=== PATIENT | female | born 2005 | race Caucasian/White ===

== ENCOUNTER → 2025-08-29 | Outpatient (CLI) | payer MEDICAID, SELFPAY ==
[2025-08-29 13:31] LABS: Hepatitis C Antibody Nonreactive (Nonreactive)
== END | disposition home or self-care (01) ==
PROVIDERS: PCP Pediatrics; Visit Provider Advanced Practice Midwife
DX: O09.90 Supervision of high risk pregnancy, unspecified, unspecified trimester (principal); Z3A.30 30 weeks gestation of pregnancy
CPT/HCPCS: 36415; 86803

== ENCOUNTER → 2025-10-10 | Outpatient (CLI) | payer MEDICAID, SELFPAY | END | disposition home or self-care (01) | LOC: LABSPEC 11:15 | PROVIDERS: PCP Pediatrics; Visit Provider Advanced Practice Midwife | DX: O09.93 Supervision of high risk pregnancy, unspecified, third trimester (principal); Z3A.36 36 weeks gestation of pregnancy | CPT/HCPCS: 87070; 87205; 87081 ==

== ENCOUNTER → 2025-10-22 | Outpatient (CLI) | payer OTHER, MEDICAID, SELFPAY ==
--- NOTE | 2025-10-22 12:56 | US_ITS ---
PROCEDURE: OB LIMITED WITH BIOMETRICS 10/22/2025 REASON FOR EXAM: LARGE FOR GESTATIONAL AGE TECHNIQUE: Procedure Code: [id number] Modality: US Procedure: OB LIMITED WITH BIOMETRICS COMPARISON: None FINDINGS Number: 1 Position: Vertex Placental Position: Anterior grade 1 Placental Abnormalities: No evidence of previa. DIMENSIONS: Biparietal Diameter: 9.3 cm/38 weeks 0 days Head Circumference: 33.1 cm/37 weeks 5 days Abdominal Circumference: 37.5 cm/41 weeks 3 days Femur Length: 7.5 cm/38 weeks 3 days ESTIMATED WEIGHT: 4036 g ESTIMATED WEIGHT PERCENTILE (24+ weeks): 93.9 ESTIMATED GESTATIONAL AGE: By Ultrasound: 38 weeks 5 days ESTIMATED DATE OF DELIVERY: By Ultrasound: 10/31/2025 BIOPHYSICAL ASSESSMENT: Amniotic Fluid Volume: 20.9, with largest pocket measuring 6.7 cm Cardiac Motion: 131 (average) Trunk and Limb Motion: Present. MATERNAL ANATOMY: Adnexa: Neither maternal ovary is successfully identified. Cervical Length (if measured): ANATOMY: Detailed anatomical survey of the fetus was not performed due to advanced age and position. Limited evaluation does not show a sonographic abnormality US/OB Limited With Biometrics IMPRESSION: Single live intrauterine at 38 weeks 5 days by current ultrasound wit h a IVETTE of 10/31/2025. Heart rate of 131 beats per minute. No suspicious sonographic findings. Reading Location: [id number]
--- OUTSIDE RECORDS SUMMARY | 2025-10-22 12:57 | XMS RPT_ITS | CCD ---
Author Organization [facility] Inform ion Partnership [facility] Care Team Providers Care Dye Tank Tender Name Role Phone Jacob Rodriguez MD Primary Care Provider JENNIFER BARRETT, DR JACOB Manuel Primary Care Physician Jacob Rodriguez MD Primary Care Provider Podlogar GRASS FARMER.Risa HERNDON Primary Care Provider Abhi Bailey MD Primary Care Provider JENNIFER BARRETT, DR JACOB Manuel Primary Care Unavailprateek PEREZ APRN-TRACEE, NGOZI Blair Attending Nitza RODRIGUEZ MD, DR JACOB Manuel Primary Care Unavailprateek KOCH APRN-TRACEE, IDRIS Blair Attending Viola RODRIGUEZ MD, DR JACOB Manuel Primary Care UnavailJah DILL, NGOZI Blair Attending Nitza RODRIGUEZ MD, DR JACOB Mnauel Primary Care Unavailprateek KOCH APRN-TRACEE, IDRIS Blair Attending Viola RODRIGUEZ MD, DR JACOB Manuel Primary Care Unavailabl martha KOCH APRN-TRACEE, IDRIS Blair Attending Viola RODRIGUEZ MD, DR JACOB Manuel Primary Care Unavailabl e PATITO SURESH DO Attending Shavon RODRIGUEZ MD, DR AJCOB Manuel Primary Care Unavailprateek KOCH APRN-TRACEE, IDRIS Blair Attending Viola RODRIGUEZ MD, DR JACOB Manuel Primary Care UnavailJah DILL, NGOZI Blair Attending VU Cox MD Admitting Unavailable VU WILKINSON MD Primary Care Unavailable VU WILKINSON MD Attending Unavailable JACOB RODRIGUEZ Referring Unavailable JACOB RODRIGUEZ Consulting Unavailable PROVIDER, UNKNOWN Consulting Unavailable TRUE BURNHAM CNM Admitting Unavailable TRUE BURNHAM CNM Primary Care Unavailable TRUE BURNHAM CNM Attending Unavailable JENNIFER, JACOB Consulting Unavailable PROVIDER, UNKNOWN Consulting Unavailable UPTAINMARCOSM Admitting Unavailable UPTAIN, CRYSTAL CNM Primary Care Unavailable UPTAIN, CRYSTAL CNM Attending Unavailable JENNIFER, JACOB Consulting Unavailable PROVIDER, UNKNOWN Consulting Unavailable JENNIFER, JACOB Referring Unavailable BANDAR BREONNA DO Admitting Unavailable KLUEKONSTANTIN, BREONNA DO Primary Care Unavailable KLGAYLA BREONNA DO Attending Unavailable JENNIFER, JACOB Consulting Unavailable PROVIDER, UNKNOWN Consulting Unavailable Unavailable Primary Care Provider UnavailALBINO Wayne Attending Unavailable Lynn BARRETT, Abhi Carr Primary Care Provider Podlogar GRASS FARMERRisa LAI Unavailable ABHI BAILEY Primary Care Unavailab ABHI Dixon Primary Care Unavailab RISA Vega Attending Unavailable ABHI BAILEY Primary Care Unavailab ABHI Dixon Primary Care Unavailab DENISE Hu Referring Unavailable ABHI BAILEY Primary Care Unavailab david RODRIGUEZ MD, DR JACOB Manuel Primary Care Unavailprateek KOCH APRN-TRACEE, IDRIS Blair Attending Viola DILL, IDRIS Blair Attending Viola RODRIGUEZ MD, DR JACOB Manuel Primary Care UnavailAida Cruz Attending Unavailable Jennifer, Jacob Primary Care Unavailable Jennifer, Jacob Attending Unavailable Jennifer, Jacob Primary Care Unavailable Jennifer, Jacob Attending Unavailable Jennifer, Jacob Primary Care Unavailable Jennifer, Jacob Attending Unavailable Jennifer, Jacob Primary Care Unavailable Aida Watkins Attending Unavailable Jennifer, Jacob Primary Care Unavailable Jennifer, Jacob Referring Unavailable Allergies Allergy Classification Reported Allergen(s) Allergy Type Date of Onset Reaction(s) Facility (14 sources) Methylphenidate; Translations: [METHYLPHENIDATE] Drug Allergy 11-10-2015 Rash [facility] Medications Current Medications Medication Drug Class(es) Dates Sig (Normalized) Sig (Original) amoxicillin 500 mg oral capsule (1 source) Penicillin-class Antibacterial Start: 08-16-2024 End: 08-23-2024 take 2 capsules by mouth twice daily amoxicillin (AMOXIL) 500 mg capsule Indications: Acute otitis media, left Take 2 capsules by mouth two times a day for 7 days. 28 capsule 08/16/2024 08/23/2024 Active amoxicillin 875 mg / clavulanate 125 mg oral tablet (2 sources) Penicillin-class Antibacterial Start: 08-08-2024 End: 08-15-2024 take 1 tablet by mouth twice daily amoxicillin-clavul anate potassium (AUGMENTIN) 875-125 mg per tablet Take 1 tablet by mouth two times a day for 7 days. 14 tablet 08/08/2024 08/15/2024 Active chlorhexidine gluconate 1.2 mg/ml mouthwash (1 source) Start: 01-21-2024 take 15 mL by mouth twice daily chlorhexidine (PERIDEX) 0.12 % solution Take 15 mLs by mouth two times a day. 473 mL 1 01/21/2024 Active Start: 01-21-2024 take 15 mL by mouth twice daily chlorhexidine (PERIDEX) 0.12 % solution Take 15 mLs by mouth two times a day. 473 mL 1 01/21/2024 Active Magnesium (9 sources) MAGNESIUM ORAL T carlos by mouth. Active MAGNESIUM ORAL T carlos by mouth. 0 Active Comment on above: Take by mouth. metFORMIN hydrochloride 500 mg oral tablet (3 sources) Biguanide Start: 11-11-19 MetFORMIN (Eqv-Glucophage XR) 500 mg oral tablet, EXTENDED RELEASE Dose : 500 mg = 1 tab(s), Oral, qDay, # 30 tab(s), 0 Refill(s) Start Date: 11/11/23 Status: Ordered Medication Dispense Status: Completed Quantity: 30.0 Unit: tab(s) Total Allowed Fills: 1 Fills Dispensed: 0 metoclopramide 10 mg oral tablet (1 source) Dopamine-2 Receptor Antagonist Start: 06-26-20 End: 07-03-20 Reglan 10 mg oral tablet Dose : 10 mg = 1 tab(s), Oral, TID, X 7 day(s), # 21 tab(s), 0 Refill(s), 07/03/23 6:24:00 PM EDT Start Date: 06/26/23 Stop Date: 07/03/23 Status: Ordered metroNIDAZOLE 500 mg oral tablet (3 sources) Nitroimidazole Antimicrobial Start: 03-30-20 End: 04-06-20 take 1 tablet by mouth twice daily metroNIDAZOLE (FLAGYL) 500 mg tablet Indications: Vaginal discharge Take 1 tablet by mouth twice daily for 7 days. 14 tablet 0 03/30/2023 04/06/2023 Active Start: 03-09-2023 End: 03-16-2023 take 1 tablet by mouth twice daily metroNIDAZOLE (FLAGYL) 500 mg tablet Take 1 tablet by mouth twice daily for 7 days. 14 tablet 0 03/09/2023 03/16/2023 Active Comment on above: Take 1 tablet by helen twice daily for 7 days. nitrofurantoin, macrocrystals 25 mg / nitrofurantoin, monohydrate 75 mg oral capsule (2 sources) Nitrofuran Antibacterial Start: 03-30-20 End: 04-04-20 take 1 capsule by mouth twice daily nitrofurantoin monohydrate and macrocrystal (MACROBID) 100 mg capsule Indications: Dysuria Take 1 capsule by mouth twice daily for 5 days. 10 capsule 0 03/30/2023 04/04/2023 Active Comment on above: Take 1 capsule by mo [facility] twice daily for 5 days. ondansetron 4 mg oral tablet (1 source) Serotonin-3 Receptor Antagonist Start: 04-12-20 End: 04-15-20 Zofran 4 mg oral tablet Dose : 4 mg = 1 tab(s), Oral, q8h, PRN Nausea/Vomiting, X 3 day(s), # 8 tab(s), 0 Refill(s), 04/15/22 2:39:00 EDT, Abdominal pain Vomiting Start Date: 04/12/22 Stop Date: 04/15/22 Status: Ordered penicillin v potassium 500 mg oral tablet (2 sources) Start: 01-21-20 End: 01-28-20 take 1 tablet by mouth four times daily penicillin v potassium (VEETID) 500 MG tablet Indications: Dental infection Take 1 tablet by mouth 4 times daily for 7 days. 28 tablet 0 01/21/2024 01/28/2024 Active Start: 01-21-2024 End: 01-21-2024 penicillin v potassium (VEET ID) tablet 500 mg PNV no.153/FA/om3/dha/epa/fi sh ( GUMMIES ORAL) (9 sources) PNV no.153/FA/om 3/dha/epa/fish ( GUMMIES ORAL) Take by mouth. Active PNV no.153/FA/om 3/dha/epa/fish ( GUMMIES ORAL) Take by mouth. 0 Active Comment on above: Take by mouth. AD oral tablet (3 sources) Start: 11-11-2023 take 1 tablet by mouth once daily AD oral tablet Dose = 1 tab(s), Oral, Daily, # 30 tab(s), 0 Refill(s) Start Date: 11/11/23 Status: Ordered Medication Dispense Status: Completed Quantity: 30.0 Unit: tab(s) Total Allowed Fills: 1 Fills Dispensed: 0 Start: 11-11-2023 take 1 tablet by helen th once daily AD oral tablet Dose = 1 tab(s), Oral, Daily, # 30 tab(s), 0 Refill(s) Start Date: 11/11/23 Status: Ordered sertraline 50 mg oral tablet (11 sources) Serotonin Reuptake Inhibitor Start: 08-16-2023 Zoloft 50 mg oral tablet Dose : 50 mg = 1 tab(s), Oral, Daily, 0 Refill(s) Start Date: 11/11/23 Status: Ordered Medication Dispense Status: Completed Total Allowed Fills: 1 Fills Dispensed: 0 Comment on above: Take 1 tablet by helen th once daily. Completed/Discontinued Medications Medication Drug Class(es) Dates Sig (Normalized) Sig (Original) adapalene 0.003 mg/mg / benzoyl peroxide 0.025 mg/mg topical gel (12 sources) Retinoid Start: 12-03-2020 End: 08-16-2023 EPIDUO FORTE 0.3-2.5 % benzonatate 100 mg oral capsule (1 source) Non-narcotic Antitussive Start: 07-23-2021 End: 01-20-2022 take 2 capsules by mouth three times daily as needed benzonatate (TESSALON PERLE) 100 mg capsule Indications: URI with cough and congestion Take 2 capsules by mouth three times daily as needed. 30 capsule 0 07/23/2021 01/20/2022 Discontinued Comment on above: Take 2 capsules by m out three times daily as needed. dicyclomine hydrochloride 10 mg oral capsule (8 sources) Anticholinergic Start: 04-12-2022 End: 04-17-2022 dicyclomine 10 mg oral capsule Dose : 10 mg = 1 cap(s), Oral, QID, # 20 cap(s), 0 Refill(s), Abdominal pain Vomiting Start Date: 04/12/22 Stop Date: 04/17/22 Status: Ordered escitalopram 20 mg oral tablet (10 sources) Serotonin Reuptake Inhibitor Start: 04-14-2022 End: 08-16-2023 take 1 tablet by mouth once daily escitalopram oxalate (LEXAPRO) 20 mg tablet Take 1 tablet by mouth once daily. 30 tablet 0 04/14/2022 08/16/2023 Discontinued (Course of therapy completed) Start: 03-12-2022 End: 04-14-2022 take 1 tablet by mouth once daily escitalopram oxalate (LEXAPRO) 10 mg tablet Take 1 tablet by mouth once daily. 30 tablet 0 03/12/2022 04/14/2022 Discontinued Comment on above: Take 1 tablet by helen once daily. Ethinyl Estradiol / norgestimate (12 sources) Progestin, Estrogen Start: 10-31-2019 End: 08-16-2023 MONO-LINYAH 0.25-35 mg-mcg per tablet Start: 10-31-2019 MONO-LINYAH 0. 25-35 mg-mcg per tablet FLUoxetine 10 mg oral capsule (18 sources) Serotonin Reuptake Inhibitor Start: 03-12-2022 End: 08-16-2023 take 3 capsules by mouth once daily, then take 2 capsules by mouth once daily, then take 1 capsule by mouth once daily FLUoxetine (PROZAC) 10 mg capsule Take 3 capsules by mouth once daily for 7 days, THEN 2 capsules once daily for 7 days, THEN 1 capsule once daily for 7 days. 42 capsule 0 03/12/2022 08/16/2023 Discontinued (Course of therapy completed) Start: 01-20-2022 End: 03-16-2022 take 1 capsule by mouth once daily FLUoxetine (PROZAC) 40 mg capsule Take 1 capsule by mouth once daily. 30 capsule 2 02/14/2022 03/12/2022 Discontinued Start: 01-13-2022 End: 03-12-2022 take 1 capsule by mouth once daily FLUoxetine (PROZAC) 10 mg capsule Take 1 capsule by mouth once daily. 30 capsule 0 01/13/2022 03/12/2022 Discontinued Start: 01-13-2022 End: 01-20-2022 take 1 capsule by mouth once daily FLUoxetine (PROZAC) 20 mg capsule Take 1 capsule by mouth once daily. 30 capsule 0 01/13/2022 01/20/2022 Discontinued Comment on above: Take 1 capsule by mo uth once daily. Take 3 capsules by m outh once daily for 7 days, THEN 2 capsules once daily for 7 days, THEN 1 capsule once daily for 7 days. spironolactone 100 mg oral tablet (12 sources) Aldosterone Antagonist Start: 01-21-20 End: 08-16-20 23 take 1 tablet by mouth once daily spironolactone (ALDACTONE) 100 mg tablet Take 1 tablet by mouth once daily. 0 01/20/2022 08/16/2023 Discontinued (Course of therapy completed) Comment on above: Take 1 tablet by helen once daily. Problems Active Problems Problem Classification Problem Date Documented Date Episodic/Chronic Abdominal pain (1 source) Abdominal pain; Translations: [Unspecified abdominal pain] Onset: 04-12-2022 Episodic Administrative/social admission (1 source) Patient encounter status; Translations: [Persons encountering health services in other specified circumstances] 08-16-2023 Episodic Anxiety disorders (20 sources) Generalized anxiety disorder; Translations: [Generalized anxiety disorder] Onset: 01-20-2022 Chronic Diabetes or abnormal glucose tolerance complicating ; childbirth; or the puerperium (1 source) Personal history of gestational diabetes; Translations: [Personal history of gestational diabetes] Onset: 08-29-2025 Episodic Disorders of teeth and jaw (2 sources) Infection of tooth; Translations: [Periapical abscess without sinus] Onset: 01-21-2024 01-21-2024 Episodic Genitourinary symptoms and ill-defined conditions (2 sources) Increased frequency of urination; Translations: [Frequency of micturition] Episodic Headache; including migraine (1 source) Headache; Translations: [Nonintractable episodic headache, unspecified headache type] 07-27-2023 Episodic Mood disorders (20 sources) Depressive disorder; Translations: [Depressive disorder] Onset: 01-20-2022 Chronic Mood disorders (2 sources) Mood disorders; Translations: [Anxiety and depression] Onset: 07-16-2024 Nausea and vomiting (1 source) Vomiting; Translations: [Vomiting, unspecified] Onset: 04-12-2022 Episodic Other complications of (2 sources) Supervision of high risk , unspecified, unspecified trimester; Translations: [Supervision of high risk , unspecified, unspecified trimester] Onset: 08-29-2025 Episodic Other complications of (1 source) Other specified related conditions, unspecified trimester; Translations: [Other specified related conditions, unspecified trimester] Onset: 08-29-2025 Episodic Other complications of (1 source) Supervision of with other poor reproductive or obstetric history, unspecified trimester; Translations: [Supervision of with other poor reproductive or obstetric history, unspecified trimester] Onset: 08-29-2025 Episodic Other female genital disorders (2 sources) Vaginal discharge; Translations: [Other specified noninflammatory disorders of vagina] Episodic Other infections; including parasitic (1 source) Personal history of other infectious and parasitic diseases; Translations: [Personal history of other infectious and parasitic diseases] Onset: 08-29-2025 Episodic Other lower respiratory disease (2 sources) Cough; Translations: [Acute cough] 08-08-2024 Episodic Other upper respiratory infections (2 sources) Acute upper respiratory infection; Translations: [Acute upper respiratory infection, unspecified] 08-08-2024 Episodic Otitis media and related conditions (2 sources) Acute right otitis media; Translations: [Otitis media, unspecified, right ear] 08-08-2024 Episodic Residual codes; unclassified (2 sources) 30 weeks gestation of ; Translations: [30 weeks gestation of ] Onset: 08-29-2025 Episodic Residual codes; unclassified (1 source) Personal history of other specified conditions; Translations: [Personal history of other specified conditions] Onset: 08-29-2025 Episodic Residual codes; unclassified (1 source) Unspecified blood type, Rh negative; Translations: [Unspecified blood type, Rh negative] Onset: 08-29-2025 Episodic Unclassified (1 source) Acute cough; Translations: [Acute cough] Onset: 08-08-2024 Past or Other Problems Problem Classification Problem Date Documented Date Episodic/Chronic Disorders usually diagnosed in infancy, childhood, or adolescence (6 sources) Attention deficit hyperactivity disorder, predominantly inattentive type; Translations: [Other specified behavioral and emotional disorders with onset usually occurring in childhood and adolescence] Onset: 04-19-2011 Resolved: 01-20-2022 01-20-2022 Chronic Other and delivery including normal (10 sources) ; Translations: [Encounter for supervision of normal , unspecified, unspecified trimester] Onset: 02-08-2023 06-26-2023 Episodic Comment on above: System added from do cumentation. Status documented as Yes on Admission Other screening for suspected conditions (not mental disorders or infectious disease) (1 source) Encounter for screening for uncertain dates; Translations: [Encounter for screening for uncertain dates] Onset: 03-21-2025 Episodic Residual codes; unclassified (1 source) 9 weeks gestation of ; Translations: [9 weeks gestation of ] Onset: 03-21-2025 Episodic Results Test Name Value Interpretation Reference Range Facility Hepatitis C Antibodyon 08-29 Hepatitis C Ab Non-Reactive Normal Nonreactive [facility] Comment on above: Result Comment: Reac tive: Presumptive evidence of antibodies to HCV. Follow CDC recommendations for supplemental testing. Non-Reactive: Antibodies to HCV were not detected; does not exclude the possibility of exposure to HCV Reactive Results are presumptive evidence of antibodies to HCV. Follow CDC recommendations for supplemental testing. Order confirmation testing: HCV Quant by PCR testing - HCVPCR #[id number] Non Reactive: < 0.8 Equivocal: >/= 0.8 to < 1.0 Reactive: >/= 1.0 The CDC requires that a reactive/equivocal HCV antibody result be sent out for confirmation. HCV Quant by PCR testing. Performed By: #### L [id number] #### [facility] [address] [place], [address] After School Counselor Office Visit Reporton 08-29-2025 After School Counselor Office Visit Report [facility] [address], [address] [place] [address] OFFICE VISIT Date of Service: 08/29/25 MR#: [id number] Acct: [id number] Name: SHERIF LICONA Rep #: [id number] : 2005 Provider: TRACEE Sheth ams Age/Sex: 19/F Location: [facility] [place] Status: Signed Intake Vital Signs 08/29/25 08:39 Height 5 ft 2 in Weight: 172 lb 9 oz BMI 31.5 BP 113/75 Intake Visit Reasons: *NEW* NOB TERRANCE 31wk Chief Complaint: New OB Sanitation Worker Required: No Is patient in pain?: No Allergies No Known Allergies Allergy (Unverified 08/29/25 08:36) Medications ???Medication ???Instructions ???Recorded ???Confirmed ???Type PNV 153-FA 400 mcg-om3 35 mg-dha tab PO 08/14/25 08/29/25 History 25 mg-epa 5 mg-fish oil chew tablet citalopram 10 mg tablet 10 mg PO QDAY 08/14/25 08/29/25 Hi story Last Menstrual Period: 01/25/25 : Yes Have you fallen in the past year?: No PFSH PFSH Surgical History [place] teeth extracted History of tonsillectomy Family History Grandmother Diabetes Paternal Cancer, Onset Age: 65 Paternal Lung brain cancer- Smoker Grandfather Myocardial infarction Paternal Social History adopted: No household members: children number of children: 1 service: No current occupational status: employed current occupation: [employer] current occupational exposures/hazards: No pets and animals: Yes (Avoid litterbox- Pt wears gloves, mask and washes hands after. ) pets and animals: cat(s) history of recent travel: No sexually active: Yes Smoking Status: Former smoker quit date: 01/28/25 Electronic Cigarette Use: with nicotine quit status: quit date established alcohol intake: never substance use type: does not use well-balanced diet: about half the time caffeine: Yes (occasional) Type: carbonated beverages Number of servings: 1 and coffee Number of servings: 1 eating out: rarely or never during the past year weight has: decreased > 10 lbs what type of physical activity do you participate in: none neeta/confucianism: Tenriism seatbelt use: always do you feel safe at home: Yes additional social history: Does not wish to list FOB History 2 Elective abortions Hx Para 1 Spontaneous abortions Hx # Term Pregnancies Ectopic pregnancies Hx # Pregnancies Multiple births # of living children 1 Past Pregnancies Del. Date Name GA/Weeks Outcome Route Bth Weight Infant Gen Labor Lgth Anesthesia Del Locatn Provider FOB 11/16/23 Yoni 38 live - full term 7#10oz Male none Nickerelillian Bowen Delivery Date: 11/16/23 Last Updated by: Debbie Keenan GDM HPI *NEW* NOB TERRANCE 31wk Details: SHERIF LICONA is a 19 year old who presents for New OB visit. OB Visit IVETTE Calculator Estimated Delivery Date Method Current WG Current Estimate 11/01/25 LMP (Certain) 30w 6d Comments: HIV: Urine Culture: Sequential Screen: NIPT Screen: Estimated Due Date: 11/01/25 Expected Delivery Route/Plan Labor Preferences- CB/BF classes: [] labor support person: [] labor intervention preferences: [] pain management options preferred: [] cut cord/dad catch: [] : [] PP control planned: [] discussed possible routes of delivery and associated risks: [] special requests: [] Specific Issue/Plans Covid status: [] Flu vaccine: [] Tdap vaccine: [] Rhogam: [] LARC form signed: [] Problem list reviewed and updated with the most current plan of care details and appropriate orders placed. Relevant counseling for the gestational age provided. Continue routine care and follow up unless otherwise noted in visit notes/problem list details Initial Weight: 172 lb Date -???-???-???-???-??? -???-???-???-???-??? -???-???- EGA Weight BP Urine Prot -???-???-???-???-??? -???-???-???-???-??? -???-???- Glucose FHR FuHt Pres Dilation -???-???-???-???-??? -???-???-???-???-??? -???-???- Effaced St Visit Note 08/29/25 -???-???-???-???-??? -???-???-???-???-??? -???-???- 30w 6d 172 lb 9 oz (+9 oz) 113/75 Negative -???-???-???-???-??? -???-???-???-???-??? -???-???- Negative 135 30 -???-???-???-???-??? -???-???-???-???-??? -???-???- KW- TERRANCE from My OBGYN. appears hep C was not drawn with NOB labs.-ordered. rest reviewed and normal. Normal glucose. declines tdap and flu. LARC today. Menstrual History Last Menstrual Period: 01/25/25 Reported LMP: definite Normal amount/duration: Yes Frequency in days: 28-30 On hormonal BC at conception: No hCG+: 02/20/25 Antepartum Record Genetic Screening: Congenital Heart Def (more content not included)... [facility] SHERIF LICONA ([id number]) 3 F Date Time Provider Department 12/01/24 8:15 AM RAVI NAZARIO [facility] During your visit today, we recorded the following information about you: Temperature Pulse Respiration Blood pressure 97.6 degrees 119/minute 19/minute 100/68 Weight 65.2 kg Ravi Nazario, PA 12/01/2024 8:15 AM Signed Rest, increase water intake Motrin or Tylenol as needed for fever or pain. Salt water gargles, chloraseptic spray or lozenges as needed for sore throat. Warm beverages, honey. Nasal saline spray as needed Cool mist humidifier at night A cold normally lasts 7-10 days. If your symptoms are lasting longer, develop fever, or worsening by that time instead of improving then return to clinic or follow up with PCP for re-evaluation. Tylenol (generic acetaminophen) 500 mg-2 tabs every 8 hrs. as needed for fever and aches Ibuprofen 600 mg (3-200mg tablets) every 6 hours -Mucinex (generic is fine) Guaifenesin 1200 mg twice daily to help with cough and to thin out mucus Ravi Nazario PA 12/01/2024 8:17 AM Signed This note was created using [employer]. Subjective Sherif Licona is a 19 year old female. HPI 19-year-old female presents for cough, congestion, sneezing x 2 days. Patient states she started getting sick a few days ago. She has cough, nasal congestion. No fevers. No chest pain or shortness of breath. She took Tylenol Cold and flu this morning. She states she has been around sick contacts. No other complaint. PAST MEDICAL HISTORY Diagnosis Date ADD (attention deficit disorder with hyperactivity) ADD (attention deficit disorder) 04/19/2011 Anxiety and depression Headaches PAST SURGICAL HISTORY Procedure Laterality Date TONSILLECTOMY AND ADENOIDECTOMY ALLERGIES Patient has no known allergies. MEDICATIONS sertraline (ZOLOFT) 50 mg tablet Take 1 tablet by mouth once daily. PNV no.153/FA/om3/dha/ep a/fish ( GUMMIES ORAL) Take by mouth. (Patient not taking: Reported on 08/08/2024) MAGNESIUM ORAL Take by mouth. (Patient not taking: Reported on 08/08/2024) FAMILY HISTORY Problem Relation Age of Onset None Mother None Father other (ETOH) Maternal Grandmother other (ETOH) Maternal Grandfather Diabetes Paternal Grandmother Lung Cancer Paternal Grandmother Depression Paternal Grandmother Diabetes Paternal Grandfather Ischemic Heart Disease Paternal Grandfather Social History Tobacco Use Smoking status: Never Passive exposure: Yes Smokeless tobacco: Never Tobacco comments: outdoors Vaping Use Vaping status: Former Substance Use Topics Alcohol use: Not Currently Drug use: Not Currently Review of Systems Constitutional: Negative for chills and fever. HENT: Positive for congestion and sneezing. Negative for ear pain and sore throat. Respiratory: Positive for cough. Negative for shortness of breath. Cardiovascular: Negative for chest pain. Gastrointestinal: Negative for diarrhea and vomiting. Objective BP 100/68 Pulse 119 Temp 36.4 ?C (97.6 ?F) Resp 19 Wt 65.2 kg (143 lb 11.8 oz) LMP 08/02/2024 SpO2 98% Physical Exam Vitals and nursing note reviewed. Constitutional: General: She is not in acute distress. Appearance: Normal appearance. She is not toxic-appearing. HENT: Right Ear: Tympanic membrane and ear canal normal. Left Ear: Tympanic membrane and ear canal normal. Nose: Nose normal. Mouth/Throat: Mouth: Mucous membranes are moist. Pharynx: Oropharynx is clear. Eyes: Conjunctiva/sclera: Conjunctivae normal. Cardiovascular: Rate and Rhythm: Normal rate and regular rhythm. Pulmonary: Effort: Pulmonary effort is normal. Breath sounds: Normal breath sounds. No wheezing, rhonchi or rales. Skin: General: Skin is warm and dry. Neurological: Mental Status: She is alert. Assessment and Plan ASSESSMENT/PLAN: 1. URI, acute - ICD9: 465.9, ICD10: J06.9 - Discussed viral etiology and rationale for treatment. - Symptomatic treatment with prn analgesia - Supportive care with fluids and rest - The patient may also use OTC cough and cold meds as needed. -Declines COVID/flu/RSV swab Diagnosis and treatment plan were discussed and questions were answered to the patient's satisfaction. Pt acknowledged understanding of concepts and follow up plan. Specific signs and symptoms that would indicate the need for higher level of care were discussed in detail warranting prompt ER evaluation. NISA Mendez Allergies As of Date: 12/01/2024 (No Known Allergies) Date Reviewed: 12/01/2024 Reviewed by: Valdemar Neri MA - Fully Assessed Reason for Visit: Cough [28] Cmt: Congestion, coughing up mucus, runny nose x 2 days Primary Visit Diagnosis:URI, acute [J06.9] Prescriptions as of 12/01/2024 - sertraline (ZOLOFT) 50 mg tablet Take 1 tablet by mouth o (more content not included)... Normal [facility] CNOVon 08-16-2024 CNOV Office Visit (UCWSTR) SHERIF LICONA ([id number]) 3 F Date Time Provider Department 08/16/24 6:45 PM CARLOS ALBERTO DONOVAN [facility] During your visit today, we recorded the following information about you: Temperature Pulse Respiration Blood pressure 98.8 degrees 95/minute 16/minute 122/78 Weight 70 kg Carlos Alberto Donovan MD 08/16/2024 7:04 PM Signed Patient presents with: Ear Pain: LEFT ear feels muffled x 1 day HPI: Feeling left ear pain since last night. Treated for URI and right otitis media 08/08/24 and symptoms resolved. Positive symptoms: Earache, muffled hearing, Negative symptoms: Cough, Sore throat, Nasal Congestion, Rhinorrhea, Fever, Chills, OTC: none. Only took 2 days of Augmentin because it was too hard to swallow MEDICATIONS: Current Outpatient Medications Medication Sig sertraline (ZOLOFT) 50 mg tablet Take 1 tablet by mouth once daily. PNV no.153/FA/om3/dha/ep a/fish ( GUMMIES ORAL) Take by mouth. (Patient not taking: Reported on 08/08/2024) MAGNESIUM ORAL Take by mouth. (Patient not taking: Reported on 08/08/2024) No current facility-administere d medications for this visit. ALLERGIES: ALLERGIES No Known Allergies VITALS: BP 122/78 Pulse 95 Temp 37.1 ?C (98.8 ?F) (Right Tympanic) Resp 16 Wt 70 kg (154 lb 5.2 oz) LMP 08/02/2024 SpO2 98% Yes PHYSICAL EXAM: GEN: Pleasant, in no acute distress. Breast feeding. HEENT: PERRL, EOMI, conjunctiva clear Ears: canals clear. RTM without erythema, bulge, or effusion. LTM with erythema and effusion, no bulge. Sinuses: non-tender frontal sinus, non-tender maxillary sinuses Throat: moist mucous membranes, no erythema, no exudate Neck: supple, no thyromegaly, no lymphadenopathy HEART: regular rate and rhythm, no murmurs LUNGS: clear to auscultation, no wheezes or crackles, no increased WOB ASSESSMENT/PLAN: 1. Acute otitis media, left - ICD9: 382.9, ICD10: H66.92 - AMOXICILLIN 500 MG CAPSULE (able to swallow smaller capsules). - Discussed supportive care treatment with as needed analgesia. Carlos Alberto oDnovan MD Allergies As of Date: 08/16/2024 (No Known Allergies) Date Reviewed: 08/16/2024 Reviewed by: Frieda Liu MA - Fully Assessed Reason for Visit: Ear Pain [817] Cmt: LEFT ear feels muffled x 1 day Primary Visit Diagnosis:Acute otitis media, left [H66.92] Order(s):amoxicillin (AMOXIL) 500 mg capsuleTake 2 capsules by mouth two times a day for 7 days.Disp: 28 capsuleRfl: 0 Prescriptions as of 08/16/2024 - amoxicillin (AMOXIL) 500 mg capsule Take 2 capsules by mouth two times a day for 7 days. - sertraline (ZOLOFT) 50 mg tablet Take 1 tablet by mouth once daily. - PNV no.153/FA/om3/dha/ep a/fish ( GUMMIES ORAL) Take by mouth. - MAGNESIUM ORAL Take by mouth. Problem List As Of Date 08/16/2024 Noted Resolved ADD (attention deficit disorder) [F98.8] 04/19/2011 01/20/2022 Depressive disorder [F32.A] 01/20/2022 AMEYA (generalized anxiety disorder) [F41.1] 01/20/2022 Prescriptions ordered this encounter Disp Refills Start End AMOXICILLIN 500 MG CAPSULE 28 c* 0 08/16/2024 08/23/2024 Route: ORAL Sig: Take 2 capsules by mouth two times a day for 7 days. Level of Service: OFFICE/OUTPATIENT ESTABLISHED MOD [facility] 30 MIN [34066] Encounter Status:Closed by CARLOS ALBERTO DONOVAN on 08/16/24 [facility] CNOVon 08-08-2024 CNOV Office Visit (UCWSTR) SHERIF LICONA ([id number]) 3 F Date Time Provider Department 08/08/24 10:00 AM DENISE HOGAN UCWSTR During your visit today, we recorded the following information about you: Temperature Pulse Respiration Blood pressure 97.6 degrees 107/minute 20/minute 116/87 Weight Last Period 68 kg 08/02/24 Denise Hogan APRN.ANALYSIS CONSULTANT 08/08/2024 11:59 AM Signed This note was created using [employer]. Subjective Sherif Licona is a 18 year old female. Relevant PMH and allergies reviewed: Pt is a 18 year old female who presents today with cough, sore throat, SOB, congestion and headache x6 days. Pt states that her symptoms have been worsening over the past 6 days. She has been taking advil cold and sinus which has been helping, but has not totally taken her symptoms away. Pt states that she has also been having right ear pain and itchiness. She has also noticed copious amounts of eye drainage in the morning. Pt states she has been getting SOB with her coughing lately and it is causing her to become light headed. 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 She denies any history of seasonal allergies, asthma and pneumonia. Pt does have a history of vaping. Pt denies nausea, vomiting, chest pain, diarrhea, fever, chills and rash. The history is provided by the patient. No english language learner teacher was used. URI She complains of cough and shortness of breath. There is no chest tightness, difficulty breathing or wheezing. This is a new problem. The current episode started in the past 7 days. The problem occurs constantly. The problem has been gradually worsening. The cough is productive of sputum and productive. Associated symptoms include ear pain, headaches, malaise/fatigue, nasal congestion, postnasal drip and a sore throat. Pertinent negatives include no appetite change, chest pain, fever, rhinorrhea, sneezing or trouble swallowing. Her symptoms are aggravated by nothing. Relieved by: advil cold and sinus. She reports minimal improvement on treatment. There are no known risk factors for lung disease. There is no history of asthma, COPD or pneumonia. PAST MEDICAL HISTORY Diagnosis Date ADD (attention deficit disorder with hyperactivity) ADD (attention deficit disorder) 04/19/2011 Anxiety and depression Headaches PAST SURGICAL HISTORY Procedure Laterality Date TONSILLECTOMY AND ADENOIDECTOMY ALLERGIES Patient has no known allergies. MEDICATIONS sertraline (ZOLOFT) 50 mg tablet Take 1 tablet by mouth once daily. PNV no.153/FA/om3/dha/ep a/fish ( GUMMIES ORAL) Take by mouth. (Patient not taking: Reported on 08/08/2024) MAGNESIUM ORAL Take by mouth. (Patient not taking: Reported on 08/08/2024) FAMILY HISTORY Problem Relation Age of Onset None Mother None Father other (ETOH) Maternal Grandmother other (ETOH) Maternal Grandfather Diabetes Paternal Grandmother Lung Cancer Paternal Grandmother Depression Paternal Grandmother Diabetes Paternal Grandfather Ischemic Heart Disease Paternal Grandfather Social History Tobacco Use Smoking status: Never Passive exposure: Yes Smokeless tobacco: Never Tobacco comments: outdoors Vaping Use Vaping status: Former Substance Use Topics Alcohol use: Not Currently Drug use: Not Currently Review of Systems Constitutional: Positive for fatigue and malaise/fatigue. Negative for activity change, appetite change, chills and fever. HENT: Positive for congestion, ear pain, postnasal drip and sore throat. Negative for ear discharge, rhinorrhea, sinus pressure, sinus pain, sneezing and trouble swallowing. Eyes: Positive for discharge. Negative for pain, redness and itching. Respiratory: Positive for cough and shortness of breath. Negative for wheezing. Cardiovascular: Negative for chest pain and palpitations. Gastrointestinal: Negative for diarrhea, nausea and vomiting. Musculoskeletal: Negative for neck pain and neck stiffness. Skin: Negative for rash. Allergic/Immunologic : Negative for environmental allergies and food allergies. Neurological: Positive for light-headedness and headaches. Objective BP 116/87 Pulse 107 Temp 36.4 ?C (97.6 ?F) Resp 20 Wt 68 kg (149 lb 14.6 oz) LMP 08/02/2024 SpO2 97% Yes Physical Exam Vitals and nursing note reviewed. Constitutional: General: She is not in acute distress. Appearance: Normal appearance. She is not ill-appearing. HENT: Head: Normocephalic and atraumatic. Right Ear: Hearing and external ear normal. No decreased hearing noted. No drainage or tenderness. There is no impacted cerumen. No mastoid tenderness. Tympanic membrane is erythematous. Tympanic membrane is not bulging. Left Ear: Hearing, tympanic membrane and external ear normal. No decreased hearing noted. No drainage or tenderness. There is no impacted cerumen. No (more content not included)... Normal [facility] 08-08-2024 [facility] Telephone ([facility]) SHERIF LICONA ([id number]) 3 F Date Time Provider Department 08/08/24 RAVI NAZARIO [facility] During your visit today, we recorded the following information about you: Ravi Nazario PA 08/08/2024 7:28 PM Signed Negative COVID flu RSV Black Brock MA 08/09/2024 7:26 AM Signed Patient has viewed results on [employer]. Black Brock MA Allergies As of Date: 08/08/2024 (No Known Allergies) Date Reviewed: 08/08/2024 Reviewed by: Robina Herring LPN - Fully Assessed Reason for Visit: Results [95] Prescriptions as of 08/09/2024 - amoxicillin-clavulan ate potassium (AUGMENTIN) 875-125 mg per tablet Take 1 tablet by mouth two times a day for 7 days. - sertraline (ZOLOFT) 50 mg tablet Take 1 tablet by mouth once daily. - PNV no.153/FA/om3/dha/ep a/fish ( GUMMIES ORAL) Take by mouth. - MAGNESIUM ORAL Take by mouth. Problem List As Of Date 08/08/2024 Noted Resolved ADD (attention deficit disorder) [F98.8] 04/19/2011 01/20/2022 Depressive disorder [F32.A] 01/20/2022 AMEYA (generalized anxiety disorder) [F41.1] 01/20/2022 Encounter Status:Closed by BLACK BROCK on 08/09/24 Normal [facility] COVID AND INFLUENZA A/B AND RSV PCR, ROUTINEon 08-08-2024 SARS-CoV-2 (COVID-19) RNA MARCO ANTONIO+probe Ql (Unsp spec) SARS-COV-2 (AGENT OF COVID-19) RNA: Not detected INFLUENZA A RNA: Not detected INFLUENZA B RNA: Not detected RESPIRATORY SYNCYTIAL VIRUS (RSV) RNA: Not detected Normal [facility] Comment on above: Performed By: #### C VFLRS #### [facility] CLIA [id number] [address] [place] [address] [place] STREP A MOLECULAR (POC)on Procedural Control Valid [facility] Strep A (POCT) Negative Negative [facility] XR CHEST 2V FRONTAL/LATon XR CHEST 2V FRONTAL/LAT * * *Final Report* * * DATE OF EXAM: Aug 08 2024 10:32AM WOX [id number] - XR CHEST 2V FRONTAL/LAT / PROCEDURE REASON: Acute cough * * * * Physician Interpretation * * * * EXAMINATION: CHEST RADIOGRAPH (2 VIEW FRONTAL and LATERAL) PATIENT/TECHNOLOGIST PROVIDED HISTORY: cough, congestion and sore throat for 6 days CLINICAL HISTORY: 18 years old Female with Acute cough MQ: XC2_6 EXAM DATE/TIME: 08/08/2024 10:32 AM COMPARISON: No relevant prior studies available. RESULT: Lines, tubes, and devices: None. Lungs and pleura: No consolidation. No pleural effusion. No pneumothorax. Cardiomediastinal silhouette: Normal cardiomediastinal silhouette. Bones and soft tissues: Unremarkable. IMPRESSION: No acute radiographic abnormality. Dynamics Ax Consultant: ROBIN Transcribe Date/Time: Aug 08 2024 10:36A Dictated by : FELICE SUMMERS DO This examination was interpreted and the report reviewed and electronically signed by: FELICE SUMMERS DO on Aug 08 2024 10:37AM EST [id number] Normal [facility] XR Chest PA and Lateralon IMPRESSION: No acute radiographic abnormality. Dynamics Ax Consultant: ROBIN Transcribe Date/Time: Aug 08 2024 10:36A Dictated by : FELICE SUMMERS DO This examination was interpreted and the report reviewed and electronically signed by: FELICE SUMMERS DO on Aug 08 2024 10:37AM [facility] DIVISION OF RADIOLOGY * * *Final Report* * * DATE OF EXAM: Aug 08 2024 10:32AM WOX [id number] - XR CHEST 2V FRONTAL/LAT / PROCEDURE REASON: Acute cough * * * * Physician Interpretation * * * * EXAMINATION: CHEST RADIOGRAPH (2 VIEW FRONTAL & LATERAL) PATIENT/TECHNOLOGIST PROVIDED HISTORY: cough, congestion and sore throat for 6 days CLINICAL HISTORY: 18 years old Female with Acute cough MQ: XC2_6 EXAM DATE/TIME: 08/08/2024 10:32 AM COMPARISON: No relevant prior studies available. RESULT: Lines, tubes, and devices: None. Lungs and pleura: No consolidation. No pleural effusion. No pneumothorax. Cardiomediastinal silhouette: Normal cardiomediastinal silhouette. Bones and soft tissues: Unremarkable. DIVISION OF RADIOLOGY Provider, [facility] - 08/08/2024 * * *Final Report* * * DATE OF EXAM: Aug 08 2024 10:32AM WOX [id number] - XR CHEST 2V FRONTAL/LAT / PROCEDURE REASON: Acute cough * * * * Physician Interpretation * * * * EXAMINATION: CHEST RADIOGRAPH (2 VIEW FRONTAL & LATERAL) PATIENT/TECHNOLOGIST PROVIDED HISTORY: cough, congestion and sore throat for 6 days CLINICAL HISTORY: 18 years old Female with Acute cough MQ: XC2_6 EXAM DATE/TIME: 08/08/2024 10:32 AM COMPARISON: No relevant prior studies available. RESULT: Lines, tubes, and devices: None. Lungs and pleura: No consolidation. No pleural effusion. No pneumothorax. Cardiomediastinal silhouette: Normal cardiomediastinal silhouette. Bones and soft tissues: Unremarkable. IMPRESSION IMPRESSION: No acute radiographic abnormality. Dynamics Ax Consultant: ROBIN Transcribe Date/Time: Aug 08 2024 10:36A Dictated by : FELICE SUMMERS DO This examination was interpreted and the report reviewed and electronically signed by: FELICE SUMMERS DO on Aug 08 2024 10:37AM EST [facility] Radiology Study observation (narrative) [facility] XR Chest PA and LateralOrder ed By: [facility] Provider on 08-08-2024 [facility] CNOVon 07-16-2024 CNOV Office Visit (FAMPWS) SHERIF LICONA ([id number]) 3 F Date Time Provider Department 07/16/24 10:00 AM RISA HAUSER During your visit today, we recorded the following information about you: Pulse Respiration Blood pressure Weight 76/minute 18/minute 108/68 70 kg Risa Hauser APRN.ANALYSIS CONSULTANT 07/16/2024 10:18 AM Signed 07/16/2024 Patient presents with: Forms: 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 Since last office visit has been in good health. Had baby boy 8 months ago. Doing well Taking Zoloft as prescribbed without side effects. Works well to control symptoms. Not currently attending counseling. Denies SI, HI or insomnia Will be working at [employer] . 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 PNV no.153/FA/om3/dha/ep a/fish ( GUMMIES ORAL) Take by mouth. MAGNESIUM ORAL Take by mouth. No current facility-administere d medications for this visit. Medications and allergies reviewed by this provider. SOCIAL HISTORY Social History Tobacco Use Smoking status: Never Passive exposure: Yes Smokeless tobacco: Never Tobacco comments: outdoors Vaping Use Vaping status: Former Substance Use Topics Alcohol use: Not Currently Drug use: Not Currently REVIEW OF SYSTEMS GENERAL: No weight loss, malaise or fevers HEENT: Negative for frequent or significant headaches, No changes in hearing or vision, no nose bleeds or other nasal problems NECK: Negative for lumps, goiter, pain and significant neck swelling RESPIRATORY: Negative for cough, hemoptysis, wheezing, COPD, dyspnea or shortness of breath CARDIOVASCULAR: Negative for chest pain, leg swelling, hypertension, CHF or palpitations GI: No nausea, vomiting, or diarrhea : No history of dysuria, frequency or incontinence APPRENTICE JOCKEY: Negative for abnormal vaginal bleeding, abnormal vaginal discharge MUSCULOSKELETAL: Negative for joint pain or swelling, back pain. Bilateral legs ache at times SKIN: Negative for lesions, rash, and itching PSYCH: See HPI HEMATOLOGY/LYMPHOLOG Y: Negative for prolonged bleeding, bruising easily or swollen nodes ENDOCRINE: Negative for cold or heat intolerance, polyuria, polydipsia and goiter NEURO: No history of headaches, syncope, paralysis, seizures or tremors All other reviewed and negative other than HPI. OBJECTIVE: BP 108/68 Pulse 76 Resp 18 Wt 70 kg (154 lb 6.4 oz) LMP 02/13/2022 SpO2 98% . Vital signs reviewed by this provider. APPEARANCE Well appearing, alert, in no acute distress, well-hydrated, well nourished. EYES conjunctiva and sclera normal. EARS External ears normal, canals clear THROAT normal, no erythema NECK Supple, no adenopathy; thyroid symmetric, normal size HEART RRR with normal S1 and S2, no murmurs, no gallops, no JVD appreciated LUNG clear to auscultation. No wheezes, rhonchi or rales ABDOMEN bowel sounds normoactive, no bruits, soft, non-tender, non-distended, without organomegaly or palpable masses, no tenderness to palpation BACK: Normal exam, FROM with pain or difficulty EXTREMITIES Extremities normal, No deformities, No skin discoloration, and No edema SKIN Skin color, texture, turgor normal, no suspicious rashes or lesions to exposed skin GC (Gonorrhea) Screening (-) due on 03/08/2024 Chlamydia Screening (-) due on 03/08/2024 Covid-19 Vaccine(2022- season) Never done Influenza Vaccine(1) due on 06/30/2024 Meningococcal B Vaccine: Consider Based On Risk(1 of 2 - Patient Seeks Protection) due on 08/16/2024 Hepatitis C Screening due on 08/16/2024 HIV Screening due on 08/16/2024 DTaP,Tdap,Td Vaccine(7 - Td or Tdap) due on 05/11/2027 Hepatitis B Vaccine Completed HPV Vaccine Completed Meningococcal Conjugate Vaccine Completed ASSESSMENT/PLAN: 1. Routine physical examination - ICD9: V70.0, ICD10: Z00.00 - Counseled on healthy diet and regular exercise - paper for work completed - declines blood work - Follow up for annual exam in one year 2. Anxiety and depression - ICD9: 300.00, 311, ICD10: F41.9, F32.A - stable on current regime Rsia Christinelogopal, [employer]ASS F[employer]ER.ANALYSIS CONSULTANT Prescription instructions reviewed with patient as applicable. Patient advised if symptoms do not improve or if symptoms worsen sooner, to contact their primary care physician. Potential red flag symptoms discussed with the patient. Reviewed appropriate action plan to take i (more content not included)... Normal [facility] BB ANTIBODY IDon 11-17-2023 BB ANTIBODY ID Normal [facility] Comment on above: Result Comment: ANTI BODY(S) IDENTIFIED: _[email or web address]_[email or web address] 11/17/23.0928.TR . Performed By: #### 2 [id number] #### [facility],[address] [place] [address] BB GAMULIN WORKUPon 11-17-19 24 ABO O Normal [facility] Comment on above: Performed By: #### 2 [id number] #### [place] [id number] ANTIBODY SCR Positive Abnormal [facility] Comment on above: Result Comment: { Nu mber of Vials 1 Performed By: #### 2 [id number] #### [facility],[address] [place], [place] [address] BB GAMULIN WORKUP Normal [facility] Comment on above: Result Comment: ALICIA ROUSE Performed By: #### 2 [id number] #### [facility],[address] [place] [address] Rh Nom (Bld) Negative Normal [facility] Comment on above: Performed By: #### 2 90426 #### [facility],[address] [place] [address] CBC + DIFFon 11-17-2023 Baso # 0.10 x10EE3/UL Normal 0.00 - 0.10 [facility] Comment on above: Performed By: #### 2 [id number] #### [facility],[address] [place] [address] Basophils/100 WBC (Bld) 0.3 % Normal 0.0 - 2.0 [facility] Comment on above: Performed By: #### 2 63146 #### [facility],[address] [place] [address] CBC + DIFF Normal [facility] Comment on above: Result Comment: CBC- COMPLETE BLOOD COUNT Performed By: #### 2 [id number] #### [facility],[address] [place] [address] EO # 0.10 x10EE3/UL Normal 0.00 - 0.50 [facility] Comment on above: Performed By: #### 2 99338 #### [facility],[address] [place] [address] Eosinophils/100 WBC (Bld) 0.4 % Normal 0.0 - 7.0 [facility] Comment on above: Performed By: #### 2 50379 #### [place] [address] Erythrocyte distribution width (RBC) [Ratio] 14.3 % Normal 12.0 - 15.6 [facility] Comment on above: Performed By: #### 2 [id number] #### [facility],[address] [place], [place] [id number] Hematocrit (Bld) [Volume fraction] 32.9 % Low 34.0 - 46.0 [facility] Comment on above: Performed By: #### 2 06874 #### [facility],[address] [place] [address] Hemoglobin (Bld) [Mass/Vol] 10.6 g/dL Low 12.0 - 16.0 [facility] Comment on above: Performed By: #### 2 20578 #### [facility],[address] [place], [place] [id number] Lymph # 2.40 x10EE3/UL Normal 0.80 - 2.80 [facility] Comment on above: Performed By: #### 2 74091 #### [facility],[address] [place], [place] [id number] Lymphocytes/100 WBC (Bld) 15.4 % Low 20.0 - 45.0 [facility] Comment on above: Performed By: #### 2 40367 #### [facility],[address] [place] [address]80 MANUAL DIFF N/A Normal [facility] Comment on above: Performed By: #### 2 45083 #### [facility],[address] [place] [address] 20794 MCH (RBC) [Entitic mass] 28 pg Normal 27 - 33 [facility] Comment on above: Performed By: #### 2 14796 #### [facility],[address] [place] [address] 31788 MCHC 32 X10 3 Normal 32 - 36 [facility] Comment on above: Performed By: #### 2 55220 #### [facility],[address] [place] [address] 52843 MCV (RBC) [Entitic vol] 87 fL Normal 80 - 99 [facility] Comment on above: Performed By: #### 2 52399 #### [facility],[address] [place], [place] [id number] [place] # 1.80 x10EE3/UL High 0.20 - 1.00 [facility] Comment on above: Performed By: #### 2 01051 #### [facility],[address] [place] [address] MONOS % 11.6 % High 0.0 - 10.0 [facility] Comment on above: Performed By: #### 2 47104 #### [facility],[address] [place] [address] Morphology Osvaldo (Bld) [Interp] N/A Normal [facility] Comment on above: Result Comment: {CD] Performed By: #### 2 80400 #### [facility],[address] [place] [address] Neut # 11.10 x10EE3/UL High 1.50 - 7.10 [facility] Comment on above: Performed By: #### 2 97330 #### [facility],[address] [place], [place] [id number] Neutrophils/100 WBC (Bld) 72.3 % Normal 46.0 - 76.0 [facility] Comment on above: Performed By: #### 2 [id number] #### [facility],[address] [place] [address] PLATELET 244 x10EE3/UL Normal 150 - 450 [facility] Comment on above: Performed By: #### 2 17766 #### [facility],[address] [place] [address] 46447 Platelet mean volume (Bld) [Entitic vol] 9.2 fL Normal 6.6 - 10.5 [facility] Comment on above: Result Comment: AUTO MATED DIFFERENTIAL Performed By: #### 2 48346 #### [facility],[address] [place], [place] [id number] RBC 3.79 x 10EE6/UL Low 4.10 - 5.30 [facility] Comment on above: Performed By: #### 2 70300 #### [facility],[address] [place] [address] WBC 15.4 x 10EE3/UL High 4.5 - 10.8 [facility] Comment on above: Performed By: #### 2 79242 #### [facility],[address] [place] [address] CELL SCREENon 11-17-19 24 # OF RHOGAM REQUIRED 1 Normal [facility] Comment on above: Performed By: #### 2 91085 #### [facility],[address] [place] [address] Cell Sc NORMAL Normal [facility] Comment on above: Performed By: #### 2 95464 #### [facility],[address] [place] [address] ACTIM PROMon 11-16-2023 ACTIM PROM Positive Normal NORMAL: NEGATIVE [facility] Comment on above: Performed By: #### 2 04390 #### [facility],[address] [place] [address] EXTERNAL QC DONE? YES Normal [facility] Comment on above: Result Comment: Acti m PROM is a rapid immunoassay that specifically detects Insulin-like Growth Factor Binding Protein-1 (IGFBP-1). IGFBP-1 levels in amniotic fluid rise in early and remain high until term. When the membranes are ruptured, IGFBP-1 is detectable in a vaginal sample. Performed By: #### 2 27513 #### [facility],[address] [place] [address] INTERNAL NEG QC PASS Normal [facility] Comment on above: Performed By: #### 2 54933 #### [facility],[address] [place] [address] INTERNAL POS QC PASS Normal [facility] Comment on above: Performed By: #### 2 05542 #### [facility],[address] [place] [address] AMNIon 11-16-2023 Amnisure Negative Normal Negative [facility] ([place]) Comment on above: Performed By: #### A MNI #### [facility] [address] [address] BB TYPE & SCREENon 4 ABO O Normal [facility] Comment on above: Performed By: #### 2 35651 #### [facility],[address] [place] [address]655 ANTIBODY SCR Positive Abnormal [facility] Comment on above: Result Comment: ==== FOLLOWING RESULTS REPORTED IN ERROR ANTIBODY SCR negative <-- *Previously reported in error 11/16/23.2127.AEL. . .M 890-4 SCREEN POSITIVE ON GAMULIN WORKUP REPEATED SCREEN FOR VERIFICATION TRR Performed By: #### 2 48653 #### [facility],[address] [place] [address] 59242 BB TYPE & SCREEN Normal [facility] Comment on above: Result Comment: CORRECTED REPORT TYPE, Rh, AND SCREEN Performed By: #### 2 98621 #### [facility],[address] [place] [address] 09999 Rh Nom (Bld) Negative Normal [facility] Comment on above: Performed By: #### 2 52677 #### [facility],[address] [place] [address] 62403 CBC + DIFFon 11-16-2023 Baso # 0.00 x10EE3/UL Normal 0.00 - 0.10 [facility] Comment on above: Performed By: #### 2 64761 #### [facility],[address] [place], [place] [id number] Basophils/100 WBC (Bld) 0.4 % Normal 0.0 - 2.0 [facility] Comment on above: Performed By: #### 2 69914 #### [facility],[address] [place] [address] CBC + DIFF Normal [facility] Comment on above: Result Comment: CBC- COMPLETE BLOOD COUNT Performed By: #### 2 45290 #### [facility],[address] [place] [address] EO # 0.10 x10EE3/UL Normal 0.00 - 0.50 [facility] Comment on above: Performed By: #### 2 97973 #### [facility],[address] [place] [address] Eosinophils/100 WBC (Bld) 0.8 % Normal 0.0 - 7.0 [facility] Comment on above: Performed By: #### 2 29658 #### [facility],[address] [place] [address] Erythrocyte distribution width (RBC) [Ratio] 14.5 % Normal 12.0 - 15.6 [facility] Comment on above: Performed By: #### 2 48575 #### [facility],[address] [place] [address] Hematocrit (Bld) [Volume fraction] 35.6 % Normal 34.0 - 46.0 [facility] Comment on above: Performed By: #### 2 36248 #### [facility],[address] [place], [place] [id number] Hemoglobin (Bld) [Mass/Vol] 11.1 g/dL Low 12.0 - 16.0 [facility] Comment on above: Performed By: #### 2 75994 #### [facility],[address] [place] [address] 91678 Lymph # 1.70 x10EE3/UL Normal 0.80 - 2.80 [facility] Comment on above: Performed By: #### 2 96167 #### [facility],[address] [place] [address] 62252 Lymphocytes/100 WBC (Bld) 15.1 % Low 20.0 - 45.0 [facility] Comment on above: Performed By: #### 2 45472 #### [facility],[address] [place] [address] 61399 MANUAL DIFF N/A Normal [facility] Comment on above: Performed By: #### 2 86149 #### [facility],[address] [place], [place] [id number] MCH (RBC) [Entitic mass] 27 pg Normal 27 - 33 [facility] Comment on above: Performed By: #### 2 72185 #### [facility],[address] [place] [address] MCHC 31 X10 3 Low 32 - 36 [facility] Comment on above: Performed By: #### 2 84574 #### [facility],[address] [place] [address] 02718 MCV (RBC) [Entitic vol] 87 fL Normal 80 - 99 [facility] Comment on above: Performed By: #### 2 87024 #### [facility],[address] [place] [address] [place] # 1.30 x10EE3/UL High 0.20 - 1.00 [facility] Comment on above: Performed By: #### 2 96706 #### [facility],[address] [place] [address] 005[address] MONOS % 10.9 % High 0.0 - 10.0 [facility] Comment on above: Performed By: #### 2 92917 #### [facility],[address] [place] [address] 95124 Morphology Osvaldo (Bld) [Interp] N/A Normal [facility] Comment on above: Result Comment: {CD] Performed By: #### 2 77785 #### [facility],[address] [place] [address] 19429 Neut # 8.40 x10EE3/UL High 1.50 - 7.10 [facility] Comment on above: Performed By: #### 2 31827 #### [facility],[address] [place] [address] 65318 Neutrophils/100 WBC (Bld) 72.8 % Normal 46.0 - 76.0 [facility] Comment on above: Performed By: #### 2 85213 #### [facility],[address] [place] [address]229 PLATELET 265 x10EE3/UL Normal 150 - 450 [facility] Comment on above: Performed By: #### 2 45683 #### [facility],[address] [place] [address] 72155 Platelet mean volume (Bld) [Entitic vol] 10.1 fL Normal 6.6 - 10.5 [facility] Comment on above: Result Comment: AUTO MATED DIFFERENTIAL Performed By: #### 2 50676 #### [facility],[address] [place] [address] 44847 RBC 4.07 x 10EE6/UL Low 4.10 - 5.30 [facility] Comment on above: Performed By: #### 2 31493 #### [facility],[address] [place] [address] 09361 WBC 11.5 x 10EE3/UL High 4.5 - 10.8 [facility] Comment on above: Performed By: #### 2 83320 #### [facility],[address] [place] [address] LABORATORYOrdered By: Alyssa Hawthorne on 11-16-2023 [id number] .placental Ql (Vag fld) Negative (11/16/23 1:10 PM) Normal Negative AO Rapid Testing SS RPRon 09-07-2023 Reagin Ab RPR Ql (S) Non-Reactive Normal Non-Reactive [facility] ([place]) Comment on above: Result Comment: The RPR test is a non-treponemal assay useful as an aid in the diagnosis of primary and secondary syphilis. It converts to positive generally within 2 weeks after the appearance of a lesion. This test is also useful for monitoring response to antibiotic therapy. A positive RPR screening test will be followed by the FTA ABS test. False positive RPR tests may occur in 1) patients with underlying autoimmune disorders, 2) elderly patients, 3) , and 4) other conditions with abnormal serum globulins. Performed By: #### A NSG, ADIFF, ABOG, CBC, GLU1P, ANEU #### [place] [address] #### RPR #### [address] [address] .Auto Diffon 09-06-2023 Basophil, Absolute 0.0 10 3/mcL Normal 0.0-0.2 [facility] ([place]) Comment on above: Performed By: #### A NSG, ADIFF, ABOG, CBC, GLU1P, ANEU #### [address] [address] #### RPR #### [address] [address] Basophils/100 WBC (Bld) 0.2 % Normal 0.0-2.5 [facility] ([place]) Comment on above: Performed By: #### A NSG, ADIFF, ABOG, CBC, GLU1P, ANEU #### [place] [address] #### RPR #### [address] [address] Eosinophil, Absolute 0.1 10 3/mcL Normal 0.0-0.4 [facility] ([place]) Comment on above: Performed By: #### A NSG, ADIFF, ABOG, CBC, GLU1P, ANEU #### [place] [address] #### RPR #### [address] [address] Eosinophils/100 WBC (Bld) 0.7 % Normal 0.0-7.0 [facility] ([place]) Comment on above: Performed By: #### A NSG, ADIFF, ABOG, CBC, GLU1P, ANEU #### [address] [address] #### RPR #### [address] [address] Lymphocyte, Absolute 1.6 10 3/mcL Normal 0.8-3.9 [facility] ([place]) Comment on above: Performed By: #### A NSG, ADIFF, ABOG, CBC, GLU1P, ANEU #### [address] [address] #### RPR #### [address] [address] Lymphocytes/100 WBC (Bld) 14.4 % Normal 10.0-50.0 [facility] ([place]) Comment on above: Performed By: #### A NSG, ADIFF, ABOG, CBC, GLU1P, ANEU #### [address] [address] #### RPR #### [address] [address] Monocyte, Absolute 0.8 10 3/mcL Normal 0.2-1.0 [facility] ([place]) Comment on above: Performed By: #### A NSG, ADIFF, ABOG, CBC, GLU1P, ANEU #### [place] [address] #### RPR #### [address] [address] Monocytes/100 WBC (Bld) 6.6 % Normal 1.7-13.0 [facility] ([place]) Comment on above: Performed By: #### A NSG, ADIFF, ABOG, CBC, GLU1P, ANEU #### [address] [address] #### RPR #### [address] [address] Neutrophils/100 WBC (Bld) 78.1 % Normal 37.0-80.0 [facility] ([place]) Comment on above: Performed By: #### A NSG, ADIFF, ABOG, CBC, GLU1P, ANEU #### [place] [address] #### RPR #### [address] [address] .NEUABSon 09-06-2023 Neutrophil, Absolute 8.8 10 3/mcL High 2.9-6.2 [facility] ([place]) Comment on above: Performed By: #### A NSG, ADIFF, ABOG, CBC, GLU1P, ANEU #### [place] [address] #### RPR #### [place] [address] CBCon 09-06-2023 Erythrocyte distribution width (RBC) [Ratio] 12.9 % Normal 11.5-14.5 [facility] ([place]) Comment on above: Performed By: #### A NSG, ADIFF, ABOG, CBC, GLU1P, ANEU #### [place] [address] #### RPR #### [place] [address] Hematocrit (Bld) [Volume fraction] 33.1 % Low 37.0-47.0 [facility] ([place]) Comment on above: Performed By: #### A NSG, ADIFF, ABOG, CBC, GLU1P, ANEU #### [place] [address] #### RPR #### [place] [address] Hgb 10.9 G/dL Low 12.0-16.0 [facility] ([place]) Comment on above: Performed By: #### A NSG, ADIFF, ABOG, CBC, GLU1P, ANEU #### [place] [address] #### RPR #### [place] [address] MCH (RBC) [Entitic mass] 28.3 pg Normal 27.0-31.2 [facility] ([place]) Comment on above: Performed By: #### A NSG, ADIFF, ABOG, CBC, GLU1P, ANEU #### [place] [address] #### RPR #### [place] [address] MCHC 32.9 G/dL Low 33.0-37.0 [facility] ([place]) Comment on above: Performed By: #### A NSG, ADIFF, ABOG, CBC, GLU1P, ANEU #### [place] [address] #### RPR #### [place] [address] MCV (RBC) [Entitic vol] 86.0 fL Normal 80.0-94.0 [facility] ([place]) Comment on above: Performed By: #### A NSG, ADIFF, ABOG, CBC, GLU1P, ANEU #### [place] [address] #### RPR #### [place] [address] Platelet 253 10 3/mcL Normal 130-400 [facility] ([place]) Comment on above: Performed By: #### A NSG, ADIFF, ABOG, CBC, GLU1P, ANEU #### [place] [address] #### RPR #### [place] [address] Platelet mean volume (Bld) [Entitic vol] 8.7 fL Normal 7.4-10.4 [facility] ([place]) Comment on above: Performed By: #### A NSG, ADIFF, ABOG, CBC, GLU1P, ANEU #### [place] [address] #### RPR #### [address] [address] RBC 3.85 10 6/mcL Low 4.20-5.40 [facility] ([place]) Comment on above: Performed By: #### A NSG, ADIFF, ABOG, CBC, GLU1P, ANEU #### [address] [address] #### RPR #### [place] [address] WBC 11.3 10 3/mcL High 4.6-10.8 [facility] ([place]) Comment on above: Performed By: #### A NSG, ADIFF, ABOG, CBC, GLU1P, ANEU #### [place] [address] #### RPR #### [place] [address] [id number] 09-06-2023 Glucose [Mass/Vol] 157 mg/dL High 70-140 [facility] [place] Comment on above: Performed By: #### A NSG, ADIFF, ABOG, CBC, GLU1P, ANEU #### [place] [address] #### RPR #### [place] [address] Gel ABOon 09-06-2023 ABO/Rh Interp Negative Invalid Interpretation Code [facility] ([place]) Comment on above: Performed By: #### A NSG, ADIFF, ABOG, CBC, GLU1P, ANEU #### [place] [address] #### RPR #### [address] [address] Gel ABSon 09-06-2023 Antibody Screen Gel Negative Normal [facility] ([place]) Comment on above: Performed By: #### A NSG, ADIFF, ABOG, CBC, GLU1P, ANEU #### [place] [address] #### RPR #### [place] [id number] LABORATORYOrdered By: Jose Dyson on 09-06-2023 ABO/Rh Interp Negative Invalid Interpretation Code AO BB SS Antibody Screen Gel Negative ABSC (09/06/23 9:56 AM) Invalid Interpretation Code AO BB SS LABORATORYOrdered By: SYSTEM SYSTEM on 09-06-2023 Basophil, Absolute 0.0 103/mcL Invalid Interpretation Code 0.0 - 0.2 10^3/mcL AO Workflow SS Basophils/100 WBC (Bld) 0.2 % Invalid Interpretation Code 0.0 - 2.5 % AO Workflow SS Eosinophil, Absolute 0.1 103/mcL Invalid Interpretation Code 0.0 - 0.4 10^3/mcL AO Workflow SS Eosinophils/100 WBC (Bld) 0.7 % Invalid Interpretation Code 0.0 - 7.0 % AO Workflow SS Erythrocyte distribution width (RBC) [Ratio] 12.9 % Invalid Interpretation Code 11.5 - 14.5 % AO Workflow SS Glucose [Mass/Vol] 157 mg/dL Invalid Interpretation Code 70 - 140 mg/dL AO ADM SS Hematocrit (Bld) [Volume fraction] 33.1 % Invalid Interpretation Code 37.0 - 47.0 % AO Workflow SS Hemoglobin (Bld) [Mass/Vol] 10.9 G/dL Invalid Interpretation Code 12.0 - 16.0 G/dL AO Workflow SS Lymphocyte, Absolute 1.6 103/mcL Invalid Interpretation Code 0.8 - 3.9 10^3/mcL AO Workflow SS Lymphocytes/100 WBC (Bld) 14.4 % Invalid Interpretation Code 10.0 - 50.0 % AO Workflow SS MCH (RBC) [Entitic mass] 28.3 pg Invalid Interpretation Code 27.0 - 31.2 pg AO Workflow SS MCHC 32.9 G/dL Invalid Interpretation Code 33.0 - 37.0 G/dL AO Workflow SS MCV (RBC) [Entitic vol] 86.0 fL Invalid Interpretation Code 80.0 - 94.0 fL AO Workflow SS Monocyte, Absolute 0.8 103/mcL Invalid Interpretation Code 0.2 - 1.0 10^3/mcL AO Workflow SS Monocytes/100 WBC (Bld) 6.6 % Invalid Interpretation Code 1.7 - 13.0 % AO Workflow SS Neutrophil, Absolute 8.8 103/mcL Invalid Interpretation Code 2.9 - 6.2 10^3/mcL AO Workflow SS Neutrophils/100 WBC (Bld) 78.1 % Invalid Interpretation Code 37.0 - 80.0 % AO Workflow SS Platelet mean volume (Bld) [Entitic vol] 8.7 fL Invalid Interpretation Code 7.4 - 10.4 fL AO Workflow SS Platelets (Bld) [#/Vol] 253 103/mcL Invalid Interpretation Code 130 - 400 10^3/mcL AO Workflow SS RBC (Bld) [#/Vol] 3.85 106/mcL Invalid Interpretation Code 4.20 - 5.40 10^6/mcL AO Workflow SS WBC (Bld) [#/Vol] 11.3 103/mcL Invalid Interpretation Code 4.6 - 10.8 10^3/mcL AO Workflow SS CBC + DIFFon 08-04-2023 Baso # 0.00 x10EE3/UL Normal 0.00 - 0.10 [facility] Comment on above: Performed By: #### 2 67750 #### [facility],[address] [place] [address] Basophils/100 WBC (Bld) 0.3 % Normal 0.0 - 2.0 [facility] Comment on above: Performed By: #### 2 38854 #### [facility],[address] [place] [address] CBC + DIFF Normal [facility] Comment on above: Result Comment: CBC- COMPLETE BLOOD COUNT Performed By: #### 2 13863 #### [facility],[address] [place] [address] EO # 0.10 x10EE3/UL Normal 0.00 - 0.50 [facility] Comment on above: Performed By: #### 2 52651 #### [facility],[address] [place] [address] Eosinophils/100 WBC (Bld) 0.7 % Normal 0.0 - 7.0 [facility] Comment on above: Performed By: #### 2 19554 #### [facility],[address] [place] [address] Erythrocyte distribution width (RBC) [Ratio] 12.7 % Normal 12.0 - 15.6 [facility] Comment on above: Performed By: #### 2 64221 #### [facility],[address] [place] [address] Hematocrit (Bld) [Volume fraction] 36.4 % Normal 34.0 - 46.0 [facility] Comment on above: Performed By: #### 2 14380 #### [facility],[address] [place] [address] Hemoglobin (Bld) [Mass/Vol] 11.9 g/dL Low 12.0 - 16.0 [facility] Comment on above: Performed By: #### 2 39135 #### [facility],[address] [place] [address] Lymph # 2.50 x10EE3/UL Normal 0.80 - 2.80 [facility] Comment on above: Performed By: #### 2 84876 #### [facility],[address] [place] [address] Lymphocytes/100 WBC (Bld) 21.1 % Normal 20.0 - 45.0 [facility] Comment on above: Performed By: #### 2 93700 #### [facility],[address] [place] [address] MANUAL DIFF N/A Normal [facility] Comment on above: Performed By: #### 2 97564 #### [facility],[address] [place] [address] MCH (RBC) [Entitic mass] 29 pg Normal 27 - 33 [facility] Comment on above: Performed By: #### 2 59485 #### [facility],[address] [place], [place] [id number] MCHC 33 X10 3 Normal 32 - 36 [facility] Comment on above: Performed By: #### 2 27406 #### [facility],[address] [place], [place] [address] MCV (RBC) [Entitic vol] 88 fL Normal 80 - 99 [facility] Comment on above: Performed By: #### 2 80377 #### [facility],[address] [place] [address] [place] # 1.10 x10EE3/UL High 0.20 - 1.00 [facility] Comment on above: Performed By: #### 2 45470 #### [facility],[address] [place] [address] MONOS % 9.4 % Normal 0.0 - 10.0 [facility] Comment on above: Performed By: #### 2 75616 #### [facility],[address] [place] [address] Morphology Osvaldo (Bld) [Interp] N/A Normal [facility] Comment on above: Performed By: #### 2 97855 #### [facility],[address] [place] [address] Neut # 8.10 x10EE3/UL High 1.50 - 7.10 [facility] Comment on above: Performed By: #### 2 87739 #### [facility],[address] [place] [address] Neutrophils/100 WBC (Bld) 68.5 % Normal 46.0 - 76.0 [facility] Comment on above: Performed By: #### 2 40888 #### [facility],[address] [place] [address] PLATELET 282 x10EE3/UL Normal 150 - 450 [facility] Comment on above: Performed By: #### 2 26175 #### [facility],[address] [place] [address] Platelet mean volume (Bld) [Entitic vol] 8.7 fL Normal 6.6 - 10.5 [facility] Comment on above: Result Comment: AUTO MATED DIFFERENTIAL Performed By: #### 2 24141 #### [facility],[address],[place] [address] RBC 4.16 x 10EE6/UL Normal 4.10 - 5.30 [facility] Comment on above: Performed By: #### 2 45853 #### [facility],[address] [place] [address] WBC 11.9 x 10EE3/UL High 4.5 - 10.8 [facility] Comment on above: Performed By: #### 2 83834 #### [facility],[address] [place] [address] CMP with eGFRon 08-04-2023 AGE 17 years Normal [facility] Comment on above: Performed By: #### 2 26861 #### [facility],[address] [place] [address]55 Albumin [Mass/Vol] 2.9 g/dL Low 3.4 - 5.0 [facility] Comment on above: Performed By: #### 2 47171 #### [facility],[address] [place] [address]262 Albumin/Globulin [Mass ratio] 0.7 {ratio} Low 0.9 - 1.6 [facility] Comment on above: Performed By: #### 2 02465 #### [facility],[address] [place] [address]406 ALK PHOS 107 U/L Normal 46 - 116 [facility] Comment on above: Performed By: #### 2 09390 #### [facility],[address] [place] [address] 29313 ALT [Catalytic activity/Vol] 24 U/L Normal 14 - 59 [facility] Comment on above: Performed By: #### 2 14517 #### [facility],[address] [place] [address] Anion gap [Moles/Vol] 16 mmol/L Normal 10 - 20 [facility] Comment on above: Performed By: #### 2 79901 #### [facility],[address] [place] [address] 49803 AST [Catalytic activity/Vol] 13 U/L Normal 13 - 39 [facility] Comment on above: Performed By: #### 2 33287 #### [facility],[address] [place] [address] B/C RATIO 11 ratio Normal 0 - 30 [facility] Comment on above: Performed By: #### 2 84891 #### [facility],[address] [place] [address] Bilirubin [Mass/Vol] 0.3 mg/dL Normal 0.2 - 1.0 [facility] Comment on above: Performed By: #### 2 86597 #### [facility],[address] [place] [address]6685 Calcium [Mass/Vol] 9.0 mg/dL Normal 8.5 - 10.1 [facility] Comment on above: Performed By: #### 2 73819 #### [facility],[address] [place] [address]48 Chloride [Moles/Vol] 101 mmol/L Normal 98 - 107 [facility] Comment on above: Performed By: #### 2 38822 #### [facility],[address] [place] [address] 70634 CMP with eGFR Normal [facility] Comment on above: Result Comment: COMP REHENSIVE METABOLIC PANEL Performed By: #### 2 48094 #### [facility],[address] [place] [address]108 CO2 [Moles/Vol] 26.3 mmol/L Normal 21.0 - 32.[address] [facility] Comment on above: Performed By: #### 2 07419 #### [facility],[address] [place] [address]287 Creatinine [Mass/Vol] 0.63 mg/dL Normal 0.55 - 1.[address] [facility] Comment on above: Performed By: #### 2 87522 #### [facility],[address] [place] [address] 39713 GFR/1.73 sq M.predicted among non-blacks MDRD (S/P/Bld) [Vol rate/Area] mL/min/{1.73_m2} Normal 60 - 999 [facility] Comment on above: Performed By: #### 2 67502 #### [facility],[address] [place] [address] Result Comment: ACCO RDING TO THE NATIONAL KIDNEY DISEASE EDUCATION PROGRAM(NKDE), A NORMAL eGFR IS A VALUE GREATER THAN OR EQUAL TO 60 ML/MIN/1.73 SQ METERS. CHRONIC KIDNEY DISEASE: <60mL/MIN/1.73 SQ METERS KIDNEY FAILURE: <15mL/MIN/1.73 SQ METERS THIS TEST SHOULD ONLY BE USED FOR PATIENTS 18 YEARS OF AGE AND OLDER. Globulin (S) [Mass/Vol] 3.9 g/dL High 1.5 - 3.8 [facility] Comment on above: Performed By: #### 2 92339 #### [facility],[address] [place] [address]84 Glucose [Mass/Vol] 80 mg/dL Normal 74 - 106 [facility] Comment on above: Performed By: #### 2 77210 #### [facility],[address] [place] [address] Potassium [Moles/Vol] 3.8 mmol/L Normal 3.5 - 5.1 [facility] Comment on above: Performed By: #### 2 99959 #### [facility],[address] [place] [address] 09097 Protein [Mass/Vol] 6.8 g/dL Normal 6.4 - 8.2 [facility] Comment on above: Performed By: #### 2 65516 #### [facility],[address] [place] [address] 79494 Sodium [Moles/Vol] 139 mmol/L Normal 136 - 145 [facility] Comment on above: Performed By: #### 2 03931 #### [facility],[address] [place], [place] [id number] Urea nitrogen [Mass/Vol] 7 mg/dL Normal 7 - 18 [facility] Comment on above: Performed By: #### 2 33892 #### [facility],[address] [place], [place] [id number] URINALYSISon 08-03-2023 Amorphous 4+ Normal [facility] Comment on above: Performed By: #### 2 95914 #### [facility],[address] [place] [address] Bacteria 2+ Normal [facility] Comment on above: Performed By: #### 2 48641 #### [facility],[address] [place], [place] [address] Bilirubin Ql (U) Negative Normal NORMAL: NEGATIVE [facility] Comment on above: Performed By: #### 2 45895 #### [facility],[address] [place] [address] Casts NONE Normal [facility] Comment on above: Performed By: #### 2 83939 #### [facility],[address] [place], [place] [id number] Clarity (U) SL. CLOUDY Abnormal NORMAL: CLEAR [facility] Comment on above: Performed By: #### 2 13359 #### [facility],[address] [place], [place] [id number] Color (U) YELLOW Normal NORMAL: YELLOW [facility] Comment on above: Performed By: #### [id number] #### [facility],[address] [place] [address] [id number] Crystals LM Nom (Urine sed) NONE Normal [facility] Comment on above: Performed By: #### [id number] #### [facility],[address] [place] [address] [id number] Epi Cells MANY Normal [facility] Comment on above: Performed By: #### 2 [id number] #### [facility],[address] [place] [address] [id number] Glucose Ql (U) NORM Normal NORMAL: NORMAL [facility] Comment on above: Performed By: #### 2 [id number] #### [facility],[address] [place] [address] [id number] Hemoglobin Ql (U) Negative Normal NORMAL: NEGATIVE [facility] Comment on above: Performed By: #### 2 [id number] #### [facility],[address] [place] [address] 74530 Ketone Negative Normal NORMAL: NEGATIVE [facility] Comment on above: Performed By: #### 2 [id number] #### [facility],[address] [place] [address] 11468 Leukocytes 500 Abnormal NORMAL: NEGATIVE [facility] Comment on above: Performed By: #### 2 [id number] #### [facility],[address] [place] [address] [phone] Mucous NONE Normal [facility] Comment on above: Performed By: #### 2 [id number] #### [facility],[address] [place] [address] [id number] Nitrite Ql (U) Negative Normal NORMAL: NEGATIVE [facility] Comment on above: Performed By: #### 2 [id number] #### [facility],[address] [place] [address] [id number] pH (U) 7.0 [pH] Normal NORMAL: 5.0-8.0 [facility] Comment on above: Performed By: #### 2 [id number] #### [facility],[address] [place] [address] [id number] Protein Ql (U) 15 Abnormal NORMAL: NEGATIVE [facility] Comment on above: Performed By: #### 2 [id number] #### [facility],[address] [place] [address] [id number] Rbc NONE Normal 0-3/hpf [facility] Comment on above: Performed By: #### 2 [id number] #### [facility],[address] [place] [address] Sp [place] 1.010 Normal NORMAL: 1.010-1.030 [facility] Comment on above: Performed By: #### 2 [id number] #### [facility],[address] [place] [address] Specimen Type Void Normal [facility] Comment on above: Performed By: #### 2 [id number] #### [facility],[address] [place] [address] Urinalysis dipstick W Reflex Microscopic panel (U) SEE BELOW Normal [facility] Comment on above: Result Comment: MICR OSCOPIC Performed By: #### 2 [id number] #### [facility],[address] [place] [address] Urobilinog NORMAL Normal NORMAL: NORMAL [facility] Comment on above: Performed By: #### 2 [id number] #### [facility],[address] [place] [address] Wbc 11-15 Normal 0-5/hpf [facility] Comment on above: Performed By: #### 2 [id number] #### [facility],[address] [place] [address] Yeast NONE Normal [facility] Comment on above: Performed By: #### 2 [id number] #### [facility],[address] [place] [address] PREG SERUM QUANTon 3 HCG QUANTITATIVE 9618 mIU/mL High 0 - [address] [facility] Comment on above: Result Comment: Refe rence Range: Male: <5 Female: Non: <5 1 - 7 days : 5 - 50 1 - 2 weeks: 50 - 500 2 - 3 weeks: 100 - 5000 3 - 4 weeks: 500 - 10,000 4 - 5 weeks: 1000 - 50,000 5 - 6 weeks: 10,000 - 100,000 6 - 8 weeks: 15,000 - 200,000 2 - 3 months: 10,000 - 100,000 2ND TRIMESTER 3000-50,000 3RD TRIMESTER 1000-50,000 Performed By: #### 2 [id number] #### [facility],[address] [place] [address] UA DIP, URINE (POC)on 2022 BILIRUBIN UA (POCT) Small Abnormal Negative [facility] CLARITY UA (POCT) Cloudy [facility] COLOR UA (POCT) Brown [facility] GLUCOSE UA (POCT) Negative Negative mg/dL [facility] HEMOGLOBIN/BLOOD UA (POCT) Large Abnormal Negative [facility] KETONE UA (POCT) Negative Negative mg/dL [facility] LEUKOCYTES UA (POCT) Small Abnormal Negative [facility] NITRITE UA (POCT) Negative Negative [facility] PH UA (POCT) 5.5 4.5 - 8.0 [facility] Protein Ql (U) >=300 Abnormal Negative mg/dL [facility] SPECIFIC GRAVITY UA (POCT) >=1.030 1.005 - 1.030 [facility] UROBILINOGEN UA (POCT) 0.2 E.U./dL Normal E.U./dL [facility] BACTERIAL VAGINOSIS AMPLIFIC ATIONon 03-09-2023 Lactobacillus crispatus+gasseri+tita senii + Gardnerella vaginalis + Atopobium vaginae rRNA MARCO ANTONIO+probe Ql (Vag fld) Positive Abnormal Negative for bacterial vaginosis [facility] HCG QUAL UR B/Oon 03-08-2023 status Negative neg - pos [facility] Quality Check Yes [facility] UA DIP, URINE (POC)on 2022 BILIRUBIN UA (POCT) Negative Negative [facility] CLARITY UA (POCT) Clear [facility] COLOR UA (POCT) Light yellow [facility] GLUCOSE UA (POCT) Negative Negative mg/dL [facility] HEMOGLOBIN/BLOOD UA (POCT) Negative Negative [facility] KETONE UA (POCT) Negative Negative mg/dL [facility] LEUKOCYTES UA (POCT) Negative Negative [facility] NITRITE UA (POCT) Negative Negative [facility] PH UA (POCT) 6.0 4.5 - 8.0 [facility] Protein Ql (U) Negative Negative mg/dL [facility] SPECIFIC GRAVITY UA (POCT) <=1.005 Abnormal 1.005 - 1.030 [facility] UROBILINOGEN UA (POCT) 0.2 E.U./dL Normal E.U./dL [facility] LABORATORYOrdered By: Renetta Canchola on 04-12-2022 Albumin BCP dye [Mass/Vol] 4.2 G/dL Invalid Interpretation Code 3.5 - 5.0 G/dL AO ADM SS Albumin/Globulin [Mass ratio] 1.0 {ratio} Invalid Interpretation Code 1.1 - 2.5 ratio AO ADM SS ALP [Catalytic activity/Vol] 110 U/L Invalid Interpretation Code 135 - 450 U/L AO ADM SS ALT With P-5'-P [Catalytic activity/Vol] 23 U/L Invalid Interpretation Code 14 - 59 U/L AO ADM SS Appearance (U) Clear (04/12/22 12:17 AM) Invalid Interpretation Code Clear AO Auto Urine SS AST With P-5'-P [Catalytic activity/Vol] 12 U/L Invalid Interpretation Code 10 - 40 U/L AO ADM SS Basophil, Absolute 0.0 103/mcL Invalid Interpretation Code 0.0 - 0.2 10^3/mcL AO Workflow SS Basophils/100 WBC (Bld) 0.1 % Invalid Interpretation Code 0.0 - 2.5 % AO Workflow SS Bilirubin [Mass/Vol] 0.4 mg/dL Invalid Interpretation Code 0.2 - 1.0 mg/dL AO ADM SS Bilirubin Ql (U) Small *ABN* (04/12/22 12:17 AM) Invalid Interpretation Code Negative AO Auto Urine SS Calcium [Mass/Vol] 9.9 mg/dL Invalid Interpretation Code 8.4 - 10.2 mg/dL AO ADM SS Chloride [Moles/Vol] 104 mmol/L Invalid Interpretation Code 98 - 107 mmol/L AO ADM SS CO2 [Moles/Vol] 28 mmol/L Invalid Interpretation Code 22 - 29 mmol/L AO ADM SS Color (U) Yellow (04/12/22 12:17 AM) Invalid Interpretation Code AO Auto Urine SS Creatinine [Mass/Vol] 1.08 mg/dL Invalid Interpretation Code 0.55 - 1.02 mg/dL AO ADM SS Electrolyte Balance 8.0 mEq/L Invalid Interpretation Code 4.0 - 15.0 mEq/L AO ADM SS Eosinophil, Absolute 0.0 103/mcL Invalid Interpretation Code 0.0 - 0.4 10^3/mcL AO Workflow SS Eosinophils/100 WBC (Bld) 0.1 % Invalid Interpretation Code 0.0 - 7.0 % AO Workflow SS Erythrocyte distribution width (RBC) [Ratio] 13.1 % Invalid Interpretation Code 11.5 - 14.5 % AO Workflow SS Globulin 4.0 G/dL Invalid Interpretation Code AO ADM SS Glucose [Mass/Vol] 124 mg/dL Invalid Interpretation Code 70 - 105 mg/dL AO ADM SS Glucose Test strip (U) [Mass/Vol] Negative Invalid Interpretation Code Negativemg/dL AO Auto Urine SS HCG ( test) Ql Negative (04/12/22 12:17 AM) Invalid Interpretation Code AO Manual Urine SS Hematocrit (Bld) [Volume fraction] 43.6 % Invalid Interpretation Code 37.0 - 47.0 % AO Workflow SS Hemoglobin Auto test strip (U) [Mass/Vol] Trace *ABN* (04/12/22 12:17 AM) Invalid Interpretation Code Negative AO Auto Urine SS Hgb 14.4 G/dL Invalid Interpretation Code 12.0 - 16.0 G/dL AO Workflow SS Ketones Ql (U) 15 mg/dL Invalid Interpretation Code Negativemg/dL AO Auto Urine SS Lipase [Catalytic activity/Vol] 51 U/L Invalid Interpretation Code 73 - 393 U/L AO ADM SS Lymphocyte, Absolute 1.1 103/mcL Invalid Interpretation Code 0.8 - 3.9 10^3/mcL AO Workflow SS Lymphocytes/100 WBC (Bld) 6.0 % Invalid Interpretation Code 10.0 - 50.0 % AO Workflow SS MCH (RBC) [Entitic mass] 27.2 pg Invalid Interpretation Code 27.0 - 31.2 pg AO Workflow SS MCHC 32.9 G/dL Invalid Interpretation Code 33.0 - 37.0 G/dL AO Workflow SS MCV (RBC) [Entitic vol] 82.6 fL Invalid Interpretation Code 80.0 - 94.0 fL AO Workflow SS Monocyte, Absolute 0.5 103/mcL Invalid Interpretation Code 0.2 - 1.0 10^3/mcL AO Workflow SS Monocytes/100 WBC (Bld) 2.7 % Invalid Interpretation Code 1.7 - 13.0 % AO Workflow SS Neutrophil, Absolute 16.2 103/mcL Invalid Interpretation Code 2.9 - 6.2 10^3/mcL AO Workflow SS Neutrophils/100 WBC (Bld) 91.1 % Invalid Interpretation Code 37.0 - 80.0 % AO Workflow SS Platelet 369 103/mcL Invalid Interpretation Code 130 - 400 10^3/mcL AO Workflow SS Platelet mean volume (Bld) [Entitic vol] 7.8 fL Invalid Interpretation Code 7.4 - 10.4 fL AO Workflow SS Potassium [Moles/Vol] 4.4 mmol/L Invalid Interpretation Code 3.5 - 5.1 mmol/L AO ADM SS test (u) int Not detected Invalid Interpretation Code AO Manual Urine SS Protein [Mass/Vol] 8.2 G/dL Invalid Interpretation Code 6.4 - 8.2 G/dL AO ADM SS RBC 5.28 106/mcL Invalid Interpretation Code 4.20 - 5.40 10^6/mcL AO Workflow SS Sodium [Moles/Vol] 140 mmol/L Invalid Interpretation Code 136 - 145 mmol/L AO ADM SS UA Leuk Est Trace *ABN* (04/12/22 12:17 AM) Invalid Interpretation Code Negative AO Auto Urine SS UA Nitrite Negative (04/12/22 12:17 AM) Invalid Interpretation Code Negative AO Auto Urine SS UA pH 5.5 (04/12/22 12:17 AM) Invalid Interpretation Code 5.0 - 8.0 AO Auto Urine SS UA Protein Trace mg/dL Invalid Interpretation Code Negativemg/dL AO Auto Urine SS UA RBC None Seen /HPF Invalid Interpretation Code None Seen/HPF AO Auto Urine SS UA Spec Grav >=1.030 *ABN* (04/12/22 12:17 AM) Invalid Interpretation Code 1.015-1.025 AO Auto Urine SS UA Specimen Type Clean Catch (04/12/22 12:17 AM) Invalid Interpretation Code AO Auto Urine SS UA Squam Epithelial 0-5 /HPF Invalid Interpretation Code None Seen/HPF AO Auto Urine SS UA Urobilinogen 0.2 E.U./dL Invalid Interpretation Code 0.2-1.0E.U./dL AO Auto Urine SS Urea nitrogen [Mass/Vol] 16 mg/dL Invalid Interpretation Code 7 - 18 mg/dL AO ADM SS Urea nitrogen/Creatinine [Mass ratio] 15 ratio Invalid Interpretation Code 7 - 27 ratio AO ADM SS WBC 17.8 103/mcL Invalid Interpretation Code 4.6 - 10.8 10^3/mcL AO Workflow SS WBC LM.HPF (Urine sed) [#/Area] 0-5 /HPF Invalid Interpretation Code None Seen/HPF AO Auto Urine SS LABORATORYOrdered By: SYSTEM SYSTEM on 04-12-2022 Monocyte distribution width Auto (Bld) [Entitic vol] Not Performed 1 *NA* (04/12/22 12:17 AM) Invalid Interpretation Code 0.00 - 20.00 AO [facility] Comment on above: Result Comment: MDW testing performed only on adult ER patients between the ages of 18-89 years. Vital Signs Date Time Vital Sign Value Performing Clinician Facility 12-01-2024 08:11-0500 Body temperature 97.59 [degF] Krislyn Aberegg PA Work Phone: [facility] 12-01-2024 08:11-0500 Body weight 65.2 kg Krislyn Aberegg PA Work Phone: [facility] 12-01-2024 08:11-0500 Diastolic blood pressure 68 mm[Hg] Krislyn Aberegg PA Work Phone: [facility] 12-01-2024 08:11-0500 Heart rate 119 /min Krislyn Aberegg PA Work Phone: [facility] 12-01-2024 08:11-0500 Respiratory rate 19 /min Krislyn Aberegg PA Work Phone: [facility] 12-01-2024 08:11-0500 SaO2% (BldA) [Mass fraction] 98 % Krislyn Aberegg PA Work Phone: [facility] 12-01-2024 08:11-0500 Systolic blood pressure 100 mm[Hg] Krislyn Aberegg PA Work Phone: [facility] 08-16-2024 18:43-0400 Body temperature 98.8 [degF] Carlos Alberto Donovan MD Work Phone: [facility] 08-16-2024 18:43-0400 Body weight 70 kg Carlos Alberto Donovan MD Work Phone: [facility] 08-16-2024 18:43-0400 Diastolic blood pressure 78 mm[Hg] Carlos Alberto Donovan MD Work Phone: [facility] 08-16-2024 18:43-0400 Heart rate 95 /min Carlos Alberto Donovan MD Work Phone: [facility] 08-16-2024 18:43-0400 Respiratory rate 16 /min Carlos Alberto Donovan MD Work Phone: [facility] 08-16-2024 18:43-0400 SaO2% (BldA) [Mass fraction] 98 % Carlos Alberto Donovan MD Work Phone: [facility] 08-16-2024 18:43-0400 Systolic blood pressure 122 mm[Hg] Carlos Alberto Donovan MD Work Phone: [facility] 08-08-2024 09:59-0400 Body temperature 97.59 [degF] Denise Hogan GRASS FARMER.ANALYSIS CONSULTANT Work Phone: [facility] 08-08-2024 09:59-0400 Body weight 68 kg Denise Hogan GRASS FARMER.ANALYSIS CONSULTANT Work Phone: [facility] 08-08-2024 09:59-0400 Diastolic blood pressure 87 mm[Hg] Denise Hogan GRASS FARMER.ANALYSIS CONSULTANT Work Phone: [facility] 08-08-2024 09:59-0400 Heart rate 107 /min Denise Hogan GRASS FARMER.ANALYSIS CONSULTANT Work Phone: [facility] 08-08-2024 09:59-0400 Respiratory rate 20 /min Denise Hogan GRASS FARMER.ANALYSIS CONSULTANT Work Phone: [facility] 08-08-2024 09:59-0400 SaO2% (BldA) [Mass fraction] 97 % Denise Hogan GRASS FARMER.ANALYSIS CONSULTANT Work Phone: [facility] 08-08-2024 09:59-0400 Systolic blood pressure 116 mm[Hg] Denise Hogan GRASS FARMER.ANALYSIS CONSULTANT Work Phone: [facility] 07-16-2024 09:52-0400 Body weight 70.03 kg Risa Hauser GRASS FARMER.ANALYSIS CONSULTANT Work Phone: [facility] 07-16-2024 09:52-0400 Diastolic blood pressure 68 mm[Hg] Risa Podlogar GRASS FARMER.ANALYSIS CONSULTANT Work Phone: [facility] 07-16-2024 09:52-0400 Heart rate 76 /min Risa Podlogar GRASS FARMER.ANALYSIS CONSULTANT Work Phone: [facility] 07-16-2024 09:52-0400 Respiratory rate 18 /min Risa Podlogar GRASS FARMER.ANALYSIS CONSULTANT Work Phone: [facility] 07-16-2024 09:52-0400 SaO2% (BldA) [Mass fraction] 98 % Risa Podlogar GRASS FARMER.ANALYSIS CONSULTANT Work Phone: [facility] 07-16-2024 09:52-0400 Systolic blood pressure 108 mm[Hg] Risa Podlogar GRASS FARMER.ANALYSIS CONSULTANT Work Phone: [facility] 01-21-2024 00:32-0400 Body height 157.5 cm Albino Lo MD Work Phone: [facility] 01-21-2024 00:32-0400 Body mass index (BMI) [Ratio] 28.35 kg/m2 Albino Lo MD Work Phone: [facility] 01-21-2024 00:32-0400 Body temperature 98.01 [degF] Albino Lo MD Work Phone: [facility] 01-21-2024 00:32-0400 Body weight 70.31 kg Albino Lo MD Work Phone: [facility] 01-21-2024 00:32-0400 Diastolic blood pressure 88 mm[Hg] Albino Lo MD Work Phone: [facility] 01-21-2024 00:32-0400 Heart rate 84 /min Albino Lo MD Work Phone: [facility] 01-21-2024 00:32-0400 Respiratory rate 16 /min Albino Lo MD Work Phone: [facility] 01-21-2024 00:32-0400 SaO2% (BldA) [Mass fraction] 99 % Albino Lo MD Work Phone: [facility] 01-21-2024 00:32-0400 Systolic blood pressure 120 mm[Hg] Albino Lo MD Work Phone: [facility] 11-16-2023 13:15-0500 Body temperature 98.6 [degF] IDRIS KOCH [employer] FARMER-[employer] [facility] 11-16-2023 13:15-0500 Diastolic Blood Pressure Non-Invasive 80 mm[Hg] IDRIS KOCH [employer] [facility] 11-16-2023 13:15-0500 Heart rate 96 /min IDRISHARDIK KOCH [employer] [facility] 11-16-2023 13:15-0500 Respiratory rate 16 /min IDRISHARDIK KOCH [employer] [facility] 11-16-2023 13:15-0500 Systolic Blood Pressure Non-Invasive 118 mm[Hg] IDRIS KOCH [employer] [facility] 11-16-2023 13:11-0500 Body height 157.5 cm IDRIS KOCH [employer] [facility] 11-16-2023 13:11-0500 Body mass index (BMI) [Percentile] Per age and sex 95.44 % IDRIS KOCH [employer] [facility] Comment on above: Result Comment: ^~:!Percentile Source -[facility] [place] 11-16-2023 13:11-0500 Body weight 78.5 kg IDRIS KOCH [employer] [facility] 11-16-2023 13:11-0500 Body weight 31.65 kg/m2 IDRIS KOCH [employer] [facility] 11-16-2023 13:11-0500 bodymassindex 1.69 kg/m2 IDRIS KOCH [employer] [facility] Comment on above: Result Comment: ^~:!ZScore Source [facility] 11-16-2023 13:11-0500 Height ZScore -0.89 1 IDRIS KOCH [employer] [facility] Comment on above: Result Comment: ^~:!ZScore [facility] 11-16-2023 13:11-0500 Percent Height for Age 18.66 % IDRIS KOCH [employer] [facility] Comment on above: Result Comment: ^~:!Percentile Source [facility] 11-11-2023 00:05-0500 Body temperature 98.24 [degF] NGOZI PEREZ [employer]ER[employer] [facility] 11-11-2023 00:05-0500 Diastolic Blood Pressure Non-Invasive 89 mm[Hg] NGOZI PEREZ [employer] [facility] 11-11-2023 00:05-0500 Heart rate 102 /min NGOZI PEREZ [employer] 11-11-2023 00:05-0500 Respiratory rate 18 /min NGOZI PEREZ [employer] 11-11-2023 00:05-0500 Systolic Blood Pressure Non-Invasive 129 mm[Hg] NGZOI PEREZ [employer] 11-11-2023 00:01-0500 Body height 157 cm NGOZI PEREZ [employer] 11-11-2023 00:01-0500 Body mass index (BMI) [Percentile] Per age and sex 95.6 % NGOZI PEREZ [employer] [facility] Comment on above: Result Comment: ^~:!Percentile Source -[facility] [place] 11-11-2023 00:01-0500 Body weight 78.5 kg NGOZI PEREZ [employer] [facility] 11-11-2023 00:01-0500 Body weight 31.85 kg/m2 NGOZI PEREZ [employer] [facility] 11-11-2023 00:01-0500 bodymassindex 1.71 kg/m2 NGOZI PEREZ [employer] [facility] Comment on above: Result Comment: ^~:!ZScore Source -[facility] 11-11-2023 00:01-0500 Height ZScore -0.97 1 NGOZI PEREZ [employer] [facility] Comment on above: Result Comment: ^~:!ZScore Source -[facility] 11-11-2023 00:01-0500 Percent Height for Age 16.66 % NGOZI PEREZ [employer] [facility] Comment on above: Result Comment: ^~:!Percentile Source -[facility] 09-06-2023 11:28-0500 Blood Pressure Method IDRIS ZEE [employer] [facility] 09-06-2023 11:28-0500 Body temperature 98.24 [degF] IRDIS KOCH [employer] [facility] 09-06-2023 11:28-0500 Diastolic Blood Pressure Non-Invasive 84 1 IDRIS KOCH [employer] [facility] 09-06-2023 11:28-0500 Heart rate 85 /min IDRIS KOCH [employer] [facility] 09-06-2023 11:28-0500 Respiratory rate 16 /min IDRIS KOCH [employer] [facility] 09-06-2023 11:28-0500 Systolic Blood Pressure Non-Invasive 127 1 IDRIS KOCH [employer] [facility] 08-16-2023 13:44-0400 Body weight 68.04 kg Risa Podlogar GRASS FARMER.ANALYSIS CONSULTANT Work Phone: [facility] 08-16-2023 13:44-0400 Diastolic blood pressure 74 mm[Hg] Risa Podlogar GRASS FARMER.ANALYSIS CONSULTANT Work Phone: [facility] 08-16-2023 13:44-0400 Heart rate 93 /min Risa Podlogar GRASS FARMER.ANALYSIS CONSULTANT Work Phone: [facility] 08-16-2023 13:44-0400 Respiratory rate 16 /min Risa Podlogar GRASS FARMER.ANALYSIS CONSULTANT Work Phone: [facility] 08-16-2023 13:44-0400 SaO2% (BldA) [Mass fraction] 98 % Risa Podlogar GRASS FARMER.ANALYSIS CONSULTANT Work Phone: [facility] 08-16-2023 13:44-0400 Systolic blood pressure 118 mm[Hg] Risa Podlogar GRASS FARMER.ANALYSIS CONSULTANT Work Phone: [facility] 07-27-2023 14:46-0400 Body temperature 97.81 [degF] Jacob Rodriguez MD Work Phone: [facility] 07-27-2023 14:46-0400 Body weight 65.73 kg Jacob Rodriguez MD Work Phone: [facility] 07-27-2023 14:46-0400 Heart rate 80 /min Jacob Rodriguez MD Work Phone: [facility] 07-27-2023 14:46-0400 Respiratory rate 16 /min Jacob Rodriguez MD Work Phone: [facility] 06-26-2023 16:20-0400 Blood Pressure Location PATITO SURESH DO [facility] 06-26-2023 16:20-0400 Blood Pressure Method PATITO SURESH DO [facility] 06-26-2023 16:20-0400 Body temperature 97.7 [degF] PATITO SURESH DO [facility] 06-26-2023 16:20-0400 Body weight 65.9 kg PATITO SURESH DO [facility] 06-26-2023 16:20-0400 Diastolic Blood Pressure Non-Invasive 75 1 PATITO SURESH DO [facility] 06-26-2023 16:20-0400 Heart rate 93 /min PATITO SURESH DO [facility] 06-26-2023 16:20-0400 Respiratory rate 18 /min PATITO SURESH DO [facility] 06-26-2023 16:20-0400 Systolic Blood Pressure Non-Invasive 114 1 PATITO SURESH DO [facility] 03-30-2023 09:07-0400 Body temperature 98.6 [degF] Sophia Jaimes APRN.ANALYSIS CONSULTANT Work Phone: [facility] 03-30-2023 09:07-0400 Body weight 68.86 kg Sophia Jaimes APRN.ANALYSIS CONSULTANT Work Phone: [facility] 03-30-2023 09:07-0400 Diastolic blood pressure 80 mm[Hg] Sophia Praisler-Wood GRASS FARMER.ANALYSIS CONSULTANT Work Phone: [facility] 03-30-2023 09:07-0400 Heart rate 76 /min Sophia Praisler-Wood GRASS FARMER.ANALYSIS CONSULTANT Work Phone: [facility] 03-30-2023 09:07-0400 Respiratory rate 18 /min Sophia Praisler-Wood GRASS FARMER.ANALYSIS CONSULTANT Work Phone: [facility] 03-30-2023 09:07-0400 SaO2% (BldA) [Mass fraction] 98 % Sophia Praisler-Wood GRASS FARMER.ANALYSIS CONSULTANT Work Phone: [facility] 03-30-2023 09:07-0400 Systolic blood pressure 110 mm[Hg] Sophia Praisler-Wood GRASS FARMER.ANALYSIS CONSULTANT Work Phone: [facility] 03-08-2023 16:51-0400 Body temperature 98.29 [degF] Roxana Athy PA-C Work Phone: [facility] 03-08-2023 16:51-0400 Body weight 71.67 kg Roxana Athy PA-C Work Phone: [facility] 03-08-2023 16:51-0400 Diastolic blood pressure 84 mm[Hg] Roxana Athy PA-C Work Phone: [facility] 03-08-2023 16:51-0400 Heart rate 102 /min Roxana Athy PA-C Work Phone: [facility] 03-08-2023 16:51-0400 Respiratory rate 21 /min Roxana Athy PA-C Work Phone: [facility] 03-08-2023 16:51-0400 SaO2% (BldA) [Mass fraction] 99 % Roxana Athy PA-C Work Phone: [facility] 03-08-2023 16:51-0400 Systolic blood pressure 132 mm[Hg] Roxana Athy PA-C Work Phone: [facility] 04-14-2022 10:01-0400 Body height 158.7 cm Jacob Rodriguez MD Work Phone: [facility] 04-14-2022 10:01-0400 Body mass index (BMI) [Percentile] Per age and sex 89.13 % Jacob Rodriguez MD Work Phone: [facility] 04-14-2022 10:01-0400 Body temperature 97.59 [degF] Jacob Rodriguez MD Work Phone: [facility] 04-14-2022 10:-0400 Body weight 67.22 kg Jacob Rodriguez MD Work Phone: [facility] 04-14-2022 10:01-0400 Heart rate 80 /min Jacob Rodriguez MD Work Phone: [facility] 04-14-2022 10:01-0400 Respiratory rate 18 /min Jacob Rodriguez MD Work Phone: [facility] 04-12-2022 02:55-0400 Diastolic blood pressure 85 mm[Hg] ANGELA REICHFIELD DO [facility] 04-12-2022 02:55-0400 Heart rate 89 /min ANGELA REICHFIELD DO [facility] 04-12-2022 02:55-0400 Respiratory rate 18 /min ANGELA REICHFIELD DO [facility] 04-12-2022 02:55-0400 Systolic blood pressure 131 mm[Hg] ANGELA REICHFIELD DO [facility] 04-11-2022 21:14-0400 Body temperature 98.6 [degF] ANGELA REICHFIELD DO [facility] 04-11-2022 21:14-0400 Heart rate 101 /min ANGELA REICHFIELD DO [facility] 04-11-2022 21:14-0400 Respiratory rate 18 /min ANGELA FOSTERICHFIELD DO [facility] 03-12-2022 09:35-0400 Body height 157.7 cm Jacob Rodriguez MD Work Phone: [facility] 03-12-2022 09:35-0400 Body mass index (BMI) [Percentile] Per age and sex 87.7 % Jacob Rodriguez MD Work Phone: [facility] 03-12-2022 09:35-0400 Body temperature 97.81 [degF] Jacob Rodriguez MD Work Phone: [facility] 03-12-2022 09:35-0400 Body weight 65.09 kg Jacob Rodriguez MD Work Phone: [facility] 03-12-2022 09:35-0400 Diastolic blood pressure 60 mm[Hg] Jacob Rodriguez MD Work Phone: [facility] 03-12-2022 09:35-0400 Heart rate 84 /min Jacob Rodriguez MD Work Phone: [facility] 03-12-2022 09:35-0400 Respiratory rate 16 /min Jacob Rodriguez MD Work Phone: [facility] 03-12-2022 09:35-0400 Systolic blood pressure 112 mm[Hg] Jacob Rodriguez MD Work Phone: [facility] 01-20-2022 13:55-0400 Body temperature 97.7 [degF] Jacob Rodriguez MD Work Phone: [facility] 01-20-2022 13:55-0400 Body weight 65.94 kg Jacob Rodriguez MD Work Phone: [facility] 01-20-2022 13:55-0400 Diastolic blood pressure 74 mm[Hg] Jacob Rodriguez MD Work Phone: [facility] 01-20-2022 13:55-0400 Heart rate 80 /min Jacob Rodriguez MD Work Phone: [facility] 01-20-2022 13:55-0400 Respiratory rate 18 /min Jacob Rodriguez MD Work Phone: [facility] 01-20-2022 13:55-0400 Systolic blood pressure 114 mm[Hg] Jacob Rodriguez MD Work Phone: [facility] Encounters Encounter Date Encounter Type Care Provider Facility Start: 08-29-2025 End: 08-29-2025 ambulatory Aida Watkins Facility[facility] Start: 06-18-2025 End: 06-18-[address] JACOB RODRIGUEZ MD Facility:[facility] Start: 06-18-2025 End: 06-18-2025 Patient encounter procedure IDRIS KOCH APRN-CNMolly [facility] Start: 04-16-2025 ambulatory Jacob Rodriguez Facility:[facility] Start: 03-21-2025 End: 03-21-2025 ambulatory IDRIS KOCH APRN-CNMolly Facility:[facility] Start: 12-01-2024 End: 12-01-2024 ambulatory ABHI BAILEY Facility:[facility] Start: 12-01-2024 End: 12-01-2024 Patient encounter procedure Ravi PAULA Work Phone: [facility] Comment on above: URI, acute (Primary Dx) Start: 08-16-2024 End: 08-16-2024 ambulatory ABHI BAILEY Facility:[facility] Start: 08-16-2024 End: 08-16-2024 Office outpatient visit 25 minutes Carlos Alberto Donovan MD Work Phone: [facility] Comment on above: Acute otitis media, left (Primary Dx) Start: 08-08-2024 End: 08-09-2024 Telephone encounter Ravi PAULA Work Phone: [facility] Comment on above: Results Start: 08-08-2024 End: 08-08-2024 Subsequent hospital visit by physician Ashley [facility] Work Phone: Radiology Comment on above: Acute cough [R05.1] Start: 08-08-2024 End: 08-08-2024 [facility] Start: 08-08-2024 End: 08-08-2024 Patient encounter procedure Denise Hogan GRASS FARMER.ANALYSIS CONSULTANT Work Phone: [facility] Comment on above: Acute cough (Primary Dx); URI, acute; Acute otitis media, right Start: 07-16-2024 End: 07-16-2024 Patient encounter procedure Risa Hauser GRASS FARMER.ANALYSIS CONSULTANT Work Phone: [facility] Comment on above: Routine physical exa mination (Primary Dx); Anxiety and depression Start: 07-16-2024 End: 07-16-2024 ambulatory ABHI BAILEY Facility:[facility] Start: 07-16-2024 End: 07-16-2024 Physical examination Risa Hauser GRASS FARMER.ANALYSIS CONSULTANT Work Phone: [facility] Work Phone: Start: 01-21-2024 End: 01-21-2024 Emergency department patient visit ALBINO LO [facility] Start: 01-21-2024 End: 01-21-2024 Emergency department patient visit Albino Lo MD Work Phone: [facility] Emergency Dept Comment on above: Dental infection (Pr imary Dx) Start: 11-21-2023 End: 11-21-2023 ambulatory MARCOS MCMAHONM [facility] Start: 11-16-2023 End: 11-17-2023 Evaluation and management of inpatient TRUE EASLEY [facility] Start: 11-16-2023 End: 11-16-[address] JACOB RODRIGUEZ MD Facility:[facility] Start: 11-16-2023 End: 11-16-2023 SAME DAY STAY IDRIS Blair ZEE GRASS FARMER-CNM [facility] Start: 11-11-2023 End: 11-11-[address] JACOB RODRIGUEZ MD Facility:[facility] Start: 11-10-2023 End: 11-11-2023 SAME DAY STAY NGOZI PEREZ GRASS FARMER-CNM [facility] Start: 10-27-2023 End: 10-28-[address] JACOB RODRIGUEZ MD Facility:[facility] Start: 10-27-2023 End: 10-27-2023 Patient encounter procedure IDRIS Blair ZEE GRASS FARMER-CNM [facility] Start: 09-06-2023 End: 09-06-[address] JACOB RODRIGUEZ MD Facility:[facility] Start: 09-06-2023 End: 09-06-2023 SAME DAY STAY IDRIS Blair KOCH GRASS FARMER-CNM [facility] Start: 08-16-2023 End: 08-16-2023 Patient encounter procedure Risa Hauser GRASS FARMER.ANALYSIS CONSULTANT Work Phone: [facility] [place] Comment on above: Encounter to [facility] (Primary Dx); Anxiety and depression; , unspecified gestational age Start: 08-03-2023 End: 08-04-2023 Emergency department patient visit VU BARRETT [facility] Start: 08-03-2023 ambulatory Risa Hauser GRASS FARMER.ANALYSIS CONSULTANT Work Phone: [facility] Comment on above: vision giovanni nge Start: 07-27-2023 End: 07-27-2023 Office outpatient visit 40 minutes Jacob Rodriguez MD Work Phone: [facility] [place] Comment on above: Nonintractable episo dic headache, unspecified headache type (Primary Dx); AMEYA (generalized anxiety disorder) Start: 07-24-2023 End: 07-25-[address] JACOB RODRIGUEZ MD Facility:[facility] Start: 07-24-2023 End: 07-24-2023 Patient encounter procedure IDRIS KOCH GRASS FARMER-CNM [facility] Start: 07-02-2023 End: 07-03-2023 Emergency department patient visit JACOB RODRIGUEZ [facility] Start: 06-26-2023 End: 06-26-2023 Emergency department patient visit DR JACOB RODRIGUEZ MD Facility:[facility] Start: 06-26-2023 End: 06-26-2023 Emergency department patient visit PATITO SURESH DO [facility] Start: 04-12-2023 End: 04-13-[address] JACOB RODRIGUEZ MD Facility:[facility] Start: 04-12-2023 End: 04-12-2023 Patient encounter procedure FIORLORENZO Blair CHRIS GRASS FARMER-CNM [facility] Start: 03-31-2023 End: 04-01-[address] JACOB RODRIGUEZ MD Facility:[facility] Start: 03-31-2023 End: 03-31-2023 Patient encounter procedure FIORLORENZO Blair CHRIS GRASS FARMER-CNM [facility] Start: 03-30-2023 Telephone encounter Ravi PAULA Work Phone: [facility] Comment on above: Results Start: 03-30-2023 End: 03-30-2023 Patient encounter procedure Sophia Jaimes GRASS FARMER.ANALYSIS CONSULTANT Work Phone: [facility] Comment on above: Dysuria (Primary Dx) ; Vaginal discharge Start: 03-09-2023 Telephone encounter Roxana medina PA-C Work Phone: [facility] Comment on above: Results Start: 03-08-2023 End: 03-08-2023 Patient encounter procedure Roxana Rodriguez PA-C [facility] Comment on above: Urinary frequency (P rimary Dx); Vaginal discharge Start: 04-14-2022 End: 04-14-2022 Office outpatient visit 25 minutes Jacob Rodriguez MD Work Phone: [facility] [place] Comment on above: Depressive disorder (Primary Dx); AMEYA (generalized anxiety disorder) Start: 04-11-2022 End: 04-12-2022 Emergency department patient visit ANGELA HYDE DO [facility] Start: 03-12-2022 End: 03-12-2022 Office outpatient visit 25 minutes Jacob Rodriguez MD Work Phone: [facility] Comment on above: Depressive disorder (Primary Dx); AMEYA (generalized anxiety disorder) Start: 02-14-2022 Refill Jacob Rodriguez MD Work Phone: [facility] [place] Comment on above: Refill Request Start: 02-13-2022 Refill Jacob Rodriguez MD Work Phone: [facility] [place] Comment on above: Refill Request Start: 01-20-2022 End: 01-20-2022 Patient encounter procedure Jacob Rodriguez MD Work Phone: [facility] [place] Comment on above: Depressive disorder (Primary Dx); AMEYA (generalized anxiety disorder) Procedures Date Procedure Procedure Detail Performing Clinician Start: 08-08-2024 Radiologic exam ches t 2 views Denise Hogan APRN.ANALYSIS CONSULTANT Work Phone: Start: 08-08-2024 STREP A MOLECULAR (POC) Denise Hogan APRN.ANALYSIS CONSULTANT Work Phone: Start: 08-03-2023 Urinalysis VU Fischer Comment on above: Result Comment: URIN ALYSIS Performed By: #### [id number] #### [facility],[address] [address] Start: 03-30-2023 Urnls dip stick/tabl et rgnt auto w/o microscopy Sophia Jaimes APRN.ANALYSIS CONSULTANT Work Phone: Start: 03-08-2023 BACTERIAL VAGINOSIS AMPLIFICATION Roxana Rodriguez PA-C Work Phone: Start: 03-08-2023 End: 03-08-2023 Urnls dip stick/tablet rgnt auto w/o microscopy Sophia Jaimes APRN.ANALYSIS CONSULTANT Work Phone: Start: 04-14-2022 Adult depression scr eening assessment Jacob Rodriguez MD Work Phone: Start: 03-12-2022 Adult depression scr eening assessment Jacob Rodriguez MD Work Phone: Start: 03-18-2021 Adult depression scr eening assessment Jacob Rodriguez MD Work Phone: Plan of Treatment Date Care Activity Detail Author Start: 05-11-2027 Administration of diphtheria + tetanus + acellular pertussis vaccine DTAP/TDAP/TD VACCINE (7 - Td or Tdap) [facility] Start: 05-11-2027 Urine microalbumin profile [facility] Start: 08-16-2024 Hepatitis C Screening Hepatitis C [facility] Comment on above: Postponed from 09/10 (Declined at this time) Start: 08-16-2024 Hepatitis C screening Hepatitis C [facility] Comment on above: Postponed from 09/10 (Declined at this time) Start: 08-16-2024 HIV Screening HIV Screening [facility] Comment on above: Postponed from 09/10 (Declined at this time) Start: 08-16-2024 HIV screening HIV Screening [facility] Comment on above: Postponed from 09/10 (Declined at this time) Start: 08-16-2024 Meningococcal B Vacc ine: Consider Based On Risk (1 of 2 - Patient Seeks Protection) Meningococcal B Vaccine: Consider Based On Risk (1 of 2 - Patient Seeks Protection) [facility] Comment on above: Postponed from 09/10 (Declined at this time) Start: 06-30-2024 Covid-19 Vaccine () Covid-19 Vaccine () [facility] Start: 06-30-2024 Covid-19 Vaccine ( season) Covid-19 Vaccine ( season) [facility] Start: 06-30-2024 Influenza vaccination Influenza Vacc ine (#1) [facility] Start: 04-28-2024 Influenza vaccination Influenza Vacc ine (#1) [facility] Comment on above: Postponed from 06/30 (Declined at this time) Start: 03-08-2024 CHLAMYDIA SCREENING (18-24) CHLAMYDIA SCREENING (18-24) [facility] Start: 03-08-2024 GC (GONORRHEA) SCREE JOSE (18-24) GC (GONORRHEA) SCREENING (18-24) [facility] Start: 03-08-2024 Screening for Chlamy octavio trachomatis Chlamydia Screening (18-) [facility] Start: 06-30-2023 Influenza vaccination [facility] Start: 06-30-2023 Influenza vaccinatio n given INFLUENZA VACCINE (#1) [facility] Start: 04-14-2023 Adult depression screening assessment DEPRESSION SCREENING [facility] Start: 03-30-2023 End: 05-30-2023 Bacteria identified in Urine by Culture [facility] [employer] Work Phone: Comment on above: Expected: 03/30/2023 , Expires: 05/30/2023 Start: 03-12-2023 Adult depression screening assessment DEPRESSION SCREENING [facility] Start: 2022 ANNUAL WELLNESS VISIT ANNUAL WELLNES S VISIT [facility] Start: 2022 CHLAMYDIA SCREENING (18-24) CHLAMYDIA SCREENING (18-24) [facility] Start: 2022 GC (GONORRHEA) SCREE JOSE (18-24) GC (GONORRHEA) SCREENING (18-24) [facility] Start: 2022 HEPATITIS C SCREENING HEPATITIS C [facility] Start: 2022 Hepatitis C screening Hepatitis C [facility] Start: 2022 HIV SCREENING HIV SCREENING [facility] Start: 2022 HIV screening HIV Screening [facility] Start: 06-30-2022 Influenza vaccination INFLUENZ A (Season Ended) [facility] Start: 05-10-2022 CHLAMYDIA SCREENING (<18) CHLAMYDIA SCREENING (<18) [facility] Start: 05-10-2022 GC (GONORRHEA) SCREE JOSE (<18) GC (GONORRHEA) SCREENING (<18) [facility] Start: 03-18-2022 Adult depression screening assessment DEPRESSION SCREENING [facility] Start: 06-30-2021 Influenza vaccination INFLUENZA (#1) [facility] Start: 2020 Meningococcal B Vacc ine: Consider Based On Risk (1 of 2 - Patient Seeks Protection) Meningococcal B Vaccine: Consider Based On Risk (1 of 2 - Patient Seeks Protection) [facility] Start: 2020 Screening for Chlamy octavio trachomatis CHLAMYDIA SCREENING [facility] Start: 2018 PEDS TO ADULT TRANSI TION ANNUAL ASSESSMENT PEDS TO ADULT TRANSITION ANNUAL ASSESSMENT [facility] Start: 2016 Depression screening using PHQ-9 (Patient Health Questionnaire 9) score DEPRESSION SCREENING [facility] Start: 2016 PEDS TO ADULT TRANSI TION INITIAL DISCUSSION PEDS TO ADULT TRANSITION INITIAL DISCUSSION [facility] Start: 2014 MENINGOCOCCAL B: Consider based on risk (1 of 2 - Risk Bexsero 2-dose series) MENINGOCOCCAL B: Consider based on risk (1 of 2 - Risk Bexsero 2-dose series) [facility] Start: 2009 COVID-19 VACCINE (#1) COVID-19 VACCI NE (#1) [facility] Start: 2009 COVID-19 VACCINE (1) COVID-19 VACCIN E (1) [facility] Start: 03-10-2005 COVID-19 VACCINE (#1) COVID-19 VACCI NE (#1) [facility] Bacteria identified in Urine by Culture URINE CULTURE Microbiology Routine Urinary frequency 03/08/2023 6:20 PM EDT [facility] Work Phone: BACTERIAL VAGINOSIS AMPLIFICATION BACTERIAL VAGINOSIS AMPLIFICATION Lab Routine Vaginal discharge 03/30/2023 9:55 AM EDT [facility] Work Phone: EDDI / TRICHOMONA S AMPLIFICATION EDDI / TRICHOMONAS AMPLIFICATION Microbiology Routine Vaginal discharge 03/08/2023 6:20 PM EDT [facility] Work Phone: EDDI / TRICHOMONA S AMPLIFICATION EDDI / TRICHOMONAS AMPLIFICATION Microbiology Routine Vaginal discharge 03/30/2023 9:55 AM EDT [facility] Work Phone: Chlamydia trachomatis+Neisseria gonorrhoeae DNA [Presence] in Unspecified specimen by MARCO ANTONIO with probe detection GC/CHLAMYDIA DNA DET Lab Routine Vaginal discharge 03/08/2023 6:20 PM EDT [facility] Work Phone: COVID & INFLUENZA A/ B & RSV PCR, ROUTINE COVID & INFLUENZA A/B & RSV PCR, ROUTINE Microbiology Routine Acute cough URI, acute 08/08/2024 10:33 AM EDT [facility] Work Phone: [facility] Immunizations Immunization Date Immunization Notes Care Provider Fa regino 01-15-2021 meningococcal polysaccharide (groups A, C, Y and W-135) diphtheria toxoid conjugate vaccine (MCV4P) Jacob Rodriguez MD Work Phone: [facility] 12-24-2019 Human Papillomavirus 9-valent vaccine Jacob Rodriguez MD Work Phone: [facility] 09-04-2017 meningococcal polysaccharide (groups A, C, Y and W-135) diphtheria toxoid conjugate vaccine (MCV4P) Jacob Rodriguez MD Work Phone: [facility] Work Phone: 05-11-2017 Human Papillomavirus 9-valent vaccine Jacob Rodriguez MD Work Phone: [facility] 05-11-2017 tetanus toxoid, redu cristian diphtheria toxoid, and acellular pertussis vaccine, adsorbed Jacob Rodriguez MD Work Phone: [facility] 11-04-2011 influenza virus vacc ine, live, attenuated, for intranasal use Jacob Rodriguez MD Work Phone: [facility] Work Phone: 11-04-2011 influenza virus vacc ine, unspecified formulation Jacob Rodriguez MD Work Phone: [facility] 01-13-2010 diphtheria, tetanus toxoids and acellular pertussis vaccine Jacob Rodriguez MD Work Phone: [facility] Work Phone: 01-13-2010 measles, mumps and rubella virus vaccine Jacob Rodriguez MD Work Phone: [facility] Work Phone: 01-13-2010 poliovirus vaccine, inactivated Jacob Rodriguez MD Work Phone: [facility] Work Phone: 01-13-2010 varicella virus vaccine Jacob Rodriguez MD Work Phone: [facility] Work Phone: 11-23-2009 influenza virus vacc ine, live, attenuated, for intranasal use Jacob Rodriguez MD Work Phone: [facility] Work Phone: 10-24-2008 influenza virus vacc ine, live, attenuated, for intranasal use Jacob Rodriguez MD Work Phone: [facility] 09-24-2008 influenza virus vacc ine, live, attenuated, for intranasal use Jacob Rodriguez MD Work Phone: [facility] Work Phone: 01-27-2006 diphtheria, tetanus toxoids and acellular pertussis vaccine Jacob Rodriguez MD Work Phone: [facility] Work Phone: 01-27-2006 haemophilus influenz ae type b vaccine, HbOC conjugate Jacob Rodriguez MD Work Phone: [facility] Work Phone: 01-27-2006 measles, mumps and rubella virus vaccine Jacob Rodriguez MD Work Phone: [facility] Work Phone: 01-27-2006 pneumococcal conjuga te vaccine, 7 valent Jacob Rodriguez MD Work Phone: [facility] Work Phone: 01-27-2006 varicella virus vaccine Jacob Rodriguez MD Work Phone: [facility] Work Phone: 03-11-2005 DTaP-hepatitis B and poliovirus vaccine Jacob Rodriguez MD Work Phone: [facility] Work Phone: 03-11-2005 haemophilus influenz ae type b vaccine, HbOC conjugate Jacob Rodriguez MD Work Phone: [facility] Work Phone: 03-11-2005 pneumococcal conjuga te vaccine, 7 valent Jacob Rodriguez MD Work Phone: [facility] Work Phone: 01-11-2005 diphtheria, tetanus toxoids and acellular pertussis vaccine, unspecified formulation Jacob Rodriguez MD Work Phone: [facility] 01-11-2005 DTaP-hepatitis B and poliovirus vaccine Jacob Rodriguez MD Work Phone: [facility] Work Phone: 01-11-2005 haemophilus influenz ae type b vaccine, HbOC conjugate Jacob Rodriguez MD Work Phone: [facility] Work Phone: 01-11-2005 pneumococcal conjuga te vaccine, 7 valent Jacob Rodriguez MD Work Phone: [facility] Work Phone: 01-11-2005 poliovirus vaccine, inactivated Jacob Rodriguez MD Work Phone: [facility] 2004 DTaP-hepatitis B and poliovirus vaccine Jacob Rodriguez MD Work Phone: [facility] Work Phone: 2004 haemophilus influenz ae type b vaccine, HbOC conjugate Jacob Rodriguez MD Work Phone: [facility] Work Phone: 2004 pneumococcal conjuga te vaccine, 7 valent Jacob Rodriguez MD Work Phone: [facility] Work Phone: 2004 hepatitis B vaccine, pediatric or pediatric/adolescent dosage Jacob Rodriguez MD Work Phone: [facility] Work Phone: Payers Date Payer Category Payer Private Health Insurance [id number] 2025 Self-pay 2023 Medicaid [id number] 2023 Unknown [id number] 2023 Private Health Insurance [facility] [id number] 2023 Private Health Insurance [id number] 2023 Unknown [id number] [address] [facility] [id number] 2019-Present [phone] [address] [place] [id number] PPO [id number] [facility] [id number] 2019-Present [phone] [address] [place] [id number] PPO [id number] 2017 Private Health Insurance [facility] [id number] 2004 Unknown [id number] 51 2004 Unknown [id number] 51 2004 Unknown [id number] 51 2004 Unknown [id number] 51 2004 Unknown [id number] 1980 Unknown [id number] 1980 Unknown [id number] [id number] 1980 Unknown [id number] [id number] 1980 Unknown [id number] [id number] 1980 Unknown [id number] [id number] 1980 Unknown [id number] [id number] 1980 Unknown [id number] [id number] 1980 Unknown [id number] [id number] 1980 Unknown [id number] [id number] 1980 Unknown [id number] [id number] 27 Unknown [id number] [id number] 62 Unknown [id number] [id number] 62 Unknown [id number] 62 Unknown [id number] 62 Unknown [id number] 62 Social History Date Type Detail Facility Start: 03-08-2023 End: 11-16-2023 Tobacco smoking status NHIS Never smoked tobacco [facility] Start: 01-20-2022 End: 07-27-2023 Alcohol intake Not Asked [facility] Start: 02-20-2012 End: 03-08-2023 Tobacco Comment outdoors [facility] Start: 2004 Sex Assigned At Not on file [facility] Start: 01-10-2022 End: 04-14-2022 Exposure to SARS-CoV-2 (event) Not sure [facility] Start: 03-11-2022 History SDOH Physical Activity DPW 0 [facility] Start: 03-11-2022 History SDOH Financial 4 [facility] Start: 03-11-2022 History SDOH Food Worry 1 [facility] Start: 03-11-2022 History SDOH Transport Med 2 [facility] Tobacco smoking status No Smokin g Status Entered [facility] Sex Assigned At [facility] Start: 2004 Sex Assigned At Female [facility] History of tobacco use Passive smoker [facility] Start: 03-08-2023 End: 01-21-2024 Tobacco use and exposure Smokeless tobacco non-user [facility] Start: 07-27-2023 End: 08-14-2023 History of Social function [facility] Start: 07-27-2023 End: 08-14-2023 Tobacco use panel [facility] How hard is it for y ou to pay for the very basics like food, housing, medical care, and heating Not very hard [facility] (I/We) worried whepreeti er (my/our) food would run out before (I/we) got money to buy more. Never true [facility] In the past 12 month s, has lack of transportation kept you from medical appointments or from getting medications? No [facility] In the past 12 month s, was there a time when you were not able to pay the mortgage or rent on time? No [facility] Start: 04-07-2022 Gender identity Identifies as female gender (finding) [facility] Start: 04-07-2022 Sexual orientation Heterosexual (finding) [facility] Start: 08-16-2023 End: 12-01-2024 Alcohol intake Ex-drinker (finding) [facility] Are you now , , , , never or living with a partner? Living with partner [facility] How often to you hav e a drink containing alcohol? Never [facility] Do you feel stress - tense, restless, nervous, or anxious, or unable to sleep at night because your mind is troubled all the time - these days [OSQ] Very much [facility] Start: 03-05-2023 [facility] Start: 01-21-2024 Alcohol intake Current drinker of alcohol (finding) [facility] Start: 03-01-2017 Sex Female (finding) [facility] Functional Status Date Assessment Result Facility 11-16-2023 Functional Status Standard Safet y ID band on, Call device within reach, Bed in low position, Wheels locked, Upper/Half-Length side-rails up, Phone within reach, personal items within reach, Non-Slip footwear [facility] 06-26-2023 Functional Status Independent [facility] 06-26-2023 Functional Status ID band on, Call device within reach, Bed in low position, Wheels locked, Upper/Half-Length side-rails up, Visitor at bedside [facility] 04-12-2022 Functional Status Independent [facility] 04-11-2022 Functional Status ID band on, Call device within reach, Bed in low position, Wheels locked, Visitor at bedside [facility] Mental Status Date Assessment Result Facility 06-26-2023 Mental Status Orientation Oriented x 4 [facility] 06-26-2023 Mental Status [facility] 04-12-2022 Mental Status Orientation Oriented x 4 [facility] 04-11-2022 Mental Status [facility] Clinical Notes 04-19-2011 to 12-01-2024 Ravi Nazario PA - 12/01/2024 8:16 AM ESTPatient InstructionsCarlos Alberto Donovan MD - 08/16/2024 6:50 PM EDTTelephone Encounter - Black Brock MA - 08/09/2024 7:26 AM EDT Note Date & Type Note Facility 12-01-2024 Note HNO ID: [id number] Author: RAVI NAZARIO PA Service: ? Author Type: Physician Carnival Worker Type: Progress Notes Filed: 12/01/2024 08:17 Note Text: This note was created using [employer]. Subjective Sherif Licona is a 19 year old female. HPI 19-year-old female presents for cough, congestion, sneezing x 2 days. Patient states she started getting sick a few days ago. She has cough, nasal congestion. No fevers. No chest pain or shortness of breath. She took Tylenol Cold and flu this morning. She states she has been around sick contacts. No other complaint. PAST MEDICAL HISTORY Diagnosis Date ADD (attention deficit disorder with hyperactivity) ADD (attention deficit disorder) 04/19/2011 Anxiety and depression Headaches PAST SURGICAL HISTORY Procedure Laterality Date TONSILLECTOMY AND ADENOIDECTOMY ALLERGIES Patient has no known allergies. MEDICATIONS sertraline (ZOLOFT) 50 mg tablet Take 1 tablet by mouth once daily. PNV no.153/FA/om3/dha/epa/fish ( GUMMIES ORAL) Take by mouth. (Patient not taking: Reported on 08/08/2024) MAGNESIUM ORAL Take by mouth. (Patient not taking: Reported on 08/08/2024) FAMILY HISTORY Problem Relation Age of Onset None Mother None Father other (ETOH) Maternal Grandmother other (ETOH) Maternal Grandfather Diabetes Paternal Grandmother Lung Cancer Paternal Grandmother Depression Paternal Grandmother Diabetes Paternal Grandfather Ischemic Heart Disease Paternal Grandfather Social History Tobacco Use Smoking status: Never Passive exposure: Yes Smokeless tobacco: Never Tobacco comments: outdoors Vaping Use Vaping status: Former Substance Use Topics Alcohol use: Not Currently Drug use: Not Currently Review of Systems Constitutional: Negative for chills and fever. HENT: Positive for congestion and sneezing. Negative for ear pain and sore throat. Respiratory: Positive for cough. Negative for shortness of breath. Cardiovascular: Negative for chest pain. Gastrointestinal: Negative for diarrhea and vomiting. Objective BP 100/68 Pulse 119 Temp 36.4 ?C (97.6 ?F) Resp 19 Wt 65.2 kg (143 lb 11.8 oz) LMP 08/02/2024 SpO2 98% Physical Exam Vitals and nursing note reviewed. Constitutional: General: She is not in acute distress. Appearance: Normal appearance. She is not toxic-appearing. HENT: Right Ear: Tympanic membrane and ear canal normal. Left Ear: Tympanic membrane and ear canal normal. Nose: Nose normal. Mouth/Throat: Mouth: Mucous membranes are moist. Pharynx: Oropharynx is clear. Eyes: Conjunctiva/sclera: Conjunctivae normal. Cardiovascular: Rate and Rhythm: Normal rate and regular rhythm. Pulmonary: Effort: Pulmonary effort is normal. Breath sounds: Normal breath sounds. No wheezing, rhonchi or rales. Skin: General: Skin is warm and dry. Neurological: Mental Status: She is alert. Assessment and Plan ASSESSMENT/PLAN: 1. URI, acute - ICD9: 465.9, ICD10: J06.9 - Discussed viral etiology and rationale for treatment. - Symptomatic treatment with prn analgesia - Supportive care with fluids and rest - The patient may also use OTC cough and cold meds as needed. -Declines COVID/flu/RSV swab Diagnosis and treatment plan were discussed and questions were answered to the patient's satisfaction. Pt acknowledged understanding of concepts and follow up plan. Specific signs and symptoms that would indicate the need for higher level of care were discussed in detail warranting prompt ER evaluation. NISA Mendez [facility] 12-01-2024 History of Present illness Narrative This note was created using [employer]. Subjective Sherif Licona is a 19 year old female. HPI 19-year-old female presents for cough, congestion, sneezing x 2 days. Patient states she started getting sick a few days ago. She has cough, nasal congestion. No fevers. No chest pain or shortness of breath. She took Tylenol Cold and flu this morning. She states she has been around sick contacts. No other complaint. PAST MEDICAL HISTORY Diagnosis Date ADD (attention deficit disorder with hyperactivity) ADD (attention deficit disorder) 04/19/2011 Anxiety and depression Headaches PAST SURGICAL HISTORY Procedure Laterality Date TONSILLECTOMY & ADENOIDECTOMY <AGE 11 age 2 ALLERGIES Patient has no known allergies. MEDICATIONS sertraline (ZOLOFT) 50 mg tablet Take 1 tablet by mouth once daily. PNV no.153/FA/om3/dha/epa/fish ( GUMMIES ORAL) Take by mouth. (Patient not taking: Reported on 08/08/2024) MAGNESIUM ORAL Take by mouth. (Patient not taking: Reported on 08/08/2024) FAMILY HISTORY Problem Relation Age of Onset None Mother None Father other (ETOH) Maternal Grandmother other (ETOH) Maternal Grandfather Diabetes Paternal Grandmother Lung Cancer Paternal Grandmother Depression Paternal Grandmother Diabetes Paternal Grandfather Ischemic Heart Disease Paternal Grandfather Social History Tobacco Use Smoking status: Never Passive exposure: Yes Smokeless tobacco: Never Tobacco comments: outdoors Vaping Use Vaping status: Former Substance Use Topics Alcohol use: Not Currently Drug use: Not Currently Review of Systems Constitutional: Negative for chills and fever. HENT: Positive for congestion and sneezing. Negative for ear pain and sore throat. Respiratory: Positive for cough. Negative for shortness of breath. Cardiovascular: Negative for chest pain. Gastrointestinal: Negative for diarrhea and vomiting. Objective BP 100/68 Pulse 119 Temp 36.4 C (97.6 F) Resp 19 Wt 65.2 kg (143 lb 11.8 oz) LMP 08/02/2024 SpO2 98% Physical Exam Vitals and nursing note reviewed. Constitutional: General: She is not in acute distress. Appearance: Normal appearance. She is not toxic-appearing. HENT: Right Ear: Tympanic membrane and ear canal normal. Left Ear: Tympanic membrane and ear canal normal. Nose: Nose normal. Mouth/Throat: Mouth: Mucous membranes are moist. Pharynx: Oropharynx is clear. Eyes: Conjunctiva/sclera: Conjunctivae normal. Cardiovascular: Rate and Rhythm: Normal rate and regular rhythm. Pulmonary: Effort: Pulmonary effort is normal. Breath sounds: Normal breath sounds. No wheezing, rhonchi or rales. Skin: General: Skin is warm and dry. Neurological: Mental Status: She is alert. Assessment and Plan ASSESSMENT/PLAN: 1. URI, acute - ICD9: 465.9, ICD10: J06.9 - Discussed viral etiology and rationale for treatment. - Symptomatic treatment with prn analgesia - Supportive care with fluids and rest - The patient may also use OTC cough and cold meds as needed. -Declines COVID/flu/RSV swab Diagnosis and treatment plan were discussed and questions were answered to the patient's satisfaction. Pt acknowledged understanding of concepts and follow up plan. Specific signs and symptoms that would indicate the need for higher level of care were discussed in detail warranting prompt ER evaluation. NISA Mendez documented in this encounter [facility] 12-01-2024 Instructions Ravi Nazario PA - 12/01/2024 8:15 AM EST Rest, increase water intake Motrin or Tylenol as needed for fever or pain. Salt water gargles, chloraseptic spray or lozenges as needed for sore throat. Warm beverages, honey. Nasal saline spray as needed Cool mist humidifier at night A cold normally lasts 7-10 days. If your symptoms are lasting longer, develop fever, or worsening by that time instead of improving then return to clinic or follow up with PCP for re-evaluation. Tylenol (generic acetaminophen) 500 mg-2 tabs every 8 hrs. as needed for fever and aches Ibuprofen 600 mg (3-200mg tablets) every 6 hours -Mucinex (generic is fine) Guaifenesin 1200 mg twice daily to help with cough and to thin out mucus documented in this encounter [facility] 08-16-2024 Note HNO ID: [id number] Author: CARLOS ALBERTO DONOVAN MD Service: ? Author Type: Physician Type: Progress Notes Filed: 08/16/2024 19:04 Note Text: Patient presents with: Ear Pain: LEFT ear feels muffled x 1 day HPI: Feeling left ear pain since last night. Treated for URI and right otitis media 08/08/24 and symptoms resolved. Positive symptoms: Earache, muffled hearing, Negative symptoms: Cough, Sore throat, Nasal Congestion, Rhinorrhea, Fever, Chills, OTC: none. Only took 2 days of Augmentin because it was too hard to swallow MEDICATIONS: Current Outpatient Medications Medication Sig sertraline (ZOLOFT) 50 mg tablet Take 1 tablet by mouth once daily. PNV no.153/FA/om3/dha/epa/fish ( GUMMIES ORAL) Take by mouth. (Patient not taking: Reported on 08/08/2024) MAGNESIUM ORAL Take by mouth. (Patient not taking: Reported on 08/08/2024) No current facility-administered medications for this visit. ALLERGIES: ALLERGIES No Known Allergies VITALS: BP 122/78 Pulse 95 Temp 37.1 ?C (98.8 ?F) (Right Tympanic) Resp 16 Wt 70 kg (154 lb 5.2 oz) LMP 08/02/2024 SpO2 98% Yes PHYSICAL EXAM: GEN: Pleasant, in no acute distress. Breast feeding. HEENT: PERRL, EOMI, conjunctiva clear Ears: canals clear. RTM without erythema, bulge, or effusion. LTM with erythema and effusion, no bulge. Sinuses: non-tender frontal sinus, non-tender maxillary sinuses Throat: moist mucous membranes, no erythema, no exudate Neck: supple, no thyromegaly, no lymphadenopathy HEART: regular rate and rhythm, no murmurs LUNGS: clear to auscultation, no wheezes or crackles, no increased WOB ASSESSMENT/PLAN: 1. Acute otitis media, left - ICD9: 382.9, ICD10: H66.92 - AMOXICILLIN 500 MG CAPSULE (able to swallow smaller capsules). - Discussed supportive care treatment with as needed analgesia. Carlos Alberto Donovan MD [facility] 08-16-2024 History of Present illness Narrative Patient presents with: Ear Pain: LEFT ear feels muffled x 1 day HPI: Feeling left ear pain since last night. Treated for URI and right otitis media 08/08/24 and symptoms resolved. Positive symptoms: Earache, muffled hearing, Negative symptoms: Cough, Sore throat, Nasal Congestion, Rhinorrhea, Fever, Chills, OTC: none. Only took 2 days of Augmentin because it was too hard to swallow MEDICATIONS: Current Outpatient Medications Medication Sig sertraline (ZOLOFT) 50 mg tablet Take 1 tablet by mouth once daily. PNV no.153/FA/om3/dha/epa/fish ( GUMMIES ORAL) Take by mouth. (Patient not taking: Reported on 08/08/2024) MAGNESIUM ORAL Take by mouth. (Patient not taking: Reported on 08/08/2024) No current facility-administered medications for this visit. ALLERGIES: ALLERGIES No Known Allergies VITALS: BP 122/78 Pulse 95 Temp 37.1 C (98.8 F) (Right Tympanic) Resp 16 Wt 70 kg (154 lb 5.2 oz) LMP 08/02/2024 SpO2 98% Yes PHYSICAL EXAM: GEN: Pleasant, in no acute distress. Breast feeding. HEENT: PERRL, EOMI, conjunctiva clear Ears: canals clear. RTM without erythema, bulge, or effusion. LTM with erythema and effusion, no bulge. Sinuses: non-tender frontal sinus, non-tender maxillary sinuses Throat: moist mucous membranes, no erythema, no exudate Neck: supple, no thyromegaly, no lymphadenopathy HEART: regular rate and rhythm, no murmurs LUNGS: clear to auscultation, no wheezes or crackles, no increased WOB ASSESSMENT/PLAN: 1. Acute otitis media, left - ICD9: 382.9, ICD10: H66.92 - AMOXICILLIN 500 MG CAPSULE (able to swallow smaller capsules). - Discussed supportive care treatment with as needed analgesia. Carlos Alberto Donovan MD documented in this encounter [facility] 08-09-2024 Telephone encounter Note Patient has viewed results on [employer]. Black Brock MA [facility] 08-09-2024 Miscellaneous Notes Patient has viewed results on [employer] Black Brock MA Negative COVID flu RSV documented in this encounter [facility] 08-08-2024 Telephone encounter Note Negative COVID flu RSV [facility] Work Phone: 08-08-2024 History of Present illness Narrative Radiology Service Progress Note PATIENT NAME: Sherif Licona DATE OF SERVICE: August 08, 2024 TIME: 10:24 AM PATIENT IDENTITY VERIFICATION COMPLETED USING TWO (2) IDENTIFIERS: Name and Date of confirmed by patient verbally. FALL SCREENING: Has the patient had 2 falls in the last year or 1 fall with injury or currently using an Ambulatory Assistive Device (Walker, Cane, Wheelchair, Crutches, etc.)? No PATIENT GENDER DATA: Female. status: : No status: NO. PATIENT RELEVANT IMPLANT DATA REVIEWED: Not Applicable PATIENT PRESENTS WITH AN IMPLANTABLE OR ATTACHED BUSINESS OPERATIONS DIRECTOR: No RADIOLOGY DEPARTMENT: General X-ray: Exam(s) Completed: Chest X-Ray PERIPHERAL IV DATA: Not applicable SIGNED BY: RT Chelita(Kylah) August 08, 2024 10:24 AM documented in this encounter [facility] 08-08-2024 Note HNO ID: [id number] Author: HU NEAL RT(R) Service: Radiology Author Type: Technologist Type: Progress Notes Filed: 08/08/2024 10:32 Note Text: Radiology Service Progress Note PATIENT NAME: Sherif Licona DATE OF SERVICE: August 08, 2024 TIME: 10:24 AM PATIENT IDENTITY VERIFICATION COMPLETED USING TWO (2) IDENTIFIERS: Name and Date of confirmed by patient verbally. FALL SCREENING: Has the patient had 2 falls in the last year or 1 fall with injury or currently using an Ambulatory Assistive Device (Walker, Cane, Wheelchair, Crutches, etc.)? No PATIENT GENDER DATA: Female. status: : No status: NO. PATIENT RELEVANT IMPLANT DATA REVIEWED: Not Applicable PATIENT PRESENTS WITH AN IMPLANTABLE OR ATTACHED BUSINESS OPERATIONS DIRECTOR: No RADIOLOGY DEPARTMENT: General X-ray: Exam(s) Completed: Chest X-Ray PERIPHERAL IV DATA: Not applicable SIGNED BY: EVERARDO Merlos) August 08, 2024 10:24 AM [facility] 08-08-2024 Note HNO ID: [id number] Author: DENISE HOGAN APRN.[facility] Service: ? Author Type: Nurse Practitioner Type: Progress Notes Filed: 08/08/2024 11:59 Note Text: This note was created using [employer]. Subjective Sherif Licona is a 18 year old female. Relevant PMH and allergies reviewed: Pt is a 18 year old female who presents today with cough, sore throat, SOB, congestion and headache x6 days. Pt states that her symptoms have been worsening over the past 6 days. She has been taking advil cold and sinus which has been helping, but has not totally taken her symptoms away. Pt states that she has also been having right ear pain and itchiness. She has also noticed copious amounts of eye drainage in the morning. Pt states she has been getting SOB with her coughing lately and it is causing her to become light headed. 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 She denies any history of seasonal allergies, asthma and pneumonia. Pt does have a history of vaping. Pt denies nausea, vomiting, chest pain, diarrhea, fever, chills and rash. The history is provided by the patient. No english language learner teacher was used. URI She complains of cough and shortness of breath. There is no chest tightness, difficulty breathing or wheezing. This is a new problem. The current episode started in the past 7 days. The problem occurs constantly. The problem has been gradually worsening. The cough is productive of sputum and productive. Associated symptoms include ear pain, headaches, malaise/fatigue, nasal congestion, postnasal drip and a sore throat. Pertinent negatives include no appetite change, chest pain, fever, rhinorrhea, sneezing or trouble swallowing. Her symptoms are aggravated by nothing. Relieved by: advil cold and sinus. She reports minimal improvement on treatment. There are no known risk factors for lung disease. There is no history of asthma, COPD or pneumonia. PAST MEDICAL HISTORY Diagnosis Date ADD (attention deficit disorder with hyperactivity) ADD (attention deficit disorder) 04/19/2011 Anxiety and depression Headaches PAST SURGICAL HISTORY Procedure Laterality Date TONSILLECTOMY AND ADENOIDECTOMY ALLERGIES Patient has no known allergies. MEDICATIONS sertraline (ZOLOFT) 50 mg tablet Take 1 tablet by mouth once daily. PNV no.153/FA/om3/dha/epa/fish ( GUMMIES ORAL) Take by mouth. (Patient not taking: Reported on 08/08/2024) MAGNESIUM ORAL Take by mouth. (Patient not taking: Reported on 08/08/2024) FAMILY HISTORY Problem Relation Age of Onset None Mother None Father other (ETOH) Maternal Grandmother other (ETOH) Maternal Grandfather Diabetes Paternal Grandmother Lung Cancer Paternal Grandmother Depression Paternal Grandmother Diabetes Paternal Grandfather Ischemic Heart Disease Paternal Grandfather Social History Tobacco Use Smoking status: Never Passive exposure: Yes Smokeless tobacco: Never Tobacco comments: outdoors Vaping Use Vaping status: Former Substance Use Topics Alcohol use: Not Currently Drug use: Not Currently Review of Systems Constitutional: Positive for fatigue and malaise/fatigue. Negative for activity change, appetite change, chills and fever. HENT: Positive for congestion, ear pain, postnasal drip and sore throat. Negative for ear discharge, rhinorrhea, sinus pressure, sinus pain, sneezing and trouble swallowing. Eyes: Positive for discharge. Negative for pain, redness and itching. Respiratory: Positive for cough and shortness of breath. Negative for wheezing. Cardiovascular: Negative for chest pain and palpitations. Gastrointestinal: Negative for diarrhea, nausea and vomiting. Musculoskeletal: Negative for neck pain and neck stiffness. Skin: Negative for rash. Allergic/Immunologic: Negative for environmental allergies and food allergies. Neurological: Positive for light-headedness and headaches. Objective BP 116/87 Pulse 107 Temp 36.4 ?C (97.6 ?F) Resp 20 Wt 68 kg (149 lb 14.6 oz) LMP 08/02/2024 SpO2 97% Yes Physical Exam Vitals and nursing note reviewed. Constitutional: General: She is not in acute distress. Appearance: Normal appearance. She is not ill-appearing. HENT: Head: Normocephalic and atraumatic. Right Ear: Hearing and external ear normal. No decreased hearing noted. No drainage or tenderness. There is no impacted cerumen. No mastoid tenderness. Tympanic membrane is erythematous. Tympanic membrane is not bulging. Left Ear: Hearing, tympanic membrane and external ear normal. No decreased hearing noted. No drainage or tenderness. There is no impacted cerumen. No mastoid tenderness. Tympanic membrane is not erythematous or bulging. Nose: Congestion present. No rhinorrhea. Right Sinus: No maxillary sinus tenderness or frontal sinus tenderness. Left Sinus: No maxillary sinus tenderness or frontal sinus tenderness. Mouth/Throat: Mouth: Mucous membranes are moist. (more content not included)... [facility] 08-08-2024 History of Present illness Narrative This note was created using [employer]. Subjective Sherif Licona is a 18 year old female. Relevant PMH and allergies reviewed: Pt is a 18 year old female who presents today with cough, sore throat, SOB, congestion and headache x6 days. Pt states that her symptoms have been worsening over the past 6 days. She has been taking advil cold and sinus which has been helping, but has not totally taken her symptoms away. Pt states that she has also been having right ear pain and itchiness. She has also noticed copious amounts of eye drainage in the morning. Pt states she has been getting SOB with her coughing lately and it is causing her to become light headed. 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 She denies any history of seasonal allergies, asthma and pneumonia. Pt does have a history of vaping. Pt denies nausea, vomiting, chest pain, diarrhea, fever, chills and rash. The history is provided by the patient. No english language learner teacher was used. URI She complains of cough and shortness of breath. There is no chest tightness, difficulty breathing or wheezing. This is a new problem. The current episode started in the past 7 days. The problem occurs constantly. The problem has been gradually worsening. The cough is productive of sputum and productive. Associated symptoms include ear pain, headaches, malaise/fatigue, nasal congestion, postnasal drip and a sore throat. Pertinent negatives include no appetite change, chest pain, fever, rhinorrhea, sneezing or trouble swallowing. Her symptoms are aggravated by nothing. Relieved by: advil cold and sinus. She reports minimal improvement on treatment. There are no known risk factors for lung disease. There is no history of asthma, COPD or pneumonia. PAST MEDICAL HISTORY Diagnosis Date ADD (attention deficit disorder with hyperactivity) ADD (attention deficit disorder) 04/19/2011 Anxiety and depression Headaches PAST SURGICAL HISTORY Procedure Laterality Date TONSILLECTOMY & ADENOIDECTOMY <AGE 11 age 2 ALLERGIES Patient has no known allergies. MEDICATIONS sertraline (ZOLOFT) 50 mg tablet Take 1 tablet by mouth once daily. PNV no.153/FA/om3/dha/epa/fish ( GUMMIES ORAL) Take by mouth. (Patient not taking: Reported on 08/08/2024) MAGNESIUM ORAL Take by mouth. (Patient not taking: Reported on 08/08/2024) FAMILY HISTORY Problem Relation Age of Onset None Mother None Father other (ETOH) Maternal Grandmother other (ETOH) Maternal Grandfather Diabetes Paternal Grandmother Lung Cancer Paternal Grandmother Depression Paternal Grandmother Diabetes Paternal Grandfather Ischemic Heart Disease Paternal Grandfather Social History Tobacco Use Smoking status: Never Passive exposure: Yes Smokeless tobacco: Never Tobacco comments: outdoors Vaping Use Vaping status: Former Substance Use Topics Alcohol use: Not Currently Drug use: Not Currently Review of Systems Constitutional: Positive for fatigue and malaise/fatigue. Negative for activity change, appetite change, chills and fever. HENT: Positive for congestion, ear pain, postnasal drip and sore throat. Negative for ear discharge, rhinorrhea, sinus pressure, sinus pain, sneezing and trouble swallowing. Eyes: Positive for discharge. Negative for pain, redness and itching. Respiratory: Positive for cough and shortness of breath. Negative for wheezing. Cardiovascular: Negative for chest pain and palpitations. Gastrointestinal: Negative for diarrhea, nausea and vomiting. Musculoskeletal: Negative for neck pain and neck stiffness. Skin: Negative for rash. Allergic/Immunologic: Negative for environmental allergies and food allergies. Neurological: Positive for light-headedness and headaches. Objective BP 116/87 Pulse 107 Temp 36.4 C (97.6 F) Resp 20 Wt 68 kg (149 lb 14.6 oz) LMP 08/02/2024 SpO2 97% Yes Physical Exam Vitals and nursing note reviewed. Constitutional: General: She is not in acute distress. Appearance: Normal appearance. She is not ill-appearing. HENT: Head: Normocephalic and atraumatic. Right Ear: Hearing and external ear normal. No decreased hearing noted. No drainage or tenderness. There is no impacted cerumen. No mastoid tenderness. Tympanic membrane is erythematous. Tympanic membrane is not bulging. Left Ear: Hearing, tympanic membrane and external ear normal. No decreased hearing noted. No drainage or tenderness. There is no impacted cerumen. No mastoid tenderness. Tympanic membrane is not erythematous or bulging. Nose: Congestion present. No rhinorrhea. Right Sinus: No maxillary sinus tenderness or frontal sinus tenderness. Left Sinus: No maxillary sinus tenderness or frontal sinus tenderness. Mouth/Throat: Mouth: Mucous membranes are moist. Pharynx: Posterior oropharyngeal erythema present. No oropharyngeal exudate. Comments: Eyes: General: Right eye: No discharge. Left eye: No discharge. Pupils: Pupils are equal, round, and reactive to light. Cardiovascular: Rate and Rhythm: Normal rate and regular rhythm. Pulses: Normal pulses. Heart sounds: Normal heart sounds. Pulmonary: Effort: Pulmonary effort is normal. No respiratory distress. Breath sounds: Normal breath sounds. No wheezing or rhonchi. Abdominal: Palpations: Abdomen is soft. Tenderness: There is no abdominal tenderness. Musculoskeletal: Cervical back: Normal range of motion. No rigidity or tenderness. Skin: General: Skin is warm. Capillary Refill: Capillary refill takes less than 2 seconds. Neurological: Mental Status: She is alert. Psychiatric: Mood and Affect: Mood normal. Behavior: Behavior normal. Assessment and Plan ASSESSMENT/PLAN: 1. 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 URI, acute - ICD9: 465.9, ICD10: J06.9 - Discussed viral etiology and rationale for treatment. - Rapid strep negative in office today - Symptomatic treatment with prn analgesia - Supportive care with fluids and rest - The patient may also use OTC cough and cold meds as needed and warm salt water gargles, throat lozenges and/or OTC throat spray as needed. - Follow up if symptoms persist or worsening of symptoms - COVID & INFLUENZA A/B & RSV PCR, ROUTINE - STREP A MOLECULAR (POC) 3. Acute otitis media, right - ICD9: 382.9, ICD10: H66.91 -Right ear pain and itching x6 days -TM erythematous -History of vaping - Will begin treatment with Augmentin for 7 days - Supportive care with plenty of fluids, rest, and analgesia prn. - Follow up with PCP if symptoms persist or worsen. Trisha Busch Student TEACHING PROVIDER (Physician/PA/GRASS FARMER) NOTE OF PERSONAL INVOLVEMENT IN CARE: I have personally seen and examined the patient and performed the medical decision-making components. I have reviewed the Advanced Practice Registered Nurse (GRASS FARMER) Student's documentation and verified the findings in the note as written. Any additions or changes are noted in bold/italics. Signature: Denise Hogan Date: 08/08/2024 Time: 11:39 AM documented in this encounter [facility] 07-16-2024 Note HNO ID: [id number] Author: RISA HAUSER APRN.YANICK Service: ? 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 Since last office visit has been in good health. Had baby boy 8 months ago. Doing well Taking Zoloft as prescribbed without side effects. Works well to control symptoms. Not currently attending counseling. Denies SI, HI or insomnia Will be working at [employer] . 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 PNV no.153/FA/om3/dha/epa/fish ( GUMMIES ORAL) Take by mouth. MAGNESIUM ORAL Take by mouth. No current facility-administered medications for this visit. Medications and allergies reviewed by this provider. SOCIAL HISTORY Social History Tobacco Use Smoking status: Never Passive exposure: Yes Smokeless tobacco: Never Tobacco comments: outdoors Vaping Use Vaping status: Former Substance Use Topics Alcohol use: Not Currently Drug use: Not Currently REVIEW OF SYSTEMS GENERAL: No weight loss, malaise or fevers HEENT: Negative for frequent or significant headaches, No changes in hearing or vision, no nose bleeds or other nasal problems NECK: Negative for lumps, goiter, pain and significant neck swelling RESPIRATORY: Negative for cough, hemoptysis, wheezing, COPD, dyspnea or shortness of breath CARDIOVASCULAR: Negative for chest pain, leg swelling, hypertension, CHF or palpitations GI: No nausea, vomiting, or diarrhea : No history of dysuria, frequency or incontinence APPRENTICE JOCKEY: Negative for abnormal vaginal bleeding, abnormal vaginal discharge MUSCULOSKELETAL: Negative for joint pain or swelling, back pain. Bilateral legs ache at times SKIN: Negative for lesions, rash, and itching PSYCH: See HPI HEMATOLOGY/LYMPHOLOGY: Negative for prolonged bleeding, bruising easily or swollen nodes ENDOCRINE: Negative for cold or heat intolerance, polyuria, polydipsia and goiter NEURO: No history of headaches, syncope, paralysis, seizures or tremors All other reviewed and negative other than HPI. OBJECTIVE: BP 108/68 Pulse 76 Resp 18 Wt 70 kg (154 lb 6.4 oz) LMP 02/13/2022 SpO2 98% . Vital signs reviewed by this provider. APPEARANCE Well appearing, alert, in no acute distress, well-hydrated, well nourished. EYES conjunctiva and sclera normal. EARS External ears normal, canals clear THROAT normal, no erythema NECK Supple, no adenopathy; thyroid symmetric, normal size HEART RRR with normal S1 and S2, no murmurs, no gallops, no JVD appreciated LUNG clear to auscultation. No wheezes, rhonchi or rales ABDOMEN bowel sounds normoactive, no bruits, soft, non-tender, non-distended, without organomegaly or palpable masses, no tenderness to palpation BACK: Normal exam, FROM with pain or difficulty EXTREMITIES Extremities normal, No deformities, No skin discoloration, and No edema SKIN Skin color, texture, turgor normal, no suspicious rashes or lesions to exposed skin GC (Gonorrhea) Screening (-) due on 03/08/2024 Chlamydia Screening (-) due on 03/08/2024 Covid-19 Vaccine( season) Never done Influenza Vaccine(1) due on 06/30/2024 Meningococcal B Vaccine: Consider Based On Risk(1 of 2 - Patient Seeks Protection) due on 08/16/2024 Hepatitis C Screening due on 08/16/2024 HIV Screening due on 08/16/2024 DTaP,Tdap,Td Vaccine(7 - Td or Tdap) due on 05/11/2027 Hepatitis B Vaccine Completed HPV Vaccine Completed Meningococcal Conjugate Vaccine Completed ASSESSMENT/PLAN: 1. Routine physical examination - ICD9: V70.0, ICD10: Z00.00 - Counseled on healthy diet and regular exercise - paper for work completed - declines blood work - Follow up for annual exam in one year 2. Anxiety and depression - ICD9: 300.00, 311, ICD10: F41.9, F32.A - stable on current regime Risa ChristinelogMADDI joseph.ANALYSIS CONSULTANT Prescription instructions reviewed with patient as applicable. Patient advised if symptoms do not improve or if symptoms worsen sooner, to contact their primary care physician. Potential red flag symptoms discussed with the patient. Reviewed appropriate action plan to take if red flag symptoms occur. Patient agreeable to treatment plan. 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 Since last office visit has been in good health. Had baby boy 8 months ago. Doing well Taking Zoloft as prescribbed without side effects. Works well to control symptoms. Not currently attending counseling. Denies SI, HI or insomnia Will be working at [employer] . 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 PNV no.153/FA/om3/dha/epa/fish ( GUMMIES ORAL) Take by mouth. MAGNESIUM ORAL Take by mouth. No current facility-administered medications for this visit. Medications and allergies reviewed by this provider. SOCIAL HISTORY Social History Tobacco Use Smoking status: Never Passive exposure: Yes Smokeless tobacco: Never Tobacco comments: outdoors Vaping Use Vaping status: Former Substance Use Topics Alcohol use: Not Currently Drug use: Not Currently REVIEW OF SYSTEMS GENERAL: No weight loss, malaise or fevers HEENT: Negative for frequent or significant headaches, No changes in hearing or vision, no nose bleeds or other nasal problems NECK: Negative for lumps, goiter, pain and significant neck swelling RESPIRATORY: Negative for cough, hemoptysis, wheezing, COPD, dyspnea or shortness of breath CARDIOVASCULAR: Negative for chest pain, leg swelling, hypertension, CHF or palpitations GI: No nausea, vomiting, or diarrhea : No history of dysuria, frequency or incontinence APPRENTICE JOCKEY: Negative for abnormal vaginal bleeding, abnormal vaginal discharge MUSCULOSKELETAL: Negative for joint pain or swelling, back pain. Bilateral legs ache at times SKIN: Negative for lesions, rash, and itching PSYCH: See HPI HEMATOLOGY/LYMPHOLOGY: Negative for prolonged bleeding, bruising easily or swollen nodes ENDOCRINE: Negative for cold or heat intolerance, polyuria, polydipsia and goiter NEURO: No history of headaches, syncope, paralysis, seizures or tremors All other reviewed and negative other than HPI. OBJECTIVE: BP 108/68 Pulse 76 Resp 18 Wt 70 kg (154 lb 6.4 oz) LMP 02/13/2022 SpO2 98% . Vital signs reviewed by this provider. APPEARANCE Well appearing, alert, in no acute distress, well-hydrated, well nourished. EYES conjunctiva and sclera normal. EARS External ears normal, canals clear THROAT normal, no erythema NECK Supple, no adenopathy; thyroid symmetric, normal size HEART RRR with normal S1 and S2, no murmurs, no gallops, no JVD appreciated LUNG clear to auscultation. No wheezes, rhonchi or rales ABDOMEN bowel sounds normoactive, no bruits, soft, non-tender, non-distended, without organomegaly or palpable masses, no tenderness to palpation BACK: Normal exam, FROM with pain or difficulty EXTREMITIES Extremities normal, No deformities, No skin discoloration, and No edema SKIN Skin color, texture, turgor normal, no suspicious rashes or lesions to exposed skin GC (Gonorrhea) Screening (18-) due on 03/08/2024 Chlamydia Screening (-) due on 03/08/2024 Covid-19 Vaccine( season) Never done Influenza Vaccine() due on 06/30/2024 Meningococcal B Vaccine: Consider Based On Risk(1 of 2 - Patient Seeks Protection) due on 08/16/2024 Hepatitis C Screening due on 08/16/2024 HIV Screening due on 08/16/2024 DTaP,Tdap,Td Vaccine(7 - Td or Tdap) due on 05/11/2027 Hepatitis B Vaccine Completed HPV Vaccine Completed Meningococcal Conjugate Vaccine Completed ASSESSMENT/PLAN: 1. Routine physical examination - ICD9: V70.0, ICD10: Z00.00 - Counseled on healthy diet and regular exercise - paper for work completed - declines blood work - Follow up for annual exam in one year 2. Anxiety and depression - ICD9: 300.00, 311, ICD10: F41.9, F32.A - stable on current regime Risa Hauser APRN.YANICK Prescription instructions reviewed with patient as applicable. Patient advised if symptoms do not improve or if symptoms worsen sooner, to contact their primary care physician. Potential red flag symptoms discussed with the patient. Reviewed appropriate action plan to take if red flag symptoms occur. Patient agreeable to treatment plan. documented in this encounter [facility] 01-21-2024 Emergency department Note Dc instructions reviewed. Questions answered. Pt ready for DC. [facility] 01-21-2024 Emergency department Note Dc instructions reviewed. Questions answered. Pt ready for DC. Patient to ED room 5 for dental infection. Reports having cavities filled and gums cut 2 weeks ago. States she had puss coming out. Patient is alert and oriented, resp easy and unlabored, NAD, skin p/w/d. GCS 15. documented in this encounter [facility] 01-21-2024 Emergency department Triage note Patient to ED room 5 for dental infection. Reports having cavities filled and gums cut 2 weeks ago. States she had puss coming out. Patient is alert and oriented, resp easy and unlabored, NAD, skin p/w/d. GCS 15. [facility] 11-16-2023 Hospital Discharge instructions Patient Education 11/16/2023 13:53:36 7 - Labor and Delivery Outpatient Instructions(CUSTOM) [facility] AND DELIVERY OUTPATIENT HOME-GOING INSTRUCTIONS _X_ You are to follow up with your physician in _3__ days/weeks. ACTIVITY ___ Bedrest _X__Activity as tolerated ___ No work/school for ___ days. ___Other PRESCRIPTION GIVEN ___Yes NAUSEA/VOMITING ___ Take small, frequent amounts of clear liquids. Avoid fruit juices and milk. ___ Increase fluid intake to a minimum of 8 ounces of fluid every hour while awake. ___ Soft diet. Rice, crackers, bananas, Jell-O, cooked carrots, applesauce. ___ Simpson diet. Avoid caffeine, chocolate, alcohol, spiced/greasy foods. URINARY TRACT INFECTION ___ Drink 8-12 glasses of water every day. _X__ Urinate frequently; do not limit fluids to reduce frequency of urination. _X__ Call your physician if burning and frequency with urination returns after taking all your medication. __X_ Call your physician if you have a temperature of 100.4 degrees Fahrenheit or higher. ___ Wipe from front to back. SIGNS OF PRE-ECLAMPSIA _X__ Severe heartburn. _X__ Persistent headache not relieved by Tylenol. _X__ Increased in swelling of face, hands and feet. _X__ Blurred vision, double vision, or spots in the eyes. X___ Persistent vomiting. _X__ *Convulsions or seizures. LABOR ___ Restrict activity. _X__ Drink 8-12 glasses of water every day. _X__ Urinate frequently ___ Pelvic rest. No sexual intercourse/ Call your physician if you experience: _X__ Increase in vaginal discharge, leaking fluid, or vaginal bleeding. _X__ More than 4, 5, or 6 contractions in one hour. _X__ Burning and frequency with urination. DECREASED MOVEMENT _X__ Lie down on your left side, drink some fluids and relax. Count the movements. You need to have 10 movements in 2 hours. _X__ If you do not feel the 10 movements, call your physician. OTHER _X__ After an exam you may experience some spotting or discharge. As long as it is not bright red and heavy like a period or continues to leak as if your water broke, it is to be expected. ___ LABOR Call your physician if you experience: __X_ Painful uterine contractions every _5__ minutes for _1__ hours. _X__A gush or continuous trickle of watery discharge. COME TO THE HOSPITAL AND CALL PHYSICIAN IF: _X__ Your abdomen feels continually firm. _X__ *Bleeding is bright red and enough to saturate a pad in one hour or less. *Call 911 or go to the nearest Emergency Room for assistance. Form 199820 D: 10/07 Document Released: 10/16/2006 Document Revised: 10/04/2012 Document Reviewed: 10/16/2006 [employer] Patient Information 2012 [employer]. Follow Up Care 11/16/2023 13:07:01 With:IDRIS KOCH APRN-CNM Address: [address], [address] Dr. Keith Haney, [place] [address]- [phone] When: Unknown Comments:Follow-up as scheduled [facility] 11-11-2023 Hospital Discharge instructions Patient Education 11/11/2023 02:26:24 Signs and Symptoms of Labor Signs and Symptoms of Labor Labor is your body's natural process of moving your baby, placenta, and umbilical cord out of your uterus. The process of labor usually starts when your baby is full-term, between 37 and 40 weeks of . How will I know when I am close to going into labor? As your body prepares for labor and the of your baby, you may notice the following symptoms in the weeks and days before true labor starts: Having a strong desire to get your home ready to receive your new baby. This is called nesting. Nesting may be a sign that labor is approaching, and it may occur several weeks before . Nesting may involve cleaning and organizing your home. Passing a small amount of thick, bloody mucus out of your vagina (normal bloody show or losing your mucus plug). This may happen more than a week before labor begins, or it might occur right before labor begins as the opening of the cervix starts to widen (dilate). For some women, the entire mucus plug passes at once. For others, smaller portions of the mucus plug may gradually pass over several days. Your baby moving (dropping) lower in your pelvis to get into position for (lightening). When this happens, you may feel more pressure on your bladder and pelvic bone and less pressure on your ribs. This may make it easier to breathe. It may also cause you to need to urinate more often and have problems with bowel movements. Having "practice contractions" (Asher Newby contractions) that occur at irregular (unevenly spaced) intervals that are more than 10 minutes apart. This is also called false labor. False labor contractions are common after exercise or sexual activity, and they will stop if you change position, rest, or drink fluids. These contractions are usually mild and do not get stronger over time. They may feel like: ?A backache or back pain. ?Mild cramps, similar to menstrual cramps. ?Tightening or pressure in your abdomen. Other early symptoms that labor may be starting soon include: Nausea or loss of appetite. Diarrhea. Having a sudden burst of energy, or feeling very tired. Mood changes. Having trouble sleeping. How will I know when labor has begun? Signs that true labor has begun may include: Having contractions that come at regular (evenly spaced) intervals and increase in intensity. This may feel like more intense tightening or pressure in your abdomen that moves to your back. ?Contractions may also feel like rhythmic pain in your upper thighs or back that comes and goes at regular intervals. ?For first-time mothers, this change in intensity of contractions often occurs at a more gradual pace. ?Women who have given before may notice a more rapid progression of contraction changes. Having a feeling of pressure in the vaginal area. Your water breaking (rupture of membranes). This is when the sac of fluid that surrounds your baby breaks. When this happens, you will notice fluid leaking from your vagina. This may be clear or blood-tinged. Labor usually starts within 24 hours of your water breaking, but it may take longer to begin. ?Some women notice this as a gush of fluid. ?Others notice that their underwear repeatedly becomes damp. Follow these instructions at home: When labor starts, or if your water breaks, call your health care provider or nurse care line. Based on your situation, they will determine when you should go in for an exam. When you are in early labor, you may be able to rest and manage symptoms at home. Some strategies to try at home include: ?Breathing and relaxation techniques. ?Taking a warm bath or shower. ?Listening to music. ?Using a heating pad on the lower back for pain. If you are directed to use heat: ?Place a towel between your skin and the heat source. ?Leave the heat on for 20 30 minutes. ?Remove the heat if your skin turns bright red. This is especially important if you are unable to feel pain, heat, or cold. You may have a greater risk of getting burned. Get help right away if: You have painful, regular contractions that are 5 minutes apart or less. Labor starts before you are 37 weeks along in your . You have a fever. You have a headache that does not go away. You have bright red blood coming from your vagina. You do not feel your baby moving. You have a sudden onset of: ?Severe headache with vision problems. ?Nausea, vomiting, or diarrhea. ?Chest pain or shortness of breath. These symptoms may be an emergency. If your health care provider recommends that you go to the hospital or center where you plan to deliver, do not drive yourself. Have someone else drive you, or call emergency services (911 in the [place] Summary Labor is your body's natural process of moving your baby, placenta, and umbilical cord out of your uterus. The process of labor usually starts when your baby is full-term, between 37 and 40 weeks of . When labor starts, or if your water breaks, call your health care provider or nurse care line. Based on your situation, they will determine when you should go in for an exam. This information is not intended to replace advice given to you by your health care provider. Make sure you discuss any questions you have with your health care provider. Document Released: 03/23/2018 Document Revised: 07/16/2018 Document Reviewed: 03/23/2018 [employer] Patient Education 2020 [facility]. 11/11/2023 02:25:58 Asher Newby Contractions Dyer Newby Contractions Contractions of the uterus can occur throughout , but they are not always a sign that you are in labor. You may have practice contractions called Asher Newby contractions. These false labor contractions are sometimes confused with true labor. What are Asher Newby contractions? Dyer Newby contractions are tightening movements that occur in the muscles of the uterus before labor. Unlike true labor contractions, these contractions do not result in opening (dilation) and thinning of the cervix. Toward the end of (32 34 weeks), Dyer Newby contractions can happen more often and may become stronger. These contractions are sometimes difficult to tell apart from true labor because they can be very uncomfortable. You should not feel embarrassed if you go to the hospital with false labor. Sometimes, the only way to tell if you are in true labor is for your health care provider to look for changes in the cervix. The health care provider will do a physical exam and may monitor your contractions. If you are not in true labor, the exam should show that your cervix is not dilating and your water has not broken. If there are no other health problems associated with your , it is completely safe for you to be sent home with false labor. You may continue to have Dyer Newby contractions until you go into true labor. How to tell the difference between true labor and false labor True labor Contractions last 30 70 seconds. Contractions become very regular. Discomfort is usually felt in the top of the uterus, and it spreads to the lower abdomen and low back. Contractions do not go away with walking. Contractions usually become more intense and increase in frequency. The cervix dilates and gets thinner. False labor Contractions are usually shorter and not as strong as true labor contractions. Contractions are usually irregular. Contractions are often felt in the front of the lower abdomen and in the groin. Contractions may go away when you walk around or change positions while lying down. Contractions get weaker and are shorter-lasting as time goes on. The cervix usually does not dilate or become thin. Follow these instructions at home: Take [id number] and prescription medicines only as told by your health care provider. Keep up with your usual exercises and follow other instructions from your health care provider. Eat and drink lightly if you think you are going into labor. If Dyer Newby contractions are making you uncomfortable: ?Change your position from lying down or resting to walking, or change from walking to resting. ?Sit and rest in a tub of warm water. ?Drink enough fluid to keep your urine pale yellow. Dehydration may cause these contractions. ?Do slow and deep breathing several times an hour. Keep all follow-up visits as told by your health care provider. This is important. Contact a health care provider if: You have a fever. You have continuous pain in your abdomen. Get help right away if: Your contractions become stronger, more regular, and closer together. You have fluid leaking or gushing from your vagina. You pass blood-tinged mucus (bloody show). You have bleeding from your vagina. You have low back pain that you never had before. You feel your baby s head pushing down and causing pelvic pressure. Your baby is not moving inside you as much as it used to. Summary Contractions that occur before labor are called Asher Newby contractions, false labor, or practice contractions. Dyer Newby contractions are usually shorter, weaker, farther apart, and less regular than true labor contractions. True labor contractions usually become progressively stronger and regular, and they become more frequent. Manage discomfort from Dyer Newby contractions by changing position, resting in a warm bath, drinking plenty of water, or practicing deep breathing. This information is not intended to replace advice given to you by your health care provider. Make sure you discuss any questions you have with your health care provider. Document Released: 03/01/2018 Document Revised: 09/28/2018 Document Reviewed: 03/01/2018 [employer] Patient Education 2019 [facility]. Follow Up Care 11/10/2023 23:58:54 With:Follow up with primary care provider Address:Unknown When: Unknown With:Go to emergency room if symptoms worsen Address:Unknown When: Unknown [facility] 09-06-2023 Evaluation + Plan note Diagnostic Tests PendingRapid Plasma Reagin Test 09/06/23 [facility] 08-16-2023 History of Present illness Narrative 08/16/2023 Patient presents with: Transition Of Care SUBJECTIVE: This is a 17 year old that is here today for Above Complaints. Previously seeing pediatrics. Following with psychiatry for hx of anxiety. Taking Zoloft as prescribed without side effects. Seeing Dr. Elizondo. Seeing her once a month. Currently . Due November 26. Having a boy. Following with Idris Castanon at [facility] Past medical, surgical, family, social hx, medications, allergies and health maintenance reviewed and updated PAST MEDICAL HISTORY Diagnosis Date ADD (attention deficit disorder with hyperactivity) ADD (attention deficit disorder) 04/19/2011 ALLERGIES Daytrana [Methylphenidate] MEDICATIONS Current Outpatient Medications Medication Sig PNV no.153/FA/om3/dha/epa/fish ( GUMMIES ORAL) Take by mouth. MAGNESIUM ORAL Take by mouth. sertraline (ZOLOFT) 50 mg tablet Take 1 tablet by mouth once daily. No current facility-administered medications for this visit. Medications and allergies reviewed by this provider. SOCIAL HISTORY Social History Tobacco Use Smoking status: Never Passive exposure: Yes Smokeless tobacco: Never Tobacco comments: outdoors REVIEW OF SYSTEMS GENERAL: No weight loss, malaise or fevers RESPIRATORY: Negative for cough, hemoptysis, wheezing, COPD, dyspnea or shortness of breath CARDIOVASCULAR: Negative for chest pain, leg swelling, hypertension, CHF or palpitations OBJECTIVE: BP 118/74 Pulse 93 Resp 16 Wt 68 kg (150 lb) LMP 02/13/2022 SpO2 98% . Vital signs reviewed by this provider. APPEARANCE Well appearing, alert, in no acute distress, well-hydrated, well nourished. EYES PERRLA, conjunctiva and sclera normal. EARS External ears normal, canals clear NECK Supple, no adenopathy; thyroid symmetric, normal size, no bruits HEART RRR with normal S1 and S2, no murmurs, no gallops, no JVD appreciated LUNG clear to auscultation. No wheezes, rhonchi or rales EXTREMITIES Extremities normal, No deformities, No skin discoloration, and No edema SKIN Skin color, texture, turgor normal, no suspicious rashes or lesions Covid-19 Vaccine(1) Never done Influenza Vaccine(1) due on 04/28/2024 Meningococcal B Vaccine: Consider Based On Risk(1 of 2 - Patient Seeks Protection) due on 08/16/2024 Hepatitis C Screening due on 08/16/2024 HIV Screening due on 08/16/2024 GC (Gonorrhea) Screening (18-24) due on 03/08/2024 Chlamydia Screening (18-24) due on 03/08/2024 DTaP,Tdap,Td Vaccine(7 - Td or Tdap) due on 05/11/2027 Hepatitis B Vaccine Completed HPV Vaccine Completed Meningococcal Conjugate Vaccine Completed ASSESSMENT/PLAN: 1. Encounter to establish care - ICD9: V65.8, ICD10: Z76.89 (primary diagnosis) - plan as below - follow-up in one year, sooner if needed 2. Anxiety and depression - ICD9: 300.00, 311, ICD10: F41.9, F32.A - continue medication and follow-up with psychiatry as scheduled 3. , unspecified gestational age - ICD9: V22.2, ICD10: Z34.90 - follow-up with OB as scheduled Risa Podlogar, MADDI.ANALYSIS CONSULTANT Prescription instructions reviewed with patient as applicable. Patient advised if symptoms do not improve or if symptoms worsen sooner, to contact their primary care physician. Potential red flag symptoms discussed with the patient. Reviewed appropriate action plan to take if red flag symptoms occur. Patient agreeable to treatment plan. I spent a total of 25 minutes on the date of the service which included preparing to see the patient, [id number] patient care, completing clinical documentation, obtaining and/or reviewing separately obtained history, performing a medically appropriate examination, counseling and educating the patient/family/caregiver, and ordering medications, tests, or procedures. documented in this encounter [facility] 08-03-2023 Miscellaneous Notes Reason for Disposition [1] Brief blurred vision AND [2] unexplained (Exception: from rubbing eyes or prolonged close work) Answer Assessment - Initial Assessment Questions 1. DESCRIPTION: "What is the vision loss like? Describe it for me." (e.g., complete vision loss, blurred vision, double vision, floaters, etc.) Blurred vision, outline of things look blurry, sometimes sees floaters 2. LOCATION: "One or both eyes?" If one, ask: "Which eye?" Right eye 3. SEVERITY: "Can you see anything?" If Yes, ask: "What can you see?" (e.g., fine print) Still able to read and see 4. ONSET: "When did this begin?" Did it start suddenly (minutes, hours) or has this been gradual (weeks, months)?" Today, started suddenly, floaters have been a week 5. PATTERN: "Does this come and go, or has it been constant since it started?" Patient unsure, reports floaters come and go 6. PAIN: "Is there any pain in your eye(s)?" (Scale 1-10; or mild, moderate, severe) Yes sometimes, mild 7. CONTACTS-GLASSES: "Do you wear contacts or glasses?" no 8. CAUSE: "What do you think is causing this visual problem?" unsure 9. OTHER SYMPTOMS: "Do you have any other symptoms?" (e.g., headache, arm or leg weakness) Yes ? Headaches, constant pressure in head and will have sharp pain 10. : "How many weeks are you?" 23 weeks 11. IVETTE: "What date are you expecting to deliver?" Nov 26 Protocols used: - Vision Loss or [id number] documented in this encounter [facility] 07-27-2023 History of Present illness Narrative Patient presents with: dent on head: Noticed it today. No known injury that could of caused it. Anxiety: stopped taking meds (now and Overall anxiety raised by medical concerns and concerns about ) has appt with psych next week. [facility]. will also set up with counselor scared about everything Generalized Anxiety: Excessive worry Difficulty controlling worry Restless and fidgety due to anxiety Trouble concentrating due to recurrent anxiety driven thoughts Sleep disturbance secondary to anxiety 22 week OB not concerned with GUSMAN (melba Preston) Seen in ER twice- told dehydration She has noted TMJ pain. Current symptoms: HEADACHE: for 6 month(s) GUSMAN description: random episodes of pressure back of head or front or short sharp pain or fuzzy thinking, or dizzy Additional symptoms: facial pain GENERAL: Appetite: no significant change Sick contacts: No known sick contacts HISTORY: ACTIVE PROBLEM LIST Depressive Disorder Ameya (Generalized Anxiety Disorder) PAST MEDICAL HISTORY Diagnosis Date ADD (attention deficit disorder with hyperactivity) ADD (attention deficit disorder) 04/19/2011 PAST SURGICAL HISTORY Procedure Laterality Date TONSILLECTOMY & ADENOIDECTOMY <AGE 11 age 2 Allergies: ALLERGIES Allergen Reactions Daytrana [Methylphe* Rash Medications: PNV no.153/FA/om3/dha/epa/fish ( GUMMIES ORAL) Take by mouth. MAGNESIUM ORAL Take by mouth. escitalopram oxalate (LEXAPRO) 20 mg tablet Take 1 tablet by mouth once daily. FLUoxetine (PROZAC) 10 mg capsule Take 3 capsules by mouth once daily for 7 days, THEN 2 capsules once daily for 7 days, THEN 1 capsule once daily for 7 days. spironolactone (ALDACTONE) 100 mg tablet Take 1 tablet by mouth once daily. EPIDUO FORTE 0.3-2.5 % MONO-LINYAH 0.25-35 mg-mcg per tablet SH: Moving in boyfriend tomorrow No job at this time OBJECTIVE: Pulse 80 Temp 36.6 C (97.8 F) (Temporal) Resp 16 Wt 65.7 kg (144 lb 14.4 oz) LMP 02/13/2022 General: alert and active in no apparent distress Head: Contour of the head appears normal. The "dent" that she is concerned about feels to be a suture ridge to me. Eyes: conjunctiva clear Ears: TMs translucent bilaterally, normal landmarks noted Nose: no rhinorrhea, no mucosal edema OP: no lesions, no erythema Neck: supple, no adenopathy Lungs: clear to auscultation bilaterally, good air exchange, no retractions CVS: Normal rate, regular rhythm, no murmur Abdomen: soft, nondistended, nontender, and no hepatosplenomegaly or masses Skin: No rashes, lesions or skin changes ASSESSMENT/PLAN: Encounter Diagnosis ICD-10-CM 1. Nonintractable episodic headache, unspecified headache type R51.9 ESTABLISH WITH PRIMARY CARE - NEW PATIENT 2. AMEYA (generalized anxiety disorder) F41.1 ESTABLISH WITH PRIMARY CARE - NEW PATIENT - Pain control as needed. Discussed Acetaminophen & Ibuprofen dosage - Discussed symptomatic care - Follow up if symptoms not improved -I think her headache may be related to TMJ pain. More concerning is her underlying anxiety symptoms. She is not currently taking medication and symptoms are quite disruptive to her life. She does have follow-up with psychiatry next week. I have asked her to update me as to the results of that appointment. She knows that she did not take medication consistently and feels that she is never adequately treated her anxiety and depressive symptoms. We also discussed transfer to adult primary care given that she is and has graduated school. I spent a total of 45 minutes on the date of the service which included preparing to see the patient, [id number] patient care, completing clinical documentation, performing a medically appropriate examination, and counseling and educating the patient/family/caregiver. Jacob Rodriguez MD documented in this encounter [facility] 06-26-2023 Hospital Discharge instructions Patient Education 06/26/2023 18:24:26 Headache, Unspecified Headache, Unspecified A number of things can cause headaches. The cause of your headache isn t clear. But it doesn t seem to be a sign of any serious illness. Headache affects almost everyone at some time. It is the most common reason people miss days from work or school. You could have a tension headache or a migraine headache. Stress can cause a tension headache. This can happen if you tense the muscles of your shoulders, neck, and scalp without knowing it. If this stress lasts long enough, you may develop a tension headache. It is not clear why migraines occur, but certain things called" triggers" can raise the risk of having a migraine attack. Migraine triggers may include emotional stress or depression, or by hormone changes during the menstrual cycle. Other triggers include control pills and other medicines, alcohol or caffeine, foods with tyramine (such as aged cheese, wine), eyestrain, weather changes, missed meals, and lack of sleep or oversleeping. Other causes of headache include: Viral illness with high fever Head injury with concussion Sinus, ear, or throat infection Dental pain and jaw joint (TMJ) pain More serious but less common causes of headache include stroke, brain hemorrhage, brain tumor, meningitis, and encephalitis. Home care Follow these tips when taking care of yourself at home: Don t drive yourself home if you were given pain medicine for your headache. Instead, have someone else drive you home. Try to sleep when you get home. You should feel much better when you wake up. Apply heat to the back of your neck to ease a neck muscle spasm. Take care of a migraine headache by putting an ice pack on your forehead or at the base of your skull. If you have nausea or vomiting, eat a light diet until your headache eases. If you have a migraine headache, use sunglasses when in the daylight or around bright indoor lighting until your symptoms get better. Bright glaring light can make this type of headache worse. Follow-up care Follow up with your healthcare provider, or as advised. Talk with your provider if you have frequent headaches. He or she can help figure out a treatment plan. By knowing the earliest signs of headache, and starting treatment right away, you may be able to stop the pain yourself. When to seek medical advice Call your healthcare provider right away if any of these occur: Your head pain suddenly gets worse after sexual intercourse or strenuous activity Your head pain doesn t get better within 24 hours You aren t able to keep liquids down (repeated vomiting) Fever of 100.4 F (38 C) or higher, or as directed by your healthcare provider Stiff neck Extreme drowsiness, confusion, or fainting Dizziness or dizziness with spinning sensation (vertigo) Weakness in an arm or leg or one side of your face You have trouble talking or seeing [id number] [employer]. [address] [place] [address], [place] [address]. All rights reserved. This information is not intended as a substitute for professional medical care. Always follow your healthcare professional's instructions. Follow Up Care 06/26/2023 16:13:13 With:JACOB RODRIGUEZ MD Address: [address] [facility] [address] When:2-4 [facility] Note Discharge Instructions Thank you for allowing [facility] to assist you with your healthcare needs. The following is important discharge information regarding your hospital visit. Diagnosis from Today's Visit Headache What to Do Next Instructions from Your Care Team No qualifying data available. Post Acute Orders No qualifying data available. You Need to Schedule the Following Appointments Follow Up with JACOB RODRIGUEZ MD When Within 2-4 days Where: [address] [place] [address] Allergies NKA Medications Please ask your primary doctor or pharmacist before taking any other medication not listed, including over the counter drugs, herbal medications, vitamins and or supplements as they may interact with your home medications. What How Much When Why Instructions Last Dose New metoclopramide (Reglan 10 mg oral tablet) 1 tab(s) by mouth Three (3) times a day Duration: 7 Days Printed Prescription Unchanged dicyclomine (dicyclomine 10 mg oral capsule) 1 cap by mouth Four (4) times a day Abdominal pain Vomiting Duration: 5 Days Please take this list to your next doctor s visit. Bring all medications you take, including over the counter medications, herbals and other supplements with you to your doctor s visit. Patients and families are reminded to discard old lists and to update any records with all medication providers or retail pharmacies. Medication Leaflets metoclopramide (oral/injection) (MET oh KLOE daria midmartha) Reglan What is the most important information I should know about metoclopramide? Do not use this medicine if you've ever had muscle movement problems after using metoclopramide or similar medicines, or if you've had a movement disorder called tardive dyskinesia. You also should not use metoclopramide if you've had stomach or intestinal problems (a blockage, bleeding, or a hole or tear), epilepsy or other seizure disorder, or an adrenal gland tumor (pheochromocytoma). NEVER USE METOCLOPRAMIDE IN LARGER AMOUNTS THAN RECOMMENDED, OR FOR LONGER THAN 12 WEEKS. High doses or long-term use of metoclopramide can cause a serious movement disorder that may not be reversible. The longer you use metoclopramide, the more likely you are to develop this movement disorder. The risk of this side effect is higher in diabetics and older adults (especially women). Call your doctor at once if you have uncontrollable muscle movements in your lips, tongue, eyes, face, arms, or legs. What is metoclopramide? Metoclopramide increases muscle contractions in the upper digestive tract. This speeds up the rate at which the stomach empties into the intestines. Metoclopramide oral (taken by mouth) is used for 4 to 12 weeks to treat heartburn caused by gastroesophageal reflux in people who have used other medications without relief. Metoclopramide oral is also used to treat gastroparesis (slow stomach emptying) in people with diabetes, which can cause heartburn and stomach discomfort after meals. Metoclopramide injection is used to treat severe diabetic gastroparesis. The injection is also used to prevent nausea and vomiting caused by chemotherapy or surgery, or to aid in certain medical procedures involving the stomach or intestines. Metoclopramide may also be used for purposes not listed in this medication guide. What should I discuss with my healthcare provider before using metoclopramide? You should not use metoclopramide if you are allergic to it, or if you have: tardive dyskinesia (a disorder of involuntary movements); stomach or intestinal problems such as a blockage, bleeding, or perforation (a hole or tear in your stomach or intestines); epilepsy or other seizure disorder; an adrenal gland tumor (pheochromocytoma); or if you've ever had muscle movement problems after using metoclopramide or similar medicines. Tell your doctor if you have ever had: liver or kidney disease; problems with muscle movements; congestive heart failure or a heart rhythm disorder; high blood pressure; seizures; breast cancer; Parkinson's disease; diabetes; or depression or mental illness. This medicine may contain phenylalanine. Check the medication label if you have phenylketonuria (PKU). Tell your doctor if you are . Metoclopramide may harm an unborn baby if you use the medicine during late . It may not be safe to breast-feed a baby while you are using this medicine. Ask your doctor about any risks. Metoclopramide is not approved for use by anyone younger than 18 years old. How should I use metoclopramide? Follow the directions on your prescription label and read all medication guides. Use the medicine exactly as directed. A metoclopramide injection is given into a muscle or as an infusion into a vein. A healthcare provider will give the injection, usually during surgery, chemotherapy, or a medical procedure. Metoclopramide oral is taken for only 4 to 12 weeks. NEVER USE METOCLOPRAMIDE IN LARGER AMOUNTS THAN RECOMMENDED, OR FOR LONGER THAN 12 WEEKS. High doses or long-term use of metoclopramide can cause a serious movement disorder that may not be reversible. The longer you use metoclopramide, the more likely you are to develop this movement disorder. The risk of this side effect is higher in diabetics and older adults (especially women). Metoclopramide is usually taken 30 minutes before meals and at bedtime, or only with meals that usually cause heartburn. Follow your doctor's dosing instructions very carefully. Do not use two different forms of metoclopramide (such as tablets and oral syrup) at the same time. Measure liquid medicine carefully. Use the dosing syringe provided, or use a medicine dose-measuring device (not a kitchen spoon). To take the orally disintegrating tablet (ODT): Remove a tablet from its blister pack only when you are ready to take the tablet. Use dry hands and take care not to damage a tablet while pushing it out of the blister. Place the tablet in your mouth and allow it to dissolve, without chewing or swallowing it whole. You may sip liquid if needed to help swallow the dissolved tablet. Store at room temperature in a tightly-closed container, away from moisture and heat. Keep the bottle tightly closed. After you stop taking metoclopramide, you may have unpleasant withdrawal symptoms such as headache, dizziness, or nervousness. What happens if I miss a dose? Take the medicine as soon as you can, but skip the missed dose if it is almost time for your next dose. Do not take two doses at one time. What happens if I overdose? Seek emergency medical attention or call the Poison Help line at . Overdose symptoms may include drowsiness, confusion, or uncontrolled muscle movements. What should I avoid while taking metoclopramide? Drinking alcohol with this medicine can cause side effects. Avoid driving or hazardous activity until you know how this medicine will affect you. Your reactions could be impaired. What are the possible side effects of metoclopramide? Get emergency medical help if you have signs of an allergic reaction: hives; difficult breathing; swelling of your face, lips, tongue, or throat. Stop taking metoclopramide and call your doctor at once if you have any of these SIGNS OF A SERIOUS MOVEMENT DISORDER, which may occur within the first 2 days of treatment: tremors or shaking in your arms or legs; uncontrolled muscle movements in your face (chewing, lip smacking, frowning, tongue movement, blinking or eye movement); or any new or unusual muscle movements you cannot control. Call your doctor at once if you have: confusion, depression, thoughts of suicide or hurting yourself; slow or jerky muscle movements, problems with balance or walking; mask-like appearance in your face; a seizure; anxiety, agitation, jittery feeling, trouble staying still, trouble sleeping; swelling, feeling short of breath, rapid weight gain; or severe nervous system reaction--very stiff (rigid) muscles, high fever, sweating, confusion, fast or uneven heartbeats, tremors, feeling like you might pass out. Common side effects may include: feeling restless; feeling drowsy or tired; lack of energy; nausea, vomiting; headache, confusion; or sleep problems (insomnia). This is not a complete list of side effects and others may occur. Call your doctor for medical advice about side effects. You may report side effects to FDA at 8-152-VZP-7926. What other drugs will affect metoclopramide? Using metoclopramide with other drugs that make you drowsy can worsen this effect. Ask your doctor before you take opioid pain medication, a sleeping pill, a muscle relaxer, or medicine for anxiety, depression, or seizures. Tell your doctor about all your current medicines. Many drugs can affect metoclopramide, especially: an antidepressant; antipsychotic medication; blood pressure medication; insulin; medicine to treat Parkinson's disease or restless leg syndrome; or an MAO inhibitor--isocarboxazid, linezolid, methylene blue injection, phenelzine, tranylcypromine, and others. This list is not complete and many other drugs may affect metoclopramide. This includes prescription and [id number] medicines, vitamins, and herbal products. Not all possible drug interactions are listed here. Where can I get more information? Your pharmacist can provide more information about metoclopramide. Remember, keep this and all other medicines out of the reach of children, never share your medicines with others, and use this medication only for the indication prescribed. Every effort has been made to ensure that the information provided by [employer]. ('[employer]') is accurate, up-to-date, and complete, but no guarantee is made to that effect. Drug information contained herein may be time sensitive. [employer] information has been compiled for use by healthcare practitioners and consumers in the [place] and therefore [employer] does not warrant that uses outside of the [place] are appropriate, unless specifically indicated otherwise. [employer] drug information does not endorse drugs, diagnose patients or recommend therapy. [employer] drug information is an informational resource designed to assist licensed healthcare practitioners in caring for their patients and/or to serve consumers viewing this service as a supplement to, and not a substitute for, the expertise, skill, knowledge and judgment of healthcare practitioners. The absence of a warning for a given drug or drug combination in no way should be construed to indicate that the drug or drug combination is safe, effective or appropriate for any given patient. [employer] does not assume any responsibility for any aspect of healthcare administered with the aid of information [employer] provides. The information contained herein is not intended to cover all possible uses, directions, precautions, warnings, drug interactions, allergic reactions, or adverse effects. If you have questions about the drugs you are taking, check with your doctor, nurse or pharmacist. Copyright 8630-2848 [employer]. Version: 14.. Revision Date: 06/07/2023. Education Materials Headache, Unspecified A number of things can cause headaches. The cause of your headache isn t clear. But it doesn t seem to be a sign of any serious illness. Headache affects almost everyone at some time. It is the most common reason people miss days from work or school. You could have a tension headache or a migraine headache. Stress can cause a tension headache. This can happen if you tense the muscles of your shoulders, neck, and scalp without knowing it. If this stress lasts long enough, you may develop a tension headache. It is not clear why migraines occur, but certain things called" triggers" can raise the risk of having a migraine attack. Migraine triggers may include emotional stress or depression, or by hormone changes during the menstrual cycle. Other triggers include control pills and other medicines, alcohol or caffeine, foods with tyramine (such as aged cheese, wine), eyestrain, weather changes, missed meals, and lack of sleep or oversleeping. Other causes of headache include: Viral illness with high fever Head injury with concussion Sinus, ear, or throat infection Dental pain and jaw joint (TMJ) pain More serious but less common causes of headache include stroke, brain hemorrhage, brain tumor, meningitis, and encephalitis. Home care Follow these tips when taking care of yourself at home: Don t drive yourself home if you were given pain medicine for your headache. Instead, have someone else drive you home. Try to sleep when you get home. You should feel much better when you wake up. Apply heat to the back of your neck to ease a neck muscle spasm. Take care of a migraine headache by putting an ice pack on your forehead or at the base of your skull. If you have nausea or vomiting, eat a light diet until your headache eases. If you have a migraine headache, use sunglasses when in the daylight or around bright indoor lighting until your symptoms get better. Bright glaring light can make this type of headache worse. Follow-up care Follow up with your healthcare provider, or as advised. Talk with your provider if you have frequent headaches. He or she can help figure out a treatment plan. By knowing the earliest signs of headache, and starting treatment right away, you may be able to stop the pain yourself. When to seek medical advice Call your healthcare provider right away if any of these occur: Your head pain suddenly gets worse after sexual intercourse or strenuous activity Your head pain doesn t get better within 24 hours You aren t able to keep liquids down (repeated vomiting) Fever of 100.4 F (38 C) or higher, or as directed by your healthcare provider Stiff neck Extreme drowsiness, confusion, or fainting Dizziness or dizziness with spinning sensation (vertigo) Weakness in an arm or leg or one side of your face You have trouble talking or seeing [id number] [employer]. [address] [place] [address], [place] [address]. All rights reserved. This information is not intended as a substitute for professional medical care. Always follow your healthcare professional's instructions. Additional Information VACCINATE! IT SAVES LIVES! Members of the community who have not yet received the COVID-19 vaccine and would like to receive it can visit one of [facility] vaccine clinics. There are many vaccine clinic locations within the [facility]. For locations and available times, please visit [email or web address] It is important to note that some COVID mobile vaccine clinics are held outdoors and may be canceled in rainy or stormy conditions. To learn more about pediatric vaccinations (ages 5-11), we invite you to visit the [employer] webpage. [email or web address] [email or web address] [email or web address] To learn more about the COVID-19 vaccine, we invite you to visit the CDC website for a list of frequently asked questions. https://www.cdc.gov/coronavirus/2 019-ncov/vaccines/faq.html [facility] Patient Portal Access Instructions: Stay connected with your healthcare team and access your personal medical information anytime with the [facility] Patient Portal. If you would like a full copy of your medical records please contact the [facility] Medical Records Department Monday through Monday between 8a.m. and 4:30p.m. Please follow the directions below to access the portal: 1.Access the email account you provided upon registration to the [facility].2.Look for an invitation email from [facility].3.Open the email and access the invitation link: Accept Invitation to [facility].Fill in the required olson to create your account. Sign into www.Angle with your username and password that you created in the above steps to stay up to date. You can then view a summary of results, a summary of your visits, and the ability to download your summaries to your computer or send the information securely to a physician. Remember that your healthcare information is confidential, so carefully consider who you will allow to register on the [facility] Patient Portal for access to your information. You can also access the [facility] Patient Portal on the [employer] Simply click on "Health Records" under "Health Data" and then click on the [employer] logo. HOW TO SAFELY DISPOSE OF PRESCRIPTION MEDICATIONS Please use one of the following methods to safely dispose of your unused medications. 1.Use a drug disposal kit: the drug disposal pouch allows you to safely discard your old and unused drugs. Ask your nurse to give you one when you are discharged.2.Visit a local take-back location: Many local pharmacies and police departments have programs that collect old and unwanted prescription drugs. Call your local pharmacy or go to http://[employer].Inside Secure/4I3Xo5e to find one close to you.3.Make use of household items: Use cat litter or old coffee grounds to dispose medications if other options are not available. Mix your drugs with these household products, seal them in an airtight container and throw it into the garbage. Call [facility]: [phone] to be sure your drugs can be disposed of in this way. Some medicines may require a different approach.4.Never flush your medications down the toilet. IF YOU HAVE BEEN PRESCRIBED AN OPIOIDS FOR PAIN If you have been prescribed an opioid (such as hydrocodone, oxycodone or morphine), it is critical to understand the possible side effects and risks of opioid pain medications. Even when taken as directed, opioids can have several side effects including: Tolerance, meaning you might need to take more of a medication for the same pain relief. Nausea, vomiting and/or constipation. Sleepiness, dizziness, dry mouth, confusion, depression or itching. Physical dependence, meaning you have withdrawal symptoms when a medication is stopped ? this can develop within a few days. KNOW YOUR RESPONSIBILITIES It is important to know exactly how much and how often to take the opioid pain medications you are prescribed. Never take opioids in higher amounts or more often than prescribed. Do not combine opioids with alcohol or other drugs that cause drowsiness, such as benzodiazepines, also known as benzos, including diazepam and alprazolam, muscle relaxants or sleep aids. Never sell or share prescription opioids. This is illegal. Store opioids in a secure place and out of reach of others (including children, family, friends and visitors). The last page(s) of this document has been signed and retained as a CHART COPY Signatures Patient Education Materials Headache, Unspecified Medication Leaflets metoclopramide (oral/injection) My discharge plan and instructions have been reviewed and explained to me and I,SHERIF LICONA understand my current condition and have read and understand these discharge instructions. I have received a written copy of the plan/instructions. If I have questions, I am aware that I should contact my doctor. 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 Jannet Montgomery LPN Phone call brief message to contact a nurse to review results. Jannet Montgomery LPN Please call patient and let her know that the Eddi/yeast, trichomonas, and BV results were negative. Do not take the metronidazole that was prescribed because BV test was negative. Take the Macrobid that was prescribed for UTI. documented in this encounter [facility] 03-30-2023 Miscellaneous Notes Addended by: SOPHIA JAIMES on: 03/30/2023 10:03 AM Modules accepted: Orders documented in this encounter [facility] 03-30-2023 Instructions Sophia Jaimes APRN.CNP - 03/30/2023 9:29 AM EDT ASSESSMENT/PLAN: 1. Dysuria - ICD9: 788.1, ICD10: R30.0 (primary diagnosis) acute - UA positive for cheri esterase, hematuria, and proteinuria - Send urine for culture - Begin treatment with Macrobid 100 mg BID for 5 days - Patient education for prevention given - UA DIP, URINE (POC) - NITROFURANTOIN MONOHYDRATE & MACROCRYSTAL 100 MG ORAL CAP- start this medication today. 2. Vaginal discharge - ICD9: 623.5, ICD10: N89.8 - EDDI / TRICHOMONAS AMPLIFICATION - BACTERIAL VAGINOSIS AMPLIFICATION - METRONIDAZOLE 500 MG TABLET- do not take this medication until you get the test results back. Your symptoms are likely due to the urinary tract infection. If your BV test comes back positive you may take this medication. - Follow-up with your PCP in 3-5 days if symptoms have not improved or sooner if symptoms worsen - Discussed red flags and need for immediate medical evaluation if any occur. - Discussed supportive care treatment with fluids, rest and analgesia. - Discussed expected course of illness Sophia Jaimes APRN.[facility] PATIENT INFO BLADDER INFECTION OVERVIEW Bladder infections are one of the most common infections, causing symptoms of burning with urination and needing to urinate frequently. A bladder infection is a type of urinary tract infection (UTI). Bladder infections are more common is women than men. Most women have an uncomplicated bladder infection that is easily treated with a short course of antibiotics. In men, bladder infections may also affect the prostate gland, and a longer course of treatment may be needed. BLADDER INFECTION CAUSES The urinary tract includes the kidneys (which filter urine), ureters (the tube that carries urine from the kidneys to the bladder), the bladder (which stores urine), and urethra (the tube that carries urine out of the bladder). Bacteria do not normally live in these areas. However, bacteria normally live close to the urethra in women and men who are not circumcised. Bladder infections occur when bacteria travel up the urethra into the bladder. Factors that increase the risk of developing a bladder infection include: Vaginal sex Use of spermicides History of past bladder infections Diabetes In men, not being circumcised or having anal sex increase the risk of bladder infections. BLADDER INFECTION SYMPTOMS The typical symptoms of a bladder infection include: Pain or burning when urinating Frequent need to urinate Urgent need to urinate Blood in the urine Fever, back pain, nausea, or vomiting are not common symptoms of a bladder infection, but can occur in people with a kidney infection (pyelonephritis). If you have these symptoms, you should call your doctor or nurse immediately. Is it a bladder infection or something else? -- Burning with urination can also occur in people with vaginitis (eg, yeast infection) or urethritis (inflammation of the urethra). For this reason, it is important to call your healthcare provider before assuming you have a bladder infection. BLADDER INFECTION DIAGNOSIS Simple bladder infections are usually diagnosed based upon your symptoms alone. However, most patients, especially those who have bladder infection symptoms for the first time, should see a healthcare provider for urine testing. Urine culture -- A urine culture is a test that uses a sample of urine to try and grow bacteria in a laboratory. It usually requires about 48 hours to get results. However, a urine culture is not always required to diagnose a bladder infection. Urine culture is often recommended if: You have never had a bladder infection before You have symptoms that are not typical for bladder infection You have had "resistant" bladder infections before You have frequent bladder infections You do not begin to feel better within 24 to 48 hours after starting antibiotics You are BLADDER INFECTION TREATMENT Bladder infection -- In young, healthy adolescents and adults with a bladder infection, the usual treatment includes a three to seven day course of antibiotics. The typical drugs chosen are: trimethoprim-sulfamethoxazole (Bactrim ), nitrofurantoin (Macrobid ), ciprofloxacin (Cipro ) or levofloxacin (Levaquin ). In men, the infection may involve your prostate gland and treatment is usually given for at least 7 days. Your symptoms should begin to resolve within one day after starting treatment. It is important to take the full course of antibiotics to completely eliminate the infection. If your symptoms persist for more than two or three days after starting treatment, call your healthcare provider. If needed, you can take a prescription medication that numbs the bladder and urethra (phenazopyridine [Pyridium ]) to reduce the burning pain of some UTIs. A similar medication is available without a prescription (eg, Uristat). Both medications change the color of the urine (usually blue or orange) and can interfere with laboratory testing. You should not take these medications for more than 48 hours due to the risk of side effects. These medications do not treat the infection and must be taken along with an antibiotic. Some providers recommend drinking more fluids while treating bladder infections to help flush bacteria from the bladder. Others believe that drinking more fluids may dilute the antibiotic in the bladder and make the medication less effective. No studies have been performed to address this issue. There are also no good studies on the effectiveness of cranberry juice for treating a bladder infection; we do not recommend using cranberry juice to treat bladder infections. Follow-up care -- Follow-up testing is not needed in healthy, young men or women with a bladder infection if symptoms resolve. women are usually asked to have a repeat urine culture one to two weeks after treatment has ended to make sure the bacteria are no longer in the urine. RECURRENT BLADDER INFECTIONS Bladder infections versus other causes -- Some adults, especially women, develop bladder infections frequently. In this case, it is important to confirm that your symptoms (eg, pain or burning, frequency, and urgency) are caused by a bladder infection. Symptoms are usually similar from one infection to another. The best way to confirm an infection is to have a urine culture. If your urine culture is negative for infection, other causes of pain, burning, and frequency should be investigated. There is no reason to take antibiotics if your urine culture is negative. Need for further testing -- If you continue to develop bladder infections, you may require further testing. If you continue to notice blood in your urine after your bladder infection has cleared, you should have further testing. Preventing recurrent UTIs -- Women with recurrent urinary tract infections may be advised to take steps to prevent bladder infections, including one or more of the following: Changes in control -- Women who develop frequent bladder infections and use spermicides, particularly those who also use a diaphragm, may be encouraged to use an alternate method of control. Cranberry products -- Taking cranberry juice or cranberry tablets has been promoted as one way to help prevent frequent bladder infections. However, this has not been proven. Drinking more fluid and urinating after intercourse -- Although studies have not proven that drinking more fluids or urinating soon after intercourse can prevent infection, some healthcare providers recommend these measures since they are not harmful. Drinking more fluid may help to wash out bacteria that enter the bladder. Postmenopausal women -- Postmenopausal women who develop recurrent bladder infections may benefit from using vaginal estrogen. Vaginal estrogen is available in a flexible ring that is worn in the vagina for three months (eg, Estring ), a small tablet (Vagifem ), or a cream (eg, Premarin or Estrace ). Vaginal estrogen is discussed in more detail in a separate topic review. Antibiotics -- A preventive antibiotic treatment may be recommended if you repeatedly develop bladder infections and have not responded to other preventive measures. Antibiotics are highly effective in preventing recurrent bladder infections and can be taken in several different ways. Preventive antibiotic -- You can take a low dose of an antibiotic once per day or three times per week for six months to several years. Antibiotics following intercourse -- In women who develop urinary tract infections after sex, taking a single low dose antibiotic after intercourse can help to prevent bladder infections. Self-treatment -- A plan to begin antibiotics at the first sign of a bladder infection may be recommended in some situations. Before starting this regimen, it is important that you have had testing (urine cultures) to confirm that your symptoms are caused by a bladder infection; some people have symptoms of a bladder infection but do not actually have an infection. documented in this encounter [facility] 03-30-2023 History of Present illness Narrative Subjective Vaginal Problem Pertinent negatives include no chills or fever. Sherif Licona is a 17 year old female who presents with vaginal itching and discharge. She states these symptoms are identical to symptoms of BV she was treated for last month. She is currently 7 weeks . She has had her first OB appointment already and she is getting the first ultrasound next week. She is having burning with urination and frequency. She declines concern for STDs. Review of Systems Constitutional: Negative for chills and fever. Respiratory: Negative. Cardiovascular: Negative. Genitourinary: Positive for dysuria, frequency and vaginal discharge. See HPI Musculoskeletal: Negative for back pain. BP 110/80 Pulse 76 Temp 37 C (98.6 F) (Tympanic) Resp 18 Wt 68.9 kg (151 lb 12.8 oz) LMP 02/13/2022 SpO2 98% PAST MEDICAL HISTORY Diagnosis Date ADD (attention deficit disorder with hyperactivity) ADD (attention deficit disorder) 04/19/2011 PAST SURGICAL HISTORY Procedure Laterality Date TONSILLECTOMY & ADENOIDECTOMY <AGE 11 age 2 ALLERGIES Daytrana [Methylphenidate] MEDICATIONS metroNIDAZOLE (FLAGYL) 500 mg tablet Take 1 tablet by mouth twice daily for 7 days. escitalopram oxalate (LEXAPRO) 20 mg tablet Take 1 tablet by mouth once daily. FLUoxetine (PROZAC) 10 mg capsule Take 3 capsules by mouth once daily for 7 days, THEN 2 capsules once daily for 7 days, THEN 1 capsule once daily for 7 days. spironolactone (ALDACTONE) 100 mg tablet Take 1 tablet by mouth once daily. (Patient not taking: Reported on 03/30/2023) EPIDUO FORTE 0.3-2.5 % (Patient not taking: Reported on 03/30/2023) MONO-LINYAH 0.25-35 mg-mcg per tablet (Patient not taking: Reported on 03/30/2023) FAMILY HISTORY Problem Relation Age of Onset None Mother None Father Cancer Maternal Grandmother Diabetes Paternal Grandmother Social History Tobacco Use Smoking status: Never Passive exposure: Yes Smokeless tobacco: Never Tobacco comments: outdoors Objective Physical Exam Vitals and nursing note reviewed. Constitutional: General: She is not in acute distress. Appearance: Normal appearance. Cardiovascular: Rate and Rhythm: Normal rate and regular rhythm. Pulmonary: Effort: No respiratory distress. Breath sounds: No wheezing or rales. Abdominal: General: There is no distension. Palpations: There is no mass. Tenderness: There is no abdominal tenderness. There is no right CVA tenderness, left CVA tenderness or guarding. Genitourinary: Comments: Patient declines exam. Neurological: Mental Status: She is alert. ASSESSMENT/PLAN: 1. Dysuria - ICD9: 788.1, ICD10: R30.0 (primary diagnosis) acute - UA positive for cheri esterase, hematuria, and proteinuria - Send urine for culture - Begin treatment with Macrobid 100 mg BID for 5 days - Patient education for prevention given - UA DIP, URINE (POC) - NITROFURANTOIN MONOHYDRATE & MACROCRYSTAL 100 MG ORAL CAP- start this medication today. 2. Vaginal discharge - ICD9: 623.5, ICD10: N89.8 - EDDI / TRICHOMONAS AMPLIFICATION - BACTERIAL VAGINOSIS AMPLIFICATION - METRONIDAZOLE 500 MG TABLET- do not take this medication until you get the test results back. Your symptoms are likely due to the urinary tract infection. If your BV test comes back positive you may take this medication. - Follow-up with your PCP in 3-5 days if symptoms have not improved or sooner if symptoms worsen - Discussed red flags and need for immediate medical evaluation if any occur. - Discussed supportive care treatment with fluids, rest and analgesia. - Discussed expected course of illness Sophia Jaimes APRN.[facility]ANICK documented in this encounter [facility] 03-09-2023 Miscellaneous Notes Patient notified and verbalized understanding of instructions given.Yolanda Alston LPN Phone call placed, brief message to contact a nurse to review results, [facility] 03/09/2023. Jannet Montgomery LPN Please call and let patient know her swab for bacterial vaginosis was positive. This is an overgrowth of bacteria found in the vagina, this is not an std.Flagyl was sent to the pharmacy to treat this. Do not drink any alcohol while on this medication. She was negative for gonorrhea and chlamydia. Yeast and trichomonas testing still pending. We will call if those are positive. documented in this encounter [facility] 03-08-2023 History of Present illness Narrative This note was created using [employer]. Subjective Sherif Licona is a 17 year old female. HPI Presents with a chief complaint of burning with urination and frequency over the past 3 days. She has also noticed some yellow-green discharge. She is currently sexually active with 1 partner for the past 2 years. Total has had 2 partners. She states he is not having any symptoms. Denies any back pain or abdominal pain. She thought she did have some blood in her urine a couple days ago but that resolved. Her menstrual cycle is due within the next 2 days. She is on control but states she does not take it every day as sometimes she does forget. She does not typically use condoms. No fever. No vomiting. Review of Systems HENT: Negative. Respiratory: Negative. Cardiovascular: Negative. Gastrointestinal: Negative. Genitourinary: Positive for dysuria, frequency, hematuria, urgency and vaginal discharge. Negative for genital sores and vaginal bleeding. Musculoskeletal: Negative. All other systems reviewed and are negative. PAST MEDICAL HISTORY Diagnosis Date ADD (attention deficit disorder with hyperactivity) ADD (attention deficit disorder) 04/19/2011 Current Outpatient Medications Medication Sig Dispense Refill spironolactone (ALDACTONE) 100 mg tablet Take 1 tablet by mouth once daily. EPIDUO FORTE 0.3-2.5 % MONO-LINYAH 0.25-35 mg-mcg per tablet escitalopram oxalate (LEXAPRO) 20 mg tablet Take 1 tablet by mouth once daily. 30 tablet 0 FLUoxetine (PROZAC) 10 mg capsule Take 3 capsules by mouth once daily for 7 days, THEN 2 capsules once daily for 7 days, THEN 1 capsule once daily for 7 days. 42 capsule 0 No current facility-administered medications for this visit. PAST SURGICAL HISTORY Procedure Laterality Date TONSILLECTOMY & ADENOIDECTOMY <AGE 11 age 2 FAMILY HISTORY Problem Relation Age of Onset None Mother None Father Cancer Maternal Grandmother Diabetes Paternal Grandmother Social History Tobacco Use Smoking status: Never Passive exposure: Yes Smokeless tobacco: Never Tobacco comments: outdoors Objective BP 132/84 Pulse 102 Temp 36.8 C (98.3 F) Resp 21 Wt 71.7 kg (158 lb) LMP 02/13/2022 SpO2 99% Physical Exam Vitals reviewed. Exam conducted with a animal nutrition teacher present (valdemar ZARCO). Constitutional: Appearance: Normal appearance. HENT: Head: Normocephalic and atraumatic. Abdominal: General: Abdomen is flat. Palpations: Abdomen is soft. Tenderness: There is no abdominal tenderness. There is no right CVA tenderness, left CVA tenderness or guarding. Genitourinary: Comments: Normal external genitalia. Internally there is scant amount of white to yellow discharge. No lesions. No vesicles. Cervix normal. No cervical motion tenderness. Skin: General: Skin is warm and dry. Neurological: Mental Status: She is alert. Assessment and Plan ASSESSMENT/PLAN: 1. Urinary frequency - ICD9: 788.41, ICD10: R35.0 (primary diagnosis) Urine dip is negative. I will check a culture. was negative as well. - UA DIP, URINE (POC) - URINE CULTURE - HCG QUAL UR B/O 2. Vaginal discharge - ICD9: 623.5, ICD10: N89.8 No exam performed, swabs pending. We will treat based on results of swabs. Patient agreeable with plan. - GC/CHLAMYDIA DNA DET - BACTERIAL VAGINOSIS AMPLIFICATION - EDDI / TRICHOMONAS AMPLIFICATION Roxana Rodriguez PA-C documented in this encounter [facility] 04-14-2022 History of Present illness Narrative PEDIATRIC FOLLOW UP VISIT SERVICE DATE: 04/14/2022 Patient presents with: Med Check: Doing well per pt, no adverse effects noted Sherif Licona is a 16 year old female who presents with depressed mood and general anxiety for follow up visit accompanied by her self. Currently taking Escitalopram 10 mg since 1 month ago. The medication is not helping, but not making worse in review of hx 12/24/19- took Lexapro in the past - went up to 20 mg, noticed some help with depression but not anxiety. reported lightheaded. History was obtained from: patient Current symptoms: sadness and anxiety She feels that this is a difficult time to evaluate the efficacy of medications because of particular stressors around her grandmother's health. has been too busy to think about cutting has been playing switch, working, spending time with family Family surprised by spending more time. feels annoyed by family- they tend to fight with each other. feels better at work when hard to be at home then hard to be at work not like being there either.- notices she is not putting the effort into work as much as she had. Frequent bathroom breaks. Current stressors: Grandma with Brain CA- not doing well Severity of Symptoms: moderate Context: home and work PAST MEDICAL HISTORY Diagnosis Date ADD (attention deficit disorder with hyperactivity) ADD (attention deficit disorder) 04/19/2011 ROS for medication side effects: Abdominal pain: yes- recent GI illness- seen in ED. now resolving Appetite problems: yes-from recent GI illness Drowsiness: no Sleep problems: no Headaches: no Depression: yes Suicidal ideation: no Agitation: no Devika: no Tremors: no Weight change: no PHYSICAL EXAM: Pulse 80 Temp 36.4 C (97.6 F) (Temporal Artery) Resp 18 Ht 158.7 cm (5' 2.48") Wt 67.2 kg (148 lb 3.2 oz) LMP 02/13/2022 BMI 26.69 kg/m No blood pressure reading on file for this encounter. General: Well developed, No acute distress Neck: supple and no adenopathy Lungs: clear to auscultation bilaterally, good air exchange, no retractions Heart: Normal rate, regular rhythm, no murmur Abdomen: Mild periumbilical tenderness. No rebound or guarding Skin: Normal color, texture and turgor. No rashes. Today: PHQ-9: 14 AMEYA-7 19 prior visit 1 month ago PHQ9-18 GAD7: 16 Assessment & Plan: 16 year old female with anxiety, depression. without optimization of symptoms and without significant medication side effects. - Continue current medication-increase dose to 20 mg of Lexapro -She would rather stay at the current medication and change medications again now despite the historical lack of efficacy for Lexapro. She feels that the situation may be different. Follow-up for 4 weeks and recheck. If she is still not noticing a difference at that time then I would consider referral to psychiatry given that she has had a history now of 3 SSRIs without efficacy. She reports that she never head from e-coaching. She has not reached out to them. SIGNATURE: Jacob Rodriguez MD PATIENT NAME: Sherif Licona DATE: April 14, 2022 TIME: 10:09 AM documented in this encounter [facility] 04-12-2022 Evaluation + Plan note Diagnostic Tests PendingUrine Culture 04/12/22 [facility] 04-12-2022 Hospital Discharge instructions Patient Education 04/12/2022 02:37:50 AA Meenakshi BAH (CUSTOM) Result type:CT Abd/Pelvis w/ IV Contrast Only Result date:April 12, 2022 1:48 EDT Result status:In Progress Result title:CT ABD/PELVIS W/ IV CONTRAST ONLY Performed by:DANIELA JACK DO on April 12, 2022 1:43 EDT Cosigned by:DANIELA JACK DO Encounter info:[id number], [facility], Emergency, 04/11/2022 - Contributor system:Match * Preliminary Report * [id number] ORIGINAL EXAMINATION: CT OF THE ABDOMEN AND PELVIS WITH CONTRAST 04/12/2022 1:48 am TECHNIQUE: CT of the abdomen and pelvis was performed with the administration of intravenous contrast. Multiplanar reformatted images are provided for review. COMPARISON: None. HISTORY: ORDERING SYSTEM PROVIDED HISTORY: Reason for Exam: abdominal pain FINDINGS: No acute osseous abnormality. Included lung bases are clear. The liver, spleen, pancreas and the bilateral adrenal glands are unremarkable. No filling defects within the gallbladder. No intrahepatic or extrahepatic biliary ductal dilatation. There are symmetric nephrograms. No renal calculi. No hydronephrosis. The most inferior aspect of the pelvis is excluded. The bladder is under distended which limits evaluation. The uterus appears within normal limits. There is no adnexal mass. The small bowel is normal caliber without evidence of inflammatory change. The large bowel and appendix are unremarkable. There is a trace amount of free fluid within the pelvis which is most likely physiologic. No free air. The aorta is normal caliber. No pathologically enlarged lymph nodes. Small fat containing umbilical hernia. IMPRESSION: No acute abnormality in the abdomen or pelvis to explain the patient's abdominal pain. Preliminary Report was Dictated by a Resident Preliminary Report By: Daniela Jack Dictated Time: 04/12/2022 2:23:32 AM Prelim Time: 04/12/2022 2:33:08 AM Ordering Provider: ANGELA HYDE IMAGE This document has an image Document Released: 10/16/2006 Document Revised: 10/02/2013 Document Reviewed: 10/17/2014 ExitCare Patient Information 2015 [employer]. This information is not intended to replace advice given to you by your health care provider. Make sure you discuss any questions you have with your health care provider. 04/12/2022 00:07:09 Vomiting (Adult) Vomiting (Adult) Vomiting is a common symptom that may be due to different causes. These include gastroenteritis ("stomach flu"), food poisoning and gastritis. There are other more serious causes of vomiting which may be hard to diagnose early in the illness. Therefore, it is important to watch for the warning signs listed below. The main danger from repeated vomiting is dehydration. This is due to excess loss of water and minerals from the body. When this occurs, your body fluids must be replaced. Home care If symptoms are severe, rest at home for the next 24 hours. Because your symptoms may be from an infection, wash your hands often and well. If soap and water are not available, use alcohol-based keno clerk to keep from spreading the infection to others. Wash your hands for at least 20 seconds. Humming the happy birthday song twice while you wash is an easy way to make sure you've washed for 20 seconds. Wash your hands after using the toilet, before and after preparing food, before eating food, after changing a diaper, cleaning a wound, caring for a sick person, and blowing your nose, coughing, or sneezing. You should also wash your hands after caring for someone who is sick, touching pet food, or treats, and touching an animal, or animal waste. You may use acetaminophen or NSAID medicines like ibuprofen or naproxen to control fever, unless another medicine was prescribed. If you have chronic liver or kidney disease or ever had a stomach ulcer or gastrointestinal bleeding, talk with your doctor before using these medicines. Aspirin should never be used in anyone under 18 years of age who is ill with a fever. It may cause severe liver damage. Don't use NSAID medicines if you are already taking one for another condition (like arthritis) or are on aspirin (such as for heart disease, or after a stroke) Don't use tobacco and or drink alcohol, which may worsen your symptoms. If medicines for vomiting were prescribed, take as directed. Once vomiting stops, then follow these guidelines: During the first 12 to 24 hours follow the diet below: Fruit juices. Apple, grape juice, clear fruit drinks, and electrolyte replacement drinks. Beverages. Soft drinks without caffeine; mineral water (plain or flavored), decaffeinated tea and coffee. Soups. Clear broth and bouillon Desserts. Plain gelatin, ice pops, and fruit juice bars. As you feel better, you may add 6 to 8 ounces of yogurt per day. During the next 24 hours you may add the following to the above: Hot cereal, plain toast, bread, rolls, crackers Plain noodles, rice, mashed potatoes, chicken noodle or rice soup Unsweetened canned fruit such as applesauce, bananas (avoid pineapple and citrus) Limit caffeine and chocolate. No spices or seasonings except salt. During the next 24 hours: Gradually resume a normal diet, as you feel better and your symptoms lessen. Follow-up care Follow up with your healthcare provider, or as advised. When to seek medical advice Call your healthcare provider right away if any of these occur: Constant right-sided lower belly pain or increasing general belly pain Continued vomiting (unable to keep liquids down) for 24 hours Vomiting blood or coffee grounds Swollen belly Frequent diarrhea (more than 5 times a day); blood (red or black color) or mucus in diarrhea Reduced urine output or extreme thirst Weakness, dizziness or fainting Unusually drowsy or confused Fever of 100.4 F (38 C) oral or higher, or as directed Yellow color of the eyes or skin 1153-2279 [employer]. [address] [place] [address]. All rights reserved. This information is not intended as a substitute for professional medical care. Always follow your healthcare professional's instructions. 04/12/2022 00:07:06 Abdominal Pain Abdominal Pain Abdominal pain is pain in the stomach or belly area. Everyone has this pain from time to time. In many cases it goes away on its own. But abdominal pain can sometimes be due to a serious problem, such as appendicitis. So it s important to know when to get help. Causes of abdominal pain There are many possible causes of abdominal pain. Common causes in adults include: Constipation, diarrhea, or gas Stomach acid flowing back up into the esophagus (acid reflux or heartburn) Severe acid reflux, called GERD (gastroesophageal reflux disease) A sore in the lining of the stomach or small intestine (peptic ulcer) Inflammation of the gallbladder, liver, or pancreas Gallstones or kidney stones Appendicitis Intestinal blockage An internal organ pushing through a muscle or other tissue (hernia) Urinary tract infections In women, menstrual cramps, fibroids, ovarian cysts, pelvic inflammatory disease, or endometriosis Inflammation or infection of the intestines, including Crohn's disease and ulcerative colitis Irritable bowel syndrome Diagnosing the cause of abdominal pain Your healthcare provider will give you a physical exam help find the cause of your pain. If needed, you will have tests. Belly pain has many possible causes. So it can be hard to find the reason for your pain. Giving details about your pain can help. Tell your provider where and when you feel the pain, and what makes it better or worse. Also let your provider know if you have other symptoms such as: Fever Tiredness Upset stomach (nausea) Vomiting Changes in bathroom habits Blood in the stool or black, tarry stool Weight loss that you can't explain (involuntary weight loss?) Also report any family history of stomach or intestinal problems, or cancers. Tell your provider about all your alcohol use and drug use. Tell your provider about all medicines you use, including herbs, vitamins, and supplements. Treating abdominal pain Some causes of pain need emergency medical treatment right away. These include appendicitis or a bowel blockage. Other problems can be treated with rest, fluids, or medicines. Your healthcare provider can give you specific instructions for treatment or self-care based on what is causing your pain. If you have vomiting or diarrhea, sip water or other clear fluids. When you are ready to eat solid foods again, start with small amounts of qqkx-zw-qssfdf, low-fat foods. These include apple sauce, toast, or crackers. When to get medical care Call 911 or go to the hospital right away if you: Can t pass stool and are vomiting Are vomiting blood or have bloody diarrhea or black, tarry diarrhea Have chest, neck, or shoulder pain Feel like you might pass out Have pain in your shoulder blades with nausea Have sudden, severe belly pain Have new, severe pain unlike any you have felt before Have a belly that is rigid, hard, and hurts to touch Call your healthcare provider if you have: Pain for more than 5 days Bloating for more than 2 days Diarrhea for more than 5 days A fever of 100.4 F (38 C) or higher, or as directed by your healthcare provider Pain that gets worse Weight loss for no reason Continued lack of appetite Blood in your stool How to prevent abdominal pain Here are some tips to help prevent abdominal pain: Eat smaller amounts of food at each meal. Don't eat greasy, fried, or other high-fat foods. Don't eat foods that give you gas. Exercise regularly. Drink plenty of fluids. To help prevent GERD symptoms: Quit smoking. Reduce alcohol and foods that increase stomach acid. Don't use aspirin or eqel-yxv-qdztxnr pain and fever medicines, if possible. This includes nonsteroidal anti-inflammatory drugs (NSAIDs). Lose excess weight. Finish eating at least 2 hours before you go to bed or lie down. Raise the head of your bed. 7592-7863 [employer]. [address] [place] [address]. All rights reserved. This information is not intended as a substitute for professional medical care. Always follow your healthcare professional's instructions. Follow Up Care 04/11/2022 21:10:00 With:Go to emergency room if symptoms worsen Address:Unknown When:2-4 days With:JACOB RODRIGUEZ MD Address: [address] [place] [address] When:2-4 days [facility] 03-12-2022 Instructions Jacob Rodriguez MD - 03/12/2022 9:55 AM EDT YOU SHOULD SEEK MEDICAL ATTENTION IMMEDIATELY, AT THE NEAREST EMERGENCY DEPARTMENT OR BY CALLING 911, IF ANY OF THE FOLLOWING OCCURS: - New or worsening thoughts of harming self (suicidal thoughts) or harming others. - Not feeling safe at home. - You are concerned about ability to remain safe at home. If having thoughts of harming self or others, you can: - Call the National Suicide Hotline at 0-383-RBDLEXC ( ) or 0-789-880TALK (5593) - Text 4hope to 652969 Self harm Test HOME to 391401 Call 0-402-FNAO-CUT - Proper diet, exercise, sleep hygiene, and other habits can help with your mood. Diet: Eat a diet that is rich in fruits, vegetables, whole-grain / high-fiber foods, fat-free, low-fat, or 1% dairy products, beans, and skinless poultry, lean meats, and fish (especially fatty fish containing omega 3 fatty acids such as salmon, trout, and merino). Limit saturated and trans fats, sodium, and added sugar. And don't forget to eat at least one shared meal a day! Sitting at the table with your family daily has lasting health benefits. Exercise: Try to exercise for 30 minutes, five times per week. Remember: if you exercise for 8 minutes/day, your brain will function better! That's enough! Sleep Hygiene: Avoid napping during the day as it can disturb the normal pattern of sleep and wakefulness. Avoid stimulants such as caffeine, nicotine, and alcohol too close to bedtime. And remember, chocolate has caffeine! Exercise can promote good sleep but not too close to bedtime. Food can be disruptive right before sleep. Stay away from large meals close to bedtime. Ensure adequate exposure to natural light. Light exposure helps maintain a healthy sleep-wake cycle. If you are interested in pursuing bright light therapy, consider using a full spectrum light box of 10,000 lux for 30 minutes in the mornings daily. Talk to me about this because there are a few side-effects we will want to monitor. Here's an article about bright light therapy: https://www.[facility].edu/files /webfm-uploads/documents/outreach /im/handout_light_therapy.pdf Establish a regular relaxing bedtime routine. Associate your bed with sleep. It's not a good idea to use your bed to watch TV, listen to the radio, be on your phone, or read. Make sure that the sleep environment is pleasant and relaxing. The bed should be comfortable, the room should not be too hot or cold, or too bright. Social Media: Enjoy your virtual world as long as your other responsibilities are completed. It can be easy to avoid homework, chores, and self-care when our brains get enticed by games, social media, shows, and threads. We think that most video games are okay for a developing mind--and socializing through video games with people you trust seems to help with social connections. Passive watching of social postings, other people's lives, and mindless feeds, can have a negative affect on a developing mind and reduce our self-esteem. Too much "online social chatter" that disrupts meaningful relationships, attention and focus on other things that matter may also have negative effects. Stay aware and mindful of how you are using your digital media. Using an Leonora to track time spent on the screen can actually guide you to better habits! If you have questions about healthy electronic and social media use in children: www.[employer].org Socialization: Remember that we grow through healthy social connections and shared respect for each others' lives. It is important to form relationships that make you feel good about who you are. If you find that you are usually doubting yourself or feeling low around your "friends," you may want to spend more time around another peer group and see if you feel better. Different people have different preferences for socializing. Some people need quiet time to recharge their energy. Some people regain their energy from a lot of socialization. Respect what works for you. Communication: Talk to a family member without interruption for at least 5 minutes everyday. If you don't know what to say, try this: "What is something interesting that happened today" See if you can listen to response for at least 2 minutes before you interrupt. (Most doctors interrupt within 11 seconds!) If someone says something mean or difficult, try this: "I'll think about that." If you are in an argument or heated discussion, remember to validate the other person before responding: "I see what you mean. I understand what you are saying." Then pause for 5 seconds. Then respond. Read more at this link: How to Talk So Kids will Listen and How to Listen So Kids will Talk by Amairani Ruvalcaba and Mariola Preston. http://[facility].nv.us/uplo ads//26643157/iih-ha-ryaz- op-dwiw-bfnx-listen.pdf Finally, it's okay to ask youth if they are having thoughts of suicide. If they are, remain present with them and seek professional support by using the numbers above. documented in this encounter [facility] 05-14-2022 History of Present illness Narrative PEDIATRIC FOLLOW UP VISIT SERVICE DATE: 03/12/2022 Patient presents with: anxiety/depression recheck Sherif Licona is a 16 year old female who presents with depressed mood and anxiety for follow up visit accompanied by her self. Currently taking Fluoxetine 40 mg since 01/20/22 when does was increased. The medication is not helping. History was obtained from: patient Current symptoms: sadness, lack of motivation, anhedonia, numb and blunted (can't cry), anxiety, feeling of cutting (last cutting) Anxiety around "I think we are going to crash" when riding bus Stressors- Grandma has CA- imagines her Severity of Symptoms: moderate Context: home, school and work PAST MEDICAL HISTORY Diagnosis Date ADD (attention deficit disorder with hyperactivity) ADD (attention deficit disorder) 04/19/2011 ROS for medication side effects: Abdominal pain: no Appetite problems: no Drowsiness: no Sleep problems: no Headaches: yes Depression: yes Suicidal ideation: yes Agitation: no Devika: no Tremors: no Weight change: no PHQ9-18 GAD7: 16 [place]-SUICIDE SEVERITY RATING SCALE Screen with Triage Points for Primary Care 1. In the past month, have you wished you were or wished you could go to sleep and not wake up? YES - routine depression management including mental health referral 2. In the past month, have you actually had any thoughts of killing yourself? NO Thinks she is too scared- Plan (slit wrists or throat) 6. Have you ever done anything, started to do anything, or prepared to do anything to end your life? Examples: Collected pills, obtained a gun, gave away valuables, wrote a will or suicide note, took out pills but didn't swallow any, held a gun but changed your mind or it was grabbed from your hand, went to the roof but didn't jump; or actually took pills, tried to shoot yourself, cut yourself, tried to hang yourself, etc. NO No clear triggers Protective factors: thinks about how parents would feel protective people: Barbi- has no friends, feels pretty blunt- difficulty making friends (lost 2 best friends- more time with boyfriend) best friend- both issues with depression She is coming up on her 1 year anniversary with her boyfriend. PHYSICAL EXAM: BP 112/60 Pulse 84 Temp 36.6 C (97.8 F) (Temporal) Resp 16 Ht 157.7 cm (5' 2.09") Wt 65.1 kg (143 lb 8 oz) LMP 02/13/2022 BMI 26.17 kg/m Blood pressure percentiles are 64 % systolic and 32 % diastolic based on the 2017 AAP Clinical Practice Guideline. This reading is in the normal blood pressure range. General: Well developed, No acute distress Neck: supple and no adenopathy Lungs: clear to auscultation bilaterally, good air exchange, no retractions Heart: Normal rate, regular rhythm, no murmur Abdomen: Soft, nontender, nondistended, no palpable organomegaly or masses, normal bowel sounds Skin: Normal color, texture and turgor. No rashes. Assessment & Plan: 16 year old female with anxiety and depression without optimization of symptoms and without significant medication side effects. - Change medication to Lexapro 10 mg. I discussed a cross taper off of the current dose of Prozac. - Psychology referral for depression and anxiety. Patient remains uninterested at this time however did agree to engage with the asynchronous E coaching program -We discussed safety resources and hotline's for both suicidal ideation and for cutting -Follow-up in 1 month SIGNATURE: Jacob Rodriguez MD PATIENT NAME: Sherif Licona DATE: March 12, 2022 TIME: 9:39 AM documented in this encounter [facility] 02-14-2022 Miscellaneous Notes The following approved medication requests have been transmitted electronically. Pending Prescriptions: Disp Refills FLUoxetine (PROZAC) 40 mg capsule 30 capsule2 Sig: Take 1 capsule by mouth once daily. FELICIA: No Jacob Rodriguez MD Last WCC: 01/15/21. Last office visit 01/20/22 Verify RX Benefits Completed Last medication refill date: 01/20/22 (mother states that pharmacy did not receive. Called and verified with pharmacist Chuck at [facility]. They did not receive this on 01/20) Requesting 30 day supply Retail pharmacy updated: Completed Patient aware RX will be sent to pharmacy. No need to notify patient. Immunizations due: COVID-19 VACCINE(1) Never done MENINGOCOCCAL B: Consider based on risk(1 of 2 - Risk Bexsero 2-dose series) Never done Lilliana Garcia RN documented in this encounter [facility] 02-14-2022 Miscellaneous Notes Mom notified Rx has refills left to fill. documented in this encounter [facility] 01-20-2022 History of Present illness Narrative PEDIATRIC FOLLOW UP VISIT SERVICE DATE: 01/20/2022 Patient presents with: Medication Follow-up: doing well, no side effects reported Sherif Licona is a 16 year old female who presents with depressed mood for follow up visit accompanied by her self. Currently taking Fluoxetine 30 mg since February 2022. The medication is helping some. History was obtained from: patient Current symptoms: will stay up crying once a month Gets overwhelmed about once a month and ruminates Severity of Symptoms: moderate Context: home and school Doing the criminal justice program- wants to do [employer] work PAST MEDICAL HISTORY Diagnosis Date ADD (attention deficit disorder with hyperactivity) ROS for medication side effects: Abdominal pain: no Appetite problems: no Drowsiness: no Sleep problems: yes Headaches: no Depression: yes Suicidal ideation: no Agitation: no Devika: no Tremors: no Weight change: no PHYSICAL EXAM: BP 114/74 Pulse 80 Temp 36.5 C (97.7 F) (Temporal Artery) Resp 18 Wt 65.9 kg (145 lb 6 oz) LMP 01/13/2022 No height on file for this encounter. General: Well developed, No acute distress Neck: supple and no adenopathy Lungs: clear to auscultation bilaterally, good air exchange, no retractions Heart: Normal rate, regular rhythm, no murmur Abdomen: Soft, nontender, nondistended, no palpable organomegaly or masses, normal bowel sounds Skin: Normal color, texture and turgor. No rashes. Assessment & Plan: 16 year old female with depression/dysthymia without optimization of symptoms but improvement and without significant medication side effects. follow up in about 6 weeks - Increase dose to 40 mg Prozac -I continue to strongly encourage counseling. She has not followed through with anyone for longer than 3 months. SIGNATURE: Jacob Rodriguez MD PATIENT NAME: Sherif Licona DATE: January 20, 2022 TIME: 2:20 PM documented in this encounter [facility] 04-19-2011 History of Past i llness Narrative Problem Noted Date Resolved Date ADD (attention deficit disorder) 04/19/2011 01/20/2022 documented as of this encounter (statuses as of 01/20/2022) [facility] History of Past illness Narrative* Problem Noted Date Resolved Date ADD (attention deficit disorder) 04/19/2011 01/20/2022 documented as of this encounter (statuses as of 02/14/2022) [facility] Past [facility] Narrative* Problem Noted Date Resolved Date ADD (attention deficit disorder) 04/19/2011 01/20/2022 documented as of this encounter (statuses as of 02/14/2022) [facility] Narrative* Problem Noted Date Resolved Date ADD (attention deficit disorder) 04/19/2011 01/20/2022 documented as of this encounter (statuses as of 03/12/2022) [facility] Narrative* Problem Noted Date Resolved Date ADD (attention deficit disorder) 04/19/2011 01/20/2022 documented as of this encounter (statuses as of 04/14/2022) [facility] Narrative* Problem Noted Date Resolved Date ADD (attention deficit disorder) 04/19/2011 01/20/2022 documented as of this encounter (statuses as of 03/09/2023) [facility] N[facility]ative* Problem Noted Date Resolved Date ADD (attention deficit disorder) 04/19/2011 01/20/2022 documented as of this encounter (statuses as of 03/10/2023) [facility] N[facility]ative* Problem Noted Date Resolved Date ADD (attention deficit disorder) 04/19/2011 01/20/2022 documented as of this encounter (statuses as of 03/30/2023) [facility] N[facility]* Problem Noted Date Resolved Date ADD (attention deficit disorder) 04/19/2011 01/20/2022 documented as of this encounter (statuses as of 03/31/2023) [facility] N[facility]ative* Problem Noted Date Diagnosed Date Resolved Date ADD (attention deficit disorder) 04/19/2011 01/20/2022 documented as of this encounter (statuses as of 07/28/2023) [facility] N[facility]ative* Problem Noted Date Diagnosed Date Resolved Date ADD (attention deficit disorder) 04/19/2011 01/20/2022 documented as of this encounter (statuses as of 08/05/2023) [facility] Narrative* Problem Noted Date Diagnosed Date Resolved Date ADD (attention deficit disorder) 04/19/2011 01/20/2022 documented as of this encounter (statuses as of 08/16/2023) [facility] note* Diagnosis Depressive disorder- Primary Depressive disorder, not elsewhere classified AMEYA (generalized anxiety disorder) Generalized anxiety disorder [facility] Diagnosis Depressive disorder- Primary Depressive disorder, not elsewhere classified AMEYA (generalized anxiety disorder) Generalized anxiety disorder [facility] Diagnosis Urinary frequency- Primary Vaginal discharge Leukorrhea, not specified as infective [facility] Diagnosis Dysuria- Primary Vaginal discharge Leukorrhea, not specified as infective [facility] Diagnosis Nonintractable episodic headache, unspecified headache type- Primary AMEYA (generalized anxiety disorder) Generalized anxiety disorder [facility] Diagnosis Encounter to establish care- Primary Other reasons for seeking consultation Anxiety and depression Dysthymic disorder , unspecified gestational age [facility] Diagnosis Dental infection- Primary Acute apical periodontitis of pulpal origin [facility] Diagnosis Routine physical examination- Primary Routine general medical examination at a health care facility Anxiety and depression Dysthymic disorder documented in this encounter [facility] note* Diagnosis Acute cough- Primary URI, acute Acute upper respiratory infections of unspecified site Acute otitis media, right Unspecified otitis media Acute cough documented in this encounter [facility] note* Diagnosis Acute cough documented in this encounter [facility] note* Diagnosis Acute otitis media, left- Primary Unspecified otitis media documented in this encounter [facility] note* Diagnosis URI, acute- Primary Acute upper respiratory infections of unspecified site documented in this encounter [facility] course Narrative No data available for this section [facility] Discharge instructions No data available for this section [facility] Discharge instructions* Attachments The following attachments cannot be sent through Care Everywhere. * Tooth: Abscessed ([employer] [place]) [facility] No data available for this section [facility] Reason for Referral Specialty Diagnoses / Procedures Referred By Radha mckeon Referred To Contact INTERNAL MEDICINE Diagnoses Nonintractable episodic headache, unspecified headache type AMEYA (generalized anxiety disorder) Procedures ESTABLISH WITH PRIMARY CARE NEW PATIENT OFFICE/OUTPATIENT [facility] 60-74 MINUTES Jacob Rodriguez MD [address] [place] [address] [facility] [address] [place] [address] Referral ID Status Reason Start Date Expiration Date Visits Requested Visits Authorized [id number] Authorized PCP Requested Referral 07/27/2023 07/26/2024 1 1 Summary Purpose Family History No Family History Records Found Advance Directives No Advanced Directives Records FoundNo Advanced Directives Records FoundNo Advanced Directives Records FoundNo Advanced Directives Records FoundNo Advanced Directives Records FoundNo Advanced Directives Records Found Additional Source Comments Source Comments (unrecognize d section and content) In the event this informatio n is protected by the Federal Confidentiality of Alcohol and Drug Abuse Patient Records regulations: The Federal rules restrict any use of the information to criminally investigate or prosecute any alcohol or drug abuse patient.[facility] event this information is protected by the Federal Confidentiality of Alcohol and Drug Abuse Patient Records regulations: The Federal rules restrict any use of the information to criminally investigate or prosecute any alcohol or drug abuse patient.[facility] the event this information is protected by the Federal Confidentiality of Alcohol and Drug Abuse Patient Records regulations: The Federal rules restrict any use of the information to criminally investigate or prosecute any alcohol or drug abuse patient.[facility] the event this information is protected by the Federal Confidentiality of Alcohol and Drug Abuse Patient Records regulations: The Federal rules restrict any use of the information to criminally investigate or prosecute any alcohol or drug abuse patient.[facility] the event this information is protected by the Federal Confidentiality of Alcohol and Drug Abuse Patient Records regulations: The Federal rules restrict any use of the information to criminally investigate or prosecute any alcohol or drug abuse patient.[facility] the event this information is protected by the Federal Confidentiality of Alcohol and Drug Abuse Patient Records regulations: The Federal rules restrict any use of the information to criminally investigate or prosecute any alcohol or drug abuse patient.[facility] the event this information is protected by the Federal Confidentiality of Alcohol and Drug Abuse Patient Records regulations: The Federal rules restrict any use of the information to criminally investigate or prosecute any alcohol or drug abuse patient.[facility] the event this information is protected by the Federal Confidentiality of Alcohol and Drug Abuse Patient Records regulations: The Federal rules restrict any use of the information to criminally investigate or prosecute any alcohol or drug abuse patient.[facility] the event this information is protected by the Federal Confidentiality of Alcohol and Drug Abuse Patient Records regulations: The Federal rules restrict any use of the information to criminally investigate or prosecute any alcohol or drug abuse patient.[facility] the event this information is protected by the Federal Confidentiality of Alcohol and Drug Abuse Patient Records regulations: The Federal rules restrict any use of the information to criminally investigate or prosecute any alcohol or drug abuse patient.[facility] the event this information is protected by the Federal Confidentiality of Alcohol and Drug Abuse Patient Records regulations: The Federal rules restrict any use of the information to criminally investigate or prosecute any alcohol or drug abuse patient.[facility] the event this information is protected by the Federal Confidentiality of Alcohol and Drug Abuse Patient Records regulations: The Federal rules restrict any use of the information to criminally investigate or prosecute any alcohol or drug abuse patient.[facility] the event this information is protected by the Federal Confidentiality of Alcohol and Drug Abuse Patient Records regulations: The Federal rules restrict any use of the information to criminally investigate or prosecute any alcohol or drug abuse patient.[facility] the event this information is protected by the Federal Confidentiality of Alcohol and Drug Abuse Patient Records regulations: The Federal rules restrict any use of the information to criminally investigate or prosecute any alcohol or drug abuse patient.[facility] the event this information is protected by the Federal Confidentiality of Alcohol and Drug Abuse Patient Records regulations: The Federal rules restrict any use of the information to criminally investigate or prosecute any alcohol or drug abuse patient.[facility] the event this information is protected by the Federal Confidentiality of Alcohol and Drug Abuse Patient Records regulations: The Federal rules restrict any use of the information to criminally investigate or prosecute any alcohol or drug abuse patient.[facility] the event this information is protected by the Federal Confidentiality of Alcohol and Drug Abuse Patient Records regulations: The Federal rules restrict any use of the information to criminally investigate or prosecute any alcohol or drug abuse patient.[facility] the event this information is protected by the Federal Confidentiality of Alcohol and Drug Abuse Patient Records regulations: The Federal rules restrict any use of the information to criminally investigate or prosecute any alcohol or drug abuse patient.[facility] Reason for Visit (unrecogniz ed section and content) Reason Comments Medication Follow-up doing well, no side effects reported Reason Onset Date Comments Refill Request 02/13/2022 Reason Onset Date Comments Refill Request 02/14/2022 Reason Comments anxiety/depression recheck Reason Comments Med Check Doing well per pt, n o adverse effects noted Reason Comments UTI Frequency, burning, discharge x 3 days Reason Comments Results Reason Comments Vaginal Problem Thinks she has re-oc currence of BV x 2 days Reason Comments dent on head Noticed it today. No known injury that could of caused it. Specialty Diagnoses / Procedures Referred By Radha t Referred To Contact PRIMARY CARE PEDIATRICS Diagnoses problem visit Procedures OFFICE CONSULTATION NEW/ESTAB PATIENT 15 MIN Jacob Rodriguez MD [address] [place] [address] Peds [facility] [address] [place] [address] Referral ID Status Reason Start Date Expiration Date Visits Requested Visits Authorized [id number] Pending Review OON/Self Pay Override 07/27/2023 01/23/2024 1 1 Reason Comments vision change Reason Comments Transition Of Care Specialty Diagnoses / Procedures Referred By Radha mckeon Referred To Contact INTERNAL MEDICINE Diagnoses Nonintractable episodic headache, unspecified headache type AMEYA (generalized anxiety disorder) Procedures ESTABLISH WITH PRIMARY CARE NEW PATIENT OFFICE/OUTPATIENT [facility] MDM 60-74 MINUTES Jacob Rodriguez MD [address] [place] [address] [facility] [address] [place] [address] Referral ID Status Reason Start Date Expiration Date V isits Requested Visits Authorized [id number] Closed PCP Requested Referral 07/27/2023 07/26/2024 1 1 Reason Comments Dental Pain Reason Comments 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 Reason Comments Chest Congestion Nasal congestion, co ugh, SOB, burning in chest, sore throat, headache x 6 days Reason Comments Ear Pain LEFT ear feels muffl ed x 1 day Reason Comments Cough Congestion, coughing up mucus, runny nose x 2 days Care Teams (unrecognized sec tion and content) Dye Tank Tender Relationship Specialty Start Date End Date Jacob Rodriguez MD [address] [place] [address] PCP - General 01/04/05 Dye Tank Tender Relationship Specialty Start Date End Date Jacob Rodriguez MD [address] [place], [place] [id number] PCP - General 01/04/05 Dye Tank Tender Relationship Specialty Start Date End Date Jacob Rodriguez MD [address] [place], [place] [id number] PCP - General 01/04/05 Dye Tank Tender Relationship Specialty Start Date End Date Jacob Rodriguez MD [address] [facility] [place] [address] PCP - General 01/04/05 Dye Tank Tender Relationship Specialty Start Date End Date Jacob Rodriguez MD [address] [facility] [place] [address] PCP - General 01/04/05 Dye Tank Tender Relationship Specialty [place] [address] [place] [address] [place] [address] PCP - General 01/04/05 Dye Tank Tender Relationship Specialty [place] [address] [place] [address], [place] [address] PCP - General 01/04/05 Dye Tank Tender Relationship Specialty [place] [address] [place] [id number] PCP - General 01/04/05 Dye Tank Tender Relationship Specialty Start Date End Date Risa Hauser APRN.ANALYSIS CONSULTANT [address] [place] [id number] PCP - General Family Medicine 08/02/23 Dye Tank Tender Relationship Specialty [place] [address] [place] [id number] PCP - General Family Medicine 08/16/23 Dye Tank Tender Relationship Specialty Start Date End Date Abhi Bailey MD [address] [facility] [place] [address] PCP - General Family Medicine 08/16/23 Dye Tank Tender Relationship Specialty Start Date End Date Abhi Bailey MD [address] [place] [address] PCP - General Family Medicine 08/16/23 Dye Tank Tender Relationship Specialty Start Date End Date Abhi Bailey MD [address] [place], [place] [id number] PCP - General Family Medicine 08/16/23 Dye Tank Tender Relationship Specialty Start Date End Date Abhi Bailey MD [address] [place], [place] [id number] PCP - General Family Medicine 08/16/23 Dye Tank Tender Relationship Specialty Start Date End Date Abhi Bailey MD [address] [place], [place] [id number] PCP - General Family Medicine 08/16/23 Risa Hauser APRN.ANALYSIS CONSULTANT [address] [place], [place] [id number] 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 10/05/24 INFORMATION SOURCE (unrecogn ized section and content) DATE CREATED AUTHOR 11/21/2023 [facility] DATE CREATED AUTHOR AUTHOR'S ORGANIZ ATION 11/22/2023 [facility] DATE CREATED AUTHOR AUTHOR'S ORGANIZ ATION 01/21/2024 [facility] DATE CREATED AUTHOR AUTHOR'S ORGANIZ ATION 12/02/2024 [facility] DATE CREATED AUTHOR AUTHOR'S ORGANIZ ATION 06/22/2025 [facility] DATE CREATED AUTHOR AUTHOR'S ORGANIZ ATION 08/30/2025 [facility] Scheduled Active and Recently Administ ered Medications (unrecognized section and content) Medication Order 01/19/2024 01/20/2024 01/21/2024 penicillin v potassium (VEETID) tablet 500 mg (COMPLETED) 500 mg, Oral, NOW, 1 dose, On 01/21/24 at 0130, Indications: dental infection 0057 (Given - Provid er: Renato Kilpatrick RN) FOR RECORDS PERTAINING TO PATIENTS WHO ARE OR HAVE BEEN ENROLLED IN A CHEMICAL DEPENDENCY/SUBSTANCEABUSE PROGRAM, SOME INFORMATION MAY BE OMITTED. This clinical summary was aggregated from multiple sources. Caution should be exercised in using it in the provision of clinical care. This summary normalizes information from multiple sources, and as a consequence, information in this document may materially change the coding, format and clinical context of patient data. In addition, data may be omitted in some cases. CLINICAL DECISIONS SHOULD BE BASED ON THE PRIMARY CLINICAL RECORDS. [facility]. provides no warranty or guarantee of the accuracy or completeness of information in this document.
== END | disposition home or self-care (01) ==
LOC: US 12:55
PROVIDERS: Referring Provider Obstetrics & Gynecology; Visit Provider Obstetrics & Gynecology
DX: O36.60X0 Maternal care for excessive fetal growth, unspecified trimester, not applicable or unspecified (principal); Z3A.00 Weeks of gestation of pregnancy not specified
CPT/HCPCS: 76816

== ENCOUNTER → 2025-10-24 | Outpatient (CLI) | payer OTHER, MEDICAID, SELFPAY ==
--- OUTSIDE RECORDS SUMMARY | 2025-10-24 15:48 | XMS RPT_ITS | CCD ---
Author Organization [facility] Inform ion Partnership [facility] Care Team Providers Care Physical Medicine Specialist Name Role Phone Jacob Rodriguez MD Primary Care Provider JENNIFER BARRETT, DR JAOCB Manuel Primary Care Physician Jacob Rodriguez MD Primary Care Provider [employer] INFORMATICS DEVELOPER.Risa HERNDON Primary Care Provider Abhi Bailey MD [...] SURESH DO Attending Shavon RODRIGUEZ MD, DR JACOB Manuel Primary Care [...] BARRETT, Abhi Carr Primary Care Provider [employer] INFORMATICS DEVELOPERRisa LAI Unavailable ABHI BAILEY Primary Care Unavailab [...] Methylphenidate; Translations: [METHYLPHENIDATE] Drug Allergy 11-10-2015 Rash [facility] Medications Current Medications Medication Drug Class(es) [...] on above: Take 1 capsule by mo [facility] twice daily for 5 days. [...] 08-29 Hepatitis C Ab Non-Reactive Normal Nonreactive [facility] Comment on above: Result Comment: Reac tive: Presumptive evidence of antibodies to HCV. Follow CDC recommendations for supplemental testing. Non-Reactive: Antibodies to HCV were not detected; does not exclude the possibility of exposure to HCV Reactive Results are presumptive evidence of antibodies to HCV. Follow CDC recommendations for supplemental testing. Order confirmation testing: HCV Quant by PCR testing - HCVPCR #[id number] Non Reactive: < 0.8 Equivocal: >/= 0.8 to < 1.0 Reactive: >/= 1.0 The CDC requires that a reactive/equivocal HCV antibody result be sent out for confirmation. HCV Quant by PCR testing. Performed By: #### L [id number] #### [facility] [address] [place], [address] [employer] Office Visit Reporton 08-29-2025 [employer] Office Visit Report [facility] [address], [address] [place] [address] OFFICE VISIT Date of Service: 08/29/25 MR#: [id number] Acct: [id number] Name: SHERIF LICONA Rep #: [id number] : 2005 Provider: TRACEE Sheth ams Age/Sex: 19/F Location: [facility] [place] Status: Signed Intake Vital Signs 08/29/25 08:39 Height 5 ft 2 in Weight: 172 lb 9 oz BMI 31.5 BP 113/75 Intake Visit Reasons: *NEW* NOB TERRANCE 31wk Chief Complaint: New OB Structural Fitter Required: No Is patient in pain?: No [...] past year?: No PFSH PFSH Surgical History [place] teeth extracted History of tonsillectomy Family History Grandmother Diabetes Paternal Cancer, Onset Age: 65 Paternal Lung brain cancer- Smoker Grandfather Myocardial infarction Paternal Social History adopted: No household members: children number of children: 1 service: No current occupational status: employed current occupation: [employer] current occupational exposures/hazards: No pets and animals: [...] physical activity do you participate in: none neeta/christianity: Zoroastrianism seatbelt use: always do you feel safe [...] Heart Def (more content not included)... [facility] ([facility]) SHERIF LICONA ([id number]) 3 F Date Time Provider Department 12/01/24 [...] AM Signed This note was created using [employer]ist[employer]. Subjective Sherif Licona is a 19 year [...] mouth o (more content not included)... Normal [facility] CNOVon 08-16-2024 CNOV Office Visit ([facility]WSTR) SHERIF LICONA ([id number]) 3 F Date Time Provider Department 08/16/24 6:45 PM CARLOS ALBERTO DONOVAN [facility] During your visit today, we recorded the [...] as needed analgesia. Carlos Alberto Donovan MD Allergies As of Date: 08/16/2024 (No [...] days. Level of Service: OFFICE/OUTPATIENT ESTABLISHED MOD [facility] 30 MIN [[id number]] Encounter Status:Closed by CARLOS ALBERTO DONOVAN on 08/16/[address] [facility] CNOVon 08-08-2024 CNOV Office Visit (UCWSTR) SHERIF LICONA ([id number]) 3 F Date Time Provider Department 08/08/24 10:00 AM DENISE HOGAN [facility] During your visit today, we recorded the following information about you: Temperature Pulse Respiration Blood pressure 97.6 degrees 107/minute 20/minute 116/87 Weight Last Period 68 kg 08/02/24 Denise Hogan APRN.CLINICAL ACCOUNT SPECIALIST 08/08/2024 11:59 AM Signed This note was created using Ameristream. Subjective Sherif Licona is a 18 year [...] history is provided by the patient. No speech and language specialist was used. URI She complains of cough [...] cerumen. No (more content not included)... Normal [facility] 08-08-2024 [facility] Telephone ([facility]) SHERIF LICONA ([id number]) 3 F Date Time Provider Department 08/08/24 RAVI NAZARIO [facility] During your visit today, we recorded the following information about you: Ravi Nazario PA 08/08/2024 7:28 PM Signed Negative COVID flu RSV Black Brock MA 08/09/2024 7:26 AM Signed Patient has viewed results on CFBank[employer]. Black Brock MA Allergies As of Date: [...] Status:Closed by BLACK BROCK on 08/09/24 Normal [facility] COVID AND INFLUENZA A/B AND RSV PCR, ROUTINEon 08-08-2024 SARS-CoV-2 (COVID-19) RNA MARCO ANTONIO+probe Ql (Unsp spec) SARS-COV-2 (AGENT OF COVID-19) RNA: Not detected INFLUENZA A RNA: Not detected INFLUENZA B RNA: Not detected RESPIRATORY SYNCYTIAL VIRUS (RSV) RNA: Not detected Normal [facility] Comment on above: Performed By: #### C VFLRS #### [facility] CLIA [id number] [address] [place] [address] [place] STREP A MOLECULAR (POC)on Procedural Control Valid [facility] Strep A (POCT) Negative Negative [facility] XR CHEST 2V FRONTAL/LATon XR CHEST 2V [...] tissues: Unremarkable. IMPRESSION: No acute radiographic abnormality. Tallow Maker: ROBIN Transcribe Date/Time: Aug 08 2024 10:36A Dictated by : FELICE SUMMERS DO This examination was interpreted and the report reviewed and electronically signed by: FELICE SUMMERS DO on Aug 08 2024 10:37AM EST [id number] Normal [facility] XR Chest PA and Lateralon IMPRESSION: No acute radiographic abnormality. Tallow Maker: ROBIN Transcribe Date/Time: Aug 08 2024 10:36A Dictated by : FELICE SUMMERS DO This examination was interpreted and the report reviewed and electronically signed by: FELICE SUMMERS DO on Aug 08 2024 10:37AM [facility] DIVISION OF RADIOLOGY * * *Final [...] soft tissues: Unremarkable. DIVISION OF RADIOLOGY Provider, [facility] - 08/08/2024 * * *Final Report* * [...] Unremarkable. IMPRESSION IMPRESSION: No acute radiographic abnormality. Tallow Maker: ROBIN Transcribe Date/Time: Aug 08 2024 10:36A Dictated by : FELICE SUMMERS DO This examination was interpreted and the report reviewed and electronically signed by: FELICE SUMMERS DO on Aug 08 2024 10:37AM EST [facility] Radiology Study observation (narrative) [facility] XR Chest PA and LateralOrder ed By: Ccf Provider on 08-08-2024 [facility] CNOVon 07-16-2024 CNOV Office Visit (FAMPWS) SHERIF LICONA ([id number]) 3 F Date Time Provider Department 07/16/24 10:00 AM RISA HAUSER During your visit today, we recorded the following information about you: Pulse Respiration Blood pressure Weight 76/minute 18/minute 108/68 70 kg Risa Hauser APRN.CLINICAL ACCOUNT SPECIALIST 07/16/2024 10:18 AM Signed 07/16/2024 Patient presents with: 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 Since last office visit has been in good health. Had baby boy 8 months ago. Doing well Taking Zoloft as prescribbed without side effects. Works well to control symptoms. Not currently attending counseling. Denies SI, HI or insomnia Will be working at [employer] . 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 Patient advised if symptoms do not improve or if symptoms worsen sooner, to contact their primary care physician. Potential red flag symptoms discussed with the patient. Reviewed appropriate action plan to take i (more content not included)... Normal [facility] BB ANTIBODY IDon 11-17-2023 BB ANTIBODY ID Normal [facility] Comment on above: Result Comment: ANTI BODY(S) IDENTIFIED: _PASSIVE_ANTI-D_DUE_TO_RHOGAM 11/17/23.0928.TR . Performed By: #### 2 26760 #### [facility],[address] [place] [address] BB GAMULIN WORKUPon 11-17-19 24 ABO O Normal [facility] Comment on above: Performed By: #### 2 06952 #### [place] [address]1844 ANTIBODY SCR Positive Abnormal [facility] Comment on above: Result Comment: { Nu mber of Vials 1 Performed By: #### 2 16823 #### [facility],[address] [place], [place] [address] BB GAMULIN WORKUP Normal [facility] Comment on above: Result Comment: ALICIA ROUSE Performed By: #### 2 46405 #### [facility],[address] [place] [address] Rh Nom (Bld) Negative Normal [facility] Comment on above: Performed By: #### 2 79585 #### [facility],[address] [place] [address] CBC + DIFFon 11-17-2023 Baso # 0.10 x10EE3/UL Normal 0.00 - 0.10 [facility] Comment on above: Performed By: #### 2 64631 #### [facility],[address] [place] [address] Basophils/100 WBC (Bld) 0.3 % Normal 0.0 - 2.0 [facility] Comment on above: Performed By: #### 2 03188 #### [facility],[address] [place] [address] CBC + DIFF Normal [facility] Comment on above: Result Comment: CBC- COMPLETE BLOOD COUNT Performed By: #### 2 82332 #### [facility],[address] [place] [address] EO # 0.10 x10EE3/UL Normal 0.00 - 0.50 [facility] Comment on above: Performed By: #### 2 48633 #### [facility],[address] [place] [address] Eosinophils/100 WBC (Bld) 0.4 % Normal 0.0 - 7.0 [facility] Comment on above: Performed By: #### 2 14552 #### [place] [address] Erythrocyte distribution width (RBC) [Ratio] 14.3 % Normal 12.0 - 15.6 [facility] Comment on above: Performed By: #### 2 24280 #### [facility],[address] [place], [place] [address] Hematocrit (Bld) [Volume fraction] 32.9 % Low 34.0 - 46.0 [facility] Comment on above: Performed By: #### 2 19012 #### [facility],[address] [place] [address] Hemoglobin (Bld) [Mass/Vol] 10.6 g/dL Low 12.0 - 16.0 [facility] Comment on above: Performed By: #### 2 56885 #### [facility],[address] [place], [place] [address] Lymph # 2.40 x10EE3/UL Normal 0.80 - 2.80 [facility] Comment on above: Performed By: #### 2 48658 #### [facility],[address] [place], [place] [address] Lymphocytes/100 WBC (Bld) 15.4 % Low 20.0 - 45.0 [facility] Comment on above: Performed By: #### 2 33659 #### [facility],[address] [place] [address] MANUAL DIFF N/A Normal [facility] Comment on above: Performed By: #### 2 28398 #### [facility],[address] [place] [address]13 MCH (RBC) [Entitic mass] 28 pg Normal 27 - 33 [facility] Comment on above: Performed By: #### 2 59214 #### [facility],[address] [place] [address]242 MCHC 32 X10 3 Normal 32 - 36 [facility] Comment on above: Performed By: #### 2 26186 #### [facility],[address] [place] [address] MCV (RBC) [Entitic vol] 87 fL Normal 80 - 99 [facility] Comment on above: Performed By: #### 2 96206 #### [facility],[address] [place], [place] [address] [place] # 1.80 x10EE3/UL High 0.20 - 1.00 [facility] Comment on above: Performed By: #### 2 58127 #### [facility],[address] [place] [address] MONOS % 11.6 % High 0.0 - 10.0 [facility] Comment on above: Performed By: #### 2 77221 #### [facility],[address] [place] [address] Morphology Osvaldo (Bld) [Interp] N/A Normal [facility] Comment on above: Result Comment: {CD] Performed By: #### 2 14295 #### [facility],[address] [place] [address] Neut # 11.10 x10EE3/UL High 1.50 - 7.10 [facility] Comment on above: Performed By: #### 2 46576 #### [facility],[address] [place], [place] [address] Neutrophils/100 WBC (Bld) 72.3 % Normal 46.0 - 76.0 [facility] Comment on above: Performed By: #### 2 29891 #### [facility],[address] [place] [address] PLATELET 244 x10EE3/UL Normal 150 - 450 [facility] Comment on above: Performed By: #### 2 86806 #### [facility],[address] [place] [address] Platelet mean volume (Bld) [Entitic vol] 9.2 fL Normal 6.6 - 10.5 [facility] Comment on above: Result Comment: AUTO MATED DIFFERENTIAL Performed By: #### 2 66564 #### [facility],[address] [place], [place] [phone] RBC 3.79 x 10EE6/UL Low 4.10 - 5.30 [facility] Comment on above: Performed By: #### 2 96142 #### [facility],[address] [place] [address] WBC 15.4 x 10EE3/UL High 4.5 - 10.8 [facility] Comment on above: Performed By: #### 2 77166 #### [facility],[address] [place] [address] CELL SCREENon 11-17-19 24 # OF RHOGAM REQUIRED 1 Normal [facility] Comment on above: Performed By: #### 2 72237 #### [facility],[address] [place] [address] Cell Sc NORMAL Normal [facility] Comment on above: Performed By: #### 2 24955 #### [facility],[address] [place] [address] ACTIM PROMon 11-16-2023 ACTIM PROM Positive Normal NORMAL: NEGATIVE [facility] Comment on above: Performed By: #### 2 89126 #### [facility],[address] [place] [address] EXTERNAL QC DONE? YES Normal [facility] Comment on above: Result Comment: Acti m PROM is a rapid immunoassay that specifically detects Insulin-like Growth Factor Binding Protein-1 (IGFBP-1). IGFBP-1 levels in amniotic fluid rise in early and remain high until term. When the membranes are ruptured, IGFBP-1 is detectable in a vaginal sample. Performed By: #### 2 90832 #### [facility],[address] [place] [address] INTERNAL NEG QC PASS Normal [facility] Comment on above: Performed By: #### 2 00001 #### [facility],[address] [place] [address] INTERNAL POS QC PASS Normal [facility] Comment on above: Performed By: #### 2 63512 #### [facility],[address] [place] [address] AMNIon 11-16-2023 Amnisure Negative Normal Negative [facility] ([place]) Comment on above: Performed By: #### A MNI #### [facility] [address] [address] BB TYPE & SCREENon 4 ABO O Normal [facility] Comment on above: Performed By: #### 2 15792 #### [facility],[address] [place] [address] ANTIBODY SCR Positive Abnormal [facility] Comment on above: Result Comment: ==== FOLLOWING RESULTS REPORTED IN ERROR ANTIBODY SCR negative <-- *Previously reported in error 11/16/23.2127.AEL. . .M 890-4 SCREEN POSITIVE ON GAMULIN WORKUP REPEATED SCREEN FOR VERIFICATION TRR Performed By: #### 2 56702 #### [facility],[address] [place] [address] BB TYPE & SCREEN Normal [facility] Comment on above: Result Comment: CORRECTED REPORT TYPE, Rh, AND SCREEN Performed By: #### 2 57063 #### [facility],[address] [place] [address] Rh Nom (Bld) Negative Normal [facility] Comment on above: Performed By: #### 2 44682 #### [facility],[address] [place] [address]879 CBC + DIFFon 11-16-2023 Baso # 0.00 x10EE3/UL Normal 0.00 - 0.10 [facility] Comment on above: Performed By: #### 2 40130 #### [facility],[address] [place], [place] [address] Basophils/100 WBC (Bld) 0.4 % Normal 0.0 - 2.0 [facility] Comment on above: Performed By: #### 2 88991 #### [facility],[address] [place] [address] CBC + DIFF Normal [facility] Comment on above: Result Comment: CBC- COMPLETE BLOOD COUNT Performed By: #### 2 59807 #### [facility],[address] [place] [address] EO # 0.10 x10EE3/UL Normal 0.00 - 0.50 [facility] Comment on above: Performed By: #### 2 62915 #### [facility],[address] [place] [address] Eosinophils/100 WBC (Bld) 0.8 % Normal 0.0 - 7.0 [facility] Comment on above: Performed By: #### 2 36366 #### [facility],[address] [place] [address] Erythrocyte distribution width (RBC) [Ratio] 14.5 % Normal 12.0 - 15.6 [facility] Comment on above: Performed By: #### 2 02597 #### [facility],[address] [place] [address] Hematocrit (Bld) [Volume fraction] 35.6 % Normal 34.0 - 46.0 [facility] Comment on above: Performed By: #### 2 69527 #### [facility],[address] [place], [place] [address] Hemoglobin (Bld) [Mass/Vol] 11.1 g/dL Low 12.0 - 16.0 [facility] Comment on above: Performed By: #### 2 07224 #### [facility],[address] [place] [address] Lymph # 1.70 x10EE3/UL Normal 0.80 - 2.80 [facility] Comment on above: Performed By: #### 2 73309 #### [facility],[address] [place] [address] Lymphocytes/100 WBC (Bld) 15.1 % Low 20.0 - 45.0 [facility] Comment on above: Performed By: #### 2 22077 #### [facility],[address] [place] [address]882 MANUAL DIFF N/A Normal [facility] Comment on above: Performed By: #### 2 78128 #### [facility],[address] [place], [place] [address] MCH (RBC) [Entitic mass] 27 pg Normal 27 - 33 [facility] Comment on above: Performed By: #### 2 56052 #### [facility],[address] [place] [address] MCHC 31 X10 3 Low 32 - 36 [facility] Comment on above: Performed By: #### 2 49709 #### [facility],[address] [place] [address]444 MCV (RBC) [Entitic vol] 87 fL Normal 80 - 99 [facility] Comment on above: Performed By: #### 2 89833 #### [facility],[address] [place] [address] [place] # 1.30 x10EE3/UL High 0.20 - 1.00 [facility] Comment on above: Performed By: #### 2 00403 #### [facility],[address] [place] [address] MONOS % 10.9 % High 0.0 - 10.0 [facility] Comment on above: Performed By: #### 2 56950 #### [facility],[address] [place] [address] Morphology Osvaldo (Bld) [Interp] N/A Normal [facility] Comment on above: Result Comment: {CD] Performed By: #### 2 51410 #### [facility],[address] [place] [address] Neut # 8.40 x10EE3/UL High 1.50 - 7.10 [facility] Comment on above: Performed By: #### 2 47563 #### [facility],[address] [place] [address] 15817 Neutrophils/100 WBC (Bld) 72.8 % Normal 46.0 - 76.0 [facility] Comment on above: Performed By: #### 2 25193 #### [facility],[address] [place] [address] PLATELET 265 x10EE3/UL Normal 150 - 450 [facility] Comment on above: Performed By: #### 2 16699 #### [facility],[address] [place] [address] 87736 Platelet mean volume (Bld) [Entitic vol] 10.1 fL Normal 6.6 - 10.5 [facility] Comment on above: Result Comment: AUTO MATED DIFFERENTIAL Performed By: #### 2 31580 #### [facility],[address] [place] [address]754 RBC 4.07 x 10EE6/UL Low 4.10 - 5.30 [facility] Comment on above: Performed By: #### 2 83312 #### [facility],[address] [place] [address] 34820 WBC 11.5 x 10EE3/UL High 4.5 - 10.8 [facility] Comment on above: Performed By: #### 2 79960 #### [facility],[address] [place] [address] LABORATORYOrdered By: Alyssa Hawthorne on 11-16-2023 [id number] .placental Ql (Vag fld) Negative (11/16/23 1:10 PM) Normal Negative AO Rapid Testing SS RPRon 09-07-2023 Reagin Ab RPR Ql (S) Non-Reactive Normal Non-Reactive [facility] ([place]) Comment on above: Result Comment: The RPR [...] NSG, ADIFF, ABOG, CBC, GLU1P, ANEU #### [place] [address] #### RPR #### [address] [address] .Auto Diffon 09-06-2023 Basophil, Absolute 0.0 10 3/mcL Normal 0.0-0.2 [facility] ([place]) Comment on above: Performed By: #### A NSG, ADIFF, ABOG, CBC, GLU1P, ANEU #### [address] [address] #### RPR #### [address] [address] Basophils/100 WBC (Bld) 0.2 % Normal 0.0-2.5 [facility] ([place]) Comment on above: Performed By: #### A NSG, ADIFF, ABOG, CBC, GLU1P, ANEU #### [place] [address] #### RPR #### [address] [address] Eosinophil, Absolute 0.1 10 3/mcL Normal 0.0-0.4 [facility] ([place]) Comment on above: Performed By: #### A NSG, ADIFF, ABOG, CBC, GLU1P, ANEU #### [place] [address] #### RPR #### [address] [address] Eosinophils/100 WBC (Bld) 0.7 % Normal 0.0-7.0 [facility] ([place]) Comment on above: Performed By: #### A NSG, ADIFF, ABOG, CBC, GLU1P, ANEU #### [address] [address] #### RPR #### [address] [address] Lymphocyte, Absolute 1.6 10 3/mcL Normal 0.8-3.9 [facility] ([place]) Comment on above: Performed By: #### A NSG, ADIFF, ABOG, CBC, GLU1P, ANEU #### [address] [address] #### RPR #### [address] [address] Lymphocytes/100 WBC (Bld) 14.4 % Normal 10.0-50.0 [facility] ([place]) Comment on above: Performed By: #### A NSG, ADIFF, ABOG, CBC, GLU1P, ANEU #### [address] [address] #### RPR #### [address] [address] Monocyte, Absolute 0.8 10 3/mcL Normal 0.2-1.0 [facility] ([place]) Comment on above: Performed By: #### A NSG, ADIFF, ABOG, CBC, GLU1P, ANEU #### [place] [address] #### RPR #### [address] [address] Monocytes/100 WBC (Bld) 6.6 % Normal 1.7-13.0 [facility] ([place]) Comment on above: Performed By: #### A NSG, ADIFF, ABOG, CBC, GLU1P, ANEU #### [address] [address] #### RPR #### [address] [address] Neutrophils/100 WBC (Bld) 78.1 % Normal 37.0-80.0 [facility] ([place]) Comment on above: Performed By: #### A NSG, ADIFF, ABOG, CBC, GLU1P, ANEU #### [place] [address] #### RPR #### [address] [address] .NEUABSon 09-06-2023 Neutrophil, Absolute 8.8 10 3/mcL High 2.9-6.2 [facility] ([place]) Comment on above: Performed By: #### A NSG, ADIFF, ABOG, CBC, GLU1P, ANEU #### [place] [address] #### RPR #### [place] [address] CBCon 09-06-2023 Erythrocyte distribution width (RBC) [Ratio] 12.9 % Normal 11.5-14.5 [facility] ([place]) Comment on above: Performed By: #### A NSG, ADIFF, ABOG, CBC, GLU1P, ANEU #### [place] [address] #### RPR #### [place] [address] Hematocrit (Bld) [Volume fraction] 33.1 % Low 37.0-47.0 [facility] ([place]) Comment on above: Performed By: #### A NSG, ADIFF, ABOG, CBC, GLU1P, ANEU #### [place] [address] #### RPR #### [place] [address] Hgb 10.9 G/dL Low 12.0-16.0 [facility] ([place]) Comment on above: Performed By: #### A NSG, ADIFF, ABOG, CBC, GLU1P, ANEU #### [place] [address] #### RPR #### [place] [address] MCH (RBC) [Entitic mass] 28.3 pg Normal 27.0-31.2 [facility] ([place]) Comment on above: Performed By: #### A NSG, ADIFF, ABOG, CBC, GLU1P, ANEU #### [place] [address] #### RPR #### [place] [address] MCHC 32.9 G/dL Low 33.0-37.0 [facility] ([place]) Comment on above: Performed By: #### A NSG, ADIFF, ABOG, CBC, GLU1P, ANEU #### [place] [address] #### RPR #### [place] [address] MCV (RBC) [Entitic vol] 86.0 fL Normal 80.0-94.0 [facility] ([place]) Comment on above: Performed By: #### A NSG, ADIFF, ABOG, CBC, GLU1P, ANEU #### [place] [address] #### RPR #### [place] [address] Platelet 253 10 3/mcL Normal 130-400 [facility] ([place]) Comment on above: Performed By: #### A NSG, ADIFF, ABOG, CBC, GLU1P, ANEU #### [place] [address] #### RPR #### [place] [address] Platelet mean volume (Bld) [Entitic vol] 8.7 fL Normal 7.4-10.4 [facility] ([place]) Comment on above: Performed By: #### A NSG, ADIFF, ABOG, CBC, GLU1P, ANEU #### [place] [address] #### RPR #### [address] [address] RBC 3.85 10 6/mcL Low 4.20-5.40 [facility] ([place]) Comment on above: Performed By: #### A NSG, ADIFF, ABOG, CBC, GLU1P, ANEU #### [address] [address] #### RPR #### [place] [address] WBC 11.3 10 3/mcL High 4.6-10.8 [facility] ([place]) Comment on above: Performed By: #### A NSG, ADIFF, ABOG, CBC, GLU1P, ANEU #### [place] [address] #### RPR #### [place] [address] IRL8Prd 09-06-2023 Glucose [Mass/Vol] 157 mg/dL High 70-140 [facility] ([place]) Comment on above: Performed By: #### A NSG, ADIFF, ABOG, CBC, GLU1P, ANEU #### [place] [address] #### RPR #### [place] [address] Gel ABOon 09-06-2023 ABO/Rh Interp Negative Invalid Interpretation Code [facility] ([place]) Comment on above: Performed By: #### A NSG, ADIFF, ABOG, CBC, GLU1P, ANEU #### [place] [address] #### RPR #### [address] [address] Gel ABSon 09-06-2023 Antibody Screen Gel Negative Normal [facility] ([place]) Comment on above: Performed By: #### A NSG, ADIFF, ABOG, CBC, GLU1P, ANEU #### [place] [address] #### RPR #### [place] [id number] LABORATORYOrdered By: Jose Dyson on 09-06-2023 ABO/Rh [...] # 0.00 x10EE3/UL Normal 0.00 - 0.10 [facility] Comment on above: Performed By: #### 2 67802 #### [facility],[address] [place] [address] Basophils/100 WBC (Bld) 0.3 % Normal 0.0 - 2.0 [facility] Comment on above: Performed By: #### 2 82774 #### [facility],[address] [place] [address] CBC + DIFF Normal [facility] Comment on above: Result Comment: CBC- COMPLETE BLOOD COUNT Performed By: #### 2 37009 #### [facility],[address] [place] [address] EO # 0.10 x10EE3/UL Normal 0.00 - 0.50 [facility] Comment on above: Performed By: #### 2 00342 #### [facility],[address] [place] [address] Eosinophils/100 WBC (Bld) 0.7 % Normal 0.0 - 7.0 [facility] Comment on above: Performed By: #### 2 83596 #### [facility],[address] [place] [address] Erythrocyte distribution width (RBC) [Ratio] 12.7 % Normal 12.0 - 15.6 [facility] Comment on above: Performed By: #### 2 45154 #### [facility],[address] [place] [address] Hematocrit (Bld) [Volume fraction] 36.4 % Normal 34.0 - 46.0 [facility] Comment on above: Performed By: #### 2 66626 #### [facility],[address] [place] [address] Hemoglobin (Bld) [Mass/Vol] 11.9 g/dL Low 12.0 - 16.0 [facility] Comment on above: Performed By: #### 2 63908 #### [facility],[address] [place] [address] Lymph # 2.50 x10EE3/UL Normal 0.80 - 2.80 [facility] Comment on above: Performed By: #### 2 33967 #### [facility],[address] [place] [address] Lymphocytes/100 WBC (Bld) 21.1 % Normal 20.0 - 45.0 [facility] Comment on above: Performed By: #### 2 79890 #### [facility],[address] [place] [address] MANUAL DIFF N/A Normal [facility] Comment on above: Performed By: #### 2 38623 #### [facility],[address] [place] [address] MCH (RBC) [Entitic mass] 29 pg Normal 27 - 33 [facility] Comment on above: Performed By: #### 2 16050 #### [facility],[address] [place], [place] [id number] MCHC 33 X10 3 Normal 32 - 36 [facility] Comment on above: Performed By: #### 2 39781 #### [facility],[address] [place], [place] [id number] MCV (RBC) [Entitic vol] 88 fL Normal 80 - 99 [facility] Comment on above: Performed By: #### 2 71514 #### [facility],[address] [place] [address] [place] # 1.10 x10EE3/UL High 0.20 - 1.00 [facility] Comment on above: Performed By: #### 2 54037 #### [facility],[address] [place] [address] MONOS % 9.4 % Normal 0.0 - 10.0 [facility] Comment on above: Performed By: #### 2 68059 #### [facility],[address] [place] [address] Morphology Osvaldo (Bld) [Interp] N/A Normal [facility] Comment on above: Performed By: #### 2 91692 #### [facility],[address] [place] [address] Neut # 8.10 x10EE3/UL High 1.50 - 7.10 [facility] Comment on above: Performed By: #### 2 74373 #### [facility],[address] [place] [address] Neutrophils/100 WBC (Bld) 68.5 % Normal 46.0 - 76.0 [facility] Comment on above: Performed By: #### 2 08991 #### [facility],[address] [place] [address] PLATELET 282 x10EE3/UL Normal 150 - 450 [facility] Comment on above: Performed By: #### 2 43176 #### [facility],[address] [place] [address] Platelet mean volume (Bld) [Entitic vol] 8.7 fL Normal 6.6 - 10.5 [facility] Comment on above: Result Comment: AUTO MATED DIFFERENTIAL Performed By: #### 2 66041 #### [facility],[address],[place] [address] RBC 4.16 x 10EE6/UL Normal 4.10 - 5.30 [facility] Comment on above: Performed By: #### 2 28914 #### [facility],[address] [place] [address] WBC 11.9 x 10EE3/UL High 4.5 - 10.8 [facility] Comment on above: Performed By: #### 2 20443 #### [facility],[address] [place] [address] CMP with eGFRon 08-04-2023 AGE 17 years Normal [facility] Comment on above: Performed By: #### 2 31050 #### [facility],[address] [place] [address] Albumin [Mass/Vol] 2.9 g/dL Low 3.4 - 5.0 [facility] Comment on above: Performed By: #### 2 02365 #### [facility],[address] [place] [address] Albumin/Globulin [Mass ratio] 0.7 {ratio} Low 0.9 - 1.6 [facility] Comment on above: Performed By: #### 2 00866 #### [facility],[address] [place] [address] ALK PHOS 107 U/L Normal 46 - 116 [facility] Comment on above: Performed By: #### 2 09330 #### [facility],[address] [place] [address] ALT [Catalytic activity/Vol] 24 U/L Normal 14 - 59 [facility] Comment on above: Performed By: #### 2 92433 #### [facility],[address] [place] [address] Anion gap [Moles/Vol] 16 mmol/L Normal 10 - 20 [facility] Comment on above: Performed By: #### 2 54429 #### [facility],[address] [place] [address] AST [Catalytic activity/Vol] 13 U/L Normal 13 - 39 [facility] Comment on above: Performed By: #### 2 31640 #### [facility],[address] [place] [address] B/C RATIO 11 ratio Normal 0 - 30 [facility] Comment on above: Performed By: #### 2 97174 #### [facility],[address] [place] [address] Bilirubin [Mass/Vol] 0.3 mg/dL Normal 0.2 - 1.0 [facility] Comment on above: Performed By: #### 2 12054 #### [facility],[address] [place] [address] Calcium [Mass/Vol] 9.0 mg/dL Normal 8.5 - 10.1 [facility] Comment on above: Performed By: #### 2 46334 #### [facility],[address] [place] [address] Chloride [Moles/Vol] 101 mmol/L Normal 98 - 107 [facility] Comment on above: Performed By: #### 2 33777 #### [facility],[address] [place] [address] CMP with eGFR Normal [facility] Comment on above: Result Comment: COMP REHENSIVE METABOLIC PANEL Performed By: #### 2 00535 #### [facility],[address] [place] [address] CO2 [Moles/Vol] 26.3 mmol/L Normal 21.0 - 32.0 [facility] Comment on above: Performed By: #### 2 01704 #### [facility],[address] [place] [address] Creatinine [Mass/Vol] 0.63 mg/dL Normal 0.55 - 1.02 [facility] Comment on above: Performed By: #### 2 27940 #### [facility],[address] [place] [address] GFR/1.73 sq M.predicted among non-blacks MDRD (S/P/Bld) [Vol rate/Area] mL/min/{1.73_m2} Normal 60 - 999 [facility] Comment on above: Performed By: #### 2 98116 #### [facility],[address] [place] [address] Result Comment: ACCO RDING TO THE NATIONAL KIDNEY DISEASE EDUCATION PROGRAM(NKDE), A NORMAL eGFR IS A VALUE GREATER THAN OR EQUAL TO 60 ML/MIN/1.73 SQ METERS. CHRONIC KIDNEY DISEASE: <60mL/MIN/1.73 SQ METERS KIDNEY FAILURE: <15mL/MIN/1.73 SQ METERS THIS TEST SHOULD ONLY BE USED FOR PATIENTS 18 YEARS OF AGE AND OLDER. Globulin (S) [Mass/Vol] 3.9 g/dL High 1.5 - 3.8 [facility] Comment on above: Performed By: #### 2 89027 #### [facility],[address] [place] [address] Glucose [Mass/Vol] 80 mg/dL Normal 74 - 106 [facility] Comment on above: Performed By: #### 2 84906 #### [facility],[address] [place] [address] Potassium [Moles/Vol] 3.8 mmol/L Normal 3.5 - 5.1 [facility] Comment on above: Performed By: #### 2 59868 #### [facility],[address] [place] [address] Protein [Mass/Vol] 6.8 g/dL Normal 6.4 - 8.2 [facility] Comment on above: Performed By: #### 2 75061 #### [facility],[address] [place] [address] Sodium [Moles/Vol] 139 mmol/L Normal 136 - 145 [facility] Comment on above: Performed By: #### 2 03590 #### [facility],[address] [place], [place] [phone] Urea nitrogen [Mass/Vol] 7 mg/dL Normal 7 - 18 [facility] Comment on above: Performed By: #### 2 30799 #### [facility],[address] [place], [place] [id number] URINALYSISon 08-03-2023 Amorphous 4+ Normal [facility] Comment on above: Performed By: #### 2 09922 #### [facility],[address] [place] [address] Bacteria 2+ Normal [facility] Comment on above: Performed By: #### 2 50156 #### [facility],[address] [place], [place] [phone] Bilirubin Ql (U) Negative Normal NORMAL: NEGATIVE [facility] Comment on above: Performed By: #### 2 06428 #### [facility],[address] [place] [address] Casts NONE Normal [facility] Comment on above: Performed By: #### 2 04629 #### [facility],[address] [place], [place] [phone] Clarity (U) SL. CLOUDY Abnormal NORMAL: CLEAR [facility] Comment on above: Performed By: #### 2 00180 #### [facility],[address] [place], [place] [phone] Color (U) YELLOW Normal NORMAL: YELLOW [facility] Comment on above: Performed By: #### 2 60601 #### [facility],[address] [place] [address] Crystals LM Nom (Urine sed) NONE Normal [facility] Comment on above: Performed By: #### 2 76167 #### [facility],[address] [place] [address] Epi Cells MANY Normal [facility] Comment on above: Performed By: #### 2 61581 #### [facility],[address] [place] [address] Glucose Ql (U) NORM Normal NORMAL: NORMAL [facility] Comment on above: Performed By: #### 2 38308 #### [facility],[address] [place] [address] Hemoglobin Ql (U) Negative Normal NORMAL: NEGATIVE [facility] Comment on above: Performed By: #### 2 89087 #### [facility],[address] [place] [address] Ketone Negative Normal NORMAL: NEGATIVE [facility] Comment on above: Performed By: #### 2 02804 #### [facility],[address] [place] [address] Leukocytes 500 Abnormal NORMAL: NEGATIVE [facility] Comment on above: Performed By: #### 2 72422 #### [facility],[address] [place] [address] Mucous NONE Normal [facility] Comment on above: Performed By: #### 2 12762 #### [facility],[address] [place] [address] Nitrite Ql (U) Negative Normal NORMAL: NEGATIVE [facility] Comment on above: Performed By: #### 2 83801 #### [facility],[address] [place] [address]197 pH (U) 7.0 [pH] Normal NORMAL: 5.0-8.0 [facility] Comment on above: Performed By: #### 2 99662 #### [facility],[address] [place] [address] Protein Ql (U) 15 Abnormal NORMAL: NEGATIVE [facility] Comment on above: Performed By: #### 2 42118 #### [facility],[address] [place] [address] Rbc NONE Normal 0-3/hpf [facility] Comment on above: Performed By: #### 2 22041 #### [facility],[address] [place] [address] Sp Webster 1.010 Normal NORMAL: 1.010-1.030 [facility] Comment on above: Performed By: #### 2 60730 #### [facility],[address] [place] [address] Specimen Type Void Normal [facility] Comment on above: Performed By: #### 2 63832 #### [facility],[address] [place] [address] Urinalysis dipstick W Reflex Microscopic panel (U) SEE BELOW Normal [facility] Comment on above: Result Comment: MICR OSCOPIC Performed By: #### 2 98235 #### [facility],[address] [place] [address] Urobilinog NORMAL Normal NORMAL: NORMAL [facility] Comment on above: Performed By: #### 2 50726 #### [facility],[address] [place] [address] Wbc 11-15 Normal 0-5/hpf [facility] Comment on above: Performed By: #### 2 43704 #### [facility],[address] [place] [address] Yeast NONE Normal [facility] Comment on above: Performed By: #### 2 83766 #### [facility],[address] [place] [address] PREG SERUM QUANTon 3 HCG QUANTITATIVE 9618 mIU/mL High 0 - 6 [facility] Comment on above: Result Comment: Refe [...] 3RD TRIMESTER 1000-50,000 Performed By: #### 2 81506 #### [facility],[address] [place] [address] UA DIP, URINE (POC)on 2022 BILIRUBIN UA (POCT) Small Abnormal Negative [facility] CLARITY UA (POCT) Cloudy [facility] COLOR UA (POCT) Brown [facility] GLUCOSE UA (POCT) Negative Negative mg/dL [facility] HEMOGLOBIN/BLOOD UA (POCT) Large Abnormal Negative [facility] KETONE UA (POCT) Negative Negative mg/dL [facility] LEUKOCYTES UA (POCT) Small Abnormal Negative [facility] NITRITE UA (POCT) Negative [facility] PH UA (POCT) 5.5 4.5 - 8.0 [facility] Protein Ql (U) >=300 Abnormal Negative mg/dL [facility] SPECIFIC GRAVITY UA (POCT) >=1.030 1.005 - 1.030 [facility] UROBILINOGEN UA (POCT) 0.2 E.U./dL Normal E.U./dL [facility] BACTERIAL VAGINOSIS AMPLIFIC ATIONon 03-09-2023 Lactobacillus crispatus+gasseri+tita senii + Gardnerella vaginalis + Atopobium vaginae rRNA MARCO ANTONIO+probe Ql (Vag fld) Positive Abnormal Negative for bacterial vaginosis [facility] HCG QUAL UR B/Oon 03-08-2023 status Negative neg - pos [facility] Quality Check Yes [facility] UA DIP, URINE (POC)on 2022 BILIRUBIN UA (POCT) Negative Negative [facility] CLARITY UA (POCT) Clear [facility] COLOR UA (POCT) Light yellow [facility] GLUCOSE UA (POCT) Negative Negative mg/dL [facility] HEMOGLOBIN/BLOOD UA (POCT) Negative Negative [facility] KETONE UA (POCT) Negative Negative mg/dL [facility] LEUKOCYTES UA (POCT) Negative Negative [facility] NITRITE UA (POCT) Negative Negative [facility] PH UA (POCT) 6.0 4.5 - 8.0 [facility] Protein Ql (U) Negative Negative mg/dL [facility] SPECIFIC GRAVITY UA (POCT) <=1.005 Abnormal 1.005 - 1.030 [facility] UROBILINOGEN UA (POCT) 0.2 E.U./dL Normal E.U./dL [facility] LABORATORYOrdered By: Renetta Canchola on 04-12-2022 [...] 97.59 [degF] Krislyn Aberegg PA Work Phone: [facility] 12-01-2024 08:11-0500 Body weight 65.2 kg Krislyn Aberegg PA Work Phone: [facility] 12-01-2024 08:11-0500 Diastolic blood pressure 68 mm[Hg] Krislyn Aberegg PA Work Phone: [facility] 12-01-2024 08:11-0500 Heart rate 119 /min Krislyn Aberegg PA Work Phone: [facility] 12-01-2024 08:11-0500 Respiratory rate 19 /min Krislyn Aberegg PA Work Phone: [facility] 12-01-2024 08:11-0500 SaO2% (BldA) [Mass fraction] 98 % Krislyn Aberegg PA Work Phone: [facility] 12-01-2024 08:11-0500 Systolic blood pressure 100 mm[Hg] Krislyn Aberegg PA Work Phone: [facility] 08-16-2024 18:43-0400 Body temperature 98.8 [degF] Carlos Alberto Donovan MD Work Phone: [facility] 08-16-2024 18:43-0400 Body weight 70 kg Carlos Alberto Donovan MD Work Phone: [facility] 08-16-2024 18:43-0400 Diastolic blood pressure 78 mm[Hg] Carlos Alberto Donovan MD Work Phone: [facility] 08-16-2024 18:43-0400 Heart rate 95 /min Carlos Alberto Donovan MD Work Phone: [facility] 08-16-2024 18:43-0400 Respiratory rate 16 /min Carlos Alberto Donovan MD Work Phone: [facility] 08-16-2024 18:43-0400 SaO2% (BldA) [Mass fraction] 98 % Carlos Alberot Donovan MD Work Phone: [facility] 08-16-2024 18:43-0400 Systolic blood pressure 122 mm[Hg] Carlos Alberto Donovan MD Work Phone: [facility] 08-08-2024 09:59-0400 Body temperature 97.59 [degF] Denise Hogan INFORMATICS DEVELOPER.CLINICAL ACCOUNT SPECIALIST Work Phone: [facility] 08-08-2024 09:59-0400 Body weight 68 kg Denise Hogan INFORMATICS DEVELOPER.CLINICAL ACCOUNT SPECIALIST Work Phone: [facility] 08-08-2024 09:59-0400 Diastolic blood pressure 87 mm[Hg] Denise Hogan INFORMATICS DEVELOPER.CLINICAL ACCOUNT SPECIALIST Work Phone: [facility] 08-08-2024 09:59-0400 Heart rate 107 /min Denise Hogan INFORMATICS DEVELOPER.CLINICAL ACCOUNT SPECIALIST Work Phone: [facility] 08-08-2024 09:59-0400 Respiratory rate 20 /min Denise Hogan INFORMATICS DEVELOPER.CLINICAL ACCOUNT SPECIALIST Work Phone: [facility] 08-08-2024 09:59-0400 SaO2% (BldA) [Mass fraction] 97 % Denise Hogan INFORMATICS DEVELOPER.CLINICAL ACCOUNT SPECIALIST Work Phone: [facility] 08-08-2024 09:59-0400 Systolic blood pressure 116 mm[Hg] Denise Hogan INFORMATICS DEVELOPER.CLINICAL ACCOUNT SPECIALIST Work Phone: [facility] 07-16-2024 09:52-0400 Body weight 70.03 kg Risa Hauser INFORMATICS DEVELOPER.CLINICAL ACCOUNT SPECIALIST Work Phone: [facility] 07-16-2024 09:52-0400 Diastolic blood pressure 68 mm[Hg] Risa Podlogar INFORMATICS DEVELOPER.CLINICAL ACCOUNT SPECIALIST Work Phone: [facility] 07-16-2024 09:52-0400 Heart rate 76 /min Risa Podlogar INFORMATICS DEVELOPER.CLINICAL ACCOUNT SPECIALIST Work Phone: [facility] 07-16-2024 09:52-0400 Respiratory rate 18 /min Risa Podlogar INFORMATICS DEVELOPER.CLINICAL ACCOUNT SPECIALIST Work Phone: [facility] 07-16-2024 09:52-0400 SaO2% (BldA) [Mass fraction] 98 % Risa Podlogar INFORMATICS DEVELOPER.CLINICAL ACCOUNT SPECIALIST Work Phone: [facility] [facility] 07-16-2024 09:52-0400 Systolic blood pressure 108 mm[Hg] Risa Podlogar INFORMATICS DEVELOPER.CLINICAL ACCOUNT SPECIALIST Work Phone: [facility] 01-21-2024 00:32-0400 Body height 157.5 cm Albino Lo MD Work Phone: [facility] 01-21-2024 00:32-0400 Body mass index (BMI) [Ratio] 28.35 kg/m2 Albino Lo MD Work Phone: [facility] 01-21-2024 00:32-0400 Body temperature 98.01 [degF] Albino Lo MD Work Phone: [facility] 01-21-2024 00:32-0400 Body weight 70.31 kg Albino Lo MD Work Phone: [facility] 01-21-2024 00:32-0400 Diastolic blood pressure 88 mm[Hg] Albino Lo MD Work Phone: [facility] 01-21-2024 00:32-0400 Heart rate 84 /min Albino Lo MD Work Phone: [facility] 01-21-2024 00:32-0400 Respiratory rate 16 /min Albino Lo MD Work Phone: [facility] 01-21-2024 00:32-0400 SaO2% (BldA) [Mass fraction] 99 % Albino Lo MD Work Phone: [facility] 01-21-2024 00:32-0400 Systolic blood pressure 120 mm[Hg] Albino Lo MD Work Phone: [facility] 11-16-2023 13:15-0500 Body temperature 98.6 [degF] IDRIS KOCH INFORMATICS DEVELOPER-CNM [facility] 11-16-2023 13:15-0500 Diastolic Blood Pressure Non-Invasive 80 mm[Hg] IDRIS KOCH INFORMATICS DEVELOPER-CNM [facility] 11-16-2023 13:15-0500 Heart rate 96 /min IDRISHARDIK KOCH INFORMATICS DEVELOPER-CNM [facility] 11-16-2023 13:15-0500 Respiratory rate 16 /min IDRISHARDIK KOCH INFORMATICS DEVELOPER-CNM [facility] 11-16-2023 13:15-0500 Systolic Blood Pressure Non-Invasive 118 mm[Hg] IDRIS KOCH INFORMATICS DEVELOPER-CNM [facility] 11-16-2023 13:11-0500 Body height 157.5 cm IDRIS KOCH INFORMATICS DEVELOPER-CNM [facility] 11-16-2023 13:11-0500 Body mass index (BMI) [Percentile] Per age and sex 95.44 % IDRIS KOCH INFORMATICS DEVELOPER-CNM [facility] Comment on above: Result Comment: ^~:!Percentile Source -[facility] [place] 11-16-2023 13:11-0500 Body weight 78.5 kg IDRIS KOCH INFORMATICS DEVELOPER-CNM [facility] 11-16-2023 13:11-0500 Body weight 31.65 kg/m2 IDRIS KOCH INFORMATICS DEVELOPER-CNM [facility] 11-16-2023 13:11-0500 bodymassindex 1.69 kg/m2 IDRIS KOCH INFORMATICS DEVELOPER-CNM [facility] Comment on above: Result Comment: ^~:!ZScore Source [facility] 11-16-2023 13:11-0500 Height ZScore -0.89 1 IDRIS KOCH INFORMATICS DEVELOPER-CNM [facility] Comment on above: Result Comment: ^~:!ZScore [facility] [address] 11-16-2023 13:11-0500 Percent Height for Age 18.66 % IDRIS KOCH INFORMATICS DEVELOPER-CNM [facility] Comment on above: Result Comment: ^~:!Percentile Source [facility] 11-11-2023 00:05-0500 Body temperature 98.24 [degF] NGOZI PEREZ INFORMATICS DEVELOPER-CNM [facility] 11-11-2023 00:05-0500 Diastolic Blood Pressure Non-Invasive 89 mm[Hg] NGOZI PEREZ INFORMATICS DEVELOPER-CNM [facility] 11-11-2023 00:05-0500 Heart rate 102 /min NGOZI PEREZ INFORMATICS DEVELOPER-CNM [facility] 11-11-2023 00:05-0500 Respiratory rate 18 /min NGOZI PEREZ INFORMATICS DEVELOPER-CNM [facility] 11-11-2023 00:05-0500 Systolic Blood Pressure Non-Invasive 129 mm[Hg] NGOZI PEREZ INFORMATICS DEVELOPER-CNM [facility] 11-11-2023 00:01-0500 Body height 157 cm NGOZI PEREZ INFORMATICS DEVELOPER-CNM [facility] 11-11-2023 00:01-0500 Body mass index (BMI) [Percentile] Per age and sex 95.6 % NGOZI PEREZ INFORMATICS DEVELOPER-CNM [facility] Comment on above: Result Comment: ^~:!Percentile Source -C [place] 11-11-2023 00:01-0500 Body weight 78.5 kg NGOZI PEREZ INFORMATICS DEVELOPER-CNM [facility] 11-11-2023 00:01-0500 Body weight 31.85 kg/m2 NGOZI PEREZ INFORMATICS DEVELOPER-CNM [facility] 11-11-2023 00:01-0500 bodymassindex 1.71 kg/m2 NGOZI PEREZ INFORMATICS DEVELOPER-CNM [facility] Comment on above: Result Comment: ^~:!ZScore Source -[facility] 11-11-2023 00:01-0500 Height ZScore -0.97 1 NGOZI PEREZ INFORMATICS DEVELOPER-CNM [facility] Comment on above: Result Comment: ^~:!ZScore Source -[facility] 11-11-2023 00:01-0500 Percent Height for Age 16.66 % NGOZI PEREZ INFORMATICS DEVELOPER-CNM [facility] Comment on above: Result Comment: ^~:!Percentile Source -[place] 09-06-2023 11:28-0500 Blood Pressure Method IDRIS ZEE INFORMATICS DEVELOPER-CNM [facility] 09-06-2023 11:28-0500 Body temperature 98.24 [degF] IDRIS KOCH INFORMATICS DEVELOPER-CNM [facility] 09-06-2023 11:28-0500 Diastolic Blood Pressure Non-Invasive 84 1 IDRIS KOCH INFORMATICS DEVELOPER-CNM [facility] 09-06-2023 11:28-0500 Heart rate 85 /min IDRIS KOCH INFORMATICS DEVELOPER-CNM [facility] 09-06-2023 11:28-0500 Respiratory rate 16 /min IDRIS KOCH INFORMATICS DEVELOPER-CNM [facility] 09-06-2023 11:28-0500 Systolic Blood Pressure Non-Invasive 127 1 IDRIS KOCH INFORMATICS DEVELOPER-CNM [facility] 08-16-2023 13:44-0400 Body weight 68.04 kg Risa Podlogar INFORMATICS DEVELOPER.CLINICAL ACCOUNT SPECIALIST Work Phone: [facility] 08-16-2023 13:44-0400 Diastolic blood pressure 74 mm[Hg] Risa Podlogar INFORMATICS DEVELOPER.CLINICAL ACCOUNT SPECIALIST Work Phone: [facility] 08-16-2023 13:44-0400 Heart rate 93 /min Risa Podlogar INFORMATICS DEVELOPER.CLINICAL ACCOUNT SPECIALIST Work Phone: [facility] 08-16-2023 13:44-0400 Respiratory rate 16 /min Risa Podlogar INFORMATICS DEVELOPER.CLINICAL ACCOUNT SPECIALIST Work Phone: [facility] 08-16-2023 13:44-0400 SaO2% (BldA) [Mass fraction] 98 % Risa Podlogar INFORMATICS DEVELOPER.CLINICAL ACCOUNT SPECIALIST Work Phone: [facility] 08-16-2023 13:44-0400 Systolic blood pressure 118 mm[Hg] Risa Podlogar INFORMATICS DEVELOPER.CLINICAL ACCOUNT SPECIALIST Work Phone: [facility] 07-27-2023 14:46-0400 Body temperature 97.81 [degF] Jacob Rodriguez MD Work Phone: [facility] 07-27-2023 14:46-0400 Body weight 65.73 kg Jacob Rodriguez MD Work Phone: [facility] 07-27-2023 14:46-0400 Heart rate 80 /min Jacob Rdoriguez MD Work Phone: [facility] 07-27-2023 14:46-0400 Respiratory rate 16 /min Jacob Rodriguez MD Work Phone: [facility] 06-26-2023 16:20-0400 Blood Pressure Location PATITO SURESH DO [facility] 06-26-2023 16:20-0400 Blood Pressure Method PATITO SURESH DO [facility] 06-26-2023 16:20-0400 Body temperature 97.7 [degF] PATITO SURESH DO [facility] 06-26-2023 16:20-0400 Body weight 65.9 kg PATITO SURESH DO [facility] 06-26-2023 16:20-0400 Diastolic Blood Pressure Non-Invasive 75 1 PATITO SURESH DO [facility] 06-26-2023 16:20-0400 Heart rate 93 /min PATITO SURESH DO [facility] 06-26-2023 16:20-0400 Respiratory rate 18 /min PATITO SURESH DO [facility] 06-26-2023 16:20-0400 Systolic Blood Pressure Non-Invasive 114 1 PATITO SURESH DO [facility] 03-30-2023 09:07-0400 Body temperature 98.6 [degF] Sophia Jaimes APRN.CLINICAL ACCOUNT SPECIALIST Work Phone: [facility] 03-30-2023 09:07-0400 Body weight 68.86 kg Sophia Jaimes APRN.CLINICAL ACCOUNT SPECIALIST Work Phone: [facility] 03-30-2023 09:07-0400 Diastolic blood pressure 80 mm[Hg] Sophia Praisler-Wood INFORMATICS DEVELOPER.CLINICAL ACCOUNT SPECIALIST Work Phone: [facility] 03-30-2023 09:07-0400 Heart rate 76 /min Sophia Praisler-Wood INFORMATICS DEVELOPER.CLINICAL ACCOUNT SPECIALIST Work Phone: [facility] 03-30-2023 09:07-0400 Respiratory rate 18 /min Sophia Praisler-Wood INFORMATICS DEVELOPER.CLINICAL ACCOUNT SPECIALIST Work Phone: [facility] 03-30-2023 09:07-0400 SaO2% (BldA) [Mass fraction] 98 % Sophia Praisler-Wood INFORMATICS DEVELOPER.CLINICAL ACCOUNT SPECIALIST Work Phone: [facility] 03-30-2023 09:07-0400 Systolic blood pressure 110 mm[Hg] Sophia Praisler-Wood INFORMATICS DEVELOPER.CLINICAL ACCOUNT SPECIALIST Work Phone: [facility] 03-08-2023 16:51-0400 Body temperature 98.29 [degF] Roxana Athy PA-C Work Phone: [facility] 03-08-2023 16:51-0400 Body weight 71.67 kg Roxana Athy PA-C Work Phone: [facility] 03-08-2023 16:51-0400 Diastolic blood pressure 84 mm[Hg] Roxana Athy PA-C Work Phone: [facility] 03-08-2023 16:51-0400 Heart rate 102 /min Roxana Athy PA-C Work Phone: [facility] 03-08-2023 16:51-0400 Respiratory rate 21 /min Roxana Athy PA-C Work Phone: [facility] 03-08-2023 16:51-0400 SaO2% (BldA) [Mass fraction] 99 % Roxana Athy PA-C Work Phone: [facility] 03-08-2023 16:51-0400 Systolic blood pressure 132 mm[Hg] Roxana Athy PA-C Work Phone: [facility] 04-14-2022 10:01-0400 Body height 158.7 cm Jacob Rodriguez MD Work Phone: [facility] 04-14-2022 10:01-0400 Body mass index (BMI) [Percentile] Per age and sex 89.13 % Jacob Rodriguez MD Work Phone: [facility] 04-14-2022 10:01-0400 Body temperature 97.59 [degF] Jacob Rodriguez MD Work Phone: [facility] 04-14-2022 10:-0400 Body weight 67.22 kg Jacob Rodriguez MD Work Phone: [facility] 04-14-2022 10:01-0400 Heart rate 80 /min Jacob Rodriguez MD Work Phone: [facility] 04-14-2022 10:01-0400 Respiratory rate 18 /min Jacob Rodriguez MD Work Phone: [facility] 04-12-2022 02:55-0400 Diastolic blood pressure 85 mm[Hg] ANGELA REICHFIELD DO [facility] 04-12-2022 02:55-0400 Heart rate 89 /min ANGELA REICHFIELD DO [facility] 04-12-2022 02:55-0400 Respiratory rate 18 /min ANGELA REICHFIELD DO [facility] 04-12-2022 02:55-0400 Systolic blood pressure 131 mm[Hg] ANGELA REICHFIELD DO [facility] 04-11-2022 21:14-0400 Body temperature 98.6 [degF] ANGELA REICHFIELD DO [facility] 04-11-2022 21:14-0400 Heart rate 101 /min ANGELA REICHFIELD DO [facility] 04-11-2022 21:14-0400 Respiratory rate 18 /min ANGELA FOSTERICHFIELD DO [facility] 03-12-2022 09:35-0400 Body height 157.7 cm Jacob Rodriguez MD Work Phone: [facility] 03-12-2022 09:35-0400 Body mass index (BMI) [Percentile] Per age and sex 87.7 % Jacob Rodriguez MD Work Phone: [facility] 03-12-2022 09:35-0400 Body temperature 97.81 [degF] Jacob Rodriguez MD Work Phone: [facility] 03-12-2022 09:35-0400 Body weight 65.09 kg Jacob Rodriguez MD Work Phone: [facility] 03-12-2022 09:35-0400 Diastolic blood pressure 60 mm[Hg] Jacob Rodriguez MD Work Phone: [facility] 03-12-2022 09:35-0400 Heart rate 84 /min Jacob Rodriguez MD Work Phone: [facility] 03-12-2022 09:35-0400 Respiratory rate 16 /min Jacob Rodriguez MD Work Phone: [facility] 03-12-2022 09:35-0400 Systolic blood pressure 112 mm[Hg] Jacob Rodriguez MD Work Phone: [facility] 01-20-2022 13:55-0400 Body temperature 97.7 [degF] Jacob Rodriguez MD Work Phone: [facility] 01-20-2022 13:55-0400 Body weight 65.94 kg Jacob Rodriguez MD Work Phone: [facility] 01-20-2022 13:55-0400 Diastolic blood pressure 74 mm[Hg] Jacob Rodriguez MD Work Phone: [facility] 01-20-2022 13:55-0400 Heart rate 80 /min Jacob Rodriguez MD Work Phone: [facility] 01-20-2022 13:55-0400 Respiratory rate 18 /min Jacob Rodriguez MD Work Phone: [facility] 01-20-2022 13:55-0400 Systolic blood pressure 114 mm[Hg] Jacob Rodriguez MD Work Phone: [facility] Encounters Encounter Date Encounter Type Care Provider Facility Start: 08-29-2025 End: 08-29-2025 ambulatory Aida Watkins Facility[facility] Start: 06-18-2025 End: 06-18-[address] JACOB RODRIGUEZ MD Facility:[facility] Start: 06-18-2025 End: 06-18-2025 Patient encounter procedure IDRIS KOCH APRN-CNMolly [facility] Start: 04-16-2025 ambulatory Jacob Rodriguez Facility[facility] Start: 03-21-2025 End: 03-21-2025 ambulatory IDRIS KOCH APRN-CNMolly Facility:[facility] Start: 12-01-2024 End: 12-01-2024 ambulatory ABHI BAILEY Facility:[facility] Start: 12-01-2024 End: 12-01-2024 Patient encounter procedure Ravi PAULA Work Phone: [facility] Comment on above: URI, acute (Primary Dx) Start: 08-16-2024 End: 08-16-2024 ambulatory ABHI BAILEY Facility:[facility] Start: 08-16-2024 End: 08-16-2024 Office outpatient visit 25 minutes Carlos Alberto Donovan MD Work Phone: [facility] Comment on above: Acute otitis media, left (Primary Dx) Start: 08-08-2024 End: 08-09-2024 Telephone encounter Ravi PAULA Work Phone: [facility] Comment on above: Results Start: 08-08-2024 End: 08-08-2024 Subsequent hospital visit by physician Ashley [facility] Work Phone: Radiology Comment on above: Acute cough [R05.1] Start: 08-08-2024 End: 08-08-2024 [facility] Start: 08-08-2024 End: 08-08-2024 Patient encounter procedure Denise Hogan INFORMATICS DEVELOPER.CLINICAL ACCOUNT SPECIALIST Work Phone: [facility] Comment on above: Acute cough (Primary Dx); URI, acute; Acute otitis media, right Start: 07-16-2024 End: 07-16-2024 Patient encounter procedure Risa Hasuer INFORMATICS DEVELOPER.CLINICAL ACCOUNT SPECIALIST Work Phone: [facility] Comment on above: Routine physical exa mination (Primary Dx); Anxiety and depression Start: 07-16-2024 End: 07-16-2024 ambulatory ABHI BAILEY Facility:[facility] Start: 07-16-2024 End: 07-16-2024 Physical examination Risa Hauser INFORMATICS DEVELOPER.CLINICAL ACCOUNT SPECIALIST Work Phone: [facility] Work Phone: Start: 01-21-2024 End: 01-21-2024 Emergency department patient visit ALBINO LO [facility] Start: 01-21-2024 End: 01-21-2024 Emergency department patient visit Albino Lo MD Work Phone: [facility] Comment on above: Dental infection (Pr imary Dx) Start: 11-21-2023 End: 11-21-2023 ambulatory MARCOS MCMAHONM [facility] Start: 11-16-2023 End: 11-17-2023 Evaluation and management of inpatient TRUE EASLEY [facility] Start: 11-16-2023 End: 11-16-[address] JACOB RORDIGUEZ MD Facility:[facility] Start: 11-16-2023 End: 11-16-2023 SAME DAY STAY IDRIS Blair ZEE INFORMATICS DEVELOPER-CNM [facility] Start: 11-11-2023 End: 11-11-[address] JACOB RODRIGUEZ MD Facility:[facility] Start: 11-10-2023 End: 11-11-2023 SAME DAY STAY NGOZI PEREZ INFORMATICS DEVELOPER-CNM [facility] Start: 10-27-2023 End: 10-28-[address] JACOB RODRIGUEZ MD Facility:[facility] Start: 10-27-2023 End: 10-27-2023 Patient encounter procedure IDRIS Blair ZEE INFORMATICS DEVELOPER-CNM [facility] Start: 09-06-2023 End: 09-06-[address] JACOB RODRIGUEZ MD Facility:[facility] Start: 09-06-2023 End: 09-06-2023 SAME DAY STAY IDRIS Blair KOCH INFORMATICS DEVELOPER-CNM [facility] Start: 08-16-2023 End: 08-16-2023 Patient encounter procedure Risa Hauser INFORMATICS DEVELOPER.CLINICAL ACCOUNT SPECIALIST Work Phone: [facility] [place] Comment on above: Encounter to [facility] (Primary Dx); Anxiety and depression; , unspecified gestational age Start: 08-03-2023 End: 08-04-2023 Emergency department patient visit VU BARRETT [facility] Start: 08-03-2023 ambulatory Risa Hauser INFORMATICS DEVELOPER.CLINICAL ACCOUNT SPECIALIST Work Phone: [facility] Comment on above: vision giovanni nge Start: 07-27-2023 End: 07-27-2023 Office outpatient visit 40 minutes Jacob Rodriguez MD Work Phone: [facility] [place] Comment on above: Nonintractable episo dic headache, unspecified headache type (Primary Dx); AMEYA (generalized anxiety disorder) Start: 07-24-2023 End: 07-25-[address] JACOB RODRIGUEZ MD Facility:[facility] Start: 07-24-2023 End: 07-24-2023 Patient encounter procedure IDRIS KOCH INFORMATICS DEVELOPER-CNM [facility] Start: 07-02-2023 End: 07-03-2023 Emergency department patient visit JACOB RODRIGUEZ [facility] Start: 06-26-2023 End: 06-26-2023 Emergency department patient visit DR JACOB RODRIGUEZ MD Facility:[facility] Start: 06-26-2023 End: 06-26-2023 Emergency department patient visit PATITO SURESH DO [facility] Start: 04-12-2023 End: 04-13-[address] JACOB RODRIGUEZ MD Facility:[facility] Start: 04-12-2023 End: 04-12-2023 Patient encounter procedure FIORLORENZO Blair CHRIS INFORMATICS DEVELOPER-CNM [facility] Start: 03-31-2023 End: 04-01-[address] JACOB RODRIGUEZ MD Facility:[facility] Start: 03-31-2023 End: 03-31-2023 Patient encounter procedure FIORLORENZO Blair CHRIS INFORMATICS DEVELOPER-CNM [facility] Start: 03-30-2023 Telephone encounter Ravi PAULA Work Phone: [facility] Comment on above: Results Start: 03-30-2023 End: 03-30-2023 Patient encounter procedure Sophia Jaimes INFORMATICS DEVELOPER.CLINICAL ACCOUNT SPECIALIST Work Phone: [facility] Comment on above: Dysuria (Primary Dx) ; Vaginal discharge Start: 03-09-2023 Telephone encounter Roxana medina PA-C Work Phone: [facility] Comment on above: Results Start: 03-08-2023 End: 03-08-2023 Patient encounter procedure Roxana Rodriguez PA-C [facility] Comment on above: Urinary frequency (P rimary Dx); Vaginal discharge Start: 04-14-2022 End: 04-14-2022 Office outpatient visit 25 minutes Jacob Rodriguez MD Work Phone: [facility] [place] Comment on above: Depressive disorder (Primary Dx); AMEYA (generalized anxiety disorder) Start: 04-11-2022 End: 04-12-2022 Emergency department patient visit ANGELA HYDE DO [facility] Start: 03-12-2022 End: 03-12-2022 Office outpatient visit 25 minutes Jacob Rodriguez MD Work Phone: [facility] Comment on above: Depressive disorder (Primary Dx); AMEYA (generalized anxiety disorder) Start: 02-14-2022 Refill Jacob Rodriguez MD Work Phone: [facility] [place] Comment on above: Refill Request Start: 02-13-2022 Refill Jacob Rodriguez MD Work Phone: [facility] [place] Comment on above: Refill Request Start: 01-20-2022 End: 01-20-2022 Patient encounter procedure Jacob Rodriguez MD Work Phone: [facility] [place] Comment on above: Depressive disorder (Primary Dx); AMEYA (generalized anxiety disorder) Procedures Date Procedure Procedure Detail Performing Clinician Start: 08-08-2024 Radiologic exam ches t 2 views Denise Hogan APRN.CLINICAL ACCOUNT SPECIALIST Work Phone: Start: 08-08-2024 STREP A MOLECULAR (POC) Denise Hogan APRN.CLINICAL ACCOUNT SPECIALIST Work Phone: Start: 08-03-2023 Urinalysis VU Fischer Comment on above: Result Comment: URIN ALYSIS Performed By: #### [id number] #### [facility],[address] [id number] Start: 03-30-2023 Urnls dip stick/tabl et rgnt auto w/o microscopy Sophia Jaimes APRN.CLINICAL ACCOUNT SPECIALIST Work Phone: Start: 03-08-2023 BACTERIAL VAGINOSIS AMPLIFICATION Roxana Rodriguez PA-C Work Phone: Start: 03-08-2023 End: 03-08-2023 Urnls dip stick/tablet rgnt auto w/o microscopy Sophia Jaimes APRN.CLINICAL ACCOUNT SPECIALIST Work Phone: Start: 04-14-2022 Adult depression scr eening assessment aJcob Rodriguez MD Work Phone: Start: 03-12-2022 Adult depression scr eening assessment Jacob Rodriguez MD Work Phone: Start: 03-18-2021 Adult depression scr eening assessment Jacob Rodriguez MD Work Phone: Plan of Treatment Date Care Activity Detail Author Start: 05-11-2027 Administration of diphtheria + tetanus + acellular pertussis vaccine DTAP/TDAP/TD VACCINE (7 - Td or Tdap) [facility] Start: 05-11-2027 Urine microalbumin profile [facility] Start: 08-16-2024 Hepatitis C Screening Hepatitis [facility] Comment on above: Postponed from 09/10 (Declined at this time) Start: 08-16-2024 Hepatitis C screening Hepatitis C [facility] Comment on above: Postponed from 09/10 (Declined at this time) Start: 08-16-2024 HIV Screening HIV Screening [facility] Comment on above: Postponed from 09/10 (Declined at this time) Start: 08-16-2024 HIV screening HIV Screening [facility] Comment on above: Postponed from 09/10 (Declined at this time) Start: 08-16-2024 Meningococcal B Vacc ine: Consider Based On Risk (1 of 2 - Patient Seeks Protection) Meningococcal B Vaccine: Consider Based On Risk (1 of 2 - Patient Seeks Protection) [facility] Comment on above: Postponed from 09/10 (Declined at this time) Start: 06-30-2024 Covid-19 Vaccine () Covid-19 Vaccine () [facility] Start: 06-30-2024 Covid-19 Vaccine ( season) Covid-19 Vaccine ( season) [facility] Start: 06-30-2024 Influenza vaccination Influenza Vacc ine (#1) [facility] Start: 04-28-2024 Influenza vaccination Influenza Vacc ine (#1) [facility] Comment on above: Postponed from 06/30 (Declined at this time) Start: 03-08-2024 CHLAMYDIA SCREENING (18-24) CHLAMYDIA SCREENING (18-24) [facility] Start: 03-08-2024 GC (GONORRHEA) SCREE JOSE (18-24) GC (GONORRHEA) SCREENING (18-24) [facility] Start: 03-08-2024 Screening for Chlamy octavio trachomatis Chlamydia Screening (18-) [facility] Start: 06-30-2023 Influenza vaccination [facility] Start: 06-30-2023 Influenza vaccinatio n given INFLUENZA VACCINE (#1) [facility] Start: 04-14-2023 Adult depression screening assessment DEPRESSION SCREENING [facility] Start: 03-30-2023 End: 05-30-2023 Bacteria identified in Urine by Culture [facility] [employer] Work Phone: Comment on above: Expected: 03/30/2023 , Expires: 05/30/2023 Start: 03-12-2023 Adult depression screening assessment DEPRESSION SCREENING [facility] Start: 2022 ANNUAL WELLNESS VISIT ANNUAL WELLNES S VISIT [facility] Start: 2022 CHLAMYDIA SCREENING (18-24) CHLAMYDIA SCREENING (18-24) [facility] Start: 2022 GC (GONORRHEA) SCREE JOSE (18-24) GC (GONORRHEA) SCREENING (18-24) [facility] Start: 2022 HEPATITIS C SCREENING HEPATITIS C [place] [facility] Start: 2022 Hepatitis C screening Hepatitis C [facility] Start: 2022 HIV SCREENING HIV SCREENING [facility] Start: 2022 HIV screening HIV Screening [facility] Start: 06-30-2022 Influenza vaccination INFLUENZ A (Season Ended) [facility] Start: 05-10-2022 CHLAMYDIA SCREENING (<18) CHLAMYDIA SCREENING (<18) [facility] Start: 05-10-2022 GC (GONORRHEA) SCREE JOSE (<18) GC (GONORRHEA) SCREENING (<18) [facility] Start: 03-18-2022 Adult depression screening assessment DEPRESSION SCREENING [facility] Start: 06-30-2021 Influenza vaccination INFLUENZA (#1) [facility] Start: 2020 Meningococcal B Vacc ine: Consider Based On Risk (1 of 2 - Patient Seeks Protection) Meningococcal B Vaccine: Consider Based On Risk (1 of 2 - Patient Seeks Protection) [facility] Start: 2020 Screening for Chlamy octavio trachomatis CHLAMYDIA SCREENING [facility] Start: 2018 PEDS TO ADULT TRANSI TION ANNUAL ASSESSMENT PEDS TO ADULT TRANSITION ANNUAL ASSESSMENT [facility] Start: 2016 Depression screening using PHQ-9 (Patient Health Questionnaire 9) score DEPRESSION SCREENING [facility] Start: 2016 PEDS TO ADULT TRANSI TION INITIAL DISCUSSION PEDS TO ADULT TRANSITION INITIAL DISCUSSION [facility] Start: 2014 MENINGOCOCCAL B: Consider based on risk (1 of 2 - Risk Bexsero 2-dose series) MENINGOCOCCAL B: Consider based on risk (1 of 2 - Risk Bexsero 2-dose series) [facility] Start: 2009 COVID-19 VACCINE (#1) COVID-19 VACCI NE (#1) [facility] Start: 2009 COVID-19 VACCINE (1) COVID-19 VACCIN E (1) [facility] Start: 03-10-2005 COVID-19 VACCINE (#1) COVID-19 VACCI NE (#1) [facility] Bacteria identified in Urine by Culture URINE CULTURE Microbiology Routine Urinary frequency 03/08/2023 6:20 PM EDT [facility] Work Phone: BACTERIAL VAGINOSIS AMPLIFICATION BACTERIAL VAGINOSIS AMPLIFICATION Lab Routine Vaginal discharge 03/30/2023 9:55 AM EDT [facility] Work Phone: EDDI / TRICHOMONA S AMPLIFICATION EDDI / TRICHOMONAS AMPLIFICATION Microbiology Routine Vaginal discharge 03/08/2023 6:20 PM EDT [facility] Work Phone: EDDI / TRICHOMONA S AMPLIFICATION EDDI / TRICHOMONAS AMPLIFICATION Microbiology Routine Vaginal discharge 03/30/2023 9:55 AM EDT [facility] Work Phone: Chlamydia trachomatis+Neisseria gonorrhoeae DNA [Presence] in Unspecified specimen by MARCO ANTONIO with probe detection GC/CHLAMYDIA DNA DET Lab Routine Vaginal discharge 03/08/2023 6:20 PM EDT [facility] Work Phone: COVID & INFLUENZA A/ B & RSV PCR, ROUTINE COVID & INFLUENZA A/B & RSV PCR, ROUTINE Microbiology Routine Acute cough URI, acute 08/08/2024 10:33 AM EDT [facility] Work Phone: [facility] Immunizations Immunization Date Immunization Notes Care Provider Fa regino 01-15-2021 meningococcal polysaccharide (groups A, C, Y and W-135) diphtheria toxoid conjugate vaccine (MCV4P) Jacob Rodriguez MD Work Phone: [facility] 12-24-2019 Human Papillomavirus 9-valent vaccine Jacob Rodriguez MD Work Phone: [facility] 09-04-2017 meningococcal polysaccharide (groups A, C, Y and W-135) diphtheria toxoid conjugate vaccine (MCV4P) Jacob Rodriguez MD Work Phone: [facility] Work Phone: 05-11-2017 Human Papillomavirus 9-valent vaccine Jacob Rodriguez MD Work Phone: [facility] 05-11-2017 tetanus toxoid, redu cristian diphtheria toxoid, and acellular pertussis vaccine, adsorbed Jacob Rodriguez MD Work Phone: [facility] 11-04-2011 influenza virus vacc ine, live, attenuated, for intranasal use Jacob Rodriguez MD Work Phone: [facility] Work Phone: 11-04-2011 influenza virus vacc ine, unspecified formulation Jacob Rodriguez MD Work Phone: [facility] 01-13-2010 diphtheria, tetanus toxoids and acellular pertussis vaccine Jacob Rodriguez MD Work Phone: [facility] Work Phone: 01-13-2010 measles, mumps and rubella virus vaccine Jacob Rodriguez MD Work Phone: [facility] Work Phone: 01-13-2010 poliovirus vaccine, inactivated Jacob Rodriguez MD Work Phone: [facility] Work Phone: 01-13-2010 varicella virus vaccine Jacob Rodriguez MD Work Phone: [facility] Work Phone: 11-23-2009 influenza virus vacc ine, live, attenuated, for intranasal use Jacob Rodriguez MD Work Phone: [facility] Work Phone: 10-24-2008 influenza virus vacc ine, live, attenuated, for intranasal use Jacob Rodriguez MD Work Phone: [facility] 09-24-2008 influenza virus vacc ine, live, attenuated, for intranasal use Jacob Rodriguez MD Work Phone: [facility] Work Phone: 01-27-2006 diphtheria, tetanus toxoids and acellular pertussis vaccine Jacob Rodriguez MD Work Phone: [facility] Work Phone: 01-27-2006 haemophilus influenz ae type b vaccine, HbOC conjugate Jacob Rodriguez MD Work Phone: [facility] Work Phone: 01-27-2006 measles, mumps and rubella virus vaccine Jacob Rodriguez MD Work Phone: [facility] Work Phone: 01-27-2006 pneumococcal conjuga te vaccine, 7 valent Jacob Rodriguez MD Work Phone: [facility] Work Phone: 01-27-2006 varicella virus vaccine Jacob Rodriguez MD Work Phone: [facility] Work Phone: 03-11-2005 DTaP-hepatitis B and poliovirus vaccine Jacob Rodriguez MD Work Phone: [facility] Work Phone: 03-11-2005 haemophilus influenz ae type b vaccine, HbOC conjugate Jacob Rodriguez MD Work Phone: [facility] Work Phone: 03-11-2005 pneumococcal conjuga te vaccine, 7 valent Jacob Rordiguez MD Work Phone: [facility] Work Phone: 01-11-2005 diphtheria, tetanus toxoids and acellular pertussis vaccine, unspecified formulation Jacob Rodriguez MD Work Phone: [facility] 01-11-2005 DTaP-hepatitis B and poliovirus vaccine Jacob Rodriguez MD Work Phone: [facility] Work Phone: 01-11-2005 haemophilus influenz ae type b vaccine, HbOC conjugate Jacob Rodriguez MD Work Phone: [facility] Work Phone: 01-11-2005 pneumococcal conjuga te vaccine, 7 valent Jacob Rodriguez MD Work Phone: [facility] Work Phone: 01-11-2005 poliovirus vaccine, inactivated Jacob Rodriguez MD Work Phone: [facility] 2004 DTaP-hepatitis B and poliovirus vaccine Jacob Rodriguez MD Work Phone: [facility] Work Phone: 2004 haemophilus influenz ae type b vaccine, HbOC conjugate Jacob Rodriguez MD Work Phone: [facility] Work Phone: 2004 pneumococcal conjuga te vaccine, 7 valent Jacob Rodriguez MD Work Phone: [facility] Work Phone: 2004 hepatitis B vaccine, pediatric or pediatric/adolescent dosage Jacob Rodriguez MD Work Phone: [facility] Work Phone: Payers Date Payer Category Payer Private Health Insurance [id number] 2025 Self-pay 2023 Medicaid [id number] 2023 Unknown [id number] 2023 Private Health Insurance [facility] [id number] 2023 Private Health Insurance [id number] 2023 Unknown [id number] 2019 Unknown [facility] [id number] 2019-Present [phone] [address] [place] [id number] PPO [id number] 2019 Unknown [facility] [id number] 2019-Present [phone] [address] [place] [id number] PPO [id number] 2017 Private Health Insurance [facility] [id number] 2004 Unknown [id number] 51 2004 Unknown [id number] 51 2004 Unknown [id number] [id number] 51 2004 Unknown [id number] [id number] 51 2004 Unknown [id number] [id number] 1980 Unknown [id number] [id number] 1980 Unknown [id number] 2.16.840.1.127139.3.579.2.6 1980 Unknown [id number] 2.16.840.1.231420.3.579.2.6 1980 Unknown [id number] 2.16.840.1.165811.3.579.2.6 1980 Unknown [id number] 2.16.840.1.009830.3.579.2.6 1980 Unknown [id number] 2.16.840.1.816961.3.579.2.6 1980 Unknown [id number] 2.16.840.1.875850.3.579.2.6 1980 Unknown [id number] 2.16.840.1.520856.3.579.2.6 1980 Unknown [id number] 2.16.840.1.026834.3.579.2.6 1980 Unknown [id number] 2.16.840.1.688597.3.579.2.6 27 Unknown [id number] 2.16.840.1.105734.3.579.2.4 62 Unknown [id number] 2.16.840.1.947131.3.579.2.4 62 Unknown [id number] [id number] 62 Unknown [id number] [id number] 62 Unknown [id number] 62 Social History Date Type Detail Facility Start: 03-08-2023 End: 11-16-2023 Tobacco smoking status NHIS Never smoked tobacco [facility] Start: 01-20-2022 End: 07-27-2023 Alcohol intake Not Asked [facility] Start: 02-20-2012 End: 03-08-2023 Tobacco Comment outdoors [facility] Start: 2004 Sex Assigned At Not on file [facility] Start: 01-10-2022 End: 04-14-2022 Exposure to SARS-CoV-2 (event) Not sure [facility] Start: 03-11-2022 History SDOH Physical Activity DPW 0 [facility] Start: 03-11-2022 History SDOH Financial 4 [facility] Start: 03-11-2022 History SDOH Food Worry 1 [facility] Start: 03-11-2022 History SDOH Transport Med 2 [facility] Tobacco smoking status No Smokin g Status Entered [facility] Sex Assigned At [facility] Start: 2004 Sex Assigned At Female [facility] History of tobacco use Passive smoker [facility] Start: 03-08-2023 End: 01-21-2024 Tobacco use and exposure Smokeless tobacco non-user [facility] Start: 07-27-2023 End: 08-14-2023 History of Social function [facility] Start: 07-27-2023 End: 08-14-2023 Tobacco use panel [facility] How hard is it for y ou to pay for the very basics like food, housing, medical care, and heating Not very hard [facility] (I/We) worried whepreeti er (my/our) food would run out before (I/we) got money to buy more. Never true [facility] In the past 12 month s, has lack of transportation kept you from medical appointments or from getting medications? No [facility] In the past 12 month s, was there a time when you were not able to pay the mortgage or rent on time? No [facility] Start: 04-07-2022 Gender identity Identifies as female gender (finding) [facility] Start: 04-07-2022 Sexual orientation Heterosexual (finding) [facility] Start: 08-16-2023 End: 12-01-2024 Alcohol intake Ex-drinker (finding) [facility] Are you now , , , , never or living with a partner? Living with partner [facility] How often to you hav e a drink containing alcohol? Never [facility] Do you feel stress - tense, restless, nervous, or anxious, or unable to sleep at night because your mind is troubled all the time - these days [OSQ] Very much [facility] Start: 03-05-2023 [facility] Start: 01-21-2024 Alcohol intake Current drinker of alcohol (finding) [facility] Start: 03-01-2017 Sex Female (finding) [facility] Functional Status Date Assessment Result Facility 11-16-2023 Functional Status Standard Safet y ID band on, Call device within reach, Bed in low position, Wheels locked, Upper/Half-Length side-rails up, Phone within reach, personal items within reach, Non-Slip footwear [facility] 06-26-2023 Functional Status Independent [facility] 06-26-2023 Functional Status ID band on, Call device within reach, Bed in low position, Wheels locked, Upper/Half-Length side-rails up, Visitor at bedside [facility] 04-12-2022 Functional Status Independent [facility] 04-11-2022 Functional Status ID band on, Call device within reach, Bed in low position, Wheels locked, Visitor at bedside [facility] Mental Status Date Assessment Result Facility 06-26-2023 Mental Status Orientation Oriented x 4 [facility] 06-26-2023 Mental Status [facility] 04-12-2022 Mental Status Orientation Oriented x 4 [facility] 04-11-2022 Mental Status [facility] Clinical Notes 04-19-2011 to 12-01-2024 Ravi Nazario PA - 12/01/2024 8:16 AM ESTPatient InstructionsCarlos Alberto Donovan MD - 08/16/2024 6:50 PM EDTTelephone Encounter - Black Brock MA - 08/09/2024 7:26 AM EDT Note Date & Type Note Facility 12-01-2024 Note HNO ID: [id number] Author: RAVI NAZARIO PA Service: ? Author Type: Physician Heating Operators Engineer Type: Progress Notes Filed: 12/01/2024 08:17 Note Text: This note was created using [employer]. Subjective Sherif Licona is a 19 year [...] detail warranting prompt ER evaluation. NISA Mendez [facility] 12-01-2024 History of Present illness Narrative This note was created using [employer]. Subjective Sherif Licona is a 19 year [...] evaluation. NISA Mendez documented in this encounter [facility] 12-01-2024 Instructions Ravi Nazario PA - [...] thin out mucus documented in this encounter [facility] 08-16-2024 Note HNO ID: [id number] Author: CARLOS ALBERTO DONOVAN MD Service: ? [...] as needed analgesia. Carlos Alberto Donovan MD [facility] 08-16-2024 History of Present illness Narrative Patient [...] Alberto Donovan MD documented in this encounter [facility] 08-09-2024 Telephone encounter Note Patient has viewed results on [employer]Bank[employer]. Black Brock MA [facility] 08-09-2024 Miscellaneous Notes Patient has viewed results on [employer]. Black Brock MA Negative COVID flu RSV documented in this encounter [facility] 08-08-2024 Telephone encounter Note Negative COVID flu RSV [facility] Work Phone: 08-08-2024 History of Present [...] PATIENT PRESENTS WITH AN IMPLANTABLE OR ATTACHED FLORIST DESIGNER: No RADIOLOGY DEPARTMENT: General X-ray: Exam(s) Completed: Chest X-Ray PERIPHERAL IV DATA: Not applicable SIGNED BY: RT Chelita(Kylah) August 08, 2024 10:24 AM documented in this encounter [facility] 08-08-2024 Note HNO ID: [id number] Author: HU NEAL RT(R) Service: Radiology Author [...] PATIENT PRESENTS WITH AN IMPLANTABLE OR ATTACHED FLORIST DESIGNER: No RADIOLOGY DEPARTMENT: General X-ray: Exam(s) Completed: Chest X-Ray PERIPHERAL IV DATA: Not applicable SIGNED BY: EVERARDO Merlos) August 08, 2024 10:24 AM [facility] 08-08-2024 Note HNO ID: [id number] Author: DENISE HOGAN APRN.[facility] Service: ? Author Type: Nurse Practitioner Type: Progress Notes Filed: 08/08/2024 11:59 Note Text: This note was created using [employer]. Subjective Sherif Licona is a 18 year [...] history is provided by the patient. No speech and language specialist was used. URI She complains of cough [...] membranes are moist. (more content not included)... [facility] 08-08-2024 History of Present illness Narrative This note was created using [employer]. Subjective Sherif Licona is a 18 year [...] history is provided by the patient. No speech and language specialist was used. URI She complains of cough [...] or worsen. Trisha Busch Student TEACHING PROVIDER (Physician/PA/INFORMATICS DEVELOPER) NOTE OF PERSONAL INVOLVEMENT IN CARE: I have personally seen and examined the patient and performed the medical decision-making components. I have reviewed the Advanced Practice Registered Nurse (INFORMATICS DEVELOPER) Student's documentation and verified the findings in the note as written. Any additions or changes are noted in bold/italics. Signature: Denise Hogan Date: 08/08/2024 Time: 11:39 AM documented in this encounter [facility] 07-16-2024 Note HNO ID: [id number] Author: RISA HAUSER APRN.YANICK Service: ? 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 Since last office visit has been in good health. Had baby boy 8 months ago. Doing well Taking Zoloft as prescribbed without side effects. Works well to control symptoms. Not currently attending counseling. Denies SI, HI or insomnia Will be working at [employer] . Duties will include: supervision of 1-2 [...] No history of dysuria, frequency or incontinence DICTAPHONE TYPIST: Negative for abnormal vaginal bleeding, abnormal vaginal [...] - stable on current regime Risa ChristinelogMADDI joseph.CLINICAL ACCOUNT SPECIALIST Prescription instructions reviewed with patient as applicable. Patient advised if symptoms do not improve or if symptoms worsen sooner, to contact their primary care physician. Potential red flag symptoms discussed with the patient. Reviewed appropriate action plan to take if red flag symptoms occur. Patient agreeable to treatment plan. 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 Since last office visit has been in good health. Had baby boy 8 months ago. Doing well Taking Zoloft as prescribbed without side effects. Works well to control symptoms. Not currently attending counseling. Denies SI, HI or insomnia Will be working at [employer] . Duties will include: supervision of 1-2 [...] No history of dysuria, frequency or incontinence DICTAPHONE TYPIST: Negative for abnormal vaginal bleeding, abnormal vaginal [...] to treatment plan. documented in this encounter [facility] 01-21-2024 Emergency department Note Dc instructions reviewed. Questions answered. Pt ready for DC. [facility] 01-21-2024 Emergency department Note Dc instructions reviewed. Questions answered. Pt ready for DC. Patient to ED room 5 for dental infection. Reports having cavities filled and gums cut 2 weeks ago. States she had puss coming out. Patient is alert and oriented, resp easy and unlabored, NAD, skin p/w/d. GCS 15. documented in this encounter [facility] 01-21-2024 Emergency department Triage note Patient to ED room 5 for dental infection. Reports having cavities filled and gums cut 2 weeks ago. States she had puss coming out. Patient is alert and oriented, resp easy and unlabored, NAD, skin p/w/d. GCS 15. [facility] 11-16-2023 Hospital Discharge instructions Patient Education 11/16/2023 [...] crackers, bananas, Jell-O, cooked carrots, applesauce. ___ [place] diet. Avoid caffeine, chocolate, alcohol, spiced/greasy foods. [...] the nearest Emergency Room for assistance. Form [id number] D: 10/07 Document Released: 10/16/2006 Document Revised: 10/04/2012 Document Reviewed: 10/16/2006 ExitCare Patient Information 2012 [employer]. Follow Up Care 11/16/2023 13:07:01 With:IDRIS KOCH APRN-CNM Address: [address], [address] Dr. Keith Haney, my [place] [address]- [phone] When: Unknown Comments:Follow-up as scheduled [facility] 11-11-2023 Hospital Discharge instructions Patient Education 11/11/2023 [...] 03/23/2018 Document Revised: 07/16/2018 Document Reviewed: 03/23/2018 [employer] Patient Education 2020 [employer]. 11/11/2023 02:25:58 Asher Newby Contractions Iredell Newby Contractions Contractions of the uterus can occur throughout , but they are not always a sign that you are in labor. You may have practice contractions called Asher Newby contractions. These false labor contractions are sometimes confused with true labor. What are Asher Newby contractions? Iredell Newby contractions are tightening movements that occur in the muscles of the uterus before labor. Unlike true labor contractions, these contractions do not result in opening (dilation) and thinning of the cervix. Toward the end of (32 34 weeks), Iredell Newby contractions can happen more often and [...] false labor. You may continue to have Iredell Newby contractions until you go into true [...] thin. Follow these instructions at home: Take gplj-umi-rdgkaed and prescription medicines only as told by your health care provider. Keep up with your usual exercises and follow other instructions from your health care provider. Eat and drink lightly if you think you are going into labor. If Iredell Newby contractions are making you uncomfortable: ?Change [...] Newby contractions, false labor, or practice contractions. Iredell Newby contractions are usually shorter, weaker, farther apart, and less regular than true labor contractions. True labor contractions usually become progressively stronger and regular, and they become more frequent. Manage discomfort from Iredell Newby contractions by changing position, resting in a warm bath, drinking plenty of water, or practicing deep breathing. This information is not intended to replace advice given to you by your health care provider. Make sure you discuss any questions you have with your health care provider. Document Released: 03/01/2018 Document Revised: 09/28/2018 Document Reviewed: 03/01/2018 [employer] Patient Education 2019 [employer]. Follow Up Care 11/10/2023 23:58:54 With:Follow up with primary care provider Address:Unknown When: Unknown With:Go to emergency room if symptoms worsen Address:Unknown When: Unknown [facility] 09-06-2023 Evaluation + Plan note Diagnostic Tests PendingRapid Plasma Reagin Test 09/06/23 [facility] 08-16-2023 History of Present illness Narrative 08/16/2023 [...] a boy. Following with Idris Castanon at [place] Past medical, surgical, family, social hx, medications, [...] follow-up with OB as scheduled Risa Podlogar, MADDI.CLINICAL ACCOUNT SPECIALIST Prescription instructions reviewed with patient as applicable. [...] which included preparing to see the patient, [id number] patient care, completing clinical documentation, obtaining and/or reviewing separately obtained history, performing a medically appropriate examination, counseling and educating the patient/family/caregiver, and ordering medications, tests, or procedures. documented in this encounter [facility] 08-03-2023 Miscellaneous Notes Reason for Disposition [...] 26 Protocols used: - Vision Loss or [id number] documented in this encounter [facility] 07-27-2023 History of Present illness Narrative Patient presents with: dent on head: Noticed it today. No known injury that could of caused it. Anxiety: stopped taking meds (now and Overall anxiety raised by medical concerns and concerns about ) has appt with psych next week. [facility]. will also set up with counselor scared [...] which included preparing to see the patient, [id number] patient care, completing clinical documentation, performing a medically appropriate examination, and counseling and educating the patient/family/caregiver. Jacob Rodriguez MD documented in this encounter [facility] 06-26-2023 Hospital Discharge instructions Patient Education [...] face You have trouble talking or seeing 5964-3885 [employer]. [address] [place] [address], [place] [address]. All rights reserved. This information is not intended as a substitute for professional medical care. Always follow your healthcare professional's instructions. Follow Up Care 06/26/2023 16:13:13 With:JACOB RODRIGUEZ MD Address: [address] [place] [address] When:2-4 days [facility] Note Discharge Instructions Thank you for allowing [place] to assist you with your healthcare needs. The following is important discharge information regarding your hospital visit. Diagnosis from Today's Visit Headache What to Do Next Instructions from Your Care Team No qualifying data available. Post Acute Orders No qualifying data available. You Need to Schedule the Following Appointments Follow Up with JACOB RODRIGUEZ MD When Within 2-4 days Where: [address] [facility] [place] [address] Allergies NKA Medications Please ask your [...] may report side effects to FDA at 7-845-KSF-8365. What other drugs will affect metoclopramide? Using [...] may affect metoclopramide. This includes prescription and uahb-bzy-xcsoajt medicines, vitamins, and herbal products. Not all [...] to ensure that the information provided by [employer]. ('[employer]') is accurate, up-to-date, and complete, but no guarantee is made to that effect. Drug information contained herein may be time sensitive. [employer] information has been compiled for use by healthcare practitioners and consumers in the [place] and therefore [employer] does not warrant that uses outside of the [place] are appropriate, unless specifically indicated otherwise. [employer] drug information does not endorse drugs, diagnose patients or recommend therapy. [employer] drug information is an informational resource designed [...] effective or appropriate for any given patient. [employer] does not assume any responsibility for any aspect of healthcare administered with the aid of information [employer] provides. The information contained herein is not intended to cover all possible uses, directions, precautions, warnings, drug interactions, allergic reactions, or adverse effects. If you have questions about the drugs you are taking, check with your doctor, nurse or pharmacist. Copyright 3281-1151 [employer]. Version: 14.. Revision Date: 06/07/2023. Education Materials [...] face You have trouble talking or seeing 1489-8286 [employer]. [address] [place] [address], [place] [address]. All rights reserved. This information is not intended as a substitute for professional medical care. Always follow your healthcare professional's instructions. Additional Information VACCINATE! IT SAVES LIVES! Members of the community who have not yet received the COVID-19 vaccine and would like to receive it can visit one of [facility] vaccine clinics. There are many vaccine clinic locations within the [facility]. For locations and available times, please visit www.gettheshot.coronavirus.[place].g ov/. It is important to note that some COVID mobile vaccine clinics are held outdoors and may be canceled in rainy or stormy conditions. To learn more about pediatric vaccinations (ages 5-11), we invite you to visit the [employer] webpage. https://www.[employer].org/pa marlys/5893-Eocpk-Pknghktcqss-Freque gegd-Dmwbo-Mhpojzmln.html To learn more about the COVID-19 vaccine, we invite you to visit the CDC website for a list of frequently asked questions. https://www.cdc.gov/coronavirus/2 019-ncov/vaccines/faq.html [place] [employer] Patient Portal Access Instructions: Stay connected with your healthcare team and access your personal medical information anytime with the [employer] Patient Portal. If you would like a full copy of your medical records please contact the [facility] Medical Records Department Monday through Monday between 8a.m. and 4:30p.m. Please follow the directions below to access the portal: 1.Access the email account you provided upon registration to the [facility].2.Look for an invitation email from [facility].3.Open the email and access the invitation link: Accept Invitation to [facility]4.Fill in the required olson to create your account. Sign into www.[employer] with your username and password that you [...] you will allow to register on the [employer] Patient Portal for access to your information. You can also access the [employer] Patient Portal on the [employer]. Simply click on "Health Records" under "Health Data" and then click on the NextIO logo. HOW TO SAFELY DISPOSE OF PRESCRIPTION [...] Call your local pharmacy or go to [email or web address] to find one close to you.3.Make use of household items: Use cat litter or old coffee grounds to dispose medications if other options are not available. Mix your drugs with these household products, seal them in an airtight container and throw it into the garbage. Call [facility]: [phone] to be sure your drugs can be [...] aware that I should contact my doctor. 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 documented in this encounter [facility] 03-30-2023 Miscellaneous Notes Addended by: SOPHIA JAIMES on: 03/30/2023 10:03 AM Modules accepted: Orders documented in this encounter [facility] 03-30-2023 Instructions Sophia Jaimes APRN.CNP - [...] have an infection. documented in this encounter [facility] 03-30-2023 History of Present illness Narrative [...] Sophia Jaimes APRN.YANICK documented in this encounter [facility] 03-09-2023 Miscellaneous Notes Patient notified and verbalized understanding of instructions given.Yolanda Alston LPN Phone call placed, brief message to contact a nurse to review results, [facility] on 03/09/2023. Jannet Montgomery LPN Please [...] those are positive. documented in this encounter [facility] 03-08-2023 History of Present illness Narrative This note was created using [employer]. Subjective Sherif Licona is a 17 year [...] Exam Vitals reviewed. Exam conducted with a gunnery/ordnance officer present (valdemar ZARCO). Constitutional: Appearance: Normal appearance. [...] Roxana Rodriguez PA-C documented in this encounter [facility] 04-14-2022 History of Present illness Narrative [...] TIME: 10:09 AM documented in this encounter [facility] 04-12-2022 Evaluation + Plan note Diagnostic Tests PendingUrine Culture 04/12/22 [facility] 04-12-2022 Hospital Discharge instructions Patient Education 04/12/2022 02:37:50 AA Meenakshi BAH (CUSTOM) Result type:CT Abd/Pelvis w/ IV Contrast Only Result date:April 12, 2022 1:48 EDT Result status:In Progress Result title:CT ABD/PELVIS W/ IV CONTRAST ONLY Performed by:DANIELA JACK DO on April 12, 2022 1:43 EDT Cosigned by:DANIELA JACK DO Encounter info:[id number], [facility], Emergency, 04/11/2022 - Contributor system:maniaTV * Preliminary Report * [id number] ORIGINAL EXAMINATION: CT OF THE ABDOMEN AND [...] Document Reviewed: 10/17/2014 ExitCare Patient Information 2015 [employer]. This information is not intended to replace [...] and water are not available, use alcohol-based green building materials designer to keep from spreading the infection to [...] Yellow color of the eyes or skin 2956-9050 [employer]. [address] [place] [address]. All rights reserved. This information is not [...] foods again, start with small amounts of ixlx-uw-kahggs, low-fat foods. These include apple sauce, toast, [...] increase stomach acid. Don't use aspirin or wusd-gis-aajpttz pain and fever medicines, if possible. This includes nonsteroidal anti-inflammatory drugs (NSAIDs). Lose excess weight. Finish eating at least 2 hours before you go to bed or lie down. Raise the head of your bed. 1390-4279 [employer]. [address] [place] [address]. All rights reserved. This information is not intended as a substitute for professional medical care. Always follow your healthcare professional's instructions. Follow Up Care 04/11/2022 21:10:00 With:Go to emergency room if symptoms worsen Address:Unknown When:2-4 days With:JACOB RODRIGUEZ MD Address: [address] [place] [address] When:2-4 days [facility] 03-12-2022 Instructions Jacob Rodriguez MD - 03/12/2022 [...] - Call the National Suicide Hotline at 4-154-CFVADWH ( ) or 5-610-399TALK (1349) - Text 4hope to 299481 Self harm Test HOME to 770288 Call 1-766-QNUE-CUT - Proper diet, exercise, sleep hygiene, and [...] Here's an article about bright light therapy: https://www.[facility].edu/files /webfm-uploads/documents/outreach /im/handout_light_therapy.pdf Establish a regular relaxing bedtime [...] electronic and social media use in children: www.Zenringa.org Socialization: Remember that we grow through healthy [...] Talk by Amairani Ruvalcaba and Mariola Preston. http://[facility].sc.us/uplo ads//13430464/ddo-lq-peki- vs-jzuk-etaf-listen.pdf Finally, it's okay to ask youth if they are having thoughts of suicide. If they are, remain present with them and seek professional support by using the numbers above. documented in this encounter [facility] 05-14-2022 History of Present illness Narrative [...] TIME: 9:39 AM documented in this encounter [facility] 02-14-2022 Miscellaneous Notes The following approved [...] Called and verified with pharmacist Chuck at [facility]. They did not receive this on 01/20) Requesting 30 day supply Retail pharmacy updated: Completed Patient aware RX will be sent to pharmacy. No need to notify patient. Immunizations due: COVID-19 VACCINE(1) Never done MENINGOCOCCAL B: Consider based on risk(1 of 2 - Risk Bexsero 2-dose series) Never done Lilliana Garcia RN documented in this encounter [facility] 02-14-2022 Miscellaneous Notes Mom notified Rx has refills left to fill. documented in this encounter [facility] 01-20-2022 History of Present illness Narrative [...] TIME: 2:20 PM documented in this encounter [facility] 04-19-2011 History of Past i llness Narrative Problem Noted Date Resolved Date ADD (attention deficit disorder) 04/19/2011 01/20/2022 documented as of this encounter (statuses as of 01/20/2022) [facility] of Past illness Narrative* Problem Noted Date Resolved Date ADD (attention deficit disorder) 04/19/2011 01/20/2022 documented as of this encounter (statuses as of 02/14/2022) [facility] of [facility] Narrative* Problem Noted Date Resolved Date ADD (attention deficit disorder) 04/19/2011 01/20/2022 documented as of this encounter (statuses as of 02/14/2022) [facility] Narrative* Problem Noted Date Resolved Date ADD (attention deficit disorder) 04/19/2011 01/20/2022 documented as of this encounter (statuses as of 03/12/2022) [facility] Narrative* Problem Noted Date Resolved Date ADD (attention deficit disorder) 04/19/2011 01/20/2022 documented as of this encounter (statuses as of 04/14/2022) [facility] Narrative* Problem Noted Date Resolved Date ADD (attention deficit disorder) 04/19/2011 01/20/2022 documented as of this encounter (statuses as of 03/09/2023) [facility] Narrative* Problem Noted Date Resolved Date ADD (attention deficit disorder) 04/19/2011 01/20/2022 documented as of this encounter (statuses as of 03/10/2023) [facility] Narrative* Problem Noted Date Resolved Date ADD (attention deficit disorder) 04/19/2011 01/20/2022 documented as of this encounter (statuses as of 03/30/2023) [facility] Narrative* Problem Noted Date Resolved Date ADD (attention deficit disorder) 04/19/2011 01/20/2022 documented as of this encounter (statuses as of 03/31/2023) [facility] N[facility]ative* Problem Noted Date Diagnosed Date Resolved Date ADD (attention deficit disorder) 04/19/2011 01/20/2022 documented as of this encounter (statuses as of 07/28/2023) [facility] N[facility]ative* Problem Noted Date Diagnosed Date Resolved Date ADD (attention deficit disorder) 04/19/2011 01/20/2022 documented as of this encounter (statuses as of 08/05/2023) [facility] Narrative* Problem Noted Date Diagnosed Date Resolved Date ADD (attention deficit disorder) 04/19/2011 01/20/2022 documented as of this encounter (statuses as of 08/16/2023) [facility] note* Diagnosis Depressive disorder- Primary Depressive disorder, not elsewhere classified AMEYA (generalized anxiety disorder) Generalized anxiety disorder documented [facility] Diagnosis Depressive disorder- Primary Depressive disorder, not elsewhere classified AMEYA (generalized anxiety disorder) Generalized anxiety disorder [facility] Diagnosis Urinary frequency- Primary Vaginal discharge Leukorrhea, not specified as infective [facility] Diagnosis Dysuria- Primary Vaginal discharge Leukorrhea, not specified as infective [facility] Diagnosis Nonintractable episodic headache, unspecified headache type- Primary AMEYA (generalized anxiety disorder) Generalized anxiety disorder [facility] Diagnosis Encounter to establish care- Primary Other reasons for seeking consultation Anxiety and depression Dysthymic disorder , unspecified gestational age [facility] Diagnosis Dental infection- Primary Acute apical periodontitis of pulpal origin [facility] Diagnosis Routine physical examination- Primary Routine general medical examination at a health care facility Anxiety and depression Dysthymic disorder documented in this encounter [facility] note* Diagnosis Acute cough- Primary URI, acute Acute upper respiratory infections of unspecified site Acute otitis media, right Unspecified otitis media Acute cough documented in this encounter [facility] note* Diagnosis Acute cough documented in this encounter [facility] note* Diagnosis Acute otitis media, left- Primary Unspecified otitis media documented in this encounter [facility] note* Diagnosis URI, acute- Primary Acute upper respiratory infections of unspecified site documented in this encounter [facility] course Narrative No data available for this section [facility] Discharge instructions No data available for this section [facility] Discharge instructions* Attachments The following attachments cannot be sent through Care Everywhere. * Tooth: Abscessed (Niuean Korean) [facility] No data available for this section [facility] Reason for Referral Specialty Diagnoses / Procedures Referred By Radha mckeon Referred To Contact INTERNAL MEDICINE Diagnoses Nonintractable episodic headache, unspecified headache type AMEYA (generalized anxiety disorder) Procedures ESTABLISH WITH PRIMARY CARE NEW PATIENT OFFICE/OUTPATIENT [facility] 60-74 MINUTES Jacob Rodriguez MD [address] [place] [address] [facility] [address] [place] [address] Referral ID Status Reason Start Date Expiration Date Visits Requested Visits Authorized [id number] Authorized PCP Requested Referral 07/27/2023 07/26/2024 1 [...] or prosecute any alcohol or drug abuse patient.[facility] the event this information is protected by the Federal Confidentiality of Alcohol and Drug Abuse Patient Records regulations: The Federal rules restrict any use of the information to criminally investigate or prosecute any alcohol or drug abuse patient.[facility] Hospital[facility] the event this information is protected by the Federal Confidentiality of Alcohol and Drug Abuse Patient Records regulations: The Federal rules restrict any use of the information to criminally investigate or prosecute any alcohol or drug abuse patient.[facility] HospitalIn the event this information is protected by the Federal Confidentiality of Alcohol and Drug Abuse Patient Records regulations: The Federal rules restrict any use of the information to criminally investigate or prosecute any alcohol or drug abuse patient.[facility] HospitalIn the event this information is protected by the Federal Confidentiality of Alcohol and Drug Abuse Patient Records regulations: The Federal rules restrict any use of the information to criminally investigate or prosecute any alcohol or drug abuse patient.[facility] HospitalIn the event this information is protected by the Federal Confidentiality of Alcohol and Drug Abuse Patient Records regulations: The Federal rules restrict any use of the information to criminally investigate or prosecute any alcohol or drug abuse patient.[facility] HospitalIn the event this information is protected by the Federal Confidentiality of Alcohol and Drug Abuse Patient Records regulations: The Federal rules restrict any use of the information to criminally investigate or prosecute any alcohol or drug abuse patient.[facility] HospitalIn the event this information is protected by the Federal Confidentiality of Alcohol and Drug Abuse Patient Records regulations: The Federal rules restrict any use of the information to criminally investigate or prosecute any alcohol or drug abuse patient.[facility] HospitalIn the event this information is protected by the Federal Confidentiality of Alcohol and Drug Abuse Patient Records regulations: The Federal rules restrict any use of the information to criminally investigate or prosecute any alcohol or drug abuse patient.[facility] HospitalIn the event this information is protected by the Federal Confidentiality of Alcohol and Drug Abuse Patient Records regulations: The Federal rules restrict any use of the information to criminally investigate or prosecute any alcohol or drug abuse patient.[facility] HospitalIn the event this information is protected by the Federal Confidentiality of Alcohol and Drug Abuse Patient Records regulations: The Federal rules restrict any use of the information to criminally investigate or prosecute any alcohol or drug abuse patient.[facility] HospitalIn the event this information is protected by the Federal Confidentiality of Alcohol and Drug Abuse Patient Records regulations: The Federal rules restrict any use of the information to criminally investigate or prosecute any alcohol or drug abuse patient.[facility] HospitalIn the event this information is protected by the Federal Confidentiality of Alcohol and Drug Abuse Patient Records regulations: The Federal rules restrict any use of the information to criminally investigate or prosecute any alcohol or drug abuse patient.[facility] HospitalIn the event this information is protected by the Federal Confidentiality of Alcohol and Drug Abuse Patient Records regulations: The Federal rules restrict any use of the information to criminally investigate or prosecute any alcohol or drug abuse patient.[facility] HospitalIn the event this information is protected by the Federal Confidentiality of Alcohol and Drug Abuse Patient Records regulations: The Federal rules restrict any use of the information to criminally investigate or prosecute any alcohol or drug abuse patient.[facility] HospitalIn the event this information is protected by the Federal Confidentiality of Alcohol and Drug Abuse Patient Records regulations: The Federal rules restrict any use of the information to criminally investigate or prosecute any alcohol or drug abuse patient.[facility] HospitalIn the event this information is protected by the Federal Confidentiality of Alcohol and Drug Abuse Patient Records regulations: The Federal rules restrict any use of the information to criminally investigate or prosecute any alcohol or drug abuse patient.[facility] HospitalIn the event this information is protected by the Federal Confidentiality of Alcohol and Drug Abuse Patient Records regulations: The Federal rules restrict any use of the information to criminally investigate or prosecute any alcohol or drug abuse patient.[facility] Reason for Visit (unrecogniz ed section [...] NEW/ESTAB PATIENT 15 MIN Jacob Rodriguez MD [address] [place] [address] Peds [facility] [address] [place] [address] Referral ID Status Reason Start Date Expiration Date Visits Requested Visits Authorized [id number] Pending Review OON/Self Pay Override 07/27/2023 01/23/2024 1 1 Reason Comments vision change Reason Comments Transition Of Care Specialty Diagnoses / Procedures Referred By Radha mckeon Referred To Contact INTERNAL MEDICINE Diagnoses Nonintractable episodic headache, unspecified headache type AMEYA (generalized anxiety disorder) Procedures ESTABLISH WITH PRIMARY CARE NEW PATIENT OFFICE/OUTPATIENT [facility] MDM 60-74 MINUTES Jacob Rodriguez MD [address] [place] [address] Intm [facility] [address] [place] [address] Referral ID Status Reason Start Date Expiration Date V isits Requested Visits Authorized [id number] Closed PCP Requested Referral 07/27/2023 07/26/2024 1 1 Reason Comments Dental Pain Reason Comments 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 Reason Comments Chest Congestion Nasal congestion, co ugh, SOB, burning in chest, sore throat, headache x 6 days Reason Comments Ear Pain LEFT ear feels muffl ed x 1 day Reason Comments Cough Congestion, coughing up mucus, runny nose x 2 days Care Teams (unrecognized sec tion and content) Physical Medicine Specialist Relationship Specialty Start Date End Date Jacob Rodriguez MD [address] [place] [address] PCP - General 01/04/05 Physical Medicine Specialist Relationship Specialty Start Date End Date Jacob Rodriguez MD [address], [place] [id number] PCP - General 01/04/05 Physical Medicine Specialist Relationship Specialty Start Date End Date Jacob Rodriguez MD [address], [place] [id number] PCP - General 01/04/05 Physical Medicine Specialist Relationship Specialty Start Date End Date Jacob Rodriguez MD [address] [place] [address] PCP - General 01/04/05 Physical Medicine Specialist Relationship Specialty Start Date End Date Jacob Rodriguez MD [address] [facility] [place] [address] PCP - General 01/04/05 Physical Medicine Specialist Relationship Specialty [place] [address] [place] [address] [place] [address] PCP - General 01/04/05 Physical Medicine Specialist Relationship Specialty [place] [address] [place] [address], [place] [address] PCP - General 01/04/05 Physical Medicine Specialist Relationship Specialty [place] [address] [place] [id number] PCP - General 01/04/05 Physical Medicine Specialist Relationship Specialty Start Date End Date Risa Hauser APRN.CLINICAL ACCOUNT SPECIALIST [address] [place] [id number] PCP - General Family Medicine 08/02/23 Physical Medicine Specialist Relationship Specialty [place] [address] [place] [id number] PCP - General Family Medicine 08/16/23 Physical Medicine Specialist Relationship Specialty Start Date End Date Abhi Bailey MD [address] [facility] [place] [address] PCP - General Family Medicine 08/16/23 Physical Medicine Specialist Relationship Specialty Start Date End Date Abhi Bailey MD [address] [place] [address] PCP - General Family Medicine 08/16/23 Physical Medicine Specialist Relationship Specialty Start Date End Date Abhi Bailey MD [address] [place], [place] [id number] PCP - General Family Medicine 08/16/23 Physical Medicine Specialist Relationship Specialty Start Date End Date Abhi Bailey MD [address] [place], [place] [id number] PCP - General Family Medicine 08/16/23 Physical Medicine Specialist Relationship Specialty Start Date End Date Abhi Bailey MD [address] [place], [place] [id number] PCP - General Family Medicine 08/16/23 Risa Hauser APRN.CLINICAL ACCOUNT SPECIALIST [address] [place], [place] [address] Registered Appraiser Family Medicine 10/05/24 INFORMATION SOURCE (unrecogn ized section and content) DATE CREATED AUTHOR 11/21/2023 [facility] ([place]) DATE CREATED AUTHOR AUTHOR'S ORGANIZ ATION 11/22/2023 [facility] DATE CREATED AUTHOR AUTHOR'S ORGANIZ ATION 01/21/2024 [facility] DATE CREATED AUTHOR AUTHOR'S ORGANIZ ATION 12/02/2024 [facility] DATE CREATED AUTHOR AUTHOR'S ORGANIZ ATION 06/22/2025 [facility] DATE CREATED AUTHOR AUTHOR'S ORGANIZ ATION 08/30/2025 [facility] Scheduled Active and Recently Administ ered [...] BE BASED ON THE PRIMARY CLINICAL RECORDS. [facility] [employer] [facility] provides no warranty or guarantee of the accuracy or completeness of information in this document.
[2025-10-24 17:23] LABS: Glucose Challenge Gest 1H 50g 110 mg/dL (70-140)
== END | disposition home or self-care (01) ==
LOC: LAB 15:45
PROVIDERS: Referring Provider Obstetrics & Gynecology; Visit Provider Obstetrics & Gynecology
DX: O36.60X0 Maternal care for excessive fetal growth, unspecified trimester, not applicable or unspecified (principal); Z3A.00 Weeks of gestation of pregnancy not specified
CPT/HCPCS: 36415; 82950

== ENCOUNTER 2025-10-27 15:35 | Inpatient (IN) | payer OTHER, MEDICAID, SELFPAY ==
[2025-10-27] VITALS (54 sets, daily range): BP systolic 114–140; BP diastolic 57–94; PULSE 74–122; RESP 16; TEMP 36.3–37.2; O2SAT 79–100; BMI 32.3
[2025-10-27] MEDS: 0.9% Saline Lock 10 ML Syringe IV (15:45)
[2025-10-27 16:04] LABS: Hematocrit 33.2 % (37-47); Hemoglobin 10.7 g/dL (12.0-15.0); Immature Granulocytes Count 0.040 X10^3/uL (0.0-0.0); Mean Corp Hgb Conc 32.2 g/dL (32-36); Mean Corpuscular Volume 77.2 fL (81-99); Mean Platelet Vol. 11.4 fl (6.2-12.0); NRBC Flagged by Analyzer 0 % (0-5); Platelet Count 280 K/mm3 (150-450); RBC Distribution Width CV 15.2 % (11.6-14.6); RBC Distribution Width SD 41.1 fl (35.1-43.9); Red Blood Count 4.30 M/mm3 (4.2-5.4); White Blood Count 9.4 K/mm3 (4.4-11.0)
[2025-10-27 17:17] LABS: Syphilis Antibodies Nonreactive (Nonreactive)
--- OUTSIDE RECORDS SUMMARY | 2025-10-27 20:09 | XMS RPT_ITS | CCD ---
Author Organization [facility] Inform ion Partnership [facility] Care Team Providers Care Clothing Pattern Preparer Name Role Phone Jacob Rodriguez MD Primary Care Provider JENNIFER BARRETT, DR JACOB Manuel Primary Care Physician Jacob Rodriguez MD Primary Care Provider Podlogar FORENSIC NURSE.Risa HERNDON Primary Care Provider Abhi Bailey MD Primary Care Provider JENNIFER BARRETT, DR JACOB Manuel Primary Care Unavailprateek PEREZ APRN-TRACEE, NGOZI Blair Attending Nitza RODRIGUEZ MD, DR JACOB Manuel Primary Care Unavailprateek KOCH APRN-TRACEE, IDRIS Blair Attending Viola RODRIGUEZ MD, DR JACOB Manuel Primary Care UnavailJah DILL, NGOZI Blair Attending Nitza RODRIGUEZ MD, DR JACOB Manuel Primary Care Unavailparteek KOCH APRN-TRACEE, IDRIS Blair Attending Viola RODRIGUEZ [...] BARRETT, Abhi Carr Primary Care Provider Podlogar FORENSIC NURSERisa LAI Unavailable [phone] ABHI BAILEY Primary Care Unavailab ABHI Dixon [...] Methylphenidate; Translations: [METHYLPHENIDATE] Drug Allergy 11-10-2015 Rash [facility] Medications Current Medications Medication Drug Class(es) Dates [...] on above: Take 1 capsule by mo [facility] twice daily for 5 days. ondansetron 4 [...] 08-29 Hepatitis C Ab Non-Reactive Normal Nonreactive [facility] Comment on above: Result Comment: Reac tive: Presumptive evidence of antibodies to HCV. Follow CDC recommendations for supplemental testing. Non-Reactive: Antibodies to HCV were not detected; does not exclude the possibility of exposure to HCV Reactive Results are presumptive evidence of antibodies to HCV. Follow CDC recommendations for supplemental testing. Order confirmation testing: HCV Quant by PCR testing - HCVPCR #[id number] Non Reactive: < 0.8 Equivocal: >/= 0.8 to < 1.0 Reactive: >/= 1.0 The CDC requires that a reactive/equivocal HCV antibody result be sent out for confirmation. HCV Quant by PCR testing. Performed By: #### L [id number] #### [facility] [address] 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 Is patient in pain?: No [...] past year?: No PFSH PFSH Surgical History [place] teeth extracted History of tonsillectomy Family History Grandmother Diabetes Paternal Cancer, Onset Age: 65 Paternal Lung brain cancer- Smoker Grandfather Myocardial infarction Paternal Social History adopted: No household members: children number of children: 1 service: No current occupational status: employed current occupation: [employer] current occupational exposures/hazards: No pets and animals: [...] physical activity do you participate in: none neeta/shinto: Mandaen seatbelt use: always do you feel safe [...] Heart Def (more content not included)... [facility] SHERIF LICONA ([id number]) 3 F Date Time Provider Department 12/01/24 [...] AM Signed This note was created using MyWishBoard. Subjective Sherif Licona is a 19 year [...] mouth o (more content not included)... Normal [facility] CNOVon 08-16-2024 CNOV Office Visit (UCWSTR) SHERIF LICONA ([id number]) 3 F Date Time Provider Department 08/16/24 6:45 PM CARLOS ALBERTO DONOVAN [facility] During your visit today, we recorded [...] days. Level of Service: OFFICE/OUTPATIENT ESTABLISHED MOD [facility] 30 MIN [83255] Encounter Status:Closed by CARLOS ALBERTO DONOVAN on 08/16/24 [facility] CNOVon 08-08-2024 CNOV Office Visit (UCWSTR) SHERIF LICONA ([id number]) 3 F Date Time Provider Department 08/08/24 10:00 AM DENISE HOGAN [facility] During your visit today, we recorded the following information about you: Temperature Pulse Respiration Blood pressure 97.6 degrees 107/minute 20/minute 116/87 Weight Last Period 68 kg 08/02/24 Denise Hogan APRN.LUMBER CARRIER 08/08/2024 11:59 AM Signed This note was created using MyWishBoard. Subjective Sherif Licona is a 18 year [...] history is provided by the patient. No sign language interpreter was used. URI She complains of cough [...] cerumen. No (more content not included)... Normal [facility] 08-08-2024 [facility] Telephone ([facility]) SHERIF LICONA ([id number]) 3 F Date Time Provider Department 08/08/24 RAVI NAZARIO [facility] During your visit today, we recorded the following information about you: Ravi Nazario PA 08/08/2024 7:28 PM Signed Negative COVID flu RSV Black Brock MA 08/09/2024 7:26 AM Signed Patient has viewed results on Kopjrat. Black Brock MA Allergies As of Date: [...] Status:Closed by BLACK BROCK on 08/09/24 Normal [facility] COVID AND INFLUENZA A/B AND RSV PCR, ROUTINEon 08-08-2024 SARS-CoV-2 (COVID-19) RNA MARCO ANTONIO+probe Ql (Unsp spec) SARS-COV-2 (AGENT OF COVID-19) RNA: Not detected INFLUENZA A RNA: Not detected INFLUENZA B RNA: Not detected RESPIRATORY SYNCYTIAL VIRUS (RSV) RNA: Not detected Normal [facility] Comment on above: Performed By: #### C VFLRS #### [facility] CLIA [id number] [address] [place] [address] [place] STREP A MOLECULAR (POC)on Procedural Control Valid [facility] Strep A (POCT) Negative Negative [facility] XR CHEST 2V FRONTAL/LATon XR CHEST 2V [...] tissues: Unremarkable. IMPRESSION: No acute radiographic abnormality. Key Carrier: ROBIN Transcribe Date/Time: Aug 08 2024 10:36A Dictated by : FELICE SUMMERS DO This examination was interpreted and the report reviewed and electronically signed by: FELICE SUMMERS DO on Aug 08 2024 10:37AM EST [id number] Normal [facility] XR Chest PA and Lateralon IMPRESSION: No acute radiographic abnormality. Key Carrier: ROBIN Transcribe Date/Time: Aug 08 2024 10:36A Dictated by : FELICE SUMMERS DO This examination was interpreted and the report reviewed and electronically signed by: FELICE SUMMERS DO on Aug 08 2024 10:37AM [facility] DIVISION OF RADIOLOGY * * *Final Report* [...] soft tissues: Unremarkable. DIVISION OF RADIOLOGY Provider, [facility] - 08/08/2024 * * *Final Report* [...] Unremarkable. IMPRESSION IMPRESSION: No acute radiographic abnormality. Key Carrier: ROBIN Transcribe Date/Time: Aug 08 2024 10:36A Dictated by : FELICE SUMMERS DO This examination was interpreted and the report reviewed and electronically signed by: FELICE SUMMERS DO on Aug 08 2024 10:37AM EST [facility] Radiology Study observation (narrative) [facility] XR Chest PA and LateralOrder ed By: Ccf Provider on 08-08-2024 [facility] CNOVon 07-16-2024 CNOV Office Visit (FAMPWS) SHERIF LICONA ([id number]) 3 F Date Time Provider Department 07/16/24 10:00 AM RISA HAUSER During your visit today, we recorded the following information about you: Pulse Respiration Blood pressure Weight 76/minute 18/minute 108/68 70 kg Risa Hauser APRN.LUMBER CARRIER 07/16/2024 10:18 AM Signed 07/16/2024 Patient presents with: Forms: 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 Since last office visit has been in good health. Had baby boy 8 months ago. Doing well Taking Zoloft as prescribbed without side effects. Works well to control symptoms. Not currently attending counseling. Denies SI, HI or insomnia Will be working at [email or web address] . 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 Patient advised if symptoms do not improve or if symptoms worsen sooner, to contact their primary care physician. Potential red flag symptoms discussed with the patient. Reviewed appropriate action plan to take i (more content not included)... Normal [facility] BB ANTIBODY IDon 11-17-2023 BB ANTIBODY ID Normal [facility] Comment on above: Result Comment: ANTI BODY(S) IDENTIFIED: _PASSIVE_ANTI-D_DUE_TO_RHOGAM 11/17/23.0928.TR . Performed By: #### 2 78466 #### [facility],[address] [place] [address] BB GAMULIN WORKUPon 11-17-19 24 ABO O Normal [facility] Comment on above: Performed By: #### 2 67769 #### [place] [address] ANTIBODY SCR Positive Abnormal [facility] Comment on above: Result Comment: { Nu mber of Vials 1 Performed By: #### 2 72419 #### [facility],[address] [place], [place] [address] BB GAMULIN WORKUP Normal [facility] Comment on above: Result Comment: ALICIA ROUSE Performed By: #### 2 15582 #### [facility],[address] [place] [address] Rh Nom (Bld) Negative Normal [facility] Comment on above: Performed By: #### 2 07498 #### [facility],[address] [place] [address] CBC + DIFFon 11-17-2023 Baso # 0.10 x10EE3/UL Normal 0.00 - 0.10 [facility] Comment on above: Performed By: #### 2 81621 #### [facility],[address] [place] [address] Basophils/100 WBC (Bld) 0.3 % Normal 0.0 - 2.0 [facility] Comment on above: Performed By: #### 2 87604 #### [facility],[address] [place] [address] CBC + DIFF Normal [facility] Comment on above: Result Comment: CBC- COMPLETE BLOOD COUNT Performed By: #### 2 75129 #### [facility],[address] [place] [address] EO # 0.10 x10EE3/UL Normal 0.00 - 0.50 [facility] Comment on above: Performed By: #### 2 18682 #### [facility],[address] [place] [address] Eosinophils/100 WBC (Bld) 0.4 % Normal 0.0 - 7.0 [facility] Comment on above: Performed By: #### 2 82898 #### [place] [address] Erythrocyte distribution width (RBC) [Ratio] 14.3 % Normal 12.0 - 15.6 [facility] Comment on above: Performed By: #### 2 80693 #### [facility],[address] [place], [place] [address] Hematocrit (Bld) [Volume fraction] 32.9 % Low 34.0 - 46.0 [facility] Comment on above: Performed By: #### 2 75307 #### [facility],[address] [place] [address] Hemoglobin (Bld) [Mass/Vol] 10.6 g/dL Low 12.0 - 16.0 [facility] Comment on above: Performed By: #### 2 03583 #### [facility],[address] [place], [place] [address] Lymph # 2.40 x10EE3/UL Normal 0.80 - 2.80 [facility] Comment on above: Performed By: #### 2 28825 #### [facility],[address] [place], [place] [address] Lymphocytes/100 WBC (Bld) 15.4 % Low 20.0 - 45.0 [facility] Comment on above: Performed By: #### 2 30870 #### [facility],[address] [place] [address]207 MANUAL DIFF N/A Normal [facility] Comment on above: Performed By: #### 2 07902 #### [facility],[address] [place] [address] MCH (RBC) [Entitic mass] 28 pg Normal 27 - 33 [facility] Comment on above: Performed By: #### 2 25501 #### [facility],[address] [place] [address] MCHC 32 X10 3 Normal 32 - 36 [facility] Comment on above: Performed By: #### 2 61626 #### [facility],[address] [place] [address]351 MCV (RBC) [Entitic vol] 87 fL Normal 80 - 99 [facility] Comment on above: Performed By: #### 2 12336 #### [facility],[address] [place], [place] [address] [place] # 1.80 x10EE3/UL High 0.20 - 1.00 [facility] Comment on above: Performed By: #### 2 36369 #### [facility],[address] [place] [address]68 MONOS % 11.6 % High 0.0 - 10.0 [facility] Comment on above: Performed By: #### 2 55004 #### [facility],[address] [place] [address] Morphology Osvaldo (Bld) [Interp] N/A Normal [facility] Comment on above: Result Comment: {CD] Performed By: #### 2 61325 #### [facility],[address] [place] [address] Neut # 11.10 x10EE3/UL High 1.50 - 7.10 [facility] Comment on above: Performed By: #### 2 01021 #### [facility],[address] [place], [place] [address] Neutrophils/100 WBC (Bld) 72.3 % Normal 46.0 - 76.0 [facility] Comment on above: Performed By: #### 2 19056 #### [facility],[address] [place] [address] PLATELET 244 x10EE3/UL Normal 150 - 450 [facility] Comment on above: Performed By: #### 2 03255 #### [facility],[address] [place] [address] Platelet mean volume (Bld) [Entitic vol] 9.2 fL Normal 6.6 - 10.5 [facility] Comment on above: Result Comment: AUTO MATED DIFFERENTIAL Performed By: #### 2 62731 #### [facility],[address] [place], [place] [address] RBC 3.79 x 10EE6/UL Low 4.10 - 5.30 [facility] Comment on above: Performed By: #### 2 74957 #### [facility],[address] [place] [address] WBC 15.4 x 10EE3/UL High 4.5 - 10.8 [facility] Comment on above: Performed By: #### 2 33231 #### [facility],[address] [place] [address] CELL SCREENon 11-17-19 24 # OF RHOGAM REQUIRED 1 Normal [facility] Comment on above: Performed By: #### 2 15780 #### [facility],[address] [place] [address] Cell Sc NORMAL Normal [facility] Comment on above: Performed By: #### 2 31095 #### [facility],[address] [place] [address] ACTIM PROMon 11-16-2023 ACTIM PROM Positive Normal NORMAL: NEGATIVE [facility] Comment on above: Performed By: #### 2 73157 #### [facility],[address] [place] [address] EXTERNAL QC DONE? YES Normal [facility] Comment on above: Result Comment: Acti m PROM is a rapid immunoassay that specifically detects Insulin-like Growth Factor Binding Protein-1 (IGFBP-1). IGFBP-1 levels in amniotic fluid rise in early and remain high until term. When the membranes are ruptured, IGFBP-1 is detectable in a vaginal sample. Performed By: #### 2 75972 #### [facility],[address] [place] [address] INTERNAL NEG QC PASS Normal [facility] Comment on above: Performed By: #### 2 55901 #### [facility],[address] [place] [address] INTERNAL POS QC PASS Normal [facility] Comment on above: Performed By: #### 2 50352 #### [facility],[address] [place] [address] AMNIon 11-16-2023 Amnisure Negative Normal Negative [facility] ([place]) Comment on above: Performed By: #### A MNI #### [facility] [address] [address] BB TYPE & SCREENon 4 ABO O Normal [facility] Comment on above: Performed By: #### 2 57355 #### [facility],[address] [place] [address] ANTIBODY SCR Positive Abnormal [facility] Comment on above: Result Comment: ==== FOLLOWING RESULTS REPORTED IN ERROR ANTIBODY SCR negative <-- *Previously reported in error 11/16/23.2127.AEL. . .M 890-4 SCREEN POSITIVE ON GAMULIN WORKUP REPEATED SCREEN FOR VERIFICATION TRR Performed By: #### 2 95342 #### [facility],[address] [place] [address] BB TYPE & SCREEN Normal [facility] Comment on above: Result Comment: CORRECTED REPORT TYPE, Rh, AND SCREEN Performed By: #### 2 56430 #### [facility],[address] [place] [address]14 Rh Nom (Bld) Negative Normal [facility] Comment on above: Performed By: #### 2 71746 #### [facility],[address] [place] [address] CBC + DIFFon 11-16-2023 Baso # 0.00 x10EE3/UL Normal 0.00 - 0.10 [facility] Comment on above: Performed By: #### 2 58242 #### [facility],[address] [place], [place] [address] Basophils/100 WBC (Bld) 0.4 % Normal 0.0 - 2.0 [facility] Comment on above: Performed By: #### 2 15043 #### [facility],[address] [place] [address] CBC + DIFF Normal [facility] Comment on above: Result Comment: CBC- COMPLETE BLOOD COUNT Performed By: #### 2 75403 #### [facility],[address] [place] [address] EO # 0.10 x10EE3/UL Normal 0.00 - 0.50 [facility] Comment on above: Performed By: #### 2 87321 #### [facility],[address] [place] [address] Eosinophils/100 WBC (Bld) 0.8 % Normal 0.0 - 7.0 [facility] Comment on above: Performed By: #### 2 46216 #### [facility],[address] [place] [address] Erythrocyte distribution width (RBC) [Ratio] 14.5 % Normal 12.0 - 15.6 [facility] Comment on above: Performed By: #### 2 80474 #### [facility],[address] [place] [address] Hematocrit (Bld) [Volume fraction] 35.6 % Normal 34.0 - 46.0 [facility] Comment on above: Performed By: #### 2 40432 #### [facility],[address] [place], [place] [address] Hemoglobin (Bld) [Mass/Vol] 11.1 g/dL Low 12.0 - 16.0 [facility] Comment on above: Performed By: #### 2 48438 #### [facility],[address] [place] [address] Lymph # 1.70 x10EE3/UL Normal 0.80 - 2.80 [facility] Comment on above: Performed By: #### 2 19334 #### [facility],[address] [place] [address] 07101 Lymphocytes/100 WBC (Bld) 15.1 % Low 20.0 - 45.0 [facility] Comment on above: Performed By: #### 2 62170 #### [facility],[address] [place] [address] MANUAL DIFF N/A Normal [facility] Comment on above: Performed By: #### 2 32854 #### [facility],[address] [place], [place] [address] MCH (RBC) [Entitic mass] 27 pg Normal 27 - 33 [facility] Comment on above: Performed By: #### 2 20832 #### [facility],[address] [place] [address] MCHC 31 X10 3 Low 32 - 36 [facility] Comment on above: Performed By: #### 2 37040 #### [facility],[address] [place] [address]4611 MCV (RBC) [Entitic vol] 87 fL Normal 80 - 99 [facility] Comment on above: Performed By: #### 2 40282 #### [facility],[address] [place] [address] [place] # 1.30 x10EE3/UL High 0.20 - 1.00 [facility] Comment on above: Performed By: #### 2 38265 #### [facility],[address] [place] [address] MONOS % 10.9 % High 0.0 - 10.0 [facility] Comment on above: Performed By: #### 2 77425 #### [facility],[address] [place] [address] Morphology Osvaldo (Bld) [Interp] N/A Normal [facility] Comment on above: Result Comment: {CD] Performed By: #### 2 78338 #### [facility],[address] [place] [address]358 Neut # 8.40 x10EE3/UL High 1.50 - 7.10 [facility] Comment on above: Performed By: #### 2 76815 #### [facility],[address] [place] [address] Neutrophils/100 WBC (Bld) 72.8 % Normal 46.0 - 76.0 [facility] Comment on above: Performed By: #### 2 30729 #### [facility],[address] [place] [address]89 PLATELET 265 x10EE3/UL Normal 150 - 450 [facility] Comment on above: Performed By: #### 2 53462 #### [facility],[address] [place] [address]10 Platelet mean volume (Bld) [Entitic vol] 10.1 fL Normal 6.6 - 10.5 [facility] Comment on above: Result Comment: AUTO MATED DIFFERENTIAL Performed By: #### 2 72082 #### [facility],[address] [place] [address]9578 RBC 4.07 x 10EE6/UL Low 4.10 - 5.30 [facility] Comment on above: Performed By: #### 2 19029 #### [facility],[address] [place] [address] 81855 WBC 11.5 x 10EE3/UL High 4.5 - 10.8 [facility] Comment on above: Performed By: #### 2 72445 #### [facility],[address] [place] [address] LABORATORYOrdered By: Alyssa Hawthorne on 11-16-2023 [id number] .placental Ql (Vag fld) Negative (11/16/23 1:10 PM) Normal Negative AO Rapid Testing SS RPRon 09-07-2023 Reagin Ab RPR Ql (S) Non-Reactive Normal Non-Reactive [facility] ([place]) Comment on above: Result Comment: The RPR [...] NSG, ADIFF, ABOG, CBC, GLU1P, ANEU #### [place] [address] #### RPR #### [address] [address] .Auto Diffon 09-06-2023 Basophil, Absolute 0.0 10 3/mcL Normal 0.0-0.2 [facility] ([place]) Comment on above: Performed By: #### A NSG, ADIFF, ABOG, CBC, GLU1P, ANEU #### [address] [address] #### RPR #### [address] [address] Basophils/100 WBC (Bld) 0.2 % Normal 0.0-2.5 [facility] ([place]) Comment on above: Performed By: #### A NSG, ADIFF, ABOG, CBC, GLU1P, ANEU #### [place] [address] #### RPR #### [address] [address] Eosinophil, Absolute 0.1 10 3/mcL Normal 0.0-0.4 [facility] ([place]) Comment on above: Performed By: #### A NSG, ADIFF, ABOG, CBC, GLU1P, ANEU #### [place] [address] #### RPR #### [address] [address] Eosinophils/100 WBC (Bld) 0.7 % Normal 0.0-7.0 [facility] ([place]) Comment on above: Performed By: #### A NSG, ADIFF, ABOG, CBC, GLU1P, ANEU #### [address] [address] #### RPR #### [address] [address] Lymphocyte, Absolute 1.6 10 3/mcL Normal 0.8-3.9 [facility] ([place]) Comment on above: Performed By: #### A NSG, ADIFF, ABOG, CBC, GLU1P, ANEU #### [address] [address] #### RPR #### [address] [address] Lymphocytes/100 WBC (Bld) 14.4 % Normal 10.0-50.0 [facility] ([place]) Comment on above: Performed By: #### A NSG, ADIFF, ABOG, CBC, GLU1P, ANEU #### [address] [address] #### RPR #### [address] [address] Monocyte, Absolute 0.8 10 3/mcL Normal 0.2-1.0 [facility] ([place]) Comment on above: Performed By: #### A NSG, ADIFF, ABOG, CBC, GLU1P, ANEU #### [place] [address] #### RPR #### [address] [address] Monocytes/100 WBC (Bld) 6.6 % Normal 1.7-13.0 [facility] ([place]) Comment on above: Performed By: #### A NSG, ADIFF, ABOG, CBC, GLU1P, ANEU #### [address] [address] #### RPR #### [address] [address] Neutrophils/100 WBC (Bld) 78.1 % Normal 37.0-80.0 [facility] ([place]) Comment on above: Performed By: #### A NSG, ADIFF, ABOG, CBC, GLU1P, ANEU #### [place] [address] #### RPR #### [address] [address] .NEUABSon 09-06-2023 Neutrophil, Absolute 8.8 10 3/mcL High 2.9-6.2 [facility] ([place]) Comment on above: Performed By: #### A NSG, ADIFF, ABOG, CBC, GLU1P, ANEU #### [place] [address] #### RPR #### [place] [address] CBCon 09-06-2023 Erythrocyte distribution width (RBC) [Ratio] 12.9 % Normal 11.5-14.5 [facility] ([place]) Comment on above: Performed By: #### A NSG, ADIFF, ABOG, CBC, GLU1P, ANEU #### [place] [address] #### RPR #### [place] [address] Hematocrit (Bld) [Volume fraction] 33.1 % Low 37.0-47.0 [facility] ([place]) Comment on above: Performed By: #### A NSG, ADIFF, ABOG, CBC, GLU1P, ANEU #### [place] [address] #### RPR #### [place] [address] Hgb 10.9 G/dL Low 12.0-16.0 [facility] ([place]) Comment on above: Performed By: #### A NSG, ADIFF, ABOG, CBC, GLU1P, ANEU #### [place] [address] #### RPR #### [place] [address] MCH (RBC) [Entitic mass] 28.3 pg Normal 27.0-31.2 [facility] ([place]) Comment on above: Performed By: #### A NSG, ADIFF, ABOG, CBC, GLU1P, ANEU #### [place] [address] #### RPR #### [place] [address] MCHC 32.9 G/dL Low 33.0-37.0 [facility] ([place]) Comment on above: Performed By: #### A NSG, ADIFF, ABOG, CBC, GLU1P, ANEU #### [place] [address] #### RPR #### [place] [address] MCV (RBC) [Entitic vol] 86.0 fL Normal 80.0-94.0 [facility] ([place]) Comment on above: Performed By: #### A NSG, ADIFF, ABOG, CBC, GLU1P, ANEU #### [place] [address] #### RPR #### [place] [address] Platelet 253 10 3/mcL Normal 130-400 [facility] ([place]) Comment on above: Performed By: #### A NSG, ADIFF, ABOG, CBC, GLU1P, ANEU #### [place] [address] #### RPR #### [place] [address] Platelet mean volume (Bld) [Entitic vol] 8.7 fL Normal 7.4-10.4 [facility] ([place]) Comment on above: Performed By: #### A NSG, ADIFF, ABOG, CBC, GLU1P, ANEU #### [place] [address] #### RPR #### [address] [address] RBC 3.85 10 6/mcL Low 4.20-5.40 [facility] ([place]) Comment on above: Performed By: #### A NSG, ADIFF, ABOG, CBC, GLU1P, ANEU #### [address] [address] #### RPR #### [place] [address] WBC 11.3 10 3/mcL High 4.6-10.8 [facility] ([place]) Comment on above: Performed By: #### A NSG, ADIFF, ABOG, CBC, GLU1P, ANEU #### [place] [address] #### RPR #### [place] [address] PHL8Lrb 09-06-2023 Glucose [Mass/Vol] 157 mg/dL High 70-140 [facility] ([place]) Comment on above: Performed By: #### A NSG, ADIFF, ABOG, CBC, GLU1P, ANEU #### [place] [address] #### RPR #### [place] [address] Gel ABOon 09-06-2023 ABO/Rh Interp Negative Invalid Interpretation Code [facility] ([place]) Comment on above: Performed By: #### A NSG, ADIFF, ABOG, CBC, GLU1P, ANEU #### [place] [address] #### RPR #### [address] [address] Gel ABSon 09-06-2023 Antibody Screen Gel Negative Normal [facility] ([place]) Comment on above: Performed By: #### A NSG, ADIFF, ABOG, CBC, GLU1P, ANEU #### [place] [address] #### RPR #### [place] [id number] LABORATORYOrdered By: Jose Dyson on 09-06-2023 ABO/Rh [...] # 0.00 x10EE3/UL Normal 0.00 - 0.10 [facility] Comment on above: Performed By: #### 2 89993 #### [facility],[address] [place] [address]605 Basophils/100 WBC (Bld) 0.3 % Normal 0.0 - 2.0 [facility] Comment on above: Performed By: #### 2 80828 #### [facility],[address] [place] [address] 34339 CBC + DIFF Normal [facility] Comment on above: Result Comment: CBC- COMPLETE BLOOD COUNT Performed By: #### 2 78473 #### [facility],[address] [place] [address]26 EO # 0.10 x10EE3/UL Normal 0.00 - 0.50 [facility] Comment on above: Performed By: #### 2 15353 #### [facility],[address] [place] [address]20 Eosinophils/100 WBC (Bld) 0.7 % Normal 0.0 - 7.0 [facility] Comment on above: Performed By: #### 2 15945 #### [facility],[address] [place] [address] Erythrocyte distribution width (RBC) [Ratio] 12.7 % Normal 12.0 - 15.6 [facility] Comment on above: Performed By: #### 2 61068 #### [facility],[address] [place] [address] Hematocrit (Bld) [Volume fraction] 36.4 % Normal 34.0 - 46.0 [facility] Comment on above: Performed By: #### 2 85863 #### [facility],[address] [place] [address] Hemoglobin (Bld) [Mass/Vol] 11.9 g/dL Low 12.0 - 16.0 [facility] Comment on above: Performed By: #### 2 28499 #### [facility],[address] [place] [address] Lymph # 2.50 x10EE3/UL Normal 0.80 - 2.80 [facility] Comment on above: Performed By: #### 2 20816 #### [facility],[address] [place] [address] Lymphocytes/100 WBC (Bld) 21.1 % Normal 20.0 - 45.0 [facility] Comment on above: Performed By: #### 2 85611 #### [facility],[address] [place] [address] MANUAL DIFF N/A Normal [facility] Comment on above: Performed By: #### 2 47884 #### [facility],[address] [place] [address] MCH (RBC) [Entitic mass] 29 pg Normal 27 - 33 [facility] Comment on above: Performed By: #### 2 33084 #### [facility],[address] [place], [place] [id number] MCHC 33 X10 3 Normal 32 - 36 [facility] Comment on above: Performed By: #### 2 78392 #### [facility],[address] [place], [place] [id number] MCV (RBC) [Entitic vol] 88 fL Normal 80 - 99 [facility] Comment on above: Performed By: #### 2 11705 #### [facility],[address] [place] [address] [place] # 1.10 x10EE3/UL High 0.20 - 1.00 [facility] Comment on above: Performed By: #### 2 59719 #### [facility],[address] [place] [address] 16222 MONOS % 9.4 % Normal 0.0 - 10.0 [facility] Comment on above: Performed By: #### 2 37908 #### [facility],[address] [place] [address] Morphology Osvaldo (Bld) [Interp] N/A Normal [facility] Comment on above: Performed By: #### 2 81584 #### [facility],[address] [place] [address] Neut # 8.10 x10EE3/UL High 1.50 - 7.10 [facility] Comment on above: Performed By: #### 2 82350 #### [facility],[address] [place] [address] Neutrophils/100 WBC (Bld) 68.5 % Normal 46.0 - 76.0 [facility] Comment on above: Performed By: #### 2 19673 #### [facility],[address] [place] [address] PLATELET 282 x10EE3/UL Normal 150 - 450 [facility] Comment on above: Performed By: #### 2 12980 #### [facility],[address] [place] [address] Platelet mean volume (Bld) [Entitic vol] 8.7 fL Normal 6.6 - 10.5 [facility] Comment on above: Result Comment: AUTO MATED DIFFERENTIAL Performed By: #### 2 37824 #### [facility],[address],[place] [address] RBC 4.16 x 10EE6/UL Normal 4.10 - 5.30 [facility] Comment on above: Performed By: #### 2 95907 #### [facility],[address] [place] [address] WBC 11.9 x 10EE3/UL High 4.5 - 10.8 [facility] Comment on above: Performed By: #### 2 68241 #### [facility],[address] [place] [address]362 CMP with eGFRon 08-04-2023 AGE 17 years Normal [facility] Comment on above: Performed By: #### 2 73323 #### [facility],[address] [place] [address]331 Albumin [Mass/Vol] 2.9 g/dL Low 3.4 - 5.0 [facility] Comment on above: Performed By: #### 2 85196 #### [facility],[address] [place] [address]65 Albumin/Globulin [Mass ratio] 0.7 {ratio} Low 0.9 - 1.6 [facility] Comment on above: Performed By: #### 2 07759 #### [facility],[address] [place] [address] 28972 ALK PHOS 107 U/L Normal 46 - 116 [facility] Comment on above: Performed By: #### 2 10702 #### [facility],[address] [place] [address] 14050 ALT [Catalytic activity/Vol] 24 U/L Normal 14 - 59 [facility] Comment on above: Performed By: #### 2 50394 #### [facility],[address] [place] [address] Anion gap [Moles/Vol] 16 mmol/L Normal 10 - 20 [facility] Comment on above: Performed By: #### 2 20063 #### [facility],[address] [place] [address] 86596 AST [Catalytic activity/Vol] 13 U/L Normal 13 - 39 [facility] Comment on above: Performed By: #### 2 35141 #### [facility],[address] [place] [address] B/C RATIO 11 ratio Normal 0 - 30 [facility] Comment on above: Performed By: #### 2 29173 #### [facility],[address] [place] [address] Bilirubin [Mass/Vol] 0.3 mg/dL Normal 0.2 - 1.0 [facility] Comment on above: Performed By: #### 2 64361 #### [facility],[address] [place] [address] 78402 Calcium [Mass/Vol] 9.0 mg/dL Normal 8.5 - 10.1 [facility] Comment on above: Performed By: #### 2 50389 #### [facility],[address] [place] [address] 99092 Chloride [Moles/Vol] 101 mmol/L Normal 98 - 107 [facility] Comment on above: Performed By: #### 2 15115 #### [facility],[address] [place] [address]84 CMP with eGFR Normal [facility] Comment on above: Result Comment: COMP REHENSIVE METABOLIC PANEL Performed By: #### 2 94667 #### [facility],[address] [place] [address] 84242 CO2 [Moles/Vol] 26.3 mmol/L Normal 21.0 - 32.0 [facility] Comment on above: Performed By: #### 2 36030 #### [facility],[address] [place] [address] 44068 Creatinine [Mass/Vol] 0.63 mg/dL Normal 0.55 - 1.02 [facility] Comment on above: Performed By: #### 2 61000 #### [facility],[address] [place] [address]42 GFR/1.73 sq M.predicted among non-blacks MDRD (S/P/Bld) [Vol rate/Area] mL/min/{1.73_m2} Normal 60 - 999 [facility] Comment on above: Performed By: #### 2 76578 #### [facility],[address] [place] [address] Result Comment: ACCO RDING TO THE NATIONAL KIDNEY DISEASE EDUCATION PROGRAM(NKDE), A NORMAL eGFR IS A VALUE GREATER THAN OR EQUAL TO 60 ML/MIN/1.73 SQ METERS. CHRONIC KIDNEY DISEASE: <60mL/MIN/1.73 SQ METERS KIDNEY FAILURE: <15mL/MIN/1.73 SQ METERS THIS TEST SHOULD ONLY BE USED FOR PATIENTS 18 YEARS OF AGE AND OLDER. Globulin (S) [Mass/Vol] 3.9 g/dL High 1.5 - 3.8 [facility] Comment on above: Performed By: #### 2 99863 #### [facility],[address] [place] [address]3698 Glucose [Mass/Vol] 80 mg/dL Normal 74 - 106 [facility] Comment on above: Performed By: #### 2 88229 #### [facility],[address] [place] [address] 10924 Potassium [Moles/Vol] 3.8 mmol/L Normal 3.5 - 5.1 [facility] Comment on above: Performed By: #### 2 83686 #### [facility],[address] [place] [address] 84433 Protein [Mass/Vol] 6.8 g/dL Normal 6.4 - 8.2 [facility] Comment on above: Performed By: #### 2 79806 #### [facility],[address] [place] [address] 97449 Sodium [Moles/Vol] 139 mmol/L Normal 136 - 145 [facility] Comment on above: Performed By: #### 2 90625 #### [facility],[address] [place], [place] [id number] Urea nitrogen [Mass/Vol] 7 mg/dL Normal 7 - 18 [facility] Comment on above: Performed By: #### 2 63210 #### [facility],[address] [place], [place] [id number] URINALYSISon 08-03-2023 Amorphous 4+ Normal [facility] Comment on above: Performed By: #### 2 67689 #### [facility],[address] [place] [address] Bacteria 2+ Normal [facility] Comment on above: Performed By: #### 2 10738 #### [facility],[address] [place], [place] [phone] Bilirubin Ql (U) Negative Normal NORMAL: NEGATIVE [facility] Comment on above: Performed By: #### 2 55634 #### [facility],[address] [place] [address] Casts NONE Normal [facility] Comment on above: Performed By: #### 2 40828 #### [facility],[address] [place], [place] [id number] Clarity (U) SL. CLOUDY Abnormal NORMAL: CLEAR [facility] Comment on above: Performed By: #### 2 13310 #### [facility],[address] [place], [place] [phone] Color (U) YELLOW Normal NORMAL: YELLOW [facility] Comment on above: Performed By: #### 2 05781 #### [facility],[address] [place] [address] 59990 Crystals LM Nom (Urine sed) NONE Normal [facility] Comment on above: Performed By: #### 2 44392 #### [facility],[address] [place] [address] 11371 Epi Cells MANY Normal [facility] Comment on above: Performed By: #### 2 94250 #### [facility],[address] [place] [address] 57051 Glucose Ql (U) NORM Normal NORMAL: NORMAL [facility] Comment on above: Performed By: #### 2 63251 #### [facility],[address] [place] [address] 86347 Hemoglobin Ql (U) Negative Normal NORMAL: NEGATIVE [facility] Comment on above: Performed By: #### 2 95265 #### [facility],[address] [place] [address] 42688 Ketone Negative Normal NORMAL: NEGATIVE [facility] Comment on above: Performed By: #### 2 91457 #### [facility],[address] [place] [address] 85226 Leukocytes 500 Abnormal NORMAL: NEGATIVE [facility] Comment on above: Performed By: #### 2 67778 #### [facility],[address] [place] [address] 56782 Mucous NONE Normal [facility] Comment on above: Performed By: #### 2 70482 #### [facility],[address] [place] [address] 35768 Nitrite Ql (U) Negative Normal NORMAL: NEGATIVE [facility] Comment on above: Performed By: #### 2 84091 #### [facility],[address] [place] [address] 54220 pH (U) 7.0 [pH] Normal NORMAL: 5.0-8.0 [facility] Comment on above: Performed By: #### 2 93500 #### [facility],[address] [place] [address] 59263 Protein Ql (U) 15 Abnormal NORMAL: NEGATIVE [facility] Comment on above: Performed By: #### 2 37500 #### [facility],[address] [place] [address] 85608 Rbc NONE Normal 0-3/hpf [facility] Comment on above: Performed By: #### 2 51405 #### [facility],[address] [place] [address] Sp [place] 1.010 Normal NORMAL: 1.010-1.030 [facility] Comment on above: Performed By: #### 2 20744 #### [facility],[address] [place] [address] Specimen Type Void Normal [facility] Comment on above: Performed By: #### 2 63148 #### [facility],[address] [place] [address] Urinalysis dipstick W Reflex Microscopic panel (U) SEE BELOW Normal [facility] Comment on above: Result Comment: MICR OSCOPIC Performed By: #### 2 59916 #### [facility],[address] [place] [address] Urobilinog NORMAL Normal NORMAL: NORMAL [facility] Comment on above: Performed By: #### 2 18296 #### [facility],[address] [place] [address] Wbc 11-15 Normal 0-5/hpf [facility] Comment on above: Performed By: #### 2 45348 #### [facility],[address] [place] [address] Yeast NONE Normal [facility] Comment on above: Performed By: #### 2 53577 #### [facility],[address] [place] [address] PREG SERUM QUANTon 3 HCG QUANTITATIVE 9618 mIU/mL High 0 - 6 [facility] Comment on above: Result Comment: Refe [...] 3RD TRIMESTER 1000-50,000 Performed By: #### 2 07997 #### [facility],[address] [place] [address] UA DIP, URINE (POC)on 2022 BILIRUBIN UA (POCT) Small Abnormal Negative [facility] CLARITY UA (POCT) Cloudy [facility] COLOR UA (POCT) [facility] GLUCOSE UA (POCT) Negative Negative mg/dL [facility] HEMOGLOBIN/BLOOD UA (POCT) Large Abnormal Negative [facility] KETONE UA (POCT) Negative Negative mg/dL [facility] LEUKOCYTES UA (POCT) Small Abnormal Negative [facility] NITRITE UA (POCT) Negative Negative [facility] PH UA (POCT) 5.5 4.5 - 8.0 [facility] Protein Ql (U) >=300 Abnormal Negative mg/dL [facility] SPECIFIC GRAVITY UA (POCT) >=1.030 1.005 - 1.030 [facility] UROBILINOGEN UA (POCT) 0.2 E.U./dL Normal E.U./dL [facility] BACTERIAL VAGINOSIS AMPLIFIC ATIONon 03-09-2023 Lactobacillus crispatus+gasseri+tita senii + Gardnerella vaginalis + Atopobium vaginae rRNA MARCO ANTONIO+probe Ql (Vag fld) Positive Abnormal Negative for bacterial vaginosis [facility] HCG QUAL UR B/Oon 03-08-2023 status Negative neg - pos [facility] Quality Check Yes [facility] UA DIP, URINE (POC)on 2022 BILIRUBIN UA (POCT) Negative Negative [facility] CLARITY UA (POCT) Clear [facility] COLOR UA (POCT) Light yellow [facility] GLUCOSE UA (POCT) Negative Negative mg/dL [facility] HEMOGLOBIN/BLOOD UA (POCT) Negative Negative [facility] KETONE UA (POCT) Negative Negative mg/dL [facility] LEUKOCYTES UA (POCT) Negative Negative [facility] NITRITE UA (POCT) Negative Negative [facility] PH UA (POCT) 6.0 4.5 - 8.0 [facility] Protein Ql (U) Negative Negative mg/dL [facility] SPECIFIC GRAVITY UA (POCT) <=1.005 Abnormal 1.005 - 1.030 [facility] UROBILINOGEN UA (POCT) 0.2 E.U./dL Normal E.U./dL [facility] LABORATORYOrdered By: Renetta Canchola on 04-12-2022 Albumin [...] 97.59 [degF] Krislyn Aberegg PA Work Phone: [facility] 12-01-2024 08:11-0500 Body weight 65.2 kg Krislyn Aberegg PA Work Phone: [facility] 12-01-2024 08:11-0500 Diastolic blood pressure 68 mm[Hg] Krislyn Aberegg PA Work Phone: [facility] 12-01-2024 08:11-0500 Heart rate 119 /min Krislyn Aberegg PA Work Phone: [facility] 12-01-2024 08:11-0500 Respiratory rate 19 /min Krislyn Aberegg PA Work Phone: [facility] 12-01-2024 08:11-0500 SaO2% (BldA) [Mass fraction] 98 % Krislyn Aberegg PA Work Phone: [facility] 12-01-2024 08:11-0500 Systolic blood pressure 100 mm[Hg] Krislyn Aberegg PA Work Phone: [facility] 08-16-2024 18:43-0400 Body temperature 98.8 [degF] Carlos Alberto Donovan MD Work Phone: [facility] 08-16-2024 18:43-0400 Body weight 70 kg Carlos Alberto Donovan MD Work Phone: [facility] 08-16-2024 18:43-0400 Diastolic blood pressure 78 mm[Hg] Carlos Alberto Donovan MD Work Phone: [facility] 08-16-2024 18:43-0400 Heart rate 95 /min Carlos Alberto Donovan MD Work Phone: [facility] 08-16-2024 18:43-0400 Respiratory rate 16 /min Carlos Alberto Donovan MD Work Phone: [facility] 08-16-2024 18:43-0400 SaO2% (BldA) [Mass fraction] 98 % Carlos Alberto Donovan MD Work Phone: [facility] 08-16-2024 18:43-0400 Systolic blood pressure 122 mm[Hg] Carlos Alberto Donovan MD Work Phone: [facility] 08-08-2024 09:59-0400 Body temperature 97.59 [degF] Denise Hogan FORENSIC NURSE.LUMBER CARRIER Work Phone: [facility] 08-08-2024 09:59-0400 Body weight 68 kg Denise Hogan FORENSIC NURSE.LUMBER CARRIER Work Phone: [facility] 08-08-2024 09:59-0400 Diastolic blood pressure 87 mm[Hg] Denise Hogan FORENSIC NURSE.LUMBER CARRIER Work Phone: [facility] 08-08-2024 09:59-0400 Heart rate 107 /min Denise Hogan FORENSIC NURSE.LUMBER CARRIER Work Phone: [facility] 08-08-2024 09:59-0400 Respiratory rate 20 /min Denise Hogan FORENSIC NURSE.LUMBER CARRIER Work Phone: [facility] 08-08-2024 09:59-0400 SaO2% (BldA) [Mass fraction] 97 % Denise Hogan FORENSIC NURSE.LUMBER CARRIER Work Phone: [facility] 08-08-2024 09:59-0400 Systolic blood pressure 116 mm[Hg] Denise Hogan FORENSIC NURSE.LUMBER CARRIER Work Phone: [facility] 07-16-2024 09:52-0400 Body weight 70.03 kg Risa Hauser FORENSIC NURSE.LUMBER CARRIER Work Phone: [facility] 07-16-2024 09:52-0400 Diastolic blood pressure 68 mm[Hg] Risa Podlogar FORENSIC NURSE.LUMBER CARRIER Work Phone: [facility] 07-16-2024 09:52-0400 Heart rate 76 /min Risa Podlogar FORENSIC NURSE.LUMBER CARRIER Work Phone: [facility] 07-16-2024 09:52-0400 Respiratory rate 18 /min Risa Podlogar FORENSIC NURSE.LUMBER CARRIER Work Phone: [facility] 07-16-2024 09:52-0400 SaO2% (BldA) [Mass fraction] 98 % Risa Podlogar FORENSIC NURSE.LUMBER CARRIER Work Phone: [facility] 07-16-2024 09:52-0400 Systolic blood pressure 108 mm[Hg] Risa Podlogar FORENSIC NURSE.LUMBER CARRIER Work Phone: [facility] 01-21-2024 00:32-0400 Body height 157.5 cm Albino Lo MD Work Phone: [facility] 01-21-2024 00:32-0400 Body mass index (BMI) [Ratio] 28.35 kg/m2 Albino Lo MD Work Phone: [facility] 01-21-2024 00:32-0400 Body temperature 98.01 [degF] Albino Lo MD Work Phone: [facility] 01-21-2024 00:32-0400 Body weight 70.31 kg Albino Lo MD Work Phone: [facility] 01-21-2024 00:32-0400 Diastolic blood pressure 88 mm[Hg] Albino Lo MD Work Phone: [facility] 01-21-2024 00:32-0400 Heart rate 84 /min Albino Lo MD Work Phone: [facility] 01-21-2024 00:32-0400 Respiratory rate 16 /min Albino Lo MD Work Phone: [facility] 01-21-2024 00:32-0400 SaO2% (BldA) [Mass fraction] 99 % Albino Lo MD Work Phone: [facility] 01-21-2024 00:32-0400 Systolic blood pressure 120 mm[Hg] Albino Lo MD Work Phone: [facility] 11-16-2023 13:15-0500 Body temperature 98.6 [degF] IDRIS KOCH FORENSIC NURSE-CNM [facility] 11-16-2023 13:15-0500 Diastolic Blood Pressure Non-Invasive 80 mm[Hg] IDRIS KOCH FORENSIC NURSE-CNM [facility] 11-16-2023 13:15-0500 Heart rate 96 /min IDRISHARDIK KOCH FORENSIC NURSE-CNM [facility] 11-16-2023 13:15-0500 Respiratory rate 16 /min IDRISHARDIK KOCH FORENSIC NURSE-CNM [facility] 11-16-2023 13:15-0500 Systolic Blood Pressure Non-Invasive 118 mm[Hg] IDRIS KOCH FORENSIC NURSE-CNM [facility] 11-16-2023 13:11-0500 Body height 157.5 cm IDRIS KOCH FORENSIC NURSE-CNM [facility] 11-16-2023 13:11-0500 Body mass index (BMI) [Percentile] Per age and sex 95.44 % IDRIS KOCH FORENSIC NURSE-CNM [facility] Comment on above: Result Comment: ^~:!Percentile Source -[place] 11-16-2023 13:11-0500 Body weight 78.5 kg IDRIS KOCH FORENSIC NURSE-CNM [facility] 11-16-2023 13:11-0500 Body weight 31.65 kg/m2 IDRIS KOCH FORENSIC NURSE-CNM [facility] 11-16-2023 13:11-0500 bodymassindex 1.69 kg/m2 IDRIS KOCH FORENSIC NURSE-CNM [facility] Comment on above: Result Comment: ^~:!ZScore Source [facility] 11-16-2023 13:11-0500 Height ZScore -0.89 1 IDRIS KOCH FORENSIC NURSE-CNM [facility] Comment on above: Result Comment: ^~:!ZScore [facility] 11-16-2023 13:11-0500 Percent Height for Age 18.66 % IDRIS KOCH FORENSIC NURSE-CNM [facility] Comment on above: Result Comment: ^~:!Percentile Source [facility] 11-11-2023 00:05-0500 Body temperature 98.24 [degF] NGOZI PEREZ FORENSIC NURSE-CNM [facility] 11-11-2023 00:05-0500 Diastolic Blood Pressure Non-Invasive 89 mm[Hg] NGOZI PEREZ FORENSIC NURSE-CNM [facility] 11-11-2023 00:05-0500 Heart rate 102 /min NGOZI PEREZ FORENSIC NURSE-CNM [facility] 11-11-2023 00:05-0500 Respiratory rate 18 /min NGOZI PEREZ FORENSIC NURSE-CNM [facility] 11-11-2023 00:05-0500 Systolic Blood Pressure Non-Invasive 129 mm[Hg] NGOZI PEREZ FORENSIC NURSE-CNM [facility] 11-11-2023 00:01-0500 Body height 157 cm NGOZI PEREZ FORENSIC NURSE-CNM [facility] 11-11-2023 00:01-0500 Body mass index (BMI) [Percentile] Per age and sex 95.6 % NGOZI PEREZ FORENSIC NURSE-CNM [facility] Comment on above: Result Comment: ^~:!Percentile Source -C [place] 11-11-2023 00:01-0500 Body weight 78.5 kg NGOZI PEREZ FORENSIC NURSE-CNM [facility] 11-11-2023 00:01-0500 Body weight 31.85 kg/m2 NGOZI PEREZ FORENSIC NURSE-CNM [facility] 11-11-2023 00:01-0500 bodymassindex 1.71 kg/m2 NGOZI PEREZ FORENSIC NURSE-CNM [facility] Comment on above: Result Comment: ^~:!ZScore Source -[facility] 11-11-2023 00:01-0500 Height ZScore -0.97 1 NGOZI PEREZ FORENSIC NURSE-CNM [facility] Comment on above: Result Comment: ^~:!ZScore Source -[facility] 11-11-2023 00:01-0500 Percent Height for Age 16.66 % NGOZI PEREZ FORENSIC NURSE-CNM [facility] Comment on above: Result Comment: ^~:!Percentile Source -[place] 09-06-2023 11:28-0500 Blood Pressure Method IDRIS ZEE FORENSIC NURSE-CNM [facility] 09-06-2023 11:28-0500 Body temperature 98.24 [degF] IDRIS KOCH FORENSIC NURSE-CNM [facility] 09-06-2023 11:28-0500 Diastolic Blood Pressure Non-Invasive 84 1 IDRIS KOCH FORENSIC NURSE-CNM [facility] 09-06-2023 11:28-0500 Heart rate 85 /min IDRIS KOCH FORENSIC NURSE-CNM [facility] 09-06-2023 11:28-0500 Respiratory rate 16 /min IDRIS KOCH FORENSIC NURSE-CNM [facility] 09-06-2023 11:28-0500 Systolic Blood Pressure Non-Invasive 127 1 IDRIS KOCH FORENSIC NURSE-CNM [facility] 08-16-2023 13:44-0400 Body weight 68.04 kg Risa Podlogar FORENSIC NURSE.LUMBER CARRIER Work Phone: [facility] 08-16-2023 13:44-0400 Diastolic blood pressure 74 mm[Hg] Risa Podlogar FORENSIC NURSE.LUMBER CARRIER Work Phone: [facility] 08-16-2023 13:44-0400 Heart rate 93 /min Risa Podlogar FORENSIC NURSE.LUMBER CARRIER Work Phone: [facility] 08-16-2023 13:44-0400 Respiratory rate 16 /min Risa Podlogar FORENSIC NURSE.LUMBER CARRIER Work Phone: [facility] 08-16-2023 13:44-0400 SaO2% (BldA) [Mass fraction] 98 % Risa Podlogar FORENSIC NURSE.LUMBER CARRIER Work Phone: [facility] 08-16-2023 13:44-0400 Systolic blood pressure 118 mm[Hg] Risa Podlogar FORENSIC NURSE.LUMBER CARRIER Work Phone: [facility] 07-27-2023 14:46-0400 Body temperature 97.81 [degF] Jacob Rodriguez MD Work Phone: [facility] 07-27-2023 14:46-0400 Body weight 65.73 kg Jacob Rodriguez MD Work Phone: [facility] 07-27-2023 14:46-0400 Heart rate 80 /min Jacob Rodriguez MD Work Phone: [facility] 07-27-2023 14:46-0400 Respiratory rate 16 /min Jacob Rodriguez MD Work Phone: [facility] 06-26-2023 16:20-0400 Blood Pressure Location PATITO SURESH DO [facility] 06-26-2023 16:20-0400 Blood Pressure Method PATITO SURESH DO [facility] 06-26-2023 16:20-0400 Body temperature 97.7 [degF] PATITO SURESH DO [facility] 06-26-2023 16:20-0400 Body weight 65.9 kg PATITO SUREHS DO [facility] 06-26-2023 16:20-0400 Diastolic Blood Pressure Non-Invasive 75 1 PATITO SURESH DO [facility] 06-26-2023 16:20-0400 Heart rate 93 /min PATITO SURESH DO [facility] 06-26-2023 16:20-0400 Respiratory rate 18 /min PATITO SURESH DO [facility] 06-26-2023 16:20-0400 Systolic Blood Pressure Non-Invasive 114 1 PATITO SURESH DO [facility] 03-30-2023 09:07-0400 Body temperature 98.6 [degF] Sophia Jaimes APRN.LUMBER CARRIER Work Phone: [facility] 03-30-2023 09:07-0400 Body weight 68.86 kg Sophia Jaimes APRN.LUMBER CARRIER Work Phone: [facility] 03-30-2023 09:07-0400 Diastolic blood pressure 80 mm[Hg] Sophia Praisler-Wood FORENSIC NURSE.LUMBER CARRIER Work Phone: [facility] 03-30-2023 09:07-0400 Heart rate 76 /min Sophia Praisler-Wood FORENSIC NURSE.LUMBER CARRIER Work Phone: [facility] 03-30-2023 09:07-0400 Respiratory rate 18 /min Sohpia Praisler-Wood FORENSIC NURSE.LUMBER CARRIER Work Phone: [facility] 03-30-2023 09:07-0400 SaO2% (BldA) [Mass fraction] 98 % Sophia Praisler-Wood FORENSIC NURSE.LUMBER CARRIER Work Phone: [facility] 03-30-2023 09:07-0400 Systolic blood pressure 110 mm[Hg] Sophia Praisler-Wood FORENSIC NURSE.LUMBER CARRIER Work Phone: [facility] 03-08-2023 16:51-0400 Body temperature 98.29 [degF] Roxana Athy PA-C Work Phone: [facility] 03-08-2023 16:51-0400 Body weight 71.67 kg Roxana Athy PA-C Work Phone: [facility] 03-08-2023 16:51-0400 Diastolic blood pressure 84 mm[Hg] Roxana Athy PA-C Work Phone: [facility] 03-08-2023 16:51-0400 Heart rate 102 /min Roxana Athy PA-C Work Phone: [facility] 03-08-2023 16:51-0400 Respiratory rate 21 /min Roxana Athy PA-C Work Phone: [facility] 03-08-2023 16:51-0400 SaO2% (BldA) [Mass fraction] 99 % Roxana Athy PA-C Work Phone: [facility] 03-08-2023 16:51-0400 Systolic blood pressure 132 mm[Hg] Roxana Athy PA-C Work Phone: [facility] 04-14-2022 10:01-0400 Body height 158.7 cm Jacob Rodriguez MD Work Phone: [facility] 04-14-2022 10:01-0400 Body mass index (BMI) [Percentile] Per age and sex 89.13 % Jacob Rodriguez MD Work Phone: [facility] 04-14-2022 10:01-0400 Body temperature 97.59 [degF] Jacob Rodriguez MD Work Phone: [facility] 04-14-2022 10:-0400 Body weight 67.22 kg Jacob Rodriguez MD Work Phone: [facility] 04-14-2022 10:01-0400 Heart rate 80 /min Jacob Rodriguez MD Work Phone: [facility] 04-14-2022 10:01-0400 Respiratory rate 18 /min Jacob Rodriguez MD Work Phone: [facility] 04-12-2022 02:55-0400 Diastolic blood pressure 85 mm[Hg] ANGELA REICHFIELD DO [facility] 04-12-2022 02:55-0400 Heart rate 89 /min ANGELA REICHFIELD DO [facility] 04-12-2022 02:55-0400 Respiratory rate 18 /min ANGELA REICHFIELD DO [facility] 04-12-2022 02:55-0400 Systolic blood pressure 131 mm[Hg] ANGELA REICHFIELD DO [facility] 04-11-2022 21:14-0400 Body temperature 98.6 [degF] ANGELA REICHFIELD DO [facility] 04-11-2022 21:14-0400 Heart rate 101 /min ANGELA REICHFIELD DO [facility] 04-11-2022 21:14-0400 Respiratory rate 18 /min ANGELA FOSTERICHFIELD DO [facility] 03-12-2022 09:35-0400 Body height 157.7 cm Jacob Rodriguez MD Work Phone: [facility] 03-12-2022 09:35-0400 Body mass index (BMI) [Percentile] Per age and sex 87.7 % Jacob Rodriguez MD Work Phone: [facility] 03-12-2022 09:35-0400 Body temperature 97.81 [degF] Jacob Rodriguez MD Work Phone: [facility] 03-12-2022 09:35-0400 Body weight 65.09 kg Jacob Rodriguez MD Work Phone: [facility] 03-12-2022 09:35-0400 Diastolic blood pressure 60 mm[Hg] Jacob Rodriguez MD Work Phone: [facility] 03-12-2022 09:35-0400 Heart rate 84 /min Jacob Rodriguez MD Work Phone: [facility] 03-12-2022 09:35-0400 Respiratory rate 16 /min Jaocb Rodriguez MD Work Phone: [facility] 03-12-2022 09:35-0400 Systolic blood pressure 112 mm[Hg] Jacbo Rodriguez MD Work Phone: [facility] 01-20-2022 13:55-0400 Body temperature 97.7 [degF] Jacob Rodriguez MD Work Phone: [facility] 01-20-2022 13:55-0400 Body weight 65.94 kg Jacob Rodriguez MD Work Phone: [facility] 01-20-2022 13:55-0400 Diastolic blood pressure 74 mm[Hg] Jacob Rodriguez MD Work Phone: [facility] 01-20-2022 13:55-0400 Heart rate 80 /min Jacob Rodriguez MD Work Phone: [facility] 01-20-2022 13:55-0400 Respiratory rate 18 /min Jacob Rodriguez MD Work Phone: [facility] 01-20-2022 13:55-0400 Systolic blood pressure 114 mm[Hg] Jacob Rodriguez MD Work Phone: [facility] Encounters Encounter Date Encounter Type Care Provider Facility Start: 08-29-2025 End: 08-29-2025 ambulatory Aida Watkins Facility:[facility] Start: 06-18-2025 End: 06-18-[address] JACOB RODRIGUEZ MD Facility:[facility] Start: 06-18-2025 End: 06-18-2025 Patient encounter procedure IDRIS KOCH APRN-CNMolly [facility] Start: 04-16-2025 ambulatory Jacob Rodriguez Facility:[facility] Start: 03-21-2025 End: 03-21-2025 ambulatory IDRIS KOCH APRN-CNMolly Facility:[facility] Start: 12-01-2024 End: 12-01-2024 ambulatory ABHI BAILEY Facility:[facility] Start: 12-01-2024 End: 12-01-2024 Patient encounter procedure Ravi PAULA Work Phone: [facility] Comment on above: URI, acute (Primary Dx) Start: 08-16-2024 End: 08-16-2024 ambulatory ABHI BAILEY Facility:[facility] Start: 08-16-2024 End: 08-16-2024 Office outpatient visit 25 minutes Carlos Alberto Donovan MD Work Phone: [facility] Comment on above: Acute otitis media, left (Primary Dx) Start: 08-08-2024 End: 08-09-2024 Telephone encounter Ravi PAULA Work Phone: [facility] Comment on above: Results Start: 08-08-2024 End: 08-08-2024 Subsequent hospital visit by physician Ashley [facility] [place] Work Phone: Radiology Comment on above: Acute cough [R05.1] Start: 08-08-2024 End: 08-08-2024 [facility] Start: 08-08-2024 End: 08-08-2024 Patient encounter procedure Denise Hogan FORENSIC NURSE.LUMBER CARRIER Work Phone: [facility] Comment on above: Acute cough (Primary Dx); URI, acute; Acute otitis media, right Start: 07-16-2024 End: 07-16-2024 Patient encounter procedure Risa Hauser FORENSIC NURSE.LUMBER CARRIER Work Phone: [facility] [place] Comment on above: Routine physical exa mination (Primary Dx); Anxiety and depression Start: 07-16-2024 End: 07-16-2024 ambulatory ABHI BAILEY Facility:[facility] Start: 07-16-2024 End: 07-16-2024 Physical examination Risa Hauser FORENSIC NURSE.LUMBER CARRIER Work Phone: [facility] Work Phone: Start: 01-21-2024 End: 01-21-2024 Emergency department patient visit ALBINO LO [facility] Start: 01-21-2024 End: 01-21-2024 Emergency department patient visit Albino Lo MD Work Phone: [facility] Emergency Dept Comment on above: Dental infection (Pr imary Dx) Start: 11-21-2023 End: 11-21-2023 ambulatory MARCOS MCMAHONM [facility] Start: 11-16-2023 End: 11-17-2023 Evaluation and management of inpatient TRUE EASLEY [facility] Start: 11-16-2023 End: 11-16-[address] JACOB RODRIGUEZ MD Facility:[facility] Start: 11-16-2023 End: 11-16-2023 SAME DAY STAY IDRIS Blair ZEE FORENSIC NURSE-CNM [facility] Start: 11-11-2023 End: 11-11-[address] JACOB RODRIGUEZ MD Facility:[facility] Start: 11-10-2023 End: 11-11-2023 SAME DAY STAY NGOZI PEREZ FORENSIC NURSE-CNM [facility] Start: 10-27-2023 End: 10-28-[address] JACOB RODRIGUEZ MD Facility:[facility] Start: 10-27-2023 End: 10-27-2023 Patient encounter procedure IDRIS Blair ZEE FORENSIC NURSE-CNM [facility] Start: 09-06-2023 End: 09-06-[address] JACOB RODRIGUEZ MD Facility:[facility] Start: 09-06-2023 End: 09-06-2023 SAME DAY STAY IDRIS Blair KOCH FORENSIC NURSE-CNM [facility] Start: 08-16-2023 End: 08-16-2023 Patient encounter procedure Risa Hauser FORENSIC NURSE.LUMBER CARRIER Work Phone: [facility] [place] Comment on above: Encounter to [facility] (Primary Dx); Anxiety and depression; , unspecified gestational age Start: 08-03-2023 End: 08-04-2023 Emergency department patient visit VU BARRETT [facility] Start: 08-03-2023 ambulatory Risa Hauser FORENSIC NURSE.LUMBER CARRIER Work Phone: [facility] [place] Comment on above: [facility] Start: 07-27-2023 End: 07-27-2023 Office outpatient visit 40 minutes Jacob Rodriguez MD Work Phone: [facility] [place] Comment on above: Nonintractable episo dic headache, unspecified headache type (Primary Dx); AMEYA (generalized anxiety disorder) Start: 07-24-2023 End: 07-25-[address] JACOB RODRIGUEZ MD Facility:[facility] Start: 07-24-2023 End: 07-24-2023 Patient encounter procedure IDRIS KOCH FORENSIC NURSE-CNM [facility] Start: 07-02-2023 End: 07-03-2023 Emergency department patient visit JACOB RODRIGUEZ [facility] Start: 06-26-2023 End: 06-26-2023 Emergency department patient visit DR JACOB RODRIGUEZ MD Facility:[facility] Start: 06-26-2023 End: 06-26-2023 Emergency department patient visit PATITO SURESH DO [facility] Start: 04-12-2023 End: 04-13-[address] JACOB RODRIGUEZ MD Facility:[facility] Start: 04-12-2023 End: 04-12-2023 Patient encounter procedure FIORLORENZO Blair CHRIS FORENSIC NURSE-CNM [facility] Start: 03-31-2023 End: 04-01-[address] JACOB RODRIGUEZ MD Facility:[facility] Start: 03-31-2023 End: 03-31-2023 Patient encounter procedure FIORLORENZO Blair CHRIS FORENSIC NURSE-CNM [facility] Start: 03-30-2023 Telephone encounter Ravi PAULA Work Phone: [facility] Comment on above: Results Start: 03-30-2023 End: 03-30-2023 Patient encounter procedure Sophia Jaimes FORENSIC NURSE.LUMBER CARRIER Work Phone: [facility] Comment on above: Dysuria (Primary Dx) ; Vaginal discharge Start: 03-09-2023 Telephone encounter Roxana medina PA-C Work Phone: [facility] Comment on above: Results Start: 03-08-2023 End: 03-08-2023 Patient encounter procedure Roxana Rodriguez PA-C [facility] Phone[facility] Comment on above: Urinary frequency (P rimary Dx); Vaginal discharge Start: 04-14-2022 End: 04-14-2022 Office outpatient visit 25 minutes Jacob Rodriguez MD Work Phone: [facility] [place] Comment on above: Depressive disorder (Primary Dx); AMEYA (generalized anxiety disorder) Start: 04-11-2022 End: 04-12-2022 Emergency department patient visit ANGELA HYDE DO [facility] Start: 03-12-2022 End: 03-12-2022 Office outpatient visit 25 minutes Jacob Rodriguez MD Work Phone: [facility] [place] Comment on above: Depressive disorder (Primary Dx); AMEYA (generalized anxiety disorder) Start: 02-14-2022 Refill Jacob Rodriguez MD Work Phone: [facility] [place] Comment on above: Refill Request Start: 02-13-2022 Refill Jacob Rodriguez MD Work Phone: [facility] [place] Comment on above: Refill Request Start: 01-20-2022 End: 01-20-2022 Patient encounter procedure Jacob Rodriguez MD Work Phone: [facility] [place] Comment on above: Depressive disorder (Primary Dx); AMEYA (generalized anxiety disorder) Procedures Date Procedure Procedure Detail Performing Clinician Start: 08-08-2024 Radiologic exam ches t 2 views Denise Hogan APRN.LUMBER CARRIER Work Phone: Start: 08-08-2024 STREP A MOLECULAR (POC) Denise Hogan APRN.LUMBER CARRIER Work Phone: Start: 08-03-2023 Urinalysis [facility]U Fischer Comment on above: Result Comment: URIN ALYSIS Performed By: #### 2 [id number] #### [facility],[address] [id number] Start: 03-30-2023 Urnls dip stick/tabl et rgnt auto w/o microscopy Sophia Jaimes APRN.LUMBER CARRIER Work Phone: Start: 03-08-2023 BACTERIAL VAGINOSIS AMPLIFICATION Roxana Rodriguez PA-C Work Phone: Start: 03-08-2023 End: 03-08-2023 Urnls dip stick/tablet rgnt auto w/o microscopy Sophia Jaimes APRN.LUMBER CARRIER Work Phone: Start: 04-14-2022 Adult depression scr [...] DTAP/TDAP/TD VACCINE (7 - Td or Tdap) [facility] Start: 05-11-2027 Urine microalbumin profile [facility] Start: 08-16-2024 Hepatitis C Screening Hepatitis C [facility] Comment on above: Postponed from 09/10 (Declined at this time) Start: 08-16-2024 Hepatitis C screening Hepatitis C [facility] Comment on above: Postponed from 09/10 (Declined at this time) Start: 08-16-2024 HIV Screening HIV Screening [facility] Comment on above: Postponed from 09/10 (Declined at this time) Start: 08-16-2024 HIV screening HIV Screening [facility] Comment on above: Postponed from 09/10 (Declined at this time) Start: 08-16-2024 Meningococcal B Vacc ine: Consider Based On Risk (1 of 2 - Patient Seeks Protection) Meningococcal B Vaccine: Consider Based On Risk (1 of 2 - Patient Seeks Protection) [facility] Comment on above: Postponed from 09/10 (Declined at this time) Start: 06-30-2024 Covid-19 Vaccine () Covid-19 Vaccine () [facility] Start: 06-30-2024 Covid-19 Vaccine ( season) Covid-19 Vaccine ( season) [facility] Start: 06-30-2024 Influenza vaccination Influenza Vacc ine (#1) [facility] Start: 04-28-2024 Influenza vaccination Influenza Vacc ine (#1) [facility] Comment on above: Postponed from 06/30 (Declined at this time) Start: 03-08-2024 CHLAMYDIA SCREENING (18-24) CHLAMYDIA SCREENING (18-24) [facility] Start: 03-08-2024 GC (GONORRHEA) SCREE JOSE (18-24) GC (GONORRHEA) SCREENING (18-24) [facility] Start: 03-08-2024 Screening for Chlamy octavio trachomatis Chlamydia Screening (18-) [facility] Start: 06-30-2023 Influenza vaccination [facility] Start: 06-30-2023 Influenza vaccinatio n given INFLUENZA VACCINE (#1) [facility] Start: 04-14-2023 Adult depression screening assessment DEPRESSION SCREENING [facility] Start: 03-30-2023 End: 05-30-2023 Bacteria identified in Urine by Culture [facility] [employer] Work Phone: Comment on above: Expected: 03/30/2023 , Expires: 05/30/2023 Start: 03-12-2023 Adult depression screening assessment DEPRESSION SCREENING [facility] Start: 2022 ANNUAL WELLNESS VISIT ANNUAL WELLNES S VISIT [facility] Start: 2022 CHLAMYDIA SCREENING (18-24) CHLAMYDIA SCREENING (18-24) [facility] Start: 2022 GC (GONORRHEA) SCREE JSOE (18-24) GC (GONORRHEA) SCREENING (18-24) [facility] Start: 2022 HEPATITIS C SCREENING HEPATITIS C [facility] Start: 2022 Hepatitis C screening Hepatitis C [facility] Start: 2022 HIV SCREENING HIV SCREENING [facility] Start: 2022 HIV screening HIV Screening [facility] Start: 06-30-2022 Influenza vaccination INFLUENZ A (Season Ended) [facility] Start: 05-10-2022 CHLAMYDIA SCREENING (<18) CHLAMYDIA SCREENING (<18) [facility] Start: 05-10-2022 GC (GONORRHEA) SCREE JOSE (<18) GC (GONORRHEA) SCREENING (<18) [facility] Start: 03-18-2022 Adult depression screening assessment DEPRESSION SCREENING [facility] Start: 06-30-2021 Influenza vaccination INFLUENZA (#1) [facility] Start: 2020 Meningococcal B Vacc ine: Consider Based On Risk (1 of 2 - Patient Seeks Protection) Meningococcal B Vaccine: Consider Based On Risk (1 of 2 - Patient Seeks Protection) [facility] Start: 2020 Screening for Chlamy octavio trachomatis CHLAMYDIA SCREENING [facility] Start: 2018 PEDS TO ADULT TRANSI TION ANNUAL ASSESSMENT PEDS TO ADULT TRANSITION ANNUAL ASSESSMENT [facility] Start: 2016 Depression screening using PHQ-9 (Patient Health Questionnaire 9) score DEPRESSION SCREENING [facility] Start: 2016 PEDS TO ADULT TRANSI TION INITIAL DISCUSSION PEDS TO ADULT TRANSITION INITIAL DISCUSSION [facility] Start: 2014 MENINGOCOCCAL B: Consider based on risk (1 of 2 - Risk Bexsero 2-dose series) MENINGOCOCCAL B: Consider based on risk (1 of 2 - Risk Bexsero 2-dose series) [facility] Start: 2009 COVID-19 VACCINE (#1) COVID-19 VACCI NE (#1) [facility] Start: 2009 COVID-19 VACCINE (1) COVID-19 VACCIN E (1) [facility] Start: 03-10-2005 COVID-19 VACCINE (#1) COVID-19 VACCI NE (#1) [facility] Bacteria identified in Urine by Culture URINE CULTURE Microbiology Routine Urinary frequency 03/08/2023 6:20 PM EDT [facility] Work Phone: BACTERIAL VAGINOSIS AMPLIFICATION BACTERIAL VAGINOSIS AMPLIFICATION Lab Routine Vaginal discharge 03/30/2023 9:55 AM EDT [facility] Work Phone: EDDI / TRICHOMONA S AMPLIFICATION EDDI / TRICHOMONAS AMPLIFICATION Microbiology Routine Vaginal discharge 03/08/2023 6:20 PM EDT [facility] Work Phone: EDDI / TRICHOMONA S AMPLIFICATION EDDI / TRICHOMONAS AMPLIFICATION Microbiology Routine Vaginal discharge 03/30/2023 9:55 AM EDT [facility] Work Phone: Chlamydia trachomatis+Neisseria gonorrhoeae DNA [Presence] in Unspecified specimen by MARCO ANTONIO with probe detection GC/CHLAMYDIA DNA DET Lab Routine Vaginal discharge 03/08/2023 6:20 PM EDT [facility] Work Phone: COVID & INFLUENZA A/ B & RSV PCR, ROUTINE COVID & INFLUENZA A/B & RSV PCR, ROUTINE Microbiology Routine Acute cough URI, acute 08/08/2024 10:33 AM EDT [facility] Work Phone: [facility] Immunizations Immunization Date Immunization Notes Care Provider Fa regino 01-15-2021 meningococcal polysaccharide (groups A, C, Y and W-135) diphtheria toxoid conjugate vaccine (MCV4P) Jacob Rodriguez MD Work Phone: [facility] 12-24-2019 Human Papillomavirus 9-valent vaccine Jacob Rodriguez MD Work Phone: [facility] 09-04-2017 meningococcal polysaccharide (groups A, C, Y and W-135) diphtheria toxoid conjugate vaccine (MCV4P) Jacob Rodriguez MD Work Phone: [facility] Work Phone: 05-11-2017 Human Papillomavirus 9-valent vaccine Jacob Rodriguez MD Work Phone: [facility] 05-11-2017 tetanus toxoid, redu cristian diphtheria toxoid, and acellular pertussis vaccine, adsorbed Jacob Rodriguez MD Work Phone: [facility] 11-04-2011 influenza virus vacc ine, live, attenuated, for intranasal use Jacob Rodriguez MD Work Phone: [facility] Work Phone: 11-04-2011 influenza virus vacc ine, unspecified formulation Jacob Rodriguez MD Work Phone: [facility] 01-13-2010 diphtheria, tetanus toxoids and acellular pertussis vaccine Jacob Rodriguez MD Work Phone: [facility] Work Phone: 01-13-2010 measles, mumps and rubella virus vaccine Jacob Rodriguez MD Work Phone: [facility] Work Phone: 01-13-2010 poliovirus vaccine, inactivated Jacob Rodriguez MD Work Phone: [facility] Work Phone: 01-13-2010 varicella virus vaccine Jacob Rodriguez MD Work Phone: [facility] Work Phone: 11-23-2009 influenza virus vacc ine, live, attenuated, for intranasal use Jacob Rodriguez MD Work Phone: [facility] Work Phone: 10-24-2008 influenza virus vacc ine, live, attenuated, for intranasal use Jacob Rodriguez MD Work Phone: [facility] 09-24-2008 influenza virus vacc ine, live, attenuated, for intranasal use Jacob Rodriguez MD Work Phone: [facility] Work Phone: 01-27-2006 diphtheria, tetanus toxoids and acellular pertussis vaccine Jacob Rodriguez MD Work Phone: [facility] Work Phone: 01-27-2006 haemophilus influenz ae type b vaccine, HbOC conjugate Jacob Rodriguez MD Work Phone: [facility] Work Phone: 01-27-2006 measles, mumps and rubella virus vaccine Jacob Rodriguez MD Work Phone: [facility] Work Phone: 01-27-2006 pneumococcal conjuga te vaccine, 7 valent Jacob Rodriguez MD Work Phone: [facility] Work Phone: 01-27-2006 varicella virus vaccine Jacob Rodriguez MD Work Phone: [facility] Work Phone: 03-11-2005 DTaP-hepatitis B and poliovirus vaccine Jacob Rodriguez MD Work Phone: [facility] Work Phone: 03-11-2005 haemophilus influenz ae type b vaccine, HbOC conjugate Jacob Rodriguez MD Work Phone: [facility] Work Phone: 03-11-2005 pneumococcal conjuga te vaccine, 7 valent Jacob Rodriguez MD Work Phone: [facility] Work Phone: 01-11-2005 diphtheria, tetanus toxoids and acellular pertussis vaccine, unspecified formulation Jacob Rodriguez MD Work Phone: [facility] 01-11-2005 DTaP-hepatitis B and poliovirus vaccine Jacob Rodriguez MD Work Phone: [facility] Work Phone: 01-11-2005 haemophilus influenz ae type b vaccine, HbOC conjugate Jacob Rodriguez MD Work Phone: [facility] Work Phone: 01-11-2005 pneumococcal conjuga te vaccine, 7 valent Jacob Rodriguez MD Work Phone: [facility] Work Phone: 01-11-2005 poliovirus vaccine, inactivated Jacob Rodriguez MD Work Phone: [facility] 2004 DTaP-hepatitis B and poliovirus vaccine Jacob Rodriguez MD Work Phone: [facility] Work Phone: 2004 haemophilus influenz ae type b vaccine, HbOC conjugate Jacob Rodriguez MD Work Phone: [facility] Work Phone: 2004 pneumococcal conjuga te vaccine, 7 valent Jacob Rodriguez MD Work Phone: [facility] Work Phone: 2004 hepatitis B vaccine, pediatric or pediatric/adolescent dosage Jacob Rodriguez MD Work Phone: [facility] Work Phone: Payers Date Payer Category Payer Private Health Insurance [id number] 2025 Self-pay 2023 Medicaid [id number] 2023 Unknown [id number] 2023 Private Health Insurance [facility] [id number] 2023 Private Health Insurance [id number] 2023 Unknown [id number] 2019 Unknown [facility] [id number] 2019-Present [phone] [address] [place] [id number] PPO [id number] 2019 Unknown [facility] [id number] 2019-Present [phone] [address] [place] [id number] PPO [id number] 2017 Private Health Insurance [facility] [id number] 2004 Unknown [id number] 51 2004 Unknown [id number] 2.16.840.1.936503.3.579.2.6 51 2004 Unknown [id number] 2.16.840.1.126183.3.579.2.6 51 2004 Unknown [id number] 2.16.840.1.559333.3.579.2.6 51 2004 Unknown [id number] 2.16.840.1.873005.3.579.2.2 1980 Unknown [id number] 2.16.840.1.812501.3.579.2.6 1980 Unknown [id number] 2.16.840.1.145211.3.579.2.6 1980 Unknown [id number] 2.16.840.1.880217.3.579.2.6 1980 Unknown [id number] 2.16.840.1.143395.3.579.2.6 1980 Unknown [id number] 2.16.840.1.072543.3.579.2.6 1980 Unknown [id number] 2.16.840.1.206786.3.579.2.6 1980 Unknown [id number] 2.16.840.1.732769.3.579.2.6 1980 Unknown [id number] 2.16.840.1.856392.3.579.2.6 1980 Unknown [id number] 2.16.840.1.051856.3.579.2.6 1980 Unknown [id number] 2.16.840.1.063945.3.579.2.6 27 Unknown [id number] 2.16.840.1.684487.3.579.2.4 62 Unknown [id number] 2.16.840.1.996813.3.579.2.4 62 Unknown [id number] 2.16.840.1.044447.3.579.2.4 62 Unknown [id number] 2.16.840.1.511029.3.579.2.4 62 Unknown [id number] 2.16.840.1.141448.3.579.2.4 62 Social History Date Type Detail Facility Start: 03-08-2023 End: 11-16-2023 Tobacco smoking status NHIS Never smoked tobacco [facility] Start: 01-20-2022 End: 07-27-2023 Alcohol intake Not Asked [facility] Start: 02-20-2012 End: 03-08-2023 Tobacco Comment outdoors [facility] Start: 2004 Sex Assigned At Not on file [facility] Start: 01-10-2022 End: 04-14-2022 Exposure to SARS-CoV-2 (event) Not sure [facility] Start: 03-11-2022 History SDOH Physical Activity DPW 0 [facility] Start: 03-11-2022 History SDOH Financial 4 [facility] Start: 03-11-2022 History SDOH Food Worry 1 [facility] Start: 03-11-2022 History SDOH Transport Med 2 [facility] Tobacco smoking status No Smokin g Status Entered [facility] Sex Assigned At [facility] Start: 2004 Sex Assigned At Female [facility] History of tobacco use Passive smoker [facility] Start: 03-08-2023 End: 01-21-2024 Tobacco use and exposure Smokeless tobacco non-user [facility] Start: 07-27-2023 End: 08-14-2023 History of Social function [facility] Start: 07-27-2023 End: 08-14-2023 Tobacco use panel [facility] How hard is it for y ou to pay for the very basics like food, housing, medical care, and heating Not very hard [facility] (I/We) worried whepreeti er (my/our) food would run out before (I/we) got money to buy more. Never true [facility] In the past 12 month s, has lack of transportation kept you from medical appointments or from getting medications? No [facility] In the past 12 month s, was there a time when you were not able to pay the mortgage or rent on time? No [facility] Start: 04-07-2022 Gender identity Identifies as female gender (finding) [facility] Start: 04-07-2022 Sexual orientation Heterosexual (finding) [facility] Start: 08-16-2023 End: 12-01-2024 Alcohol intake Ex-drinker (finding) [facility] Are you now , , , , never or living with a partner? Living with partner [facility] How often to you hav e a drink containing alcohol? Never [facility] Do you feel stress - tense, restless, nervous, or anxious, or unable to sleep at night because your mind is troubled all the time - these days [OSQ] Very much [facility] Start: 03-05-2023 [facility] Start: 01-21-2024 Alcohol intake Current drinker of alcohol (finding) [facility] Start: 03-01-2017 Sex Female (finding) [facility] Functional Status Date Assessment Result Facility 11-16-2023 Functional Status Standard Safet y ID band on, Call device within reach, Bed in low position, Wheels locked, Upper/Half-Length side-rails up, Phone within reach, personal items within reach, Non-Slip footwear [facility] 06-26-2023 Functional Status Independent [facility] 06-26-2023 Functional Status ID band on, Call device within reach, Bed in low position, Wheels locked, Upper/Half-Length side-rails up, Visitor at bedside [facility] 04-12-2022 Functional Status Independent [facility] 04-11-2022 Functional Status ID band on, Call device within reach, Bed in low position, Wheels locked, Visitor at bedside [facility] Mental Status Date Assessment Result Facility 06-26-2023 Mental Status Orientation Oriented x 4 [facility] 06-26-2023 Mental Status [facility] 04-12-2022 Mental Status Orientation Oriented x 4 [facility] 04-11-2022 Mental Status [facility] Clinical Notes 04-19-2011 to 12-01-2024 Ravi Nazario PA - 12/01/2024 8:16 AM ESTPatient InstructionsCarlos Alberto Donovan MD - 08/16/2024 6:50 PM EDTTelephone Encounter - Black Brock MA - 08/09/2024 7:26 AM EDT Note Date & Type Note Facility 12-01-2024 Note HNO ID: [id number] Author: RAVI NAZARIO PA Service: ? Author Type: Physician Packing And Stamping Machine Operator Type: Progress Notes Filed: 12/01/2024 08:17 Note Text: This note was created using MyWishBoard. Subjective Sherif Licona is a 19 year [...] detail warranting prompt ER evaluation. NISA Mendez [facility] 12-01-2024 History of Present illness Narrative This note was created using MyWishBoard. Subjective Sherif Licona is a 19 year [...] evaluation. NISA Mendez documented in this encounter [facility] 12-01-2024 Instructions Ravi Nazario PA - 12/01/2024 [...] thin out mucus documented in this encounter [facility] 08-16-2024 Note HNO ID: [id number] Author: CARLOS ALBERTO DONOVAN MD Service: ? [...] as needed analgesia. Carlos Alberto Donovan MD [facility] 08-16-2024 History of Present illness Narrative [...] Alberto Donovan MD documented in this encounter [facility] 08-09-2024 Telephone encounter Note Patient has viewed results on Kopjrat. Black Brock MA [facility] 08-09-2024 Miscellaneous Notes Patient has viewed results on Kopjrat. Black Brock MA Negative COVID flu RSV documented in this encounter [facility] 08-08-2024 Telephone encounter Note Negative COVID flu RSV [facility] Work Phone: 08-08-2024 History of Present illness [...] PATIENT PRESENTS WITH AN IMPLANTABLE OR ATTACHED SANDBLASTER PAINT SPRAYER: No RADIOLOGY DEPARTMENT: General X-ray: Exam(s) Completed: Chest X-Ray PERIPHERAL IV DATA: Not applicable SIGNED BY: RT Chelita(Kylah) August 08, 2024 10:24 AM documented in this encounter [facility] 08-08-2024 Note HNO ID: [id number] Author: HU NEAL RT(R) Service: Radiology Author [...] PATIENT PRESENTS WITH AN IMPLANTABLE OR ATTACHED SANDBLASTER PAINT SPRAYER: No RADIOLOGY DEPARTMENT: General X-ray: Exam(s) Completed: Chest X-Ray PERIPHERAL IV DATA: Not applicable SIGNED BY: EVERARDO Merlos) August 08, 2024 10:24 AM [facility] 08-08-2024 Note HNO ID: [id number] Author: DENISE HOGAN APRN.[employer] Service: ? Author Type: Nurse Practitioner Type: Progress Notes Filed: 08/08/2024 11:59 Note Text: This note was created using Case Commonsriter. Subjective Sherif Licona is a 18 year [...] history is provided by the patient. No sign language interpreter was used. URI She complains of cough [...] membranes are moist. (more content not included)... [facility] 08-08-2024 History of Present illness Narrative This note was created using MyWishBoard. Subjective Sherif Licona is a 18 year [...] history is provided by the patient. No sign language interpreter was used. URI She complains of cough [...] or worsen. Trisha Busch Student TEACHING PROVIDER (Physician/PA/FORENSIC NURSE) NOTE OF PERSONAL INVOLVEMENT IN CARE: I have personally seen and examined the patient and performed the medical decision-making components. I have reviewed the Advanced Practice Registered Nurse (FORENSIC NURSE) Student's documentation and verified the findings in the note as written. Any additions or changes are noted in bold/italics. Signature: Denise Hogan Date: 08/08/2024 Time: 11:39 AM documented in this encounter [facility] 07-16-2024 Note HNO ID: [id number] Author: RISA HAUSER APRN.YANICK Service: ? 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 Since last office visit has been in good health. Had baby boy 8 months ago. Doing well Taking Zoloft as prescribbed without side effects. Works well to control symptoms. Not currently attending counseling. Denies SI, HI or insomnia Will be working at [email or web address] . 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 Patient advised if symptoms do not improve or if symptoms worsen sooner, to contact their primary care physician. Potential red flag symptoms discussed with the patient. Reviewed appropriate action plan to take if red flag symptoms occur. Patient agreeable to treatment plan. 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 Since last office visit has been in good health. Had baby boy 8 months ago. Doing well Taking Zoloft as prescribbed without side effects. Works well to control symptoms. Not currently attending counseling. Denies SI, HI or insomnia Will be working at [email or web address] . 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 documented in this encounter [facility] 01-21-2024 Emergency department Note Dc instructions reviewed. Questions answered. Pt ready for DC. [facility] 01-21-2024 Emergency department Note Dc instructions reviewed. Questions answered. Pt ready for DC. Patient to ED room 5 for dental infection. Reports having cavities filled and gums cut 2 weeks ago. States she had puss coming out. Patient is alert and oriented, resp easy and unlabored, NAD, skin p/w/d. GCS 15. documented in this encounter [facility] 01-21-2024 Emergency department Triage note Patient to ED room 5 for dental infection. Reports having cavities filled and gums cut 2 weeks ago. States she had puss coming out. Patient is alert and oriented, resp easy and unlabored, NAD, skin p/w/d. GCS 15. [facility] 11-16-2023 Hospital Discharge instructions Patient Education 11/16/2023 [...] crackers, bananas, Jell-O, cooked carrots, applesauce. ___ Foster diet. Avoid caffeine, chocolate, alcohol, spiced/greasy foods. [...] the nearest Emergency Room for assistance. Form [id number] D: 10/07 Document Released: 10/16/2006 Document Revised: 10/04/2012 Document Reviewed: 10/16/2006 ExitCare Patient Information 2012 [employer]. Follow Up Care 11/16/2023 13:07:01 With:IDRIS KOCH APRN-CNM Address: [address], [address] Dr. Keith Haney, [place] [address]- [phone] When: Unknown Comments:Follow-up as scheduled [facility] 11-11-2023 Hospital Discharge instructions Patient Education 11/11/2023 [...] 03/23/2018 Document Revised: 07/16/2018 Document Reviewed: 03/23/2018 Tern Patient Education 2020 [employer]. 11/11/2023 02:25:58 Asher Newby Contractions Madison Newby Contractions Contractions of the uterus can occur throughout , but they are not always a sign that you are in labor. You may have practice contractions called Asher Newby contractions. These false labor contractions are sometimes confused with true labor. What are Asher Newby contractions? Madison Newby contractions are tightening movements that occur in the muscles of the uterus before labor. Unlike true labor contractions, these contractions do not result in opening (dilation) and thinning of the cervix. Toward the end of (32 34 weeks), Madison Newby contractions can happen more often and [...] false labor. You may continue to have Madison Newby contractions until you go into true [...] thin. Follow these instructions at home: Take ihdg-meq-wngturn and prescription medicines only as told by your health care provider. Keep up with your usual exercises and follow other instructions from your health care provider. Eat and drink lightly if you think you are going into labor. If Madison Newby contractions are making you uncomfortable: ?Change [...] Newby contractions, false labor, or practice contractions. Madison Newby contractions are usually shorter, weaker, farther apart, and less regular than true labor contractions. True labor contractions usually become progressively stronger and regular, and they become more frequent. Manage discomfort from Madison Newby contractions by changing position, resting in a warm bath, drinking plenty of water, or practicing deep breathing. This information is not intended to replace advice given to you by your health care provider. Make sure you discuss any questions you have with your health care provider. Document Released: 03/01/2018 Document Revised: 09/28/2018 Document Reviewed: 03/01/2018 Tern Patient Education 2019 [employer]. Follow Up Care 11/10/2023 23:58:54 With:Follow up with primary care provider Address:Unknown When: Unknown With:Go to emergency room if symptoms worsen Address:Unknown When: Unknown [facility] 09-06-2023 Evaluation + Plan note Diagnostic Tests PendingRapid Plasma Reagin Test 09/06/23 [facility] 08-16-2023 History of Present illness Narrative 08/16/2023 [...] a boy. Following with Idris Castanon at [facility] Past medical, surgical, family, social hx, medications, [...] follow-up with OB as scheduled Risa Podlogar, MADDI.LUMBER CARRIER Prescription instructions reviewed with patient as applicable. [...] which included preparing to see the patient, axsm-[id number] patient care, completing clinical documentation, obtaining and/or reviewing separately obtained history, performing a medically appropriate examination, counseling and educating the patient/family/caregiver, and ordering medications, tests, or procedures. documented in this encounter [facility] 08-03-2023 Miscellaneous Notes Reason for Disposition [1] [...] 26 Protocols used: - Vision Loss or [id number] documented in this encounter [facility] 07-27-2023 History of Present illness Narrative Patient presents with: dent on head: Noticed it today. No known injury that could of caused it. Anxiety: stopped taking meds (now and Overall anxiety raised by medical concerns and concerns about ) has appt with psych next week. [facility]. will also set up with [...] which included preparing to see the patient, [id number] patient care, completing clinical documentation, performing a medically appropriate examination, and counseling and educating the patient/family/caregiver. Jacob Rodriguez MD documented in this encounter [facility] 06-26-2023 Hospital Discharge instructions Patient Education 06/26/2023 [...] face You have trouble talking or seeing [id number] [employer]. [address] [place] [address], [place] [address]. All rights reserved. This information is not intended as a substitute for professional medical care. Always follow your healthcare professional's instructions. Follow Up Care 06/26/2023 16:13:13 With:JACOB RODRIGUEZ MD Address: [address] [place] [address] When:2-[address] [facility] Note Discharge Instructions Thank you for allowing [facility] to assist you with your healthcare needs. The following is important discharge information regarding your hospital visit. Diagnosis from Today's Visit Headache What to Do Next Instructions from Your Care Team No qualifying data available. Post Acute Orders No qualifying data available. You Need to Schedule the Following Appointments Follow Up with JACOB RODRIGUEZ MD When Within 2-4 days Where: [address] [place] [place] [address] Allergies NKA Medications Please ask your [...] may report side effects to FDA at 6-029-GND-7095. What other drugs will affect metoclopramide? Using [...] may affect metoclopramide. This includes prescription and mzfb-jol-kkdhivo medicines, vitamins, and herbal products. Not all [...] to ensure that the information provided by [employer]') is accurate, up-to-date, and complete, but no guarantee is made to that effect. Drug information contained herein may be time sensitive. [employer] information has been compiled for use by healthcare practitioners and consumers in the [place] and therefore [employer] does not warrant that uses outside of the [place] are appropriate, unless specifically indicated otherwise. [employer] drug information does not endorse drugs, diagnose patients or recommend therapy. [employer] drug information is an informational resource designed [...] effective or appropriate for any given patient. [employer] does not assume any responsibility for any aspect of healthcare administered with the aid of information [employer] provides. The information contained herein is not intended to cover all possible uses, directions, precautions, warnings, drug interactions, allergic reactions, or adverse effects. If you have questions about the drugs you are taking, check with your doctor, nurse or pharmacist. Copyright 9467-0413 [employer] Version: 14.. Revision Date: 06/07/2023. Education Materials [...] face You have trouble talking or seeing 9802-8036 [employer]. [address] [place] [address], [place] [address]. All rights reserved. This information is not intended as a substitute for professional medical care. Always follow your healthcare professional's instructions. Additional Information VACCINATE! IT SAVES LIVES! Members of the community who have not yet received the COVID-19 vaccine and would like to receive it can visit one of [facility] vaccine clinics. There are many vaccine clinic locations within the [facility]. For locations and available times, please visit [email or web address] [email or web address] It is important to note that some COVID mobile vaccine clinics are held outdoors and may be canceled in rainy or stormy conditions. To learn more about pediatric vaccinations (ages 5-11), we invite you to visit the [employer] webpage. [email or web address]://[email or web address].[email or web address]/pa marlys/7079-Yadsx-Fvcwtrmymdi-Freque xndo-Uogva-Swywqazyi.html To learn more about the COVID-19 vaccine, we invite you to visit the CDC website for a list of frequently asked questions. https://www.cdc.gov/coronavirus/2 019-ncov/vaccines/faq.html [facility] Patient Portal Access Instructions: Stay connected with your healthcare team and access your personal medical information anytime with the [facility] Patient Portal. If you would like a full copy of your medical records please contact the [facility] Medical Records Department Monday through Monday between 8a.m. and 4:30p.m. Please follow the directions below to access the portal: 1.Access the email account you provided upon registration to the [facility].2.Look for an invitation email from [facility].3.Open the email and access the invitation link: Accept Invitation to [facility]4.Fill in the required olson to create your account. Sign into [email or web address] with your username and password that you [...] you will allow to register on the [facility] Patient Portal for access to your information. You can also access the [facility] Patient Portal on the [employer]. Simply click on "Health Records" under "Health Data" and then click on the [employer] logo. HOW TO SAFELY DISPOSE OF PRESCRIPTION [...] Call your local pharmacy or go to [email or web address] to find one close to you.3.Make use of household items: Use cat litter or old coffee grounds to dispose medications if other options are not available. Mix your drugs with these household products, seal them in an airtight container and throw it into the garbage. Call [facility]: [phone] to be sure your drugs can be [...] aware that I should contact my doctor. 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 documented in this encounter [facility] 03-30-2023 Miscellaneous Notes Addended by: SOPHIA JAIMES on: 03/30/2023 10:03 AM Modules accepted: Orders documented in this encounter [facility] 03-30-2023 Instructions Sophia Jaimes APRN.CNP - 03/30/2023 [...] have an infection. documented in this encounter [facility] 03-30-2023 History of Present illness Narrative Subjective [...] Sophia Jaimes APRN.YANICK documented in this encounter [facility] 03-09-2023 Miscellaneous Notes Patient notified and verbalized understanding of instructions given.Yolanda Alston LPN Phone call placed, brief message to contact a nurse to review results, [facility] on 03/09/2023. Jannet Montgomery LPN [...] those are positive. documented in this encounter [facility] 03-08-2023 History of Present illness Narrative This note was created using MyWishBoard. Subjective Sherif Licona is a 17 year [...] Exam Vitals reviewed. Exam conducted with a certified nurse present (valdemar ZARCO). Constitutional: Appearance: Normal appearance. [...] Roxana Rodriguez PA-C documented in this encounter [facility] 04-14-2022 History of Present illness Narrative PEDIATRIC [...] TIME: 10:09 AM documented in this encounter [facility] 04-12-2022 Evaluation + Plan note Diagnostic Tests PendingUrine Culture 04/12/22 [facility] 04-12-2022 Hospital Discharge instructions Patient Education 04/12/2022 02:37:50 AA Meenakshi BAH (CUSTOM) Result type:CT Abd/Pelvis w/ IV Contrast Only Result date:April 12, 2022 1:48 EDT Result status:In Progress Result title:CT ABD/PELVIS W/ IV CONTRAST ONLY Performed by:DANIELA JACK DO on April 12, 2022 1:43 EDT Cosigned by:DANIELA JACK DO Encounter info:[id number], [facility], Emergency, 04/11/2022 - Contributor system:MOGL * Preliminary Report * [id number] ORIGINAL EXAMINATION: CT OF THE ABDOMEN AND [...] Document Reviewed: 10/17/2014 ExitCare Patient Information 2015 [employer]. This information is not intended to replace [...] and water are not available, use alcohol-based farm advisor to keep from spreading the infection to [...] Yellow color of the eyes or skin 5479-4072 [employer]. [address] [place] [address]. All rights reserved. This information is not [...] foods again, start with small amounts of rmae-gu-krqrku, low-fat foods. These include apple sauce, toast, [...] increase stomach acid. Don't use aspirin or xwmf-iss-whqhppj pain and fever medicines, if possible. This includes nonsteroidal anti-inflammatory drugs (NSAIDs). Lose excess weight. Finish eating at least 2 hours before you go to bed or lie down. Raise the head of your bed. 9709-7681 [employer]. [address] [place] [address]. All rights reserved. This information is not intended as a substitute for professional medical care. Always follow your healthcare professional's instructions. Follow Up Care 04/11/2022 21:10:00 With:Go to emergency room if symptoms worsen Address:Unknown When:2-4 days With:JACOB RODRIGUEZ MD Address: [address] [place] [address] When:2-4 days [facility] 03-12-2022 Instructions Jacob Rodriguez MD - 03/12/2022 [...] - Call the National Suicide Hotline at 4-525-BOMYYID ( ) or 2-915-143TALK (2531) - Text 4hope to 425224 Self harm Test HOME to 370043 Call 4-947-SDHS-CUT - Proper diet, exercise, sleep hygiene, and [...] Here's an article about bright light therapy: https://www.[facility].edu/files /webfm-uploads/documents/outreach /im/handout_light_therapy.pdf Establish a regular relaxing [...] electronic and social media use in children: www.Devtapa.org Socialization: Remember that we grow through healthy [...] Talk by Amairani Ruvalcaba and Mariola Preston. http://[facility].nm.us/uplo ads//72589272/djh-gf-tphi- mn-lymi-uozo-listen.pdf Finally, it's okay to ask youth if they are having thoughts of suicide. If they are, remain present with them and seek professional support by using the numbers above. documented in this encounter [facility] 05-14-2022 History of Present illness Narrative PEDIATRIC [...] TIME: 9:39 AM documented in this encounter [facility] 02-14-2022 Miscellaneous Notes The following approved medication [...] Called and verified with pharmacist Chuck at [facility]. They did not receive this on 01/20) Requesting 30 day supply Retail pharmacy updated: Completed Patient aware RX will be sent to pharmacy. No need to notify patient. Immunizations due: COVID-19 VACCINE(1) Never done MENINGOCOCCAL B: Consider based on risk(1 of 2 - Risk Bexsero 2-dose series) Never done Lilliana Garcia RN documented in this encounter [facility] 02-14-2022 Miscellaneous Notes Mom notified Rx has refills left to fill. documented in this encounter [facility] 01-20-2022 History of Present illness Narrative PEDIATRIC [...] TIME: 2:20 PM documented in this encounter [facility] 04-19-2011 History of Past i llness Narrative Problem Noted Date Resolved Date ADD (attention deficit disorder) 04/19/2011 01/20/2022 documented as of this encounter (statuses as of 01/20/2022) [facility] History of Past illness Narrative* Problem Noted Date Resolved Date ADD (attention deficit disorder) 04/19/2011 01/20/2022 documented as of this encounter (statuses as of 02/14/2022) [facility] of Past illness Narrative* Problem Noted Date Resolved Date ADD (attention deficit disorder) 04/19/2011 01/20/2022 documented as of this encounter (statuses as of 02/14/2022) [facility] of Past illness Narrative* Problem Noted Date Resolved Date ADD (attention deficit disorder) 04/19/2011 01/20/2022 documented as of this encounter (statuses as of 03/12/2022) [facility] of Past illness Narrative* Problem Noted Date Resolved Date ADD (attention deficit disorder) 04/19/2011 01/20/2022 documented as of this encounter (statuses as of 04/14/2022) [facility] of Past illness Narrative* Problem Noted Date Resolved Date ADD (attention deficit disorder) 04/19/2011 01/20/2022 documented as of this encounter (statuses as of 03/09/2023) [facility] of Past illness Narrative* Problem Noted Date Resolved Date ADD (attention deficit disorder) 04/19/2011 01/20/2022 documented as of this encounter (statuses as of 03/10/2023) [facility] of Past illness Narrative* Problem Noted Date Resolved Date ADD (attention deficit disorder) 04/19/2011 01/20/2022 documented as of this encounter (statuses as of 03/30/2023) [facility] of Past illness Narrative* Problem Noted Date Resolved Date ADD (attention deficit disorder) 04/19/2011 01/20/2022 documented as of this encounter (statuses as of 03/31/2023) [facility] of Past illness Narrative* Problem Noted Date Diagnosed Date Resolved Date ADD (attention deficit disorder) 04/19/2011 01/20/2022 documented as of this encounter (statuses as of 07/28/2023) [facility] of Past illness Narrative* Problem Noted Date Diagnosed Date Resolved Date ADD (attention deficit disorder) 04/19/2011 01/20/2022 documented as of this encounter (statuses as of 08/05/2023) [facility] of Past illness Narrative* Problem Noted Date Diagnosed Date Resolved Date ADD (attention deficit disorder) 04/19/2011 01/20/2022 documented as of this encounter (statuses as of 08/16/2023) [facility] note* Diagnosis Depressive disorder- Primary Depressive disorder, not elsewhere classified AMEYA (generalized anxiety disorder) Generalized anxiety disorder [facility] Diagnosis Depressive disorder- Primary Depressive disorder, not elsewhere classified AMEYA (generalized anxiety disorder) Generalized anxiety disorder [facility] Diagnosis Urinary frequency- Primary Vaginal discharge Leukorrhea, not specified as infective [facility] Diagnosis Dysuria- Primary Vaginal discharge Leukorrhea, not specified as infective [facility] Diagnosis Nonintractable episodic headache, unspecified headache type- Primary AMEYA (generalized anxiety disorder) Generalized anxiety disorder [facility] Diagnosis Encounter to establish care- Primary Other reasons for seeking consultation Anxiety and depression Dysthymic disorder , unspecified gestational age [facility] Diagnosis Dental infection- Primary Acute apical periodontitis of pulpal origin [facility] Diagnosis Routine physical examination- Primary Routine general medical examination at a health care facility Anxiety and depression Dysthymic disorder documented in this encounter [facility] note* Diagnosis Acute cough- Primary URI, acute Acute upper respiratory infections of unspecified site Acute otitis media, right Unspecified otitis media Acute cough documented in this encounter [facility] note* Diagnosis Acute cough documented in this encounter [facility] note* Diagnosis Acute otitis media, left- Primary Unspecified otitis media documented in this encounter [facility] note* Diagnosis URI, acute- Primary Acute upper respiratory infections of unspecified site documented in this encounter [facility] course Narrative No data available for this section [facility] Hospital Discharge instructions No data available for this section [facility] Discharge instructions* Attachments The following attachments cannot be sent through Care Everywhere. * Tooth: Abscessed (Irish French) [facility] No data available for this section [facility] Reason for Referral Specialty Diagnoses / Procedures Referred By Radha mckeon Referred To Contact INTERNAL MEDICINE Diagnoses Nonintractable episodic headache, unspecified headache type AMEYA (generalized anxiety disorder) Procedures ESTABLISH WITH PRIMARY CARE NEW PATIENT OFFICE/OUTPATIENT [facility] 60-74 MINUTES Jacob Rodriguez MD [address] [place] [address] [facility] [address] [place] [address] Referral ID Status Reason Start Date Expiration Date Visits Requested Visits Authorized [id number] Authorized PCP Requested Referral 07/27/2023 07/26/2024 1 [...] or prosecute any alcohol or drug abuse patient.[facility] the event this information is protected by the Federal Confidentiality of Alcohol and Drug Abuse Patient Records regulations: The Federal rules restrict any use of the information to criminally investigate or prosecute any alcohol or drug abuse patient.[facility] the event this information is protected by the Federal Confidentiality of Alcohol and Drug Abuse Patient Records regulations: The Federal rules restrict any use of the information to criminally investigate or prosecute any alcohol or drug abuse patient.[facility] the event this information is protected by the Federal Confidentiality of Alcohol and Drug Abuse Patient Records regulations: The Federal rules restrict any use of the information to criminally investigate or prosecute any alcohol or drug abuse patient.[facility] the event this information is protected by the Federal Confidentiality of Alcohol and Drug Abuse Patient Records regulations: The Federal rules restrict any use of the information to criminally investigate or prosecute any alcohol or drug abuse patient.[facility] Center[facility] the event this information is protected by the Federal Confidentiality of Alcohol and Drug Abuse Patient Records regulations: The Federal rules restrict any use of the information to criminally investigate or prosecute any alcohol or drug abuse patient.[facility] Center[facility] the event this information is protected by the Federal Confidentiality of Alcohol and Drug Abuse Patient Records regulations: The Federal rules restrict any use of the information to criminally investigate or prosecute any alcohol or drug abuse patient.[facility] Center[facility] the event this information is protected by the Federal Confidentiality of Alcohol and Drug Abuse Patient Records regulations: The Federal rules restrict any use of the information to criminally investigate or prosecute any alcohol or drug abuse patient.[facility] CenterIn the event this information is protected by the Federal Confidentiality of Alcohol and Drug Abuse Patient Records regulations: The Federal rules restrict any use of the information to criminally investigate or prosecute any alcohol or drug abuse patient.[facility] CenterIn the event this information is protected by the Federal Confidentiality of Alcohol and Drug Abuse Patient Records regulations: The Federal rules restrict any use of the information to criminally investigate or prosecute any alcohol or drug abuse patient.[facility] CenterIn the event this information is protected by the Federal Confidentiality of Alcohol and Drug Abuse Patient Records regulations: The Federal rules restrict any use of the information to criminally investigate or prosecute any alcohol or drug abuse patient.[facility] CenterIn the event this information is protected by the Federal Confidentiality of Alcohol and Drug Abuse Patient Records regulations: The Federal rules restrict any use of the information to criminally investigate or prosecute any alcohol or drug abuse patient.[facility] CenterIn the event this information is protected by the Federal Confidentiality of Alcohol and Drug Abuse Patient Records regulations: The Federal rules restrict any use of the information to criminally investigate or prosecute any alcohol or drug abuse patient.[facility] CenterIn the event this information is protected by the Federal Confidentiality of Alcohol and Drug Abuse Patient Records regulations: The Federal rules restrict any use of the information to criminally investigate or prosecute any alcohol or drug abuse patient.[facility] CenterIn the event this information is protected by the Federal Confidentiality of Alcohol and Drug Abuse Patient Records regulations: The Federal rules restrict any use of the information to criminally investigate or prosecute any alcohol or drug abuse patient.[facility] CenterIn the event this information is protected by the Federal Confidentiality of Alcohol and Drug Abuse Patient Records regulations: The Federal rules restrict any use of the information to criminally investigate or prosecute any alcohol or drug abuse patient.[facility] CenterIn the event this information is protected by the Federal Confidentiality of Alcohol and Drug Abuse Patient Records regulations: The Federal rules restrict any use of the information to criminally investigate or prosecute any alcohol or drug abuse patient.[facility] CenterIn the event this information is protected by the Federal Confidentiality of Alcohol and Drug Abuse Patient Records regulations: The Federal rules restrict any use of the information to criminally investigate or prosecute any alcohol or drug abuse patient.[facility] Reason for Visit (unrecogniz ed section and [...] NEW/ESTAB PATIENT 15 MIN Jacob Rodriguez MD [address] [place] [address] Peds [facility] [address] [place] [address] Referral ID Status Reason Start Date Expiration Date Visits Requested Visits Authorized [id number] Pending Review OON/Self Pay Override 07/27/2023 01/23/2024 1 1 Reason Comments vision change Reason Comments Transition Of Care Specialty Diagnoses / Procedures Referred By Radha mckeon Referred To Contact INTERNAL MEDICINE Diagnoses Nonintractable episodic headache, unspecified headache type AMEYA (generalized anxiety disorder) Procedures ESTABLISH WITH PRIMARY CARE NEW PATIENT OFFICE/OUTPATIENT [facility] MDM 60-74 MINUTES Jacob Rodriguez MD [address] [place] [address] [facility] [address] [place] [address] Referral ID Status Reason Start Date Expiration Date V isits Requested Visits Authorized [id number] Closed PCP Requested Referral 07/27/2023 07/26/2024 1 1 Reason Comments Dental Pain Reason Comments 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 Reason Comments Chest Congestion Nasal congestion, co ugh, SOB, burning in chest, sore throat, headache x 6 days Reason Comments Ear Pain LEFT ear feels muffl ed x 1 day Reason Comments Cough Congestion, coughing up mucus, runny nose x 2 days Care Teams (unrecognized sec tion and content) Clothing Pattern Preparer Relationship Specialty Start Date End Date Jacob Rodriguez MD [address] [place] [address] PCP - General 01/04/05 Clothing Pattern Preparer Relationship Specialty Start Date End Date Jacob Rodriguez MD [address] [place], [place] [id number] PCP - General 01/04/05 Clothing Pattern Preparer Relationship Specialty Start Date End Date Jacob Rodriguez MD [address] [place], [place] [id number] PCP - General 01/04/05 Clothing Pattern Preparer Relationship Specialty Start Date End Date Jacob Rodriguez MD [address] [place] [address] PCP - General 01/04/05 Clothing Pattern Preparer Relationship Specialty Start Date End Date Jacob Rodriguez MD [address] [facility] [place] [address] PCP - General 01/04/05 Clothing Pattern Preparer Relationship Specialty [place] [address] [place] [address] [place] [address] PCP - General 01/04/05 Clothing Pattern Preparer Relationship Specialty [place] [address] [place] [address], [place] [address] PCP - General 01/04/05 Clothing Pattern Preparer Relationship Specialty [place] [address] [place] [address] PCP - General 01/04/05 Clothing Pattern Preparer Relationship Specialty Start Date End Date Risa Hauser APRN.LUMBER CARRIER [address] [place] [id number] PCP - General Family Medicine 08/02/23 Clothing Pattern Preparer Relationship Specialty [place] [address] [place] [id number] PCP - General Family Medicine 08/16/23 Clothing Pattern Preparer Relationship Specialty Start Date End Date Abhi Bailey MD [address] [facility] [place] [address] PCP - General Family Medicine 08/16/23 Clothing Pattern Preparer Relationship Specialty Start Date End Date Abhi Bailey MD [address] [place] [address] PCP - General Family Medicine 08/16/23 Clothing Pattern Preparer Relationship Specialty Start Date End Date Abhi Bailey MD [address] [place], [place] [id number] PCP - General Family Medicine 08/16/23 Clothing Pattern Preparer Relationship Specialty Start Date End Date bAhi Bailey MD [address] [place], [place] [id number] PCP - General Family Medicine 08/16/23 Clothing Pattern Preparer Relationship Specialty Start Date End Date Abhi Bailey MD [address] [place], [place] [id number] PCP - General Family Medicine 08/16/23 Risa Hauser APRN.LUMBER CARRIER [address] [place], [place] [id number] Revenue Cycle Manager Family Medicine 10/05/24 INFORMATION SOURCE (unrecogn ized section and content) DATE CREATED AUTHOR 11/21/2023 [facility] ([place]) DATE CREATED AUTHOR AUTHOR'S ORGANIZ ATION 11/22/2023 [facility] DATE CREATED AUTHOR AUTHOR'S ORGANIZ ATION 01/21/[address] [facility] DATE CREATED AUTHOR AUTHOR'S ORGANIZ ATION 12/02/2024 [facility] DATE CREATED AUTHOR AUTHOR'S ORGANIZ ATION 06/22/2025 [facility] DATE CREATED AUTHOR AUTHOR'S ORGANIZ ATION 08/30/2025 [facility] Scheduled Active and Recently Administ ered [...] BE BASED ON THE PRIMARY CLINICAL RECORDS. [facility] [employer] [facility]. provides no warranty or guarantee of the accuracy or completeness of information in this document.
[2025-10-27] MEDS: Lactated Ringers 1,000 ML 999 ML IV (20:18)
[2025-10-27] MEDS: Oxytocin 15 Units/NS 250ml 15 UNITS/250 ML IV.SOLN 334 UNITS IV (22:03)
--- NOTE | 2025-10-27 22:19 | HP.PCM.OB_ITS ---
HPI - General General Date of Admission: 10/27/25 HPI Narrative DIVYA LICONA, is a 20 F who presents @ 39 weeks presents IAL no vb lof good fm Maternal Data Information IVETTE Calculator Estimated Delivery Date Method Current WG Current Estimate 11/01/25 LMP (Certain) 39w 2d PFSH PFSH Medical History (Updated 10/27/25 @ 22:[address] Mignon Young MD) Family history of hearing loss at age younger than 7 years Anxiety Depression Gestational diabetes Home Medications Medication Instructions Recorded Last Taken Type PNV 153-FA 400 mcg-om3 35 mg-dha 1 tab PO DAILY pregna ncy 08/14/25 10/26/25 History 25 mg-epa 5 mg-fish oil chew tablet citalopram 10 mg tablet 10 mg PO QDAY 08/14/2510/26 History Allergy/AdvReac Type Severity Reaction Status Date / Time No Known Allergies Allergy Verified 10/27/25 10:42 Family History Grandmother Diabetes Paternal Cancer, Onset Age: 65 Paternal Lung & brain cancer- Smoker Grandfather Myocardial infarction Paternal Surgical History Howes teeth extracted History of tonsillectomy Social History adopted: No household members: children number of children: 1 current occupational status: employed current occupation: [employer] current occupational exposures/hazards: No pets and animals: Yes (Avoid litterbox- Pt wears gloves, mask and washes hands after. ) pets and animals: cat(s) history of recent travel: No sexually active: Yes Smoking Status: Former smoker quit date: 01/28/25 Electronic Cigarette Use: with nicotine quit status: quit date established alcohol intake: never substance use type: does not use well-balanced diet: about half the time caffeine: Yes (occasional) Type: carbonated beverages Number of servings: 1 and coffee Number of servings: 1 eating out: rarely or never during the past year weight has: decreased > 10 lbs what type of physical activity do you participate in: none neeta/orthodox: Anglican seatbelt use: always do you feel safe at home: Yes additional social history: Does not wish to list FOB History 2 Elective abortions Hx Para 1 Spontaneous abortions Hx # Term Pregnancies Ectopic pregnancies Hx # Pregnancies Multiple births # of living children 1 Past Pregnancies Del. Date Name GA/Weeks Outcome Route Bth Weight Gen Labor Lgth Anesthesia Del Locatn Provider FOB 11/16/23 Yoni 38 live - full term 7#10oz Male none Tia Bowen Delivery Date: 11/16/23 Last Updated by: Debbie Keenan GDM Visit Details Expected Delivery Route/Plan Labor Preferences- CB/BF classes: [] labor support person: [] labor intervention preferences: [] pain management options preferred: [] cut cord/dad catch: [] : [] PP control planned: [] discussed possible routes of delivery and associated risks: [] special requests: [] Plans Covid status: [] Flu vaccine: decline Tdap vaccine: decline Rhogam: patient and fetus both Rh neg LARC form signed: yes Problem list reviewed and updated with the most current plan of care details and appropriate orders placed. Relevant counseling for the gestational age provided. Continue routine care and follow up unless otherwise noted in visit notes/problem list details OB Flowsheet Initial Weight: 172 lb Date - - - - - - - - - - - - - EGA Weight BP Urine Prot - - - - - - - - - - - - - Glucose FHR FuHt Pres Dilation - - - - - - - - - - - - - Effaced St Visit Note 08/29/25 - - - - - - - - - - - - - 30w 6d 172 lb 9 oz (+9 oz) 113/75 Negative - - - - - - - - - - - - - Negative 135 30 - - - - - - - - - - - - - KW- TERRANCE from My OBGYN. appears hep C was not drawn with NOB labs.-ordered. rest reviewed and normal. Normal glucose. declines tdap and flu. LARC today. 09/12/25 - - - - - - - - - - - - - 32w 6d 171 lb 2 oz (-14 oz) 111/75 Negative - - - - - - - - - - - - - Negative 125 32 - - - - - - - - - - - - - SM- no vb lof go od fm n oregular ctx reviewed NIPT showed rh neg fetus per patient so rhogam wasn't given will make sure this is enetered 09/24/25 - - - - - - - - - - - - - 34w 4d 176 lb 3 oz (+4 lb 3 oz) 106/72 Negative - - - - - - - - - - - - - Negative 140 34 - - - - - - - - - - - - - MH-No VB or CTX. Dec FM-NST reactive. Discussed kick counts. 10/10/25 - - - - - - - - - - - - - 36w 6d 181 lb 5 oz (+9 lb 5 oz) 117/67 Negative - - - - - - - - - - - - - Negative 130 37 Cephalic 0 - - - - - - - - - - - - - KW- no vb/lof/ct x. good fm GBS today-spec exam and culture for vaginal itching. will try Monistat 10/15/25 - - - - - - -- - - - - - - 37w 4d 180 lb 7 oz (+8 lb 7 oz) 119/73 Negative - - - - - - - - - - - - - Negative 145 39 Cephalic 3 .5 - - - -- - - - - - - - - - 80 -2 JV- GBS ne g. measuring large and has h/o gdm with prior preg. if ac is >90th% will need repeat GCT. 10/20/25 - - - - - - - - - - - - - 38w 2d 181 lb 7 oz (+9 lb 7 oz) 121/89 Negative - - - - - - - - - - - - - Negative 140 38 Cephalic 4 - - - - - - - - - - - - - 80 -1 KW- no vb/ lof/ctx. good fm. NST FHR Rate Baby A Baseline: 140 Variability:: Moderate Accelerations:: 15 x 15 Decelerations:: None NST Reactive:: Yes FHR Category:: Category I Uterine Activity:: q3-5 ROS Constitutional Constitutional: Reports systems reviewed and no addt'l complaints, except as documented ENT HEENT: Reports systems reviewed and no addt'l complaints, except as documented Cardiovascular Cardiovascular: Reports systems reviewed and no addt'l complaints, except as documented Respiratory/Chest Respiratory/Chest: Reports systems reviewed and no addt'l complaints, except as documented Gastrointestinal Gastrointestinal: Reports systems reviewed and no addt'l complaints, except as documented and nausea; Denies abdominal pain Genitourinary Genitourinary: Reports systems reviewed and no addt'l complaints, except as documented, contractions Details: present and frequency (regular ) and movement Details: present Musculoskeletal Musculoskeletal: Reports systems reviewed and no addt'l complaints, except as documented Integumentary Integumentary: Reports as per HPI Neurologic Neurologic: Reports systems reviewed and no addt'l complaints, except as documented Endocrine Endocrinology: Reports systems reviewed and no addt'l complaints, except as documented Vital Signs Vital Signs Vital Signs: 10/27/25 10:31 10/27/25 10:31 10/27/25 10:31 Temperature Temperature Source Temporal Pulse Rate Respiratory Rate 16 Blood Pressure BP Systolic BP Diastolic Pulse Ox 98 10/27/25 10:31 10/27/25 10:35 10/27/25 10:35 Temperature 97.4 F L Temperature Source Pulse Rate 74 Respiratory Rate Blood Pressure 135/86 H BP Systolic 135 BP Diastolic 86 Pulse Ox 10/27/25 10:35 10/27/25 16:49 10/27/25 16:49 Temperature Temperature Source Pulse Rate 85 Respiratory Rate Blood Pressure 133/81 H BP Systolic 133 BP Diastolic 81 Pulse Ox 96 10/27/25 16:49 10/27/25 16:49 10/27/25 16:49 Temperature 97.8 F Temperature Source Temporal Pulse Rate Respiratory Rate 16 Blood Pressure BP Systolic BP Diastolic Pulse Ox 10/27/25 18:47 10/27/25 18:47 10/27/25 18:47 Temperature Temperature Source Temporal Pulse Rate 75 Respiratory Rate Blood Pressure 123/82 H BP Systolic 123 BP Diastolic 82 Pulse Ox 10/27/25 18:47 10/27/25 18:47 10/27/25 18:47 Temperature 97.7 F L Temperature Source Pulse Rate Respiratory Rate 16 Blood Pressure BP Systolic BP Diastolic Pulse Ox 98 10/27/25 19:09 10/27/25 19:09 10/27/25 19:09 Temperature Temperature Source Temporal Pulse Rate 122 H Respiratory Rate Blood Pressure 136/94 H BP Systolic 136 BP Diastolic 94 Pulse Ox 10/27/25 19:09 10/27/25 19:09 10/27/25 19:09 Temperature 98.2 F Temperature Source Pulse Rate Respiratory Rate 16 Blood Pressure BP Systolic BP Diastolic Pulse Ox 98 10/27/25 20:23 10/27/25 20:23 10/27/25 20:26 Temperature Temperature Source Pulse Rate 87 Respiratory Rate Blood Pressure 122/78 H BP Systolic 122 BP Diastolic 78 Pulse Ox 99 10/27/25 20:26 10/27/25 20:28 10/27/25 20:28 Temperature Temperature Source Pulse Rate 88 84 Respiratory Rate Blood Pressure BP Systolic BP Diastolic Pulse Ox 99 10/27/25 20:31 10/27/25 20:31 10/27/25 20:33 Temperature Temperature Source Pulse Rate 81 83 Respiratory Rate Blood Pressure 127/79 H BP Systolic 127 BP Diastolic 79 Pulse Ox 10/27/25 20:33 10/27/25 20:37 10/27/25 20:37 Temperature Temperature Source Pulse Rate 84 Respiratory Rate Blood Pressure 134/86 H BP Systolic 134 BP Diastolic 86 Pulse Ox 97 10/27/25 20:37 10/27/25 20:40 10/27/25 20:40 Temperature Temperature Source Pulse Rate 79 Respiratory Rate 16 Blood Pressure BP Systolic BP Diastolic Pulse Ox 98 10/27/25 20:40 10/27/25 20:43 10/27/25 20:43 Temperature Temperature Source Pulse Rate 89 Respiratory Rate 16 Blood Pressure 114/59 L BP Systolic 114 BP Diastolic 59 Pulse Ox 10/27/25 20:48 10/27/25 20:48 10/27/25 20:48 Temperature Temperature Source Pulse Rate 83 Respiratory Rate 16 Blood Pressure 140/82 H BP Systolic 140 BP Diastolic 82 Pulse Ox 10/27/25 20:52 10/27/25 20:52 10/27/25 20:52 Temperature Temperature Source Pulse Rate 82 Respiratory Rate 16 Blood Pressure 126/82 H BP Systolic 126 BP Diastolic 82 Pulse Ox 10/27/25 20:56 10/27/25 20:57 10/27/25 20:57 Temperature Temperature Source Pulse Rate 91 Respiratory Rate 16 Blood Pressure 128/85 H BP Systolic 128 BP Diastolic 85 Pulse Ox 10/27/25 21:01 10/27/25 21:01 10/27/25 21:01 Temperature Temperature Source Pulse Rate 88 Respiratory Rate 16 Blood Pressure 129/77 H BP Systolic 129 BP Diastolic 77 Pulse Ox 10/27/25 21:05 10/27/25 21:05 10/27/25 21:05 Temperature Temperature Source Pulse Rate 75 Respiratory Rate 16 Blood Pressure 132/83 H BP Systolic 132 BP Diastolic 83 Pulse Ox 10/27/25 21:10 10/27/25 21:10 10/27/25 21:10 Temperature Temperature Source Pulse Rate 85 Respiratory Rate 16 Blood Pressure BP Systolic BP Diastolic Pulse Ox 99 10/27/25 21:11 10/27/25 21:11 10/27/25 21:50 Temperature Temperature Source Pulse Rate 84 Respiratory Rate Blood Pressure 132/87 H 133/76 H BP Systolic 132 133 BP Diastolic 87 76 Pulse Ox 10/27/25 21:50 10/27/25 21:50 10/27/25 22:15 Temperature Temperature Source Temporal Pulse Rate 85 Respiratory Rate 16 Blood Pressure BP Systolic BP Diastolic Pulse Ox 10/27/25 22:15 10/27/25 22:15 10/27/25 22:16 Temperature 99.0 F Temperature Source Pulse Rate Respiratory Rate 16 Blood Pressure 134/83 H BP Systolic 134 BP Diastolic 83 Pulse Ox 10/27/25 22:16 10/27/25 22:17 10/27/25 22:17 Temperature Temperature Source Pulse Rate 102 H 110 H Respiratory Rate Blood Pressure BP Systolic BP Diastolic Pulse Ox 100 Weight Weight: 176 lb 12.8 oz Body Mass Index (BMI) 32.3 PRE- weight 145 lb PRE- Body Mass Index 26.5 (BMI) Physical Exam Const alert, oriented x3 and healthy appearing Constitutional Narrative: uncomfortable with contractions HEENT normocephalic and moist oral mucous membranes Head and Scalp: atraumatic Neck full ROM, no lymphadenopathy, supple and thyroid normal General: trachea midline Thyroid: thyroid normal Lymph Lymphatic: no lymphadenopathy noted Chest inspection of chest normal Resp normal respiratory effort Cardio regular rate GI soft to palpation and non-tender GI Narrative: gravid Inspection: gravid external exam normal Bimanual Exam - Vag & Uterus: uterus non-tender Manual OB Exam: estimated gestational size appropriate, presentation cephalic, dilated, effaced and station Extremity normal to inspection General Extremity: Negative for edema Skin no rashes or lesions noted Neuro deep tendon reflexes 2+ bilaterally Motor Exam: strength 5/5 throughout and clonus absent Psych mental status grossly normal Labs Labs Labs: Blood Type O NEGATIVE Antibody Screen NEGATIVE Hct, (37-47) 33.2 % L Hgb, (12.0-15.0) 10.7 g/dL L Obstetrics Ultrasound Syphilis Total Ab, (Nonreactive) Nonreactive Hepatitis C Antibody, (Nonreactive) Nonreactive Glucose 1 Hr 50 gm, (70-140) 110 mg/dL Assessment & Plan (1) Active labor at term: (2) Large for gestational age fetus affecting management of mother: (3) Supervision of high-risk : QUALIFIERS: Trimester: third trimester Qualified Code(s): O09.93 - Supervision of high risk , unspecified, third trimester COMMENT: PRR(outside records scanned), IVETTE 11/01/25, PC Yoni Does not want to publish FOB name (4) : QUALIFIERS: Weeks of gestation: 38 weeks Qualified Code(s): Z3A.38 - 38 weeks gestation of COMMENT: GBS neg, NIPT low risk, male (5) Rh negative status during : QUALIFIERS: Trimester: third trimester Qualified Code(s): O26.893 - Other specified related conditions, third trimester; Z67.91 - Unspecified blood type, Rh negative COMMENT: O-, Rhogam at 28 weeks NOT needed:baby is Rh negative. (6) Anxiety and depression: COMMENT: citalopram (7) Hx of gestational diabetes in prior , currently : PLAN: Plan admit IAL exp management
--- NOTE | 2025-10-27 22:20 | OB.VAGDELI_ITS ---
Assessment & Plan (1) Vaginal delivery: COMMENT: SM ial 39 chavo (2) Active labor at term: Maternal Data Information IVETTE Calculator Estimated Delivery Date Method Current WG Current Estimate 11/01/25 LMP (Certain) 39w 2d Vaginal Delivery Maternal Presentation Maternal Presentation: see assessment and plan Vaginal Delivery Information Procedure Performed: Spontaneous Vaginal Delivery Surgeon/Practitioner: Mignon Young Date of Procedure: 10/27/25 Pre-Procedure Diagnosis: ial Post-Procedure Diagnosis: same Type of anesthesia: Epidural Estimated Blood Loss: 100 Findings Description of procedure: Patient began pushing and delivered the head in the hans presentation. The head was delivered atraumatically . The anterior and posterior shoulders delivered without complication followed by the rest of the and the was placed on the maternal abdomen. Delayed cord clamping was employed for approximately 60 seconds. Cord was clamped and cut and gentle traction was applied to the cord and the placenta delivered spontaneously immediately following it was noted to be intact with three-vessel cord. The perineum and vagina were inspected and noted to have no laceration. EBL was 100 cc. Patient and tolerated delivery well. Presentation: Vertex Placental Delivery Description: Spontaneous Specimen collected: Yes Description of specimen(s) removed: placenta Rd Lab Technician warehouse associate driver: No Post Vaginal Deli Medications given after delivery: Other (pitocin) Complication Complications: No Multi Select Codes Urinary/Genital Urinary/Genital CPT Codes: 04212 Vaginal Delivery [facility]
--- NOTE | 2025-10-27 22:22 | DCINST_ITS ---
Discharge Instructions DC O2, CPAP, BIPAP needs Home O2 Discharge instructions: No Dressing / Incision Discharge Activity: Return to Normal Activity, May Not Drive (while taking narcotic pain medications.) and May Shower May resume sexual activity in: 4-6 weeks Dressing / Incision Call your doctor if your incision/area has: Continuous Slow Oozing, Sudden Increased Bleeding, Increased Pain/ Swelling, Increased Redness and Foul Smelling Discharge Follow Up Care Please Follow Up With: Mignon Young MD When: Call [phone] to make an appointment with your doctor in 6 weeks. If you had elevated blood pressure or 4th degree laceration, you will need to be seen in 2 weeks. Test Results: Test results from this visit will be discussed in further detail at your follow- up appointment, if applicable. Discharge Plan Admission Admit Date/Time: 10/27/25 15:10 Attending Provider: Mignon Young Primary Care Provider: Care Physician,Laquita Primary Discharge Orders/Prescriptions Prescriptions: No Action citalopram 10 mg tablet 10 mg PO QDAY PN no.[id number] 400 mcg-35 mg- 25 mg-5 mg tablet,chewable 1 tab PO DAILY Referrals / Follow Up: Care Physician,No Primary [Primary Care Provider, Medical]
[2025-10-27] MEDS: Oxytocin 15 Units/NS 250ml 15 UNITS/250 ML IV.SOLN 83 UNITS IV (22:33)
[2025-10-28] VITALS (11 sets, daily range): BP systolic 108–134; BP diastolic 57–85; PULSE 61–100; RESP 16; TEMP 36.5–36.7; O2SAT 96–98
--- NOTE | 2025-10-28 08:07 | PCM.PN.OB ---
Subjective Subjective Patient doing well without complaints. Tolerating PO. Ambulating and voiding without difficulty. Feeding well. Denies chest pain, shortness of breath, calf pain/swelling, fevers, chills, lightheadedness. Objective Data Objective Data Vital Signs: Vital Signs Temp Pulse Resp BP Pulse Ox 99.0 F 61 16 134/85 H 96 10/27/25 22:15 10/28/25 04:29 10/27/25 22:30 10/28/25 04:29 10/28/25 00:18 Weight: 176 lb 12.8 oz Body Mass Index (BMI) 32.3 Intake & Output: Intake and Output for Last 24 Hours 10/26/25 10/27/25 10/28/25 23:59 23:59 23:59 Intake Total 1083 / 1083 250 / 250 Output Total 100 / 100 275 / 275 Balance 983 / 983 - Lab / Micro Data Attestation: I reviewed the patient's lab results. 10/27/25 15:45 Labs: Laboratory Results - last 24 hr 10/27/25 15:45: WBC 9.4, RBC 4.30, Hgb 10.7 L, Hct 33.2 L, MCV 77.2 L, MCH 24.9 L, MCHC 32.2, RDW Std Deviation 41.1, RDW Coeff of Juan Carlos 15.2 H, Plt Count 280, MPV 11.4, Immature Gran % (Auto) 0.400, Neut % (Auto) 70.5 H, Lymph % (Auto) 18.2 L, [place] % (Auto) 10.3 H, Eos % (Auto) 0.5, Baso % (Auto) 0.1, Absolute Neuts (auto) 6.6, Absolute Lymphs (auto) 1.71, Nucleated RBC % 0, Syphilis Total Ab Nonreactive, Blood Type O NEGATIVE, Antibody Screen NEGATIVE ROS Constitutional Constitutional: Reports systems reviewed and no addt'l complaints, except as documented; Denies anorexia or headache(s) Cardiovascular Cardiovascular: Reports systems reviewed and no addt'l complaints, except as documented; Denies dizziness, dyspnea, nausea or tachypnea Respiratory/Chest Respiratory/Chest: Reports systems reviewed and no addt'l complaints, except as documented; Denies cough, dyspnea, shortness of breath at rest or tachypnea Gastrointestinal Gastrointestinal: Reports systems reviewed and no addt'l complaints, except as documented; Denies abdominal pain, constipation or nausea Genitourinary Genitourinary: Reports systems reviewed and no addt'l complaints, except as documented; Denies burning urination, difficulty urinating, dysuria, urinary frequency or urinary incontinence Musculoskeletal Musculoskeletal: Reports systems reviewed and no addt'l complaints, except as documented Integumentary Integumentary: Reports systems reviewed and no addt'l complaints, except as documented Neurologic Neurologic: Reports systems reviewed and no addt'l complaints, except as documented; Denies abnormal speech, dizziness or headache(s) Psychiatric Psychiatric: Reports systems reviewed and no addt'l complaints, except as documented Endocrine Endocrinology: Reports systems reviewed and no addt'l complaints, except as documented Hematologic/Lymphatic Hematologic/Lymphatic: Reports systems reviewed and no addt'l complaints, except as documented Physical Exam Const alert, oriented x3 and no apparent distress Neck full ROM Resp normal respiratory effort, normal air movement and no retractions Effort and Inspection: able to speak in complete sentences and symmetric chest movement GI soft to palpation Bladder / Kidney Exam: bladder normal to palpation Uterus Palpation: uterus fundus firm Extremity normal to inspection and full ROM Psych mental status grossly normal, thought process normal and cooperative Assessment & Plan (1) Vaginal delivery: COMMENT: ial [address] [place] PLAN: s/p PPD # 1 1. routine post delivery care 2. breast feeding- support given 3. rh positive 4. rubella immune (2) Active labor at term: (3) Large for gestational age fetus affecting management of mother: (4) Anemia in preg-unspec: QUALIFIERS: Trimester: third trimester Qualified Code(s): O99.013 - Anemia complicating , third trimester COMMENT: add fe (5) History of vaping: (6) Hx of cold sores: (7) Supervision of high-risk : QUALIFIERS: Trimester: third trimester Qualified Code(s): O09.93 - Supervision of high risk , unspecified, third trimester COMMENT: PRR(outside records scanned), IVETTE 11/01/25, PORTIA [place] Does not want to publish FOB name (8) : QUALIFIERS: Weeks of gestation: 38 weeks Qualified Code(s): Z3A.38 - 38 weeks gestation of COMMENT: GBS neg, NIPT low risk, male (9) Rh negative status during : QUALIFIERS: Trimester: third trimester Qualified Code(s): O26.893 - Other specified related conditions, third trimester; Z67.91 - Unspecified blood type, Rh negative COMMENT: O-, Rhogam at 28 weeks NOT needed:baby is Rh negative. (10) Anxiety and depression: COMMENT: citalopram (11) Hx of gestational diabetes in prior , currently : Charges/Coding Multi Select Codes Urinary/Genital Urinary/Genital CPT Codes: No Charge
[2025-10-29 02:51] VITALS: BP 113/58; PULSE 67; RESP 16; TEMP 36.5; O2SAT 97
--- NOTE | 2025-10-29 07:48 | PCM.PN.OB ---
Subjective Subjective Patient doing well without complaints. Tolerating PO. Ambulating and voiding without difficulty. Feeding well. Denies chest pain, shortness of breath, calf pain/swelling, fevers, chills, lightheadedness. Objective Data Objective Data Vital Signs: Vital Signs Temp Pulse Resp BP Pulse Ox O2 Del Method 97.7 F L 67 16 113/58 L 97 Room Air 10/29/25 02:51 10/29/25 02:51 10/29/25 02:51 10/29/25 02:51 10/29/25 02:51 10/29/25 02:51 Oxygen Delivery Method Room Air Weight: 176 lb 12.8 oz Body Mass Index (BMI) 32.3 Intake & Output: Intake and Output for Last 24 Hours 10/27/25 10/28/25 10/29/25 23:59 23:59 23:59 Intake Total 1083 / 1083 250 / 250 Output Total 100 / 100 775 / 775 Balance 983 / 983 -525 / -525 Lab / Micro Data 10/27/25 15:45 Physical Exam Const alert and oriented x3 HEENT normocephalic Eyes PERRL Neck full ROM Resp normal respiratory effort GI soft to palpation GI Narrative: FF below U Assessment & Plan (1) Vaginal delivery: COMMENT: SM ial 39 chavo (2) Rh negative status during : QUALIFIERS: Trimester: third trimester Qualified Code(s): O26.893 - Other specified related conditions, third trimester; Z67.91 - Unspecified blood type, Rh negative COMMENT: O-, Rhogam at 28 weeks NOT needed:baby is Rh negative. PLAN: Plan s/p PPD # 1. routine post delivery care 2. breast feeding- support given 3. rh negative mom and 4. rubella immune 5. home today
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
[2025-10-29 09:27] VITALS: BP 123/58; PULSE 66; RESP 16; TEMP 36.6; O2SAT 99
== END 2025-10-29 11:05 | disposition home or self-care (01) | DRG 807 ==
LOC: WPOUT 10-28 11:37
PROVIDERS: Admitting Provider Obstetrics & Gynecology; Referring Provider Obstetrics & Gynecology; Visit Provider Obstetrics & Gynecology
DX: O36.63X0 Maternal care for excessive fetal growth, third trimester, not applicable or unspecified (principal); Z37.0 Single live birth; O99.344 Other mental disorders complicating childbirth; F32.A Depression, unspecified; F41.9 Anxiety disorder, unspecified; O99.02 Anemia complicating childbirth; O26.893 Other specified pregnancy related conditions, third trimester; Z67.91 Unspecified blood type, Rh negative; Z87.59 Personal history of other complications of pregnancy, childbirth and the puerperium; Z87.891 Personal history of nicotine dependence; Z3A.39 39 weeks gestation of pregnancy; Z79.899 Other long term (current) drug therapy
CPT/HCPCS: 59025; 59050; 85025; 86780; 86850; 86900; 86901; 99221; A4216; G0378